=== PATIENT | female | born 1985 | race Hispanic/Latino ===

== ENCOUNTER 2017-12-01 17:29 | Emergency (ER) | payer OTHER ==
[2017-12-01] MEDS ORDERED: MIDAZOLAM HCL 2 MG/2 ML INJ ONE ×2 (18:11)
[2017-12-01] MEDS ORDERED: FENTANYL CITR 100 MCG/2 ML ONE (18:22)
--- NOTE | 2017-12-01 18:43 | EDPHYS ---
Physician Documentation [facility] Name: November Arnulfo Age: 32 yrs Sex: Female : 1985 Arrival Date: 12/01/2017 Time: 17:39 Bed 23 Private MD: ED Physician Joseph Sotelo HPI: 12/01 18:32 This 32 yrs old Female presents to ER via Unassigned with complaints of jaw ma2 problem, Anxiety. 18:32 The patient or guardian reports had a seizure and here with bilateral jaw dislocation . ma2 Onset: The symptoms/episode began/occurred gradually, 1 hour(s) ago. Associated signs and symptoms: Pertinent negatives: dazed, double vision, headache. Severity of symptoms: At their worst the symptoms were severe, in the emergency department the symptoms are unchanged. The patient has experienced similar episodes in the past. 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 - Social history:: Patient/guardian denies using alcohol, street drugs, The patient lives with family, Smoking status: . - Family history:: not pertinent. ROS: 18:32 MS/extremity: Positive for jaw dislocation. ma2 18:32 Neuro: Positive for seizure activity. 18:32 All other systems are negative. Exam: 18:32 Constitutional: This is a well developed, well nourished patient who is awake, alert, ma2 and in no acute distress. Head/Face: Normocephalic, atraumatic. Eyes: Pupils equal round and reactive to light, extra-ocular motions intact. Lids and lashes normal. Conjunctiva and sclera are non-icteric and not injected. Cornea within normal limits. Periorbital areas with no swelling, redness, or edema. Chest/axilla: Normal chest wall appearance and motion. Nontender with no deformity. No lesions are appreciated. Cardiovascular: Regular rate and rhythm with a normal S1 and S2. No gallops, murmurs, or rubs. Normal PMI, no JVD. No pulse deficits. Respiratory: Lungs have equal breath sounds bilaterally, clear to auscultation and percussion. No rales, rhonchi or wheezes noted. No increased work of breathing, no retractions or nasal flaring. Back: No spinal tenderness. No costovertebral tenderness. Full range of motion. Neuro: Awake and alert, GCS 15, oriented to person, place, time, and situation. Cranial nerves II-XII grossly intact. Motor strength 5/5 in all extremities. Sensory grossly intact. Cerebellar exam normal. Normal gait. 18:32 ENT: bilat TMJ dislocation . 18:32 Psych: anxiety . 18:32 Skin: has abrasion of right chin, no katie tenderness. ma2 Vital Signs: 17:45 BP 143 / 94; Pulse 76; Resp 23; Temp 97.8; Pulse Ox 100% on R/A; aj1 18:35 BP 127 / 85; Pulse 68; Resp 12; Pulse Ox 100% on 2 lpm NC; aj1 19:53 BP 133 / 75; Pulse 72; Resp 18; Pulse Ox 99% ; aj1 [place] Coma Score: 18:32 Eye Response: spontaneous(4). Verbal Response: oriented(5). Motor Response: obeys ma2 commands(6). Total: 15. 18:38 Eye Response: spontaneous(4). Verbal Response: oriented(5). Motor Response: obeys ma2 commands(6). Total: 15. Procedures: 18:32 Reduction: using traction, manipulation, Immobilized with layne wrap, Patient tolerated ma2 jaw dislocation. Moderate sedation: Pre-procedure assessment: Mallampati classification of tongue size: III - uvula can be visualized, but faucial pillars and soft palate are not appreciated, Monitoring during procedure: Medications employed: Fentanyl, Versed, Post-procedure assessment: the patient is moderately sedated, Respiratory status: even and unlabored, MDM: 17:51 Patient medically screened. ma2 18:38 Differential diagnosis: jaw dislocation, she states that she is out of her xanax and ma2 needs refill of her T3. Data reviewed: vital signs, nurses notes, EMS record, care home records. Counseling: I had a detailed discussion with the patient and/or guardian regarding: the historical points, exam findings, and any diagnostic results supporting the discharge/admit diagnosis, the presence of at least one elevated blood pressure reading (>120/80) during this emergency department visit, the need for outpatient follow up. Response to treatment: the patient's symptoms have mildly improved after treatment, the patient's symptoms have markedly improved after treatment. 18:38 Differential diagnosis: she was advised not to quit taking xanax suddenly, she takes it ma2 2 mg q8 for anxiety. Admission orders: after a detailed discussion of the patient's condition and case, the admit orders are written by me. Administered Medications: 17:50 CANCELLED (Physician Discretion): Versed 5 mg IVP once ma2 18:15 Drug: Versed 5 mg Route: IVP; Site: right antecubital; aj1 19:55 Follow up: Response: No adverse reaction aj1 18:20 Drug: Versed 5 mg Route: IVP; Site: right antecubital; aj1 19:55 Follow up: Response: No adverse reaction aj1 18:25 Drug: fentaNYL (PF) 50 mcg Route: IVP; Site: right antecubital; aj1 19:55 Follow up: Response: No adverse reaction [facility] 19:12 CANCELLED (pharmacy low on ketamine): Ketamine 50 mg IVP once aj1 Disposition: 12/01/17 18:43 Discharged to Home. Impression: Underdosing of benzodiazepines, Dislocation of jaw. - Condition is Stable. - Prescriptions for Tylenol- Codeine #3 300-30 mg Oral Tablet - take 2 tablet by ORAL route every 6 hours As needed; 30 tablet. Xanax 1 mg Oral Tablet - take 2 tablet by ORAL route every 8 hours As needed; 20 tablet. - Medication Reconciliation Form, Thank You Letter, Antibiotic Education, Prescription Opioid Use form. - Follow up: Private Physician; When: Tomorrow; Reason: Continuance of care. - Problem is new. - Symptoms are resolved. Signatures: Cristal Blum RN RN aj1 Joseph Sotelo MD MD ma2 Corrections: (The following items were deleted from the chart) 17:50 17:49 Versed 5 mg IVP once ordered. ma2 ma2 19:12 17:49 Ketamine 50 mg IVP once ordered. ma2 aj1
--- NOTE | 2017-12-01 19:56 | ER ---
Nurse's Notes [facility] Name: November Age: 32 yrs Sex: Female : 1985 Arrival Date: 12/01/2017 Time: 17:39 Bed 23 Private MD: Diagnosis: Underdosing of benzodiazepines;Dislocation of jaw Presentation: 12/01 17:39 Presenting complaint: Patient states: jaw stuck open after having a possible seizure. ss Transition of care: patient was not received from another setting of care. Onset of symptoms was December 01, 2017. Initial Sepsis Screen: Does the patient meet any 2 criteria? No. Patient's initial sepsis screen is negative. Does the patient have a suspected source of infection? No. Patient's initial sepsis screen is negative. Note Pt reports the last time she had a panic attack, something similar happened. Pt reports she is anxious now, and believes this is from anxiety. Care prior to arrival: None. 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 - Social history:: Patient/guardian denies using alcohol, street drugs, The patient lives with family, Smoking status: . - Family history:: not pertinent. Screenin:45 Abuse screen: Denies threats or abuse. Denies injuries from another. Nutritional aj1 screening: No deficits noted. Tuberculosis screening: No symptoms or risk factors identified. 19:54 Fall Risk None identified. aj1 Assessment: 17:45 General: Appears uncomfortable, Behavior is anxious, restless, uncooperative. Pain: aj1 Complains of pain in right jaw and left jaw Pain does not radiate. Pain currently is 10 out of 10 on a pain scale. Quality of pain is described as sharp, Pain began suddenly. Neuro: Level of Consciousness is awake, alert, obeys commands, Oriented to person, place, time, situation, Clinical Immunologist are equal bilaterally Moves all extremities. Full function Speech is normal, Facial symmetry appears normal. Cardiovascular: Patient's skin is warm and dry. Respiratory: Airway is patent Respiratory effort is even, unlabored, Respiratory pattern is regular, symmetrical. GI: No signs and/or symptoms were reported involving the gastrointestinal system. : No signs and/or symptoms were reported regarding the genitourinary system. EENT: No signs and/or symptoms were reported regarding the EENT system. Derm: Bruising that is on right caro. Musculoskeletal: jaw protruded forward. Patient's daughter states that she had a seizure and fell. 17:47 Reassessment: Dr. Sotelo at bedside to attempt to pull jaw back into place. Patient is aj1 anxious,restless, uncooperative with procedure. Order obtained for conscious sedation. Patient placed on monitoring tech, O2 2L, suction ready at bedside, crash cart available outside door. 17:50 Reassessment: Obtained consent for conscious sedation. aj1 18:15 Reassessment: Dr. Sotelo at bedside, beginning conscious sedation now, see flow sheet aj1 for more information. 18:35 Reassessment: Patient is awake and alert with family at the bedside. States that she aj1 had a seizure previously from withdrawing suddenly from benzos. Was instructed by her family doctor not to stop taking benzos suddenly but recently she didn't have enough money to fill her Rx so she has not been taking them. 19:53 Reassessment: Patient appears in no apparent distress at this time. No changes from aj1 previously documented assessment. Patient and/or family updated on plan of care and expected duration. Pain level reassessed. Patient is alert, oriented x 3, equal unlabored respirations, skin warm/dry/pink. Vital Signs: 17:45 BP 143 / 94; Pulse 76; Resp 23; Temp 97.8; Pulse Ox 100% on R/A; aj1 18:35 BP 127 / 85; Pulse 68; Resp 12; Pulse Ox 100% on 2 lpm NC; aj1 19:53 BP 133 / 75; Pulse 72; Resp 18; Pulse Ox 99% ; aj1 [place] Coma Score: 18:32 Eye Response: spontaneous(4). Verbal Response: oriented(5). Motor Response: obeys ma2 commands(6). Total: 15. 18:38 Eye Response: spontaneous(4). Verbal Response: oriented(5). Motor Response: obeys ma2 commands(6). Total: 15. ED Course: 17:39 Patient arrived in ED. ss 17:45 Patient has correct armband on for positive identification. Bed in low position. Call aj1 light in reach. Side rails up X 1. 17:45 Arm band placed on. aj1 17:45 No provider procedures requiring assistance completed. aj1 17:48 Joseph Sotelo MD is Attending Physician. ma2 18:46 Triage completed. ss 18:57 Cristal Blum, RN is Primary Nurse. aj1 19:54 IV discontinued, intact, bleeding controlled, No redness/swelling at site. Pressure aj1 dressing applied. Administered Medications: 17:50 CANCELLED (Physician Discretion): Versed 5 mg IVP once ma2 18:15 Drug: Versed 5 mg Route: IVP; Site: right antecubital; aj1 19:55 Follow up: Response: No adverse reaction aj1 18:20 Drug: Versed 5 mg Route: IVP; Site: right antecubital; aj1 19:55 Follow up: Response: No adverse reaction aj1 18:25 Drug: fentaNYL (PF) 50 mcg Route: IVP; Site: right antecubital; aj1 19:55 Follow up: Response: No adverse reaction aj1 19:12 CANCELLED (pharmacy low on ketamine): Ketamine 50 mg IVP once aj1 Outcome: 18:43 Discharge ordered by . ma2 19:55 Discharged to home ambulatory. aj1 19:55 Condition: good 19:55 Discharge instructions given to patient, Instructed on discharge instructions, follow up and referral plans. no drinking with medication, no driving heavy equipment, medication usage, Demonstrated understanding of instructions, follow-up care, medications, Prescriptions given X 2. 19:56 Patient left the ED. aj1 Signatures: Cristal Blum, RN SABRINA aj1 Sharona Parks RN RN Joseph Sotelo MD MD ma2
[2017-12-01 20:07] VITALS: TEMP 97.8
[2017-12-01 20:09] VITALS: BP 133/75; O2SAT 99
== END 2017-12-01 19:56 | disposition home or self-care (01) ==
LOC: ER 17:29
PROC: 0RSDXZZ Reposition Left Temporomandibular Joint, External Approach (ICD-10-PCS; principal; 2017-12-01)
DX: S03.00XA Dislocation of jaw, unspecified side, initial encounter (principal); X58.XXXA Exposure to other specified factors, initial encounter; Y92.9 Unspecified place or not applicable
CPT/HCPCS: 21480; 96374; 96375; 99284; J2250 ×2; J3010

== ENCOUNTER 2019-05-24 13:28 | Observation (INO) | payer OTHER ==
[2019-05-24] MEDS ORDERED: METHYLPREDNISOLONE 125 MG INJ ONE (14:01)
[2019-05-24] MEDS ORDERED: MEPERIDINE HCL 50 MG/ML ONE ×2 (14:02→16:14)
[2019-05-24] MEDS ORDERED: ONDANSETRON 4 MG/2 ML VIAL ONE (14:02)
[2019-05-24] MEDS ORDERED: NA CHLORIDE 0.9% 0 ML ONE (14:02)
[2019-05-24 14:20] LABS: Absolute Lymphocytes (CBC) 1.9 K/uL (0.7-4.9); Basophils % 0.8 % (0-1.3); Hematocrit 21.6 % (36.0-45.0); Lymphocytes % 25.6 % (15.3-44.8); MPV 9.1 fL (7.6-11.3); RBC Red Blood Cell Count 3.43 M/uL (3.86-4.86)
[2019-05-24 14:46] LABS: ALT/SGPT 14 U/L (12-78); AST/SGOT 9 U/L (15-37); Albumin 3.6 g/dL (3.4-5.0); Alkaline Phosphatase 74 U/L (45-117); BUN Blood Urea Nitrogen 10 mg/dL (7-18); Bicarbonate 25 mmol/L (21-32); Bilirubin Direct < 0.1 mg/dL (0-0.2); Bilirubin Total 0.2 mg/dL (0.2-1.0); Glucose Level 117 mg/dL (74-106); Lipase 108 U/L (73-393); Potassium 3.7 mmol/L (3.5-5.1); Protein, Total 7.6 g/dL (6.4-8.2); Sodium Level 141 mmol/L (136-145)
--- NOTE | 2019-05-24 15:02 | EDPHYS ---
Physician Documentation [facility] Name: Maribeth Arredondo Age: 33 yrs Sex: Female : 1985 Arrival Date: 05/24/2019 Time: 13:30 Bed 30 Private MD: ED Physician Bruno Bueno HPI: 05/24 13:53 This 33 yrs old Female presents to ER via Ambulatory with complaints of Rectal rn Bleeding, Dizziness, . 13:53 The patient presents to the emergency department with bleeding from the rectum/anus. rn Onset: The symptoms/episode began/occurred 2 week(s) ago. Modifying factors: The symptoms are alleviated by nothing, The symptoms are aggravated by bowel movement. The patient has experienced similar episodes in the past. Reports history of ulcerative colitis, reports 2 weeks of rectal bleeding with bowel movements, no fever, identical to previous UC flares, + nausea, denies trauma. Not on blood thinners. Feels weak and fatigue. Has required blood transfusion in past.. 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 - Social history:: Smoking status: Patient uses tobacco products, denies chronic smoking, but will smoke occasionally. - Ebola Screening: : No symptoms or risks identified at this time. - Family history:: not pertinent. - Hospitalizations: : No recent hospitalization is reported. ROS: 13:53 Constitutional: Negative for fever, chills, and weight loss, Eyes: Negative for injury, rn pain, redness, and discharge, Neck: Negative for injury, pain, and swelling, Cardiovascular: Negative for chest pain, palpitations, and edema, Respiratory: Negative for shortness of breath, cough, wheezing, and pleuritic chest pain, Abdomen/GI: Negative for vomiting, and constipation, MS/Extremity: Negative for injury and deformity, Skin: Negative for injury, rash, and discoloration, Neuro: Negative for numbness, tingling, and seizure. Exam: 13:53 Constitutional: This is a well developed, well nourished patient who is awake, alert rn Head/Face: Normocephalic, atraumatic. Eyes: Pupils equal round and reactive to light, pale conjunctivae ENT: dry MM Cardiovascular: Regular rate and rhythm. No pulse deficits. Respiratory: No increased work of breathing, no retractions or nasal flaring. Abdomen/GI: soft, + diffuse abd tenderness, no rebound MS/ Extremity: Pulses equal, no cyanosis. Neurovascular intact. Full, normal range of motion. Equal circumference. Neuro: Awake and alert, GCS 15 Vital Signs: 13:39 BP 134 / 84; Pulse 84; Resp 16; Temp 97.2; Pulse Ox 100% on R/A; Weight 72.57 kg; la1 Height 5 ft. 2 in. (157.48 cm); 14:30 BP 120 / 69; Pulse 80; Resp 16; Pulse Ox 96% on R/A; rv 15:00 BP 120 / 72; Pulse 81; Resp 16; Pulse Ox 96% on R/A; rv 13:39 Body Mass Index 29.26 (72.57 kg, 157.48 cm) la1 MDM: 13:43 Patient medically screened. rn 14:58 Differential diagnosis: ulcerative colitis flare, symptomatic anemia. Data reviewed: rn vital signs, nurses notes, lab test result(s), and as a result, I will admit patient. Counseling: I had a detailed discussion with the patient and/or guardian regarding: the historical points, exam findings, and any diagnostic results supporting the discharge/admit diagnosis, lab results, the need for further work-up and treatment in the hospital. Response to treatment: the patient's symptoms have mildly improved after treatment, and as a result, I will admit patient. Admission orders: after a detailed discussion of the patient's condition and case, the admit orders are written by me. ED course: Admitted to Dr. Landry for symptomatic anemia and intractable pain from UC flare.. 05/24 13:53 Order name: Basic Metabolic Panel; Complete Time: 14:58 rn 05/24 13:53 Order name: CBC with Diff; Complete Time: 16:52 rn 05/24 13:53 Order name: Hepatic Function; Complete Time: 14:58 rn 05/24 13:53 Order name: Lipase; Complete Time: 14:58 rn 05/24 14:39 Order name: Type And Screen rn 05/24 15:38 Order name: CBC Smear Scan; Complete Time: 16:52 EDMS 05/24 15:39 Order name: Procalcitonin EDIA 05/24 15:40 Order name: Ferritin EDMS 05/24 15:40 Order name: Transferrin Sat/Iron Binding EDMS 05/24 15:40 Order name: Abdomen 1 View (KUB); Complete Time: 16:52 EDMS 05/24 13:53 Order name: IV Saline Lock; Complete Time: 14:09 rn 05/24 13:53 Order name: Labs collected and sent; Complete Time: 14:09 rn Administered Medications: 14:08 Drug: NS 0.9% 1000 ml Route: IV; Rate: 1000 ml; Site: right antecubital; rv 14:59 Follow up: IV Status: Completed infusion rv 14:08 Drug: Demerol 50 mg {Note: rass 0.} Route: IVP; Site: right antecubital; rv 14:59 Follow up: Response: Pain is decreased rv 14:59 Follow up: Response: RASS: Alert and Calm (0) rv 14:08 Drug: SOLU-Medrol 125 mg Route: IVP; Site: right antecubital; rv 14:59 Follow up: Response: No adverse reaction rv 14:08 Drug: Zofran 4 mg Route: IVP; Site: right antecubital; rv 14:59 Follow up: Response: No adverse reaction rv 16:19 Drug: Demerol 50 mg {Note: rass 0.} Route: IVP; Site: right antecubital; rv 17:00 Follow up: Response: RASS: Alert and Calm (0) rv Disposition: 05/24/19 15:01 Hospitalization ordered by Lennie Landry for Inpatient Admission. Preliminary diagnosis are Other ulcerative colitis with complications, Anemia, unspecified. - Bed requested for Telemetry/MedSurg (Inpatient). - Status is Inpatient Admission. rv - Condition is Stable. - Problem is new. - Symptoms have improved. UTI on Admission? No Signatures: Dispatcher [employer] EDIA Chery Banks Roman, MD MD rn Attema, Lee RN SABRINA la1 Henrry Garcia RN RN rv Corrections: (The following items were deleted from the chart) 15:52 15:01 Hospitalization Ordered by Lennie Landry MD for Inpatient Admission. Preliminary bd diagnosis is Other ulcerative colitis with complications; Anemia, unspecified. Bed requested for Telemetry/MedSurg (Inpatient). Status is Inpatient Admission. Condition is Stable. Problem is new. Symptoms have improved. UTI on Admission? No. rn 16:53 15:52 05/24/2019 15:01 Hospitalization Ordered by Lennie Landry MD for Inpatient rv Admission. Preliminary diagnosis is Other ulcerative colitis with complications; Anemia, unspecified. Bed requested for Telemetry/MedSurg (Inpatient). Status is Inpatient Admission. Condition is Stable. Problem is new. Symptoms have improved. UTI on Admission? No. bd
--- NOTE | 2019-05-24 15:02 | ER ---
Nurse's Notes [facility] Name: Maribeth Arredondo Age: 33 yrs Sex: Female : 1985 Arrival Date: 05/24/2019 Time: 13:30 Bed 30 Private MD: Diagnosis: Other ulcerative colitis with complications;Anemia, unspecified Presentation: 05/24 13:40 Presenting complaint: Patient states: I have been having blood in my stool, hx if UC, la1 have not had flare in a long time. Transition of care: patient was not received from another setting of care. Onset of symptoms was May 24, 2019. Risk Assessment: Do you want to hurt yourself or someone else? Patient reports no desire to harm self or others. Initial Sepsis Screen: Does the patient meet any 2 criteria? No. Patient's initial sepsis screen is negative. Does the patient have a suspected source of infection? No. Patient's initial sepsis screen is negative. Care prior to arrival: None. 13:40 Method Of Arrival: Ambulatory la1 13:40 Acuity: SINGH 3 la1 Triage Assessment: 16:52 Headache History: Denies prior headaches. General: Appears in no apparent distress. rv uncomfortable, Behavior is calm, cooperative. Pain: Pain began suddenly, Also complains of no other associated symptoms. Pain: Complains of pain in abdomen. 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 - Social history:: Smoking status: Patient uses tobacco products, denies chronic smoking, but will smoke occasionally. - Ebola Screening: : No symptoms or risks identified at this time. - Family history:: not pertinent. - Hospitalizations: : No recent hospitalization is reported. Screenin:19 Abuse screen: Denies threats or abuse. Denies injuries from another. Nutritional rv screening: No deficits noted. Tuberculosis screening: No symptoms or risk factors identified. Fall Risk None identified. Assessment: 14:17 General: Appears in no apparent distress. uncomfortable, Behavior is calm, cooperative. rv Pain: Complains of pain in abdomen Pain currently is 10 out of 10 on a pain scale. Quality of pain is described as crampy, sharp, Is intermittent. Neuro: Level of Consciousness is awake, alert, obeys commands, Oriented to person, place, time, situation. Cardiovascular: Patient's skin is warm and dry. Respiratory: Airway is patent. GI: Reports lower abdominal pain, rectal bleeding. : No signs and/or symptoms were reported regarding the genitourinary system. EENT: No signs and/or symptoms were reported regarding the EENT system. Derm: Skin is pale. Musculoskeletal: No signs and/or symptoms reported regarding the musculoskeletal system. 15:05 Reassessment: Patient appears in no apparent distress at this time. Patient and/or rv family updated on plan of care and expected duration. Pain level reassessed. Patient is alert, oriented x 3, equal unlabored respirations, skin warm/dry/pink. patient updated on the plan of care and results of the blood works. Patient states feeling better. Vital Signs: 13:39 BP 134 / 84; Pulse 84; Resp 16; Temp 97.2; Pulse Ox 100% on R/A; Weight 72.57 kg; la1 Height 5 ft. 2 in. (157.48 cm); 14:30 BP 120 / 69; Pulse 80; Resp 16; Pulse Ox 96% on R/A; rv 15:00 BP 120 / 72; Pulse 81; Resp 16; Pulse Ox 96% on R/A; rv 13:39 Body Mass Index 29.26 (72.57 kg, 157.48 cm) la1 ED Course: 13:30 Patient arrived in ED. mr 13:39 Arm band placed on left wrist. la1 13:40 Triage completed. la1 13:43 Bruno Bueno MD is Attending Physician. rn 13:50 Henrry Garcia RN is Primary Nurse. rv 13:55 Inserted saline lock: 20 gauge in right antecubital area, using aseptic technique. rv Blood collected. 14:19 Patient has correct armband on for positive identification. Bed in low position. Call rv light in reach. Side rails up X 1. Adult w/ patient. Pulse ox on. NIBP on. 15:00 Lennie Landry MD is Hospitalizing Provider. rn 16:51 No provider procedures requiring assistance completed. Patient admitted, IV remains in rv place. Administered Medications: 14:08 Drug: NS 0.9% 1000 ml Route: IV; Rate: 1000 ml; Site: right antecubital; rv 14:59 Follow up: IV Status: Completed infusion rv 14:08 Drug: Demerol 50 mg {Note: rass 0.} Route: IVP; Site: right antecubital; rv 14:59 Follow up: Response: Pain is decreased rv 14:59 Follow up: Response: RASS: Alert and Calm (0) rv 14:08 Drug: SOLU-Medrol 125 mg Route: IVP; Site: right antecubital; rv 14:59 Follow up: Response: No adverse reaction rv 14:08 Drug: Zofran 4 mg Route: IVP; Site: right antecubital; rv 14:59 Follow up: Response: No adverse reaction rv 16:19 Drug: Demerol 50 mg {Note: rass 0.} Route: IVP; Site: right antecubital; rv 17:00 Follow up: Response: RASS: Alert and Calm (0) rv Outcome: 15:01 Decision to Hospitalize by Provider. rn 16:52 Admitted to Med/surg accompanied by tech, via stretcher, room 212, with chart, Report rv called to rocco agustin \E\ 16:52 Condition: good 16:52 Instructed on the need for admit. 16:53 Patient left the ED. rv Signatures: Penelope Garduno Roman, MD MD rn Attema, Lee, RN RN la1 Henrry Garcia RN RN rv
[2019-05-24 15:37] LABS: Blood Morphology Comment NOTED (NOT SEEN); Hypochromasia 2+; Platelet Estimate ADEQ; Urine White Blood Cell Casts OK
--- NOTE | 2019-05-24 15:47 | P.HP ---
Certification for Inpatient Patient admitted to: Observation With expected LOS: <2 Midnights Patient will require the following post-hospital care: None Practitioner: I am a practitioner with admitting privileges, knowledge of patient current condition, hospital course, and medical plan of care. Services: Services provided to patient in accordance with Admission requirements found in Title 42 Section 412.3 of the Code of Federal Regulations Patient History Date of Service: 05/24/19 Primary Care Provider: Dr. Stevenson([place]) Reason for admission: Abdominal pain History of Present Illness: 33-year-old female presented to the emergency room with abdominal pain. Patient reports history of ulcerative colitis, GERD, anxiety and posttraumatic stress disorder. Patient reports diffuse abdominal pain over the last 2 weeks. She also has reported some rectal bleeding. Patient has seen multiple GI specialists in the area. She has had multiple colonoscopies and EGDs. Previous record reviewed. Patient reported some nausea and vomiting along with abdominal pain. She was not able to the eat this morning. She came to the ER for further evaluation. In the ER patient evaluated. White count 7.3, hemoglobin 6.7. Previous hemoglobin 2017 was 10.7. Platelet count of 309. Sodium 141, potassium 3.7, BUN of 10, creatinine 0.9 with a GFR 65. Glucose 117. Lipase unremarkable. Patient was admitted for further evaluation and treatment. When I saw the patient ER, she appeared comfortable. 2 new at appear septic. Patient reports a history of seen multiple GI specialists in the area. She reports a history of ulcerative colitis. Prior history in the hospital indicates irritable bowel syndrome. There is also history of drug-seeking behavior. Allergies No Known Drug Allergies Allergy (Verified 10/16/15 04:47) Unknown No Known Allergies Allergy (Uncoded 11/26/15 15:19) Unknown Home medications list reviewed: Yes Home Medications: Acetaminophen with Codeine [Tylenol with Codeine #4 Tablet] 1 tab PO Q6H PRN Alprazolam [Xanax] 2 mg PO TID 08/29/16 Docusate [Colace Cap*] 50 mg PO DAILY 08/29/16 Esomeprazole Mag Trihydrate [Nexium] 20 mg PO 0600 08/29/16 Ondansetron [Zofran (Odt)*] 4 mg PO PRN PRN 08/29/16 Promethazine HCl 50 mg PO BEDTIME 08/29/16 - Past Medical/Surgical History Diabetic: No -: Anxiety -: Anemia, iron deficiency -: GERD with hiatal hernia -: History of GI bleed -: Ovarian cyst -: Obesity -: Hemorrhoids -: Colitis -: Chronic pain syndrome -: x5 -: Tubal ligation Psychosocial/ Personal History: She is single, has 5 children. 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 - Family History Family History: Reviewed- Non-Contributory - Family History Mother -: Heart disease, Hypertension, GI disease Father -: Heart disease, Hypertension, Diabetes - Social History Smoking Status: Never smoker Alcohol use: No CD- Drugs: No Caffeine use: Yes Place of Residence: Home Review of Systems General: Weakness, As per HPI Eyes: Unremarkable ENT: Unremarkable Respiratory: Unremarkable Cardiovascular: Unremarkable Gastrointestinal: Nausea, Vomiting, Abdominal Pain, Hematochezia, As per HPI Genitourinary: Unremarkable Musculoskeletal: Unremarkable Integumentary: Unremarkable Neurological: Unremarkable Lymphatics: Unremarkable Physical Examination - Physical Exam General: Alert, In no apparent distress, Oriented x3, Cooperative HEENT: Atraumatic, Normocephalic, PERRLA, Mucous membr. moist/pink Neck: Supple, No Thyromegaly Respiratory: Clear to auscultation bilaterally, Normal air movement Cardiovascular: Normal pulses, Regular rate/rhythm Gastrointestinal: Normal bowel sounds, Soft and benign, Non-distended, No masses , No rebound, No guarding, Tenderness (Pain seems to be at a proportion. patient very anxious upon examination.) Musculoskeletal: No erythema, No tenderness, No warmth Integumentary: No tenderness/swelling, No erythema, No warmth, No cyanosis Neurological: Normal speech, Normal strength at 5/5 x4 extr, Normal tone, Normal affect - Studies Laboratory Data (last 24 hrs) 05/24/19 13:55: WBC 7.3, Hgb 6.7 L*, Hct 21.6 L, Plt Count 309 05/24/19 13:55: Sodium 141, Potassium 3.7, BUN 10, Creatinine 0.98, Glucose 117 H, Total Bilirubin 0.2, AST 9 L, ALT 14, Alkaline Phosphatase 74, Lipase 108 Assessment and Plan - Plan Impression: Diffuse abdominal pain, nausea and vomiting with rectal bleeding suspect ulcer colitis versus irritable bowel syndrome Acute on chronic anemia with history of iron deficiency GERD Anxiety disorder PTSD Chronic pain Plan: Diffuse abdominal pain, nausea and vomiting with rectal bleeding suspect ulcer colitis versus irritable bowel syndrome: Patient will be admitted for further evaluation and treatment. Patient received IV Solu-Medrol in the emergency room. Will continue with this. Will start with a full liquid diet and advance as tolerated. Patient has seen multiple GI specialists in the area. She has had multiple EGDs and colonoscopies. Patient previously seen in 2017 at our facility. At that time she left against medical advice due to drug-seeking behavior. Will need to monitor her pain control. Pain seems to be out of proportion on examination. Will check KUB. Patient with acute on chronic anemia. Patient will get transfusion of 2 units of blood. Will provide IV fluids. Will provide medication for mild, moderate and severe pain. Will monitor closely. Recheck lab tomorrow. Anticipate discharge likely tomorrow with clinical improvement. Will consult GI for further recommendation. Acute on chronic anemia with history of iron deficiency: Patient will get 2 units of packed red blood cells. Patient not compliant with her iron medication. Will check iron studies. Patient will likely require iron supplementation at discharge. GERD: Will provide medication. Anxiety disorder: Will provide medication for anxiety. Will monitor closely. We need to restart home medication. PTSD: Continue as above. Will check to see if the patient is taking oral medication. Chronic pain: Will provide medication for pain. Previous hospitalization in 2017, patient left AMA due to drug-seeking behavior. Will need to monitor this closely. Will decrease IV pain medication. Discharge Plan: Home Plan to discharge in: 24 Hours - Advance Directives Does patient have a Living Will: No Does patient have a Durable POA for Healthcare: No - Code Status/Comfort Care Code Status Assessed: Yes (Patient is full code) Time Spent Managing Pts Care (In Minutes): 55
--- NOTE | 2019-05-24 16:38 | RAD REPORT ---
EXAM DESCRIPTION: RAD - Abdomen 1 View (KUB) - 05/24/2019 4:31 pm CLINICAL HISTORY: Abdomen pain. FINDINGS: The bowel gas pattern is unremarkable. A moderate amount of stool is present throughout th e colon No significant abnormal calcification is displayed
[2019-05-24] MEDS ORDERED: HYDROCODONE/APAP 7.5/325 MG TAB PO PRN (16:48)
[2019-05-24] MEDS ORDERED: ACETAMINOPHEN 500 MG TAB PO PRN (16:48)
[2019-05-24] MEDS ORDERED: ALPRAZOLAM 0.25 MG TABLET PO PRN (16:48)
[2019-05-24] MEDS ORDERED: TRAMADOL HCL 50 MG TAB PO PRN (16:48)
[2019-05-24] MEDS ORDERED: NA CHLORIDE 0.9% 1,000 ML ONE (16:57)
[2019-05-24 17:11] VITALS: BMI 37.5
[2019-05-24] MEDS: NA CHLORIDE 0.9% 1,000 ML IV SCH (17:43)
[2019-05-24 18:12] LABS: Ferritin 1.3 ng/mL (8-388)
[2019-05-24 18:18] LABS: Urine Appearance CLOUDY; Urine Bilirubin NEGATIVE (NEG); Urine Blood NEGATIVE (NEG); Urine Color YELLOW; Urine Glucose NEGATIVE (NEG); Urine Protein NEGATIVE (NEG); Urine Urobilinogen 0.2 mg/dL (0.2-1.0)
[2019-05-24 18:23] LABS: Urine Microscopic Reflex ORDER UMIC
[2019-05-24 18:29] LABS: Thyroid Stimulating Hormone 0.594 uIU/mL (0.360-3.740)
[2019-05-24 18:37] LABS: Urine Bacteria LOADED /HPF (<20); Urine Culture Reflex Order REFLEXED; Urine RBC <5 /HPF (NONE SEEN)
[2019-05-24] MEDS: MORPHINE 2 MG/ML SYR IV PRN ×2 (18:37→23:54)
[2019-05-24] MEDS ORDERED: FUROSEMIDE 20 MG/ 2ML VIAL IV ONE ×2 (19:00→23:10)
[2019-05-24] MEDS ORDERED: NA CHLORIDE 0.9% 250 ML ONE ×2 (19:05→23:07)
[2019-05-24] MEDS: ALPRAZOLAM 1 MG TABLET PO PRN (21:57)
[2019-05-24] MEDS: METHYLPREDNISOLONE 40 MG INJ IV SCH (21:58)
[2019-05-24] MEDS: CIPROFLOXACIN 400mg IV 400 MG/200 ML BAG IV SCH (22:03)
[2019-05-24] MEDS ORDERED: PROMETHAZINE 25 MG TABLET PO SCH (23:49)
[2019-05-25] MEDS: METRONIDAZOLE 500mg IVPB 500 MG/100 ML BAG IV SCH ×2 (01:52→08:20)
[2019-05-25] MEDS: NA CHLORIDE 0.9% 1,000 ML IV SCH (02:48)
[2019-05-25 03:58] LABS: Absolute Lymphocytes (CBC) 0.8 K/uL (0.7-4.9); Basophils % 0.3 % (0-1.3); Hematocrit 29.5 % (36.0-45.0); Lymphocytes % 7.1 % (15.3-44.8); MPV 9.8 fL (7.6-11.3); RBC Red Blood Cell Count 4.18 M/uL (3.86-4.86)
[2019-05-25 04:06] LABS: Magnesium 2.1 mg/dL (1.8-2.4); Potassium 3.8 mmol/L (3.5-5.1)
[2019-05-25 04:36] LABS: Anisocytosis 3+; Blood Morphology Comment NOTED (NOT SEEN); Hypochromasia 3+; Platelet Estimate ADEQ
[2019-05-25] MEDS ORDERED: POTASSIUM CL SA 10 MEQ TAB PO ONE (06:00)
[2019-05-25] MEDS: ONDANSETRON 4 MG/2 ML VIAL IV PRN ×3 (06:28→12:18)
[2019-05-25] MEDS: MORPHINE 2 MG/ML SYR IV PRN (06:30)
[2019-05-25] MEDS ORDERED: PANTOPRAZOLE 40MG TABLET PO SCH (07:30)
[2019-05-25] MEDS: CIPROFLOXACIN 400mg IV 400 MG/200 ML BAG IV SCH (08:19)
[2019-05-25] MEDS: METHYLPREDNISOLONE 40 MG INJ IV SCH (08:20)
[2019-05-25] MEDS: ALPRAZOLAM 1 MG TABLET PO PRN (08:21)
--- NOTE | 2019-05-25 08:23 | P.PN ---
Subjective Date of Service: 05/25/19 Primary Care Provider: Dr. Stevenson([place]) Chief Complaint: Abdominal pain Subjective: Improving (No significant abdominal pain noted this morning. Patient tolerating diet.) Physical Examination - Vital Signs Temperature: 97.6 F Blood Pressure: 109/52 Pulse: 74 Respirations: 18 Pulse Ox (%): 98 - Physical Exam General: Alert, In no apparent distress, Oriented x3, Cooperative HEENT: Atraumatic Neck: Supple Respiratory: Clear to auscultation bilaterally, Normal air movement Cardiovascular: Normal pulses, Regular rate/rhythm Gastrointestinal: Normal bowel sounds, Soft and benign, Non-distended, Tenderness (Abdominal pain improved. Pain seems to be out of proportion.) Musculoskeletal: No erythema, No tenderness, No warmth Integumentary: No tenderness/swelling, No erythema, No warmth, No cyanosis Neurological: Normal speech, Normal strength at 5/5 x4 extr, Normal tone, Normal affect - Studies Laboratory Data (last 24 hrs) 05/24/19 13:55: WBC 7.3, Hgb 6.7 L*, Hct 21.6 L, Plt Count 309 05/24/19 13:55: Sodium 141, Potassium 3.7, BUN 10, Creatinine 0.98, Glucose 117 H, Total Bilirubin 0.2, AST 9 L, ALT 14, Alkaline Phosphatase 74, Lipase 108 Medications List Reviewed: Yes Assessment & Plan Discharge Plan: Home Plan to discharge in: 24 Hours Physician Review Additional Text: Impression: Diffuse abdominal pain, nausea and vomiting with rectal bleeding suspect ulcerative colitis versus irritable bowel syndrome Acute on chronic anemia with history of iron deficiency GERD Anxiety disorder PTSD Chronic pain Plan: Diffuse abdominal pain, nausea and vomiting with rectal bleeding suspect ulcerative colitis versus irritable bowel syndrome: Patient has improved. Continue to advance diet. GI added Flagyl and Cipro to cover for colitis. Possible discharge later today if improved. May require a colonoscopy as an outpatient. Patient has had multiple EGDs and colonoscopies in the past. Patient received 2 units of blood last night with improvement. Will continue to reassess. Encourage ambulation. Will discuss further with GI. Acute on chronic anemia with iron/B12 deficiency: Patient received 2 units of packed red blood cells. Hemoglobin stable. Patient will require iron and B12 supplementation at discharge. Compliance addressed in detail. GERD: Will continue with medication. Anxiety disorder: Will provide medication for anxiety. Will monitor closely. Will need to restart home medication. PTSD: Continue as above. Restart home medication. Chronic pain: Will provide medication for pain. Previous hospitalization in 2017, patient left AMA due to drug-seeking behavior. Will need to monitor this closely. Will decrease IV pain medication. Time Spent Managing Pts Care (In Minutes): 55
[2019-05-25] MEDS ORDERED: CYANOCOBALAMIN 1,000 MCG TAB PO SCH (09:00)
[2019-05-25] MEDS ORDERED: FERROUS SULFATE 325 MG TAB PO SCH (09:00)
[2019-05-25] MEDS ORDERED: DOCUSATE NA 100 MG CAP PO SCH (09:00)
[2019-05-25 09:59] VITALS: O2SAT 93
--- NOTE | 2019-05-25 11:04 | P.DS ---
Admission Date: 05/24/19 Discharge Date: 05/25/19 Primary Care Provider: Dr. Stevenson([place]) Disposition: ROUTINE DISCHARGE Discharge Condition: GOOD Reason for Admission: Abdominal pain Consultations: GI-Dr. Velázquez Procedures: KUB: FINDINGS: The bowel gas pattern is unremarkable. A moderate amount of stool is present throughout the colon No significant abnormal calcification is displayed Medical Problem List: Diffuse abdominal pain, nausea and vomiting with rectal bleeding suspect colitis versus irritable bowel syndrome Acute on chronic anemia with history of iron deficiency Possible UTI GERD Anxiety disorder PTSD Chronic pain Brief History of Present Illness: 33-year-old female presented to the emergency room with abdominal pain. Patient reports history of ulcerative colitis, GERD, anxiety and posttraumatic stress disorder. Patient reports diffuse abdominal pain over the last 2 weeks. She also has reported some rectal bleeding. Patient has seen multiple GI specialists in the area. She has had multiple colonoscopies and EGDs. Previous record reviewed. Patient reported some nausea and vomiting along with abdominal pain. She was not able to the eat this morning. She came to the ER for further evaluation. In the ER patient evaluated. White count 7.3, hemoglobin 6.7. Previous hemoglobin 2017 was 10.7. Platelet count of 309. Sodium 141, potassium 3.7, BUN of 10, creatinine 0.9 with a GFR 65. Glucose 117. Lipase unremarkable. Patient was admitted for further evaluation and treatment. When I saw the patient ER, she appeared comfortable. Patient reports a history of seen multiple GI specialists in the area. She reports a history of ulcerative colitis. Prior history in the hospital indicates irritable bowel syndrome. Hospital Course: Patient presented with diffuse abdominal pain, nausea and vomiting for several weeks. Patient also had reported some rectal bleeding. Patient reports history of ulcerative colitis and irritable bowel syndrome. Patient was evaluated in the emergency room. Pro calcitonin negative. White count within normal range. Patient was admitted for further evaluation. GI was consulted. GI suspects colitis. Cipro and Flagyl was initiated. Patient has had multiple EGDs and colonoscopies in the past. Her diet was advanced. Patient also found to be anemic. Patient with chronic anemia with iron and B12 deficiency. Patient was given 2 units of packed red blood cells as her hemoglobin was initially 6.7. Prior hemoglobin above 9.0. After transfusion hemoglobin improved to 9.0. Her diet was advanced. At discharge patient without significant abdominal pain, nausea or vomiting. At discharge patient will continue with Cipro 500 mg 1 pill twice daily and Flagyl 500 mg 3 times a day for 10 days. Patient will continue with a GI soft diet. Patient will be provided lactulose and stool softener. Recommend follow up with GI in 1-2 weeks to follow up this hospitalization. Patient may require further evaluation in the near future. As stated above. Patient with acute on chronic anemia. Patient with history of iron and B12 deficiency. Patient was given 2 units of packed red blood cells. Hemoglobin improved from 6.7 to 9.0. At discharge she will continue with iron supplementation twice daily and B12 supplementation once daily. Recommend to recheck lab-CBC in 2-4 weeks to monitor her progress. Compliance with medication addressed in detail. Patient may also have underlying UTI. Urine culture pending. White count within normal range. Pro calcitonin negative. Patient will continue with above antibiotic therapy as stated above. UTI prevention will be provided. Patient with history of GERD. At discharge she will continue with Nexium 20 mg daily. Recommend follow up with GI to further evaluate. Patient with history of anxiety disorder and PTSD. Patient will continue with her current regimen. Recommend follow up with psychiatry to further evaluate and monitor. Patient with history of chronic pain. Patient may continue with her current medication. Recommend follow up with pain management to further evaluate and treat. Vital Signs/Physical Exam: Temp Pulse Resp BP Pulse Ox 97.6 F 74 18 109/52 L 98 05/25/19 08:23 05/25/19 08:23 05/25/19 08:23 05/25/19 08:23 05/25/19 08:23 General: Alert, In no apparent distress, Oriented x3, Cooperative HEENT: Atraumatic Neck: Supple Respiratory: Clear to auscultation bilaterally, Normal air movement Cardiovascular: Normal pulses, Regular rate/rhythm Gastrointestinal: Normal bowel sounds, Soft and benign, Non-distended, No tenderness, No masses, No rebound, No guarding Musculoskeletal: No erythema, No tenderness, No warmth Integumentary: No tenderness/swelling, No erythema, No warmth, No cyanosis Neurological: Normal speech, Normal strength at 5/5 x4 extr, Normal tone, Normal affect Laboratory Data at Discharge: WBC 11.8 K/uL (4.3-10.9) H D 05/25/19 02:55 Hgb 9.0 g/dL (12.0-15.0) L 05/25/19 02:55 Hct 29.5 % (36.0-45.0) L D 05/25/19 02:55 Plt Count 305 K/uL (152-406) 05/25/19 02:55 Sodium 137 mmol/L (136-145) 05/25/19 02:55 Potassium 3.8 mmol/L (3.5-5.1) 05/25/19 02:55 BUN 10 mg/dL (7-18) 05/25/19 02:55 Creatinine 1.08 mg/dL (0.55-1.3) 05/25/19 02:55 Glucose 139 mg/dL (74-106) H 05/25/19 02:55 Magnesium 2.1 mg/dL (1.8-2.4) 05/25/19 02:55 Total Bilirubin 0.2 mg/dL (0.2-1.0) 05/24/19 13:55 AST 9 U/L (15-37) L 05/24/19 13:55 ALT 14 U/L (12-78) 05/24/19 13:55 Alkaline Phosphatase 74 U/L (45-117) 05/24/19 13:55 Lipase 108 U/L (73-393) 05/24/19 13:55 Home Medications: Acetaminophen with Codeine [Tylenol with Codeine #4 Tablet] 1 tab PO Q6H PRN Alprazolam [Xanax] 2 mg PO BID 08/29/16 Esomeprazole Mag Trihydrate [Nexium] 20 mg PO 0600 08/29/16 Ciprofloxacin HCl [Cipro 500 MG Tablet] 500 mg PO BID #20 tab 05/25/19 Cyanocobalamin [Vitamin B-12*] 1,000 mcg PO DAILY #90 tab 05/25/19 Docusate [Colace Cap*] 100 mg PO DAILY #30 cap 05/25/19 Ferrous Sulfate [Ferrous Sulfate*] 325 mg PO BID #60 tab 05/25/19 Ondansetron [Zofran (Odt)*] 4 mg PO TID PRN #15 tab 05/25/19 metroNIDAZOLE [Flagyl] 500 mg PO Q8H #30 tablet 10/23/19 New Medications: Ciprofloxacin HCl [Cipro 500 MG Tablet] 500 mg PO BID #20 tab Cyanocobalamin [Vitamin B-12*] 1,000 mcg PO DAILY #90 tab Docusate [Colace Cap*] 100 mg PO DAILY #30 cap Ferrous Sulfate [Ferrous Sulfate*] 325 mg PO BID #60 tab metroNIDAZOLE [Flagyl] 500 mg PO Q8H #30 tablet Ondansetron [Zofran (Odt)*] 4 mg PO TID PRN #15 tab PRN Reason: Nausea Patient Discharge Instructions: 1. Recommend follow up with her PCP in 1 week to follow up hospitalization. 2. Patient presented with diffuse abdominal pain , nausea and vomiting for several weeks. Patient also had reported some rectal bleeding. Patient reports history of ulcerative colitis and irritable bowel syndrome. Patient was evaluated in the emergency room. Pro calcitonin negative. White count within normal range. Patient was admitted for further evaluation. GI was consulted. GI suspects colitis. Cipro and Flagyl was initiated. Patient has had multiple EGDs and colonoscopies in the past. Her diet was advanced. Patient also found to be anemic. Patient with chronic anemia with iron and B12 deficiency. Patient was given 2 units of packed red blood cells as her hemoglobin was initially 6.7. Prior hemoglobin above 9.0. After transfusion hemoglobin improved to 9.0. Her diet was advanced. At discharge patient without significant abdominal pain, nausea or vomiting. At discharge patient will continue with Cipro 500 mg 1 pill twice daily and Flagyl 500 mg 3 times a day for 10 days. Patient will continue with a GI soft diet. Patient will be provided lactulose and stool softener. Recommend follow up with GI in 1-2 weeks to follow up this hospitalization. Patient may require further evaluation in the near future. 3. As stated above. Patient with acute on chronic anemia. Patient with history of iron and B12 deficiency. Patient was given 2 units of packed red blood cells. Hemoglobin improved from 6.7 to 9.0. At discharge she will continue with iron supplementation twice daily and B12 supplementation once daily. Recommend to recheck lab-CBC in 2-4 weeks to monitor her progress. Compliance with medication addressed in detail. 4. Patient may also have underlying UTI. Urine culture pending. White count within normal range. Pro calcitonin negative. Patient will continue with above antibiotic therapy as stated above. UTI prevention will be provided. 5. Patient with history of GERD. At discharge she will continue with Nexium 20 mg daily. Recommend follow up with GI to further evaluate. 6. Patient with history of anxiety disorder and PTSD. Patient will continue with her current regimen. Recommend follow up with psychiatry to further evaluate and monitor. 7. Patient with history of chronic pain. Patient may continue with her current medication. Recommend follow up with pain management to further evaluate and treat. Diet: GI soft diet Activity: Ad jessica Time spent managing pt's care (in minutes): 55
[2019-05-25 12:51] VITALS: BP 98/51; TEMP 98.1
--- OUTSIDE RECORDS SUMMARY | 2019-06-12 06:35 | XMS REPORT | Summary of Care ---
:1985 Author Organization [facility] Address [address] [place] [id number] Care Team Providers Name Role Phone Zully Stevenson Primary Care Provider Reason for Visit Reason Comments Refill Request Encounter Details Date Type Department Care Team Description 04/18/2019 Refill [facility] Idris Rodriguez MD Refill Request - [address] [address] [place] [address] Allergies No Known Allergiesdocumented as of this encounter (statuses as of 04/20/2019) Medications Medication Sig Dispensed Refills Start Date End Date Status ALPRAZolam 2 mg tablet Take 2 mg by 0 Active mouth. docusate 100 mg Take 100 mg 0 Active capsule by mouth. fluticasone 50 INSTILL 1 2 11/03/2016 Active mcg/actuation nasal SPRAY IN EACH spray NOSTRIL TWICE A DAY as needed HYDROcodone-acetaminop TAKE 1 TABLET 0 11/18/2016 Active hen 10-325 mg tablet BY MOUTH 3 TIMES A DAY NEEDED FOR PAIN loratadine 10 mg Take 10 mg by 5 11/09/2016 Active tablet mouth as needed. LIALDA 1.2 gram EC TAKE 2 2 11/03/2016 Active tablet TABLETS BY MOUTH EVERY DAY acetaminophen-codeine Take 2 20 tablet 0 2018 Active 300-30 mg tablet tablets by mouth every 4 (four) hours as needed for Pain (scale 4-6) or Pain (scale 7-10). Lamotrigine 25 mg TbDL Take by 0 Active mouth 2 (two) times daily. ondansetron 4 mg Take 1 tablet 30 tablet 0 08/09/2018 Active disintegrating tablet by mouth every 8 (eight) hours as needed for Nausea and Vomiting (N/V). PANTOPRAZOLE 40 mg EC TAKE 1 TABLET 90 tablet 1 04/20/2019 Active tabletIndications: BY MOUTH Gastroesophageal DAILY reflux disease, esophagitis presence not specified pantoprazole 40 mg EC Take 1 tablet 30 tablet 5 09/08/2018 Discontinued tabletIndications: by mouth 9 Gastroesophageal daily. reflux disease, esophagitis presence not specified documented as of this encounter (statuses as of 04/20/2019) Active Problems Problem Noted Date Symptomatic anemia 07/14/2018 Chronic pain Overview: chronic abdominal pain, chronic left leg pain Anxiety Esophageal reflux HTN (hypertension) Ulcerative colitis Obesity documented as of this encounter (statuses as of 04/20/2019) Social History Tobacco Use Types Packs/Day Years Used Date Never Smoker Smokeless Tobacco: Never Used Alcohol Use Drinks/Week oz/Week Comments No Sex Assigned at Date Recorded Not on file Job Start Date Occupation Industry Not on file Not on file Not on file Travel History Travel Start Travel End No recent travel history available. documented as of this encounter Last Filed Vital Signs Not on filedocumented in this encounter Plan of Treatment Health Maintenance Due Date Last Done Comments VARICELLA VACCINES (1 of 2 - 13+ 1998 2-dose series) DTaP,Tdap,and Td Vaccines (1 - 2004 Tdap) PAP SMEAR 2006 INFLUENZA VACCINE (#1) 2019 PNEUMOCOCCAL 0-64 YEARS COMBINED Aged Out No longer eligible based on SERIES patient's age to complete this topic documented as of this encounter Results Not on filedocumented in this encounter Visit Diagnoses Diagnosis Gastroesophageal reflux disease, esophagitis presence not specified documented in this encounter Insurance Payer Benefit Plan Subscriber ID Effective Phone Address Type / Group Dates MEDICARE MEDICARE PART xxxxxxxxxxx 2017-[place] [phone] Medicare A & B [id number] [place] [id number] [facility] xxxxxxxxx 2017-[place] Medicaid HEALTHCARE COMM STAR PLUS nt PLAN - MANAGED MEDICAID [facility] MEDICAID OF xxxxxxxxx 2017-[place] [phone] Medicaid [place] nt [id number] [place] [address] documented as of this encounter
--- OUTSIDE RECORDS SUMMARY | 2019-06-12 06:35 | XMS REPORT ---
:1985 Author [facility] Address [address] [place] [address] Dr. Harvey [address] [place] [id number] Care Team Providers Name Role Phone Unavailable Unavailable Unavailable Problems This patient has no known problems. Allergies, Adverse Reactions, Alerts This patient has no known allergies or adverse reactions. Medications This patient has no known medications.
--- OUTSIDE RECORDS SUMMARY | 2019-06-12 06:35 | XMS REPORT | Encounter Summary ---
:1985 Author Reason for Visit Psychiatric Follow Up Instructions 1. Posttraumatic stress disorder Xanax 2 mg tablet 2. Generalized anxiety disorder 3. Mood disorder lamotrigine 25 mg tablet Discussion Note Advised to call if any problems or issues. Patient educational handouts: No information available. Plan of Care Patient Instructions Continue current treatment. RTC 2-months or sooner if necessary. Reminders Provider Appointments Est on or around [facility] 07/09/2019 Wil Phillip MD Lab None recorded. Referral None recorded. Procedures None recorded. Surgeries None recorded. Imaging None recorded. Medications Name Start Date dicyclomine 20 mg tablet Take 1 tablet 3 times a day by oral route as needed. docusate sodium 100 mg capsule Take 1 capsule every day by oral route as needed. esomeprazole magnesium 40 mg capsule,delayed release ferrous sulfate 325 mg (65 mg iron) tablet Take 1 tablet 3 times a day by oral route. fluticasone propionate 50mcg nasal spray lamotrigine 25 mg tablet TAKE 2 TABLETS BY MOUTH EVERY DAY IN THE MORNING Lialda 1.2 gram tablet,delayed release Take 2 tablets every day by oral route as directed. lisinopril 40 mg tablet Take 1 tablet every day by oral route. loratadine 10 mg tablet Take 1 tablet every day by oral route as needed. ondansetron 4 mg disintegrating tablet ondansetron HCl 8 mg tablet Take 1 tablet every 8 hours by oral route as directed. pantoprazole 20 mg tablet,delayed release Take 1 tablet every day by oral route. pantoprazole 40 mg tablet,delayed release Proctofoam HC 1 %-1 % Insert 1 application 3 times a day by rectal route as needed. tramadol 50 mg tablet trazodone 50 mg tablet TAKE 1 TABLET BY MOUTH EVERY DAY AT BEDTIME Tylenol-Codeine #3 300 mg-30 mg tablet Take 1 tablet every 6 hours by oral route as needed. Xanax 2 mg tablet Take 1 tablet twice a day by oral route as needed. Do NOT drive on this medication. Medications Administered None recorded. Vitals None recorded. Results Lab Results None recorded. Allergies Code Code System Name Reaction Severity Status Onset NKDA Problems Name Status Onset Date Source Essential Hypertension Active 05/04/2018 Ulcerative Colitis Active 05/04/2018 Fibromyalgia Active 05/04/2018 Panic Disorder Active 05/04/2018 Mood Disorder Active 05/24/2018 Generalized Anxiety Disorder Active 05/24/2018 Posttraumatic Stress Disorder Active 05/24/2018 Procedures Date Name Performed by 08/03/2016 Colonoscopy Information not available Delivery Information not available Vaccine List None recorded. Social History Tobacco Smoking Status Never Smoker Past Encounters 05/09/2019 Posttraumatic Stress Disorder; Generalized Anxiety Disorder; Mood Disorder Alber Phillip MD: [address], [facility], [place] [address], Ph. [phone] History of Present Illness Psych Medication Management Reported By: Patient HPI: Medications: taking medications as directed, no side effects from medication. General overall feeling: feeling as well as can be expected Psychiatric General Follow-Up Reported By: Patient HPI: Context: no relationship stress, financial difficulties Associated Symptoms: Mood: no sadness. Anxiety: generalized worry. Sleep: no insomnia. Appetite: no change Prior Treatment and Review:: Medication Compliance: greater than 90% Note: <p>Here for routine med. check. Reports doing okay. States the daughter's case is almost over and that is really stressing her out as she does not know the outcome. Compliant with meds. No AE. Sleep fair. Appetite okay. E/ C fair. Mood has been okay. No new health issues. Dealing with stress of court. Home life remains unchanged. Denies ETOH/drugs. No legal issues.</p> Review of Systems None recorded. Physical Exam Mental Status Exam Reported By: Patient Mental Status Exam: Appearance: well-groomed, clean, overweight. Behavior: eye contact, cooperative. Speech: clear. Perception: no hallucinations. Cognition: alert, oriented to situation, oriented to time, oriented to place, oriented to person, memory intact. Intelligence: average. Memory: remote, recent. Mood: euthymic. Affect: congruent to thought content. Insight: intact. Judgment: intact. Thought Processes: intact. Thought Content: unremarkable
== END 2019-05-25 13:21 | disposition home or self-care (01) ==
LOC: ER 13:28 → ERHOLD 15:30 → 2ND 16:45
PROVIDERS: ADMIT Family Medicine; ATTEND Family Medicine
DX: K62.5 Hemorrhage of anus and rectum (principal); R10.9 Unspecified abdominal pain; K21.9 Gastro-esophageal reflux disease without esophagitis; K51.90 Ulcerative colitis, unspecified, without complications; F41.9 Anxiety disorder, unspecified; F43.10 Post-traumatic stress disorder, unspecified; G89.29 Other chronic pain; E53.8 Deficiency of other specified B group vitamins
CPT/HCPCS: 96361; 36430 ×2; 87088; 85025 ×2; 87086; 80048 ×2; 36415; 86900; 83735; 86850; 86902; 86870; 86901; 80076; 84443; 87077; 87186; 84439; 82728; 82607; 83690; 83540; 84145; 86922 ×2; 84466; 74018; 96375; 96374; 99285; J1940; J2270 ×3; J2175 ×2; G0378 ×2; P9016 ×2; J7030 ×3; J2930; J2405 ×4; J2920 ×2; J0744 ×2; 81003; 81015; Q0169

== ENCOUNTER 2019-06-22 07:44 | Emergency (ER) | payer OTHER ==
--- OUTSIDE RECORDS SUMMARY | 2019-06-22 07:46 | XMS REPORT ---
:1985 [facility] [address] [place] [address] Dr. Harvey [address] [place] [id number] Care Team Providers Name Role Phone Unavailable Unavailable Unavailable Problems This patient has no known problems. Allergies, Adverse Reactions, Alerts This patient has no known allergies or adverse reactions. Medications This patient has no known medications.
[2019-06-22] MEDS ORDERED: METHYLPREDNISOLONE 125 MG INJ ONE ×2 (08:10→09:36)
[2019-06-22] MEDS ORDERED: MAGNE/ALUM HYDROXD 30 ML UCUP ONE (08:11)
[2019-06-22] MEDS ORDERED: ONDANSETRON 4 MG/2 ML VIAL ONE ×2 (08:11→10:31)
[2019-06-22] MEDS ORDERED: PANTOPRAZOLE 40 MG INJ ONE (08:11)
[2019-06-22] MEDS ORDERED: MORPHINE 4 MG/ML SYR ONE ×2 (08:11→10:31)
[2019-06-22] MEDS ORDERED: LIDOCAINE VISCOUS 2% SOLN 15 ML UDC ONE (08:12)
[2019-06-22] MEDS ORDERED: NA CHLORIDE 0.9% 1,000 ML ONE (08:12)
[2019-06-22 08:27] LABS: Absolute Lymphocytes (CBC) 1.3 K/uL (0.7-4.9); Hematocrit 28.3 % (36.0-45.0); Lymphocytes % 25.1 % (15.3-44.8); MPV 9.6 fL (7.6-11.3); RBC Red Blood Cell Count 4.12 M/uL (3.86-4.86)
[2019-06-22 08:47] LABS: ALT/SGPT 19 U/L (12-78); AST/SGOT 13 U/L (15-37); Albumin 3.8 g/dL (3.4-5.0); Alkaline Phosphatase 65 U/L (45-117); BUN Blood Urea Nitrogen 11 mg/dL (7-18); Bicarbonate 23 mmol/L (21-32); Bilirubin Direct < 0.1 mg/dL (0-0.2); Bilirubin Total 0.2 mg/dL (0.2-1.0); Glucose Level 100 mg/dL (74-106); Lipase 121 U/L (73-393); Potassium 3.9 mmol/L (3.5-5.1); Protein, Total 7.6 g/dL (6.4-8.2); Sodium Level 141 mmol/L (136-145)
[2019-06-22] MEDS ORDERED: IPRATROPIUM BROM 0.5MG/2.5ML ONE (09:36)
[2019-06-22] MEDS ORDERED: AZITHROMYCIN 250 MG TAB ONE (09:36)
[2019-06-22] MEDS ORDERED: ALBUTEROL 2.5 MG/3 ML NEB SOL ONE (09:36)
--- NOTE | 2019-06-22 10:30 | RAD REPORT ---
EXAM DESCRIPTION: CT - Abdomen Pelvis W Contrast - 06/22/2019 10:06 am CLINICAL HISTORY: Abdominal pain COMPARISON: 2017 TECHNIQUE: Computed axial tomography of the abdomen pelvis was obtained. 100 cc Isovue-300 was admin istered intravenously. Oral contrast was not requested which limits evaluation of bowel. All CT scans are performed using dose optimization technique as appropriate and may include automated exposure control or mA/KV adjustment according to patient size. FINDINGS: The liver, spleen, pancreas, adrenal and kidneys appear unremarkable. There is no evidence of diverticulitis. Normal appendix A small ventral hernia contains fat. There is an adjacent small periumbilical hernia containing fat 2.8 centimeter cyst abuts the cecum within the right upper pelvis. It is unchanged IMPRESSION: 2.8 centimeter cyst within the upper right pelvis unchanged from 2017. This may represen t a duplication or mesenteric cyst. Small umbilical and periumbilical hernias.
[2019-06-22 11:00] LABS: Urine Blood TRACE (NEG); Urine Glucose NEGATIVE (NEG); Urine Protein NEGATIVE (NEG); Urine Specific Gravity 1.015 (1.005-1.030); Urine pH 6.5 (5.0-7.0)
--- NOTE | 2019-06-22 11:28 | EDPHYS ---
Physician Documentation [facility] Name: Maribeth Arredondo Age: 33 yrs Sex: Female : 1985 Arrival Date: 06/22/2019 Time: 07:46 Bed 19 Private MD: ED Physician Joseph Sotelo HPI: 06/22 08:43 This 33 yrs old Female presents to ER via EMS with complaints of Abdominal ma2 Pain, Rectal Bleeding. 08:43 Onset: The symptoms/episode began/occurred gradually, 3 day(s) ago. Associate signs and ma2 symptoms: Pertinent positives: abdominal pain in the right upper quadrant, left upper quadrant, right lower quadrant and left lower quadrant, lower GI bleeding, Pertinent negatives: diarrhea, fever. The patient has experienced similar episodes in the past. 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 - Social history:: Smoking status: Patient uses tobacco products, denies chronic smoking, but will smoke occasionally. - Ebola Screening: : No symptoms or risks identified at this time. - Family history:: not pertinent. - Hospitalizations: : No recent hospitalization is reported. ROS: 08:43 Constitutional: Negative for fever, chills, and weight loss. ma2 08:43 All other systems are negative. Exam: 08:43 Constitutional: This is a well developed, well nourished patient who is awake, alert, ma2 and in no acute distress. Chest/axilla: Normal chest wall appearance and motion. Nontender with no deformity. No lesions are appreciated. Cardiovascular: Regular rate and rhythm with a normal S1 and S2. No gallops, murmurs, or rubs. Normal PMI, no JVD. No pulse deficits. Respiratory: Lungs have equal breath sounds bilaterally, clear to auscultation and percussion. No rales, rhonchi or wheezes noted. No increased work of breathing, no retractions or nasal flaring. Abdomen/GI: tender to palpation all over mostly lower abdomin, with normal bowel sounds. No distension or tympany. No guarding or rebound. No evidence of tenderness throughout. Skin: Warm, dry with normal turgor. Normal color with no rashes, no lesions, and no evidence of cellulitis. MS/ Extremity: Pulses equal, no cyanosis. Neurovascular intact. Full, normal range of motion. Neuro: Awake and alert, GCS 15, oriented to person, place, time, and situation. Cranial nerves II-XII grossly intact. Motor strength 5/5 in all extremities. Sensory grossly intact. Cerebellar exam normal. Normal gait. Vital Signs: 07:51 BP 156 / 98; Pulse 75; Resp 16; Temp 98.1; Pulse Ox 100% ; Weight 90.72 kg; Height 5 hb ft. 2 in. (157.48 cm); Pain 10/10; 09:00 BP 126 / 80; Pulse 78; Resp 15; Pulse Ox 100% on R/A; Pain 3/10; hb 10:37 BP 138 / 70; Pulse 73; Resp 15; Pulse Ox 100% on R/A; Pain 10/10; hb 07:51 Body Mass Index 36.58 (90.72 kg, 157.48 cm) hb MDM: 07:50 Patient medically screened. ma2 08:43 Differential diagnosis: ulcerative colitis flare, new onsit LLQ abd pain, never had it ma2 before, will re-scan her abd.. other dd includes diverticulitis gi bleed gastritis. Data reviewed: vital signs, nurses notes. Counseling: I had a detailed discussion with the patient and/or guardian regarding: the historical points, exam findings, and any diagnostic results supporting the discharge/admit diagnosis, the presence of at least one elevated blood pressure reading (>120/80) during this emergency department visit. 06/22 08:03 Order name: Basic Metabolic Panel; Complete Time: : ma2 06/22 08:03 Order name: CBC with Diff ma2 06/22 08:03 Order name: Creatinine for Radiology; Complete Time: : ma2 06/22 08:03 Order name: Hepatic Function; Complete Time: : ma2 06/22 08:03 Order name: Lipase; Complete Time: 09:28 ma2 06/22 08:03 Order name: Flu; Complete Time: 09:28 ma2 06/22 08:03 Order name: CT Abd/Pelvis - IV Contrast Only; Complete Time: 10:51 ma2 06/22 08:46 Order name: CBC Smear Scan EDOH 06/22 09:59 Order name: Urine Dipstick--Ancillary (enter results) bd 06/22 09:59 Order name: Urine --Ancillary (enter results) 06/22 08:03 Order name: IV Saline Lock; Complete Time: 08:24 ma2 06/22 08:03 Order name: Labs collected and sent; Complete Time: 08:23 ma2 06/22 08:03 Order name: Urine Dipstick-Ancillary (obtain specimen); Complete Time: 10:06 ma2 Administered Medications: 08:11 Drug: GI Cocktail without - (Maalox Suspension 30 ml, Lidocaine Liquid 2 % 15 hb ml) Route: PO; 09:00 Follow up: Response: No adverse reaction hb 09:00 Follow up: Response: No adverse reaction hb 08:22 Drug: NS 0.9% 1000 ml Route: IV; Rate: 1 bolus; Site: right wrist; hb 08:22 Drug: morphine 4 mg Route: IVP; Site: right wrist; hb 09:00 Follow up: Response: No adverse reaction hb 08:22 Drug: Zofran 4 mg Route: IVP; Site: right wrist; hb 09:00 Follow up: Response: No adverse reaction hb 08:22 Drug: Pantoprazole 40 mg Route: IVP; Site: right wrist; hb 09:00 Follow up: Response: No adverse reaction hb 08:22 Drug: MethylPrednisoLONE 125 mg Route: IVP; Site: right wrist; hb 09:00 Follow up: Response: No adverse reaction hb 10:36 Drug: morphine 4 mg Route: IVP; Site: right wrist; hb 10:36 Drug: Zofran 4 mg Route: IVP; Site: right wrist; hb Disposition: 06/22/19 11:27 Discharged to Home. Impression: Other ulcerative colitis. - Condition is Stable. - Discharge Instructions: Cough, Adult. - Prescriptions for Zofran 4 mg Oral Tablet - take 1 tablet by ORAL route every 12 hours As needed; 20 tablet. Zithromax Z- Jj 250 mg Oral Tablet - take 1 tablet by ORAL route as directed for 5 days Day 1 - take two (2) tablets one time. Day 2, 3, 4 , 5 take one (1) tablet once daily.; 6 tablet. Medrol (Jj) 4 mg Oral Tablets, Dose Pack - take 1 tablet by ORAL route as directed - follow package instructions; 1 packet. Mucinex 600 mg Oral tablet extended release 12hr - take 2 tablet by ORAL route every 12 hours; 20 tablet. Tylenol- Codeine #3 300-30 mg Oral Tablet - take 2 tablet by ORAL route every 6 hours As needed; 30 tablet. - Medication Reconciliation Form, Thank You Letter, Antibiotic Education, Prescription Opioid Use form. - Follow up: Private Physician; When: Tomorrow; Reason: Recheck today's complaints, Continuance of care. Signatures: Dispatcher [employer] Rubi Fisher RN RN Joseph Sotelo MD MD ma2 Corrections: (The following items were deleted from the chart) 11:48 11:27 06/22/2019 11:27 Discharged to Home. Impression: Other ulcerative colitis. hb Condition is Stable. Prescriptions for Zofran 4 mg Oral Tablet - take 1 tablet by ORAL route every 12 hours As needed; 20 tablet, Zithromax Z-Jj 250 mg Oral Tablet - take 1 tablet by ORAL route as directed for 5 days Day 1 - take two (2) tablets one time. Day 2, 3, 4 , 5 take one (1) tablet once daily.; 6 tablet, Medrol (Jj) 4 mg Oral Tablets, Dose Pack - take 1 tablet by ORAL route as directed - follow package instructions; 1 packet. and Forms are Medication Reconciliation Form, Thank You Letter, Antibiotic Education, Prescription Opioid Use. Follow up: Private Physician; When: Tomorrow; Reason: Recheck today's complaints, Continuance of care. ma2
--- NOTE | 2019-06-22 11:28 | ER ---
Nurse's Notes [facility] Name: Maribeth Arredondo Age: 33 yrs Sex: Female : 1985 Arrival Date: 06/22/2019 Time: 07:46 Bed 19 Private MD: Diagnosis: Other ulcerative colitis Presentation: 06/22 07:46 Presenting complaint: EMS states: Lower abdominal pain and dark tarry stools mixed with hb bright red blood > 1 month, RLQ pain has become severe over last few days. Pt reported she was seen in ED for ulcerative colitis one month ago, has not yet followed up with GI. BP 144/88, HR 81, SpO2 100% on RA. Transition of care: patient was not received from another setting of care. Onset of symptoms was June 22, 2019. Risk Assessment: Do you want to hurt yourself or someone else? Patient reports no desire to harm self or others. Initial Sepsis Screen: Does the patient meet any 2 criteria? No. Patient's initial sepsis screen is negative. Does the patient have a suspected source of infection? No. Patient's initial sepsis screen is negative. Care prior to arrival: None. 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 - Social history:: Smoking status: Patient uses tobacco products, denies chronic smoking, but will smoke occasionally. - Ebola Screening: : No symptoms or risks identified at this time. - Family history:: not pertinent. - Hospitalizations: : No recent hospitalization is reported. Screenin:54 Abuse screen: Denies threats or abuse. Denies injuries from another. Nutritional hb screening: No deficits noted. Tuberculosis screening: No symptoms or risk factors identified. Fall Risk None identified. Assessment: 08:05 General: Appears in no apparent distress. Behavior is cooperative, restless. Pain: Pain hb currently is 10 out of 10 on a pain scale. Neuro: Level of Consciousness is awake, alert, obeys commands, Oriented to person, place, time, situation. Cardiovascular: Capillary refill < 3 seconds Patient's skin is warm and dry. Respiratory: Airway is patent Respiratory effort is even, unlabored, Respiratory pattern is regular, symmetrical, Breath sounds are clear bilaterally. GI: Abdomen is non-distended, Bowel sounds present X 4 quads. Abd is soft X 4 quads Abdomen is tender to palpation diffusely. : No signs and/or symptoms were reported regarding the genitourinary system. EENT: No signs and/or symptoms were reported regarding the EENT system. Derm: Skin is intact, is healthy with good turgor. Musculoskeletal: No signs and/or symptoms reported regarding the musculoskeletal system. 09:00 Reassessment: Patient appears in no apparent distress at this time. Patient and/or hb family updated on plan of care and expected duration. Pain level reassessed. Patient is alert, oriented x 3, equal unlabored respirations, skin warm/dry/pink. 10:37 Reassessment: Pt crying, reports pain 10/10. Dr. Sotelo notified, repeat morphine and hb zofran administered as ordered. Vital Signs: 07:51 BP 156 / 98; Pulse 75; Resp 16; Temp 98.1; Pulse Ox 100% ; Weight 90.72 kg; Height 5 hb ft. 2 in. (157.48 cm); Pain 10/10; 09:00 BP 126 / 80; Pulse 78; Resp 15; Pulse Ox 100% on R/A; Pain 3/10; hb 10:37 BP 138 / 70; Pulse 73; Resp 15; Pulse Ox 100% on R/A; Pain 10/10; hb 07:51 Body Mass Index 36.58 (90.72 kg, 157.48 cm) ED Course: 07:46 Patient arrived in ED. hb 07:49 Triage completed. hb 07:50 Joseph Sotelo MD is Attending Physician. ma2 07:51 Arm band placed on. hb 07:54 Patient has correct armband on for positive identification. Bed in low position. Call light in reach. Side rails up X 1. 08:15 Initial lab(s) drawn, by me, sent to lab. Missed attempt(s): 20 gauge in right dh3 antecubital area. Bleeding controlled, band aid applied, catheter tip intact. 08:18 Missed attempt(s): 20 gauge in left antecubital area. Bleeding controlled, band aid dh3 applied, catheter tip intact. 08:20 Flu and/or RSV swab sent to lab. 3 08:22 Inserted saline lock: 22 gauge in right wrist, using aseptic technique. hb 09:37 Rubi Myers RN is Primary Nurse. hb 10:08 CT Abd/Pelvis - IV Contrast Only In Process Unspecified. EDMS Administered Medications: 08:11 Drug: GI Cocktail without - (Maalox Suspension 30 ml, Lidocaine Liquid 2 % 15 hb ml) Route: PO; 09:00 Follow up: Response: No adverse reaction hb 09:00 Follow up: Response: No adverse reaction hb 08:22 Drug: NS 0.9% 1000 ml Route: IV; Rate: 1 bolus; Site: right wrist; hb 08:22 Drug: morphine 4 mg Route: IVP; Site: right wrist; hb 09:00 Follow up: Response: No adverse reaction hb 08:22 Drug: Zofran 4 mg Route: IVP; Site: right wrist; hb 09:00 Follow up: Response: No adverse reaction hb 08:22 Drug: Pantoprazole 40 mg Route: IVP; Site: right wrist; hb 09:00 Follow up: Response: No adverse reaction hb 08:22 Drug: MethylPrednisoLONE 125 mg Route: IVP; Site: right wrist; hb 09:00 Follow up: Response: No adverse reaction hb 10:36 Drug: morphine 4 mg Route: IVP; Site: right wrist; hb 10:36 Drug: Zofran 4 mg Route: IVP; Site: right wrist; hb Outcome: 11:27 Discharge ordered by MD. ramirez 11:48 Patient left the ED. hb Signatures: Dispatcher [employer] EDMS Rubi Myers RN RN hb Herrera, Deanna [facility] Joseph Sotelo MD MD ma2
[2019-06-22 12:22] VITALS: TEMP 98.1; O2SAT 100
[2019-06-22 12:25] VITALS: BP 138/70
[2019-06-22 13:36] LABS: Anisocytosis 2+; Blood Morphology Comment NOTED (NOT SEEN); Platelet Estimate ADEQ; Urine White Blood Cell Casts OK
== END 2019-06-22 11:48 | disposition home or self-care (01) ==
LOC: ER 07:44
DX: K51.80 Other ulcerative colitis without complications (principal); F41.9 Anxiety disorder, unspecified
CPT/HCPCS: 85025; 80048; 36415; 81025; 80076; 81003; 83690; 87804 ×2; 74177; Q9967; C9113; J7030; J2930; J2405 ×2

== ENCOUNTER 2019-06-28 10:07 | Emergency (ER) | payer OTHER ==
[2019-06-28] MEDS ORDERED: ONDANSETRON 4 MG/2 ML VIAL ONE (10:42)
[2019-06-28] MEDS ORDERED: FENTANYL CITR 100 MCG/2 ML ONE (10:42)
[2019-06-28 11:01] LABS: Absolute Lymphocytes (CBC) 2.6 K/uL (0.7-4.9); Basophils % 0.2 % (0-1.3); Hematocrit 29.5 % (36.0-45.0); Lymphocytes % 30.1 % (15.3-44.8); MPV 9.3 fL (7.6-11.3); RBC Red Blood Cell Count 4.32 M/uL (3.86-4.86)
--- OUTSIDE RECORDS SUMMARY | 2019-06-28 11:04 | XMS REPORT ---
:1985 [facility] Address [address] [place] [address] Dr. Harvey [address] [place] [id number] Care Team Providers Name Role Phone Unavailable Unavailable Unavailable Problems This patient has no known problems. Allergies, Adverse Reactions, Alerts This patient has no known allergies or adverse reactions. Medications This patient has no known medications.
[2019-06-28 11:22] LABS: ALT/SGPT 29 U/L (12-78); AST/SGOT 14 U/L (15-37); Alkaline Phosphatase 70 U/L (45-117); BUN Blood Urea Nitrogen 10 mg/dL (7-18); Bicarbonate 24 mmol/L (21-32); Bilirubin Direct < 0.1 mg/dL (0-0.2); Bilirubin Total 0.2 mg/dL (0.2-1.0); Glucose Level 87 mg/dL (74-106); Potassium 3.5 mmol/L (3.5-5.1); Protein, Total 7.9 g/dL (6.4-8.2); Sodium Level 140 mmol/L (136-145)
[2019-06-28] MEDS ORDERED: METHYLPREDNISOLONE 125 MG INJ ONE (11:40)
--- NOTE | 2019-06-28 11:52 | ER ---
Nurse's Notes [facility] Name: Maribeth Arredondo Age: 33 yrs Sex: Female : 1985 Arrival Date: 06/28/2019 Time: 10:04 Bed 15 Private MD: Diagnosis: Ulcerative colitis;Generalized abdominal pain Presentation: 06/28 10:04 Presenting complaint: EMS states: Pt hx of GI bleed, reports dark tarry stools x 3 days ph and lower abdominal pain, also c/o anxiety w/ numbness and tingling to face and generalized weakness, VSS. Transition of care: patient was not received from another setting of care. Onset of symptoms was June 28, 2019. Risk Assessment: Do you want to hurt yourself or someone else? Patient reports no desire to harm self or others. Initial Sepsis Screen: Does the patient meet any 2 criteria? No. Patient's initial sepsis screen is negative. Does the patient have a suspected source of infection? No. Patient's initial sepsis screen is negative. Care prior to arrival: None. 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 - Social history:: Smoking status: Patient/guardian denies using tobacco. - Ebola Screening: : Patient negative for fever greater than or equal to 101.5 degrees Fahrenheit, and additional compatible Ebola Virus Disease symptoms. Screenin:04 Abuse screen: Denies threats or abuse. Nutritional screening: No deficits noted. rb1 Tuberculosis screening: No symptoms or risk factors identified. Fall Risk None identified. Assessment: 10:04 General: Appears uncomfortable, Behavior is cooperative, restless, Denies fever. Pain: rb1 Complains of pain in abdomen Pain currently is 10 out of 10 on a pain scale. Neuro: Level of Consciousness is awake, alert, obeys commands, Oriented to person, place, time, situation. Cardiovascular: Capillary refill < 3 seconds is brisk in bilateral fingers. Respiratory: Airway is patent Respiratory effort is even, unlabored, Respiratory pattern is regular, symmetrical. GI: Reports nausea, vomiting, since dark tarry stools, history of UC. : No signs and/or symptoms were reported regarding the genitourinary system. Derm: Skin is pink, warm \T\ dry. 11:00 Reassessment: Patient appears in no apparent distress at this time. No changes from rb1 previously documented assessment. 12:03 Reassessment: Patient appears in no apparent distress at this time. Patient and/or rb1 family updated on plan of care and expected duration. Pain level reassessed. Patient is alert, oriented x 3, equal unlabored respirations, skin warm/dry/pink. 12:44 Reassessment: Discharge pending due to the pt. receiving pain medication, awaiting rb1 transportation. 13:07 Reassessment: Awaiting transportation. rb1 13:20 Reassessment: Patient appears in no apparent distress at this time. Patient and/or rb1 family updated on plan of care and expected duration. Pain level reassessed. Patient is alert, oriented x 3, equal unlabored respirations, skin warm/dry/pink. Patient states symptoms have improved. Vital Signs: 10:04 BP 148 / 97; Pulse 94; Resp 20; Pulse Ox 100% on R/A; Pain 10/10; rb1 10:06 Temp 97.3; Weight 90.72 kg; Pain 10/10; ph 11:06 BP 131 / 72; Pulse 68; Resp 17; Pulse Ox 96% on R/A; Pain 10/10; rb1 12:05 BP 132 / 83; Pulse 67; Resp 17; Pulse Ox 98% on R/A; Pain 8/10; rb1 13:05 BP 135 / 87; Pulse 71; Resp 16; Pulse Ox 98% ; Pain 7/10; rb1 ED Course: 10:04 Patient arrived in ED. ph 10:04 Patient has correct armband on for positive identification. Placed in gown. Bed in low rb1 position. Call light in reach. Side rails up X 1. Pulse ox on. NIBP on. Warm blanket given. 10:04 Arm band placed on right wrist. rb1 10:06 Triage completed. ph 10:16 Ernesto Delgadillo PA is PHCP. jr8 10:16 Kevin Zhou MD is Attending Physician. jr8 10:22 Lisandra Carvajal, RN is Primary Nurse. rb1 10:32 Inserted saline lock: 22 gauge in right antecubital area, using aseptic technique. rb1 Blood collected. 11:51 Manjeet Mills MD is Referral Physician. jr8 13:09 No provider procedures requiring assistance completed. IV discontinued, intact, rb1 bleeding controlled, No redness/swelling at site. Pressure dressing applied. Administered Medications: 10:53 Drug: fentaNYL (PF) 25 mcg Route: IVP; Site: right antecubital; rb1 11:08 Follow up: Response: No adverse reaction; Pain is decreased rb1 10:53 Drug: Zofran 4 mg Route: IVP; Site: right antecubital; rb1 11:08 Follow up: Response: No adverse reaction; Nausea is decreased rb1 11:44 Drug: SOLU-Medrol 125 mg Route: IVP; Site: right antecubital; rb1 12:00 Follow up: Response: No adverse reaction rb1 12:35 Drug: fentaNYL (PF) 50 mcg Route: IVP; Site: right antecubital; rb1 12:50 Follow up: Response: No adverse reaction; Pain is decreased rb1 Outcome: 11:52 Discharge ordered by . jr8 13:23 Patient left the ED. rb1 13:23 Discharged to home ambulatory, with family. rb1 13:23 Condition: stable 13:23 Discharge instructions given to patient, Instructed on discharge instructions, follow up and referral plans. medication usage, Demonstrated understanding of instructions, follow-up care, medications, Prescriptions given X 1. Signatures: Sourav Arredondo em1 Ernesto Delgadillo PA PA jr8 Catherine Dwyer RN RN ph Lisandra Carvajal, RN RN rb1 Corrections: (The following items were deleted from the chart) 14:09 13:33 Patient left the ED. em1 rb1
--- NOTE | 2019-06-28 11:52 | EDPHYS ---
Physician Documentation [facility] Name: Maribeth Arredondo Age: 33 yrs Sex: Female : 1985 Arrival Date: 06/28/2019 Time: 10:04 Bed 15 Private MD: ED Physician Kevin Zhou HPI: 06/28 11:48 This 33 yrs old Female presents to ER via Ambulatory with complaints of jr8 Abdominal Pain. 11:48 The patient presents with abdominal pain that is diffuse. Onset: The symptoms/episode jr8 began/occurred acutely, yesterday. The symptoms do not radiate. Associated signs and symptoms: none. The symptoms are described as stabbing. Modifying factors: The symptoms are alleviated by nothing, the symptoms are aggravated by food. Severity of pain: At its worst the pain was moderate in the emergency department the pain is unchanged. The patient has experienced similar episodes in the past, a few times. The patient has been recently seen at the [facility] Emergency Department, last week, for similar complaints labs were performed, CT scan was performed, was given a prescription for pain medications, the patient was told to return for a recheck. Patient with history of UC and dysmenorrhea. Stated that she is having another flare up. Suppose to have appointment with GI soon. Currently on medicine but not as compliant as she should be on it. Came today for worsening of pain . 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 - Social history:: Smoking status: Patient/guardian denies using tobacco. - Ebola Screening: : Patient negative for fever greater than or equal to 101.5 degrees Fahrenheit, and additional compatible Ebola Virus Disease symptoms. ROS: 11:48 Eyes: Negative for injury, pain, redness, and discharge, ENT: Negative for injury, jr8 pain, and discharge, Neck: Negative for injury, pain, and swelling, Cardiovascular: Negative for chest pain, palpitations, and edema, Respiratory: Negative for shortness of breath, cough, wheezing, and pleuritic chest pain, Back: Negative for injury and pain, MS/Extremity: Negative for injury and deformity, Skin: Negative for injury, rash, and discoloration, Neuro: Negative for headache, weakness, numbness, tingling, and seizure. 11:48 Abdomen/GI: Positive for abdominal pain, Negative for nausea, vomiting, and diarrhea, abdominal distension, anorexia, dysphagia, hematemesis, rectal bleeding, bowel incontinence, flatulence. Exam: 11:48 Eyes: Pupils equal round and reactive to light, extra-ocular motions intact. Lids and jr8 lashes normal. Conjunctiva and sclera are non-icteric and not injected. Cornea within normal limits. Periorbital areas with no swelling, redness, or edema. ENT: Nares patent. No nasal discharge, no septal abnormalities noted. Tympanic membranes are normal and external auditory canals are clear. Oropharynx with no redness, swelling, or masses, exudates, or evidence of obstruction, uvula midline. Mucous membranes moist. Neck: Trachea midline, no thyromegaly or masses palpated, and no cervical lymphadenopathy. Supple, full range of motion without nuchal rigidity, or vertebral point tenderness. No Meningismus. Cardiovascular: Regular rate and rhythm with a normal S1 and S2. No gallops, murmurs, or rubs. Normal PMI, no JVD. No pulse deficits. Respiratory: Lungs have equal breath sounds bilaterally, clear to auscultation and percussion. No rales, rhonchi or wheezes noted. No increased work of breathing, no retractions or nasal flaring. Back: No spinal tenderness. No costovertebral tenderness. Full range of motion. Skin: Warm, dry with normal turgor. Normal color with no rashes, no lesions, and no evidence of cellulitis. MS/ Extremity: Pulses equal, no cyanosis. Neurovascular intact. Full, normal range of motion. Neuro: Awake and alert, GCS 15, oriented to person, place, time, and situation. Cranial nerves II-XII grossly intact. Motor strength 5/5 in all extremities. Sensory grossly intact. Cerebellar exam normal. Normal gait. 11:48 Abdomen/GI: Inspection: obese Bowel sounds: active, all quadrants, Palpation: soft, in all quadrants, moderate abdominal tenderness, in the abdomen diffusely, mass, is not appreciated, rebound tenderness, is not appreciated, voluntary guarding, is not appreciated, involuntary guarding, is not appreciated, no appreciated organomegaly, Indicators: McBurney's point is not tender, Liu's sign is negative, Rovsing's sign is negative, Liver: tenderness, is not appreciated. Vital Signs: 10:04 BP 148 / 97; Pulse 94; Resp 20; Pulse Ox 100% on R/A; Pain 10/10; rb1 10:06 Temp 97.3; Weight 90.72 kg; Pain 10/10; ph 11:06 BP 131 / 72; Pulse 68; Resp 17; Pulse Ox 96% on R/A; Pain 10/10; rb1 12:05 BP 132 / 83; Pulse 67; Resp 17; Pulse Ox 98% on R/A; Pain 8/10; rb1 13:05 BP 135 / 87; Pulse 71; Resp 16; Pulse Ox 98% ; Pain 7/10; rb1 MDM: 10:16 Patient medically screened. jr8 11:48 Data reviewed: vital signs, nurses notes, old medical records, lab test result(s). Data jr8 interpreted: Pulse oximetry: on room air is 96 %. Interpretation: normal. 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 Response to treatment: the patient's symptoms have markedly improved after treatment. 11:52 ED course: VS stable. Patient feeling better. Recent CT without acute finding. Pain jr8 same as the other day. H/H improved. No systemic signs of infection. Will d/c home on prednisone and told to f/u with GI. Return precautions given . 06/28 10:17 Order name: Basic Metabolic Panel; Complete Time: : jr8 06/28 10:17 Order name: CBC with Diff; Complete Time: 13:10 jr8 06/28 10:17 Order name: Creatinine for Radiology; Complete Time: jr8 06/28 10:17 Order name: Hepatic Function; Complete Time: 8 06/28 10:17 Order name: TS; Complete Time: [facility] 06/28 11:04 Order name: CBC Smear Scan; Complete Time: 13:10 EDMS 06/28 10:17 Order name: IV Saline Lock; Complete Time: 10: 8 06/28 10:17 Order name: Labs collected and sent; Complete Time: [facility] 06/28 12:00 Order name: Antibody Identification; Complete Time: 11: EDMS Administered Medications: 10:53 Drug: fentaNYL (PF) 25 mcg Route: IVP; Site: right antecubital; rb1 11:08 Follow up: Response: No adverse reaction; Pain is decreased rb1 10:53 Drug: Zofran 4 mg Route: IVP; Site: right antecubital; rb1 11:08 Follow up: Response: No adverse reaction; Nausea is decreased rb1 11:44 Drug: SOLU-Medrol 125 mg Route: IVP; Site: right antecubital; rb1 12:00 Follow up: Response: No adverse reaction rb1 12:35 Drug: fentaNYL (PF) 50 mcg Route: IVP; Site: right antecubital; rb1 12:50 Follow up: Response: No adverse reaction; Pain is decreased rb1 Disposition: 17:51 Co-signature as Attending Physician, Kevin Zhou MD Did not see or evaluate patient. ps1 Chart signed for administrative purposes. Not an endorsement of care. . Disposition: 06/28/19 11:52 Discharged to Home. Impression: Ulcerative colitis, Generalized abdominal pain. - Condition is Stable. - Discharge Instructions: Abdominal Pain, Adult, Ulcerative Colitis, Adult. - Prescriptions for Prednisone 20 mg Oral Tablet - take 3 tablet by ORAL route once daily for 5 days; 15 tablet. - Medication Reconciliation Form, Thank You Letter, Antibiotic Education, Prescription Opioid Use form. - Follow up: Manjeet Mills MD; When: 2 - 3 days; Reason: Recheck today's complaints, Continuance of care, Re-evaluation by your physician. - Problem is new. - Symptoms have improved. Signatures: Dispatcher [employer] EDMS Sourav Arredondo em1 Ernesto Delgadillo PA PA jr8 Catherine Dwyer RN RN Lisandra Carvajal RN RN rb1 Kevin Zhou MD MD ps1 Corrections: (The following items were deleted from the chart) 13:33 11:52 06/28/2019 11:52 Discharged to Home. Impression: Ulcerative colitis; Generalized em1 abdominal pain. Condition is Stable. Forms are Medication Reconciliation Form, Thank You Letter, Antibiotic Education, Prescription Opioid Use. Follow up: Manjeet Mills; When: 2 - 3 days; Reason: Recheck today's complaints, Continuance of care, Re-evaluation by your physician. Problem is new. Symptoms have improved. jr8
[2019-06-28 13:04] LABS: Anisocytosis 2+; Blood Morphology Comment NOTED (NOT SEEN); Elliptocytes 1+; Hypochromasia 1+; Platelet Estimate ADEQ; Stomatocytes 1+; Urine White Blood Cell Casts OK
[2019-06-28 13:45] VITALS: BP 132/83; O2SAT 98
== END 2019-06-28 13:33 | disposition home or self-care (01) ==
LOC: ER 10:07
DX: K51.90 Ulcerative colitis, unspecified, without complications (principal); F41.9 Anxiety disorder, unspecified
CPT/HCPCS: 85025; 80048; 36415; 86900; 86850; 86870; 86901; 80076; 96375; 96374; 99284; J3010; J2930; J2405

== ENCOUNTER 2019-08-01 12:39 | Inpatient (IN) | payer OTHER ==
--- OUTSIDE RECORDS SUMMARY | 2019-08-01 12:41 | XMS REPORT ---
:1985 [facility] Address [address] [place] [address] Dr. Harvey [address] [place] [id number] Care Team Providers Name Role Phone Unavailable Unavailable Unavailable Problems This patient has no known problems. Allergies, Adverse Reactions, Alerts This patient has no known allergies or adverse reactions. Medications This patient has no known medications.
[2019-08-01] MEDS ORDERED: MORPHINE 4 MG/ML SYR ONE ×2 (13:55→16:49)
[2019-08-01] MEDS ORDERED: NA CHLORIDE 0.9% 1,000 ML ONE (13:55)
[2019-08-01] MEDS ORDERED: ONDANSETRON 4 MG/2 ML VIAL ONE (13:55)
[2019-08-01 14:14] LABS: Basophils % 1.3 % (0-1.3); Hematocrit 21.7 % (36.0-45.0); Lymphocytes % 25.9 % (15.3-44.8); MPV 8.9 fL (7.6-11.3); RBC Red Blood Cell Count 3.23 M/uL (3.86-4.86)
[2019-08-01 14:40] LABS: ALT/SGPT 18 U/L (12-78); AST/SGOT 21 U/L (15-37); Albumin 4.1 g/dL (3.4-5.0); Alkaline Phosphatase 59 U/L (45-117); BUN Blood Urea Nitrogen 9 mg/dL (7-18); Bicarbonate 24 mmol/L (21-32); Bilirubin Direct < 0.1 mg/dL (0-0.2); Bilirubin Total 0.2 mg/dL (0.2-1.0); Glucose Level 111 mg/dL (74-106); Lipase 115 U/L (73-393); Potassium 3.2 mmol/L (3.5-5.1); Protein, Total 7.9 g/dL (6.4-8.2); Sodium Level 139 mmol/L (136-145)
--- NOTE | 2019-08-01 15:19 | RAD REPORT ---
EXAM DESCRIPTION: CT - Abdomen Pelvis W Contrast - 08/01/2019 3:02 pm CLINICAL HISTORY: Abdominal pain COMPARISON: June 2019 TECHNIQUE: Computed axial tomography of the abdomen pelvis was obtained. 100 cc Isovue-300 was admin istered intravenously. Oral contrast was not requested which limits evaluation of bowel. All CT scans are performed using dose optimization technique as appropriate and may include automated exposure control or mA/KV adjustment according to patient size. FINDINGS: The liver, spleen, pancreas, adrenal and kidneys appear unremarkable. There is no evidence of diverticulitis. Normal appendix A small ventral hernia contains fat. There is an adjacent small periumbilical hernia containing fat 3.5 centimeter cyst abuts the cecum within the right upper pelvis. It is unchanged . IMPRESSION: 3.5 centimeter cyst within the upper right pelvis unchanged from 2017. This may represent a duplication or mesenteric cyst. Small umbilical and periumbilical hernias. .
[2019-08-01] MEDS ORDERED: NA CHLORIDE 0.9% 250 ML ONE (15:29)
[2019-08-01] MEDS ORDERED: MEPERIDINE HCL 25 MG/0.5 ML ONE (15:29)
[2019-08-01] MEDS ORDERED: ACETAMINOPHEN 325 MG TABLET ONE (15:29)
[2019-08-01] MEDS ORDERED: DIPHENHYDRAMINE 50 MG/ML VIAL ONE (15:29)
--- NOTE | 2019-08-01 15:48 | ER ---
Nurse's Notes [facility] Name: Maribeth Arredondo Age: 34 yrs Sex: Female : 1985 Arrival Date: 08/01/2019 Time: 12:41 Bed 27 Private MD: Diagnosis: Ulcerative colitis;Acute Anemia Presentation: 08/01 12:54 Presenting complaint: N/V, right flank pain, subjective fever and dark red bloody stool sg x 1 week. Transition of care: patient was not received from another setting of care. Onset of symptoms was July 15, 2019. Risk Assessment: Do you want to hurt yourself or someone else? Patient reports no desire to harm self or others. Care prior to arrival: None. 12:54 Method Of Arrival: Ambulatory sg 12:54 Acuity: SINGH 3 sg 14:07 Initial Sepsis Screen: Does the patient meet any 2 criteria? No. Patient's initial rv sepsis screen is negative. Does the patient have a suspected source of infection? No. Patient's initial sepsis screen is negative. 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 - Social history:: Smoking status: Patient/guardian denies using tobacco. - Ebola Screening: : No symptoms or risks identified at this time. Screenin:07 Abuse screen: Denies threats or abuse. Denies injuries from another. Nutritional rv screening: No deficits noted. Tuberculosis screening: No symptoms or risk factors identified. Fall Risk None identified. Assessment: 14:06 General: Appears in no apparent distress. uncomfortable, ill, Behavior is calm, rv cooperative. Pain: Complains of pain in abdomen Quality of pain is described as crampy, sharp. Neuro: Level of Consciousness is awake, alert, obeys commands, Oriented to person, place, time, situation. Cardiovascular: Patient's skin is warm and dry. Respiratory: Airway is compromised. GI: Abdomen is round non-distended, Reports cramping, nausea, vomiting. Derm: Skin is intact. 15:14 Reassessment: Patient appears in no apparent distress at this time. Patient and/or mg2 family updated on plan of care and expected duration. Pain level reassessed. Patient is alert, oriented x 3, equal unlabored respirations, skin warm/dry/pink. patient complained of shooting pain in the RLQ. 16:04 Reassessment: Patient appears in no apparent distress at this time. Patient and/or rv family updated on plan of care and expected duration. Pain level reassessed. Patient is alert, oriented x 3, equal unlabored respirations, skin warm/dry/pink. Vital Signs: 12:57 BP 158 / 71; Pulse 97; Resp 16; Temp 98.5; Pulse Ox 96% on R/A; Weight 99.79 kg; Height sg 5 ft. 2 in. (157.48 cm); Pain 9/10; 15:15 BP 137 / 73; Pulse 76; Resp 18; Pulse Ox 96% on R/A; mg2 16:03 BP 127 / 62; Pulse 91; Resp 18; Pulse Ox 100% on R/A; rv 17:00 BP 151 / 47; Pulse 63; Resp 16; Pulse Ox 100% on R/A; rv 17:28 BP 160 / 45; Pulse 63; Resp 17; Pulse Ox 99% on R/A; rv 18:26 BP 133 / 63; Pulse 70; Resp 18; Temp 100.1; Pulse Ox 98% on R/A; rv 19:30 BP 139 / 81; Pulse 69; Resp 16; Temp 98.1(O); Pulse Ox 97% on R/A; rv 12:57 Body Mass Index 40.24 (99.79 kg, 157.48 cm) sg ED Course: 12:41 Patient arrived in ED. rg4 12:56 Triage completed. sg 12:57 Arm band placed on. sg 13:37 Ernesto Delgadillo PA is PHCP. jr8 13:37 Kashmir Mohan MD is Attending Physician. jr8 14:02 Inserted saline lock: 22 gauge in right antecubital area, using aseptic technique. rv Blood collected. 14:04 Henrry Garcia, RN is Primary Nurse. rv 14:07 Patient has correct armband on for positive identification. Bed in low position. Call rv light in reach. Side rails up X 1. Pulse ox on. NIBP on. 14:27 Notified Nurse Practitioner and/or Physician Cloth Hand of Notified primary nurse of HGB hb 6.5, HCT 21.7. 15:02 CT Abd/Pelvis - IV Contrast Only In Process Unspecified. 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 mg2 15:46 Mimi Elias MD is Hospitalizing Provider. jr8 16:54 Inserted saline lock: 20 gauge in left antecubital area, using aseptic technique. mg2 19:55 Patient admitted, IV remains in place. rv Administered Medications: 14:02 Drug: NS 0.9% 1000 ml Route: IV; Rate: 1000 ml; Site: right antecubital; rv 15:08 Follow up: Response: No adverse reaction; IV Status: Completed infusion; IV Intake: mg2 1000ml 14:03 Drug: Zofran 4 mg Route: IVP; Site: right antecubital; rv 15:07 Follow up: Response: No adverse reaction; Marked relief of symptoms mg2 15:24 Follow up: Response: Nausea is decreased rv 14:05 Drug: morphine 4 mg Route: IVP; Site: right antecubital; rv 15:07 Follow up: Response: No adverse reaction mg2 15:24 Follow up: Response: No adverse reaction; No change in condition; Pain is unchanged, rv physician notified; RASS: Alert and Calm (0) 15:33 Drug: Demerol 25 mg {Note: rass 0.} Route: IVP; Site: right antecubital; rv 16:54 Follow up: Response: No adverse reaction mg2 16:21 Drug: Cipro 400 mg Volume: 200 ml; Route: IVPB; Infused Over: 60 mins; Site: right mg2 antecubital; 17:28 Follow up: IV Status: Completed infusion rv 16:21 Drug: Flagyl 500 mg Volume: 100 ml; Route: IVPB; Rate: 200 ml/hr; Infused Over: 30 mg2 mins; Site: right antecubital; 16:53 Follow up: Response: No adverse reaction; IV Status: Completed infusion mg2 16:22 Drug: SOLU-Medrol 125 mg Route: IVP; Site: right antecubital; mg2 16:54 Follow up: Response: No adverse reaction mg2 16:53 Drug: morphine 4 mg Route: IVP; Site: left antecubital; mg2 17:28 Follow up: Response: No adverse reaction; Pain is decreased; RASS: Alert and Calm (0) rv 18:17 Drug: Benadryl 12.5 mg Route: IVP; Site: right antecubital; rv 19:55 Follow up: Response: No adverse reaction rv 18:17 Drug: Tylenol 650 mg Route: PO; rv 19:55 Follow up: Response: Temperature is decreased rv Point of Care Testing: Guaiac: 15:39 Stool Guaiac: Negative; Stool Hemoccult Control: Pass; mg2 Intake: 15:08 IV: 1000ml; Total: 1000ml. mg2 Outcome: 15:46 Decision to Hospitalize by Provider. jr8 19:54 Admitted to Med/surg accompanied by nurse, via stretcher, room 209, with chart, Report rv called to cindy agustin 19:54 Condition: good 19:54 Instructed on 19:55 Patient left the ED. rv Signatures: Dispatcher [employer] EDMS Mike Neri RN RN sg Ernesto Delgadillo PA PA jr8 Rubi Myers RN RN hb Garcia, Rubi rg4 Bo Flores RN RN mg2 Henrry Garcia RN RN rv Corrections: (The following items were deleted from the chart) 17:28 15:30 BP 160 / 45; Pulse 63bpm; Resp 17bpm; Pulse Ox 99% RA; rv rv
--- NOTE | 2019-08-01 15:49 | EDPHYS ---
Physician Documentation [facility] Rui Name: November Arnulfo Age: 34 yrs Sex: Female : 1985 Arrival Date: 08/01/2019 Time: 12:41 Bed 27 Private MD: ED Physician Kashmir Mohan HPI: 08/01 14:46 This 34 yrs old Female presents to ER via Ambulatory with complaints of Fever, jr8 Nausea/Vomiting, Pain All Over. 14:46 The patient reports fever, not measured (subjective). Onset: The symptoms/episode jr8 began/occurred acutely, today. Modifying factors: there are no obvious modifying factors. Associated signs and symptoms: Pertinent positives: abdominal pain, vomiting. Severity of symptoms: At their worst the symptoms were moderate in the emergency department the symptoms are unchanged. It is unknown whether or not the patient has had similar symptoms in the past. The patient has not recently seen a physician. 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 - Social history:: Smoking status: Patient/guardian denies using tobacco. - Ebola Screening: : No symptoms or risks identified at this time. ROS: 14:46 Eyes: Negative for injury, pain, redness, and discharge, ENT: Negative for injury, jr8 pain, and discharge, Neck: Negative for injury, pain, and swelling, Cardiovascular: Negative for chest pain, palpitations, and edema, Respiratory: Negative for shortness of breath, cough, wheezing, and pleuritic chest pain, Back: Negative for injury and pain, MS/Extremity: Negative for injury and deformity, Skin: Negative for injury, rash, and discoloration, Neuro: Negative for headache, weakness, numbness, tingling, and seizure. 14:46 Abdomen/GI: Positive for abdominal pain, nausea, vomiting, and diarrhea, abdominal distension, rectal bleeding, Negative for anorexia, dysphagia, hematemesis, black/tarry stool, rectal pain, bowel incontinence, flatulence. Exam: 14:46 Eyes: Pupils equal round and reactive to light, extra-ocular motions intact. Lids and jr8 lashes normal. Conjunctiva and sclera are non-icteric and not injected. Cornea within normal limits. Periorbital areas with no swelling, redness, or edema. ENT: Nares patent. No nasal discharge, no septal abnormalities noted. Tympanic membranes are normal and external auditory canals are clear. Oropharynx with no redness, swelling, or masses, exudates, or evidence of obstruction, uvula midline. Mucous membranes moist. Neck: Trachea midline, no thyromegaly or masses palpated, and no cervical lymphadenopathy. Supple, full range of motion without nuchal rigidity, or vertebral point tenderness. No Meningismus. Cardiovascular: Regular rate and rhythm with a normal S1 and S2. No gallops, murmurs, or rubs. Normal PMI, no JVD. No pulse deficits. Respiratory: Lungs have equal breath sounds bilaterally, clear to auscultation and percussion. No rales, rhonchi or wheezes noted. No increased work of breathing, no retractions or nasal flaring. Back: No spinal tenderness. No costovertebral tenderness. Full range of motion. Skin: Warm, dry with normal turgor. Normal color with no rashes, no lesions, and no evidence of cellulitis. MS/ Extremity: Pulses equal, no cyanosis. Neurovascular intact. Full, normal range of motion. Neuro: Awake and alert, GCS 15, oriented to person, place, time, and situation. Cranial nerves II-XII grossly intact. Motor strength 5/5 in all extremities. Sensory grossly intact. Cerebellar exam normal. Normal gait. 14:46 Abdomen/GI: Inspection: obese Bowel sounds: active, all quadrants, Palpation: soft, in all quadrants, moderate abdominal tenderness, in the posterior aspect of right lateral abdomen, anterior aspect of right lateral abdomen, right lower quadrant and left lower quadrant, mass, is not appreciated, rebound tenderness, is not appreciated, voluntary guarding, is not appreciated, involuntary guarding, is not appreciated, no appreciated organomegaly, Indicators: McBurney's point is not tender, Liu's sign is negative, Rovsing's sign is negative, Liver: tenderness, is not appreciated. Vital Signs: 12:57 BP 158 / 71; Pulse 97; Resp 16; Temp 98.5; Pulse Ox 96% on R/A; Weight 99.79 kg; Height sg 5 ft. 2 in. (157.48 cm); Pain 9/10; 15:15 BP 137 / 73; Pulse 76; Resp 18; Pulse Ox 96% on R/A; mg2 16:03 BP 127 / 62; Pulse 91; Resp 18; Pulse Ox 100% on R/A; rv 17:00 BP 151 / 47; Pulse 63; Resp 16; Pulse Ox 100% on R/A; rv 17:28 BP 160 / 45; Pulse 63; Resp 17; Pulse Ox 99% on R/A; rv 18:26 BP 133 / 63; Pulse 70; Resp 18; Temp 100.1; Pulse Ox 98% on R/A; rv 19:30 BP 139 / 81; Pulse 69; Resp 16; Temp 98.1(O); Pulse Ox 97% on R/A; rv 12:57 Body Mass Index 40.24 (99.79 kg, 157.48 cm) sg MDM: 13:37 Patient medically screened. jr8 15:45 Data reviewed: vital signs, nurses notes, lab test result(s), radiologic studies, CT jr8 scan. Data interpreted: Pulse oximetry: on room air is 96 %. Interpretation: normal. Counseling: I had a detailed discussion with the patient and/or guardian regarding: the historical points, exam findings, and any diagnostic results supporting the discharge/admit diagnosis, lab results, radiology results, the need for further work-up and treatment in the hospital. Physician consultation: Mimi Elias MD was called at 15:46, was contacted at 15:46, regarding admission, to the telemetry unit. consult, patient's condition, and will see patient. 08/01 13:47 Order name: Basic Metabolic Panel; Complete Time: 14:56 jr8 08/01 13:47 Order name: CBC with Diff; Complete Time: 06:55 jr8 08/01 13:47 Order name: Creatinine for Radiology; Complete Time: 14:32 jr8 08/01 13:47 Order name: Hepatic Function; Complete Time: 14:56 jr8 08/01 13:47 Order name: Lipase; Complete Time: 14:56 jr8 08/01 13:47 Order name: Urine Microscopic Only [facility] 08/01 14:44 Order name: TS [facility] 08/01 14:49 Order name: Bb Add On bd 08/01 15:04 Order name: Packed RBC Leukored [facility] 08/01 16:14 Order name: Antibody Identification [facility] 08/01 16:23 Order name: Test, Urine [facility] 08/01 18:18 Order name: Urinalysis W/Microscopic; Complete Time: 06:55 [facility] 08/01 18:37 Order name: Test, Urine; Complete Time: 06:55 [facility] 08/01 18:59 Order name: CBC Smear Scan; Complete Time: 06:55 [facility] 08/01 13:47 Order name: IV Saline Lock; Complete Time: 14:14 [facility] 08/01 13:47 Order name: Labs collected and sent; Complete Time: 14:14 [facility] 08/01 13:47 Order name: Urine Dipstick-Ancillary (obtain specimen); Complete Time: 18:26 [facility] 08/01 14:44 Order name: CT Abd/Pelvis - IV Contrast Only; Complete Time: 15:26 [facility] Administered Medications: 14:02 Drug: NS 0.9% 1000 ml Route: IV; Rate: 1000 ml; Site: right antecubital; rv 15:08 Follow up: Response: No adverse reaction; IV Status: Completed infusion; IV Intake: mg2 1000ml 14:03 Drug: Zofran 4 mg Route: IVP; Site: right antecubital; rv 15:07 Follow up: Response: No adverse reaction; Marked relief of symptoms mg2 15:24 Follow up: Response: Nausea is decreased rv 14:05 Drug: morphine 4 mg Route: IVP; Site: right antecubital; rv 15:07 Follow up: Response: No adverse reaction mg2 15:24 Follow up: Response: No adverse reaction; No change in condition; Pain is unchanged, rv physician notified; RASS: Alert and Calm (0) 15:33 Drug: Demerol 25 mg {Note: rass 0.} Route: IVP; Site: right antecubital; rv 16:54 Follow up: Response: No adverse reaction mg2 16:21 Drug: Cipro 400 mg Volume: 200 ml; Route: IVPB; Infused Over: 60 mins; Site: right mg2 antecubital; 17:28 Follow up: IV Status: Completed infusion rv 16:21 Drug: Flagyl 500 mg Volume: 100 ml; Route: IVPB; Rate: 200 ml/hr; Infused Over: 30 mg2 mins; Site: right antecubital; 16:53 Follow up: Response: No adverse reaction; IV Status: Completed infusion mg2 16:22 Drug: SOLU-Medrol 125 mg Route: IVP; Site: right antecubital; mg2 16:54 Follow up: Response: No adverse reaction mg2 16:53 Drug: morphine 4 mg Route: IVP; Site: left antecubital; mg2 17:28 Follow up: Response: No adverse reaction; Pain is decreased; RASS: Alert and Calm (0) rv 18:17 Drug: Benadryl 12.5 mg Route: IVP; Site: right antecubital; rv 19:55 Follow up: Response: No adverse reaction rv 18:17 Drug: Tylenol 650 mg Route: PO; rv 19:55 Follow up: Response: Temperature is decreased rv Point of Care Testing: Guaiac: 15:39 Stool Guaiac: Negative; Stool Hemoccult Control: Pass; mg2 Disposition: 08/01/19 15:46 Hospitalization ordered by Mimi Elias for Observation. Preliminary diagnosis are Ulcerative colitis, Acute Anemia. - Bed requested for Telemetry/MedSurg (observation). - Status is Observation. rv - Condition is Stable. - Problem is new. - Symptoms have improved. UTI on Admission? No Addendum: 08/08/2019 10:47 Co-signature as Attending Physician, Kashmir Mohan MD I agree with the assessment and c watson plan of care. Signatures: Dispatcher [employer] EDNV Chery Banks Steven, RN SABRINA Kashmir Mohan MD MD cha Roszak, Josh, PA PA jr8 Bo Flores, RN RN mg2 Henrry Garcia RN RN rv Corrections: (The following items were deleted from the chart) 08/01 18:48 15:46 Hospitalization Ordered by Mimi Elias MD for Observation. Preliminary diagnosis bd is Ulcerative colitis; Acute Anemia. Bed requested for Telemetry/MedSurg (observation). Status is Observation. Condition is Stable. Problem is new. Symptoms have improved. UTI on Admission? No. jr8 19:55 18:48 08/01/2019 15:46 Hospitalization Ordered by Mimi Elias MD for Observation. rv Preliminary diagnosis is Ulcerative colitis; Acute Anemia. Bed requested for Telemetry/MedSurg (observation). Status is Observation. Condition is Stable. Problem is new. Symptoms have improved. UTI on Admission? No. bd
[2019-08-01] MEDS ORDERED: METHYLPREDNISOLONE 125 MG INJ ONE (16:01)
[2019-08-01] MEDS ORDERED: METRONIDAZOLE 500mg IVPB 500 MG/100 ML BAG IV ONE (16:02)
[2019-08-01] MEDS ORDERED: CIPROFLOXACIN 400mg IV 400 MG/200 ML BAG IV ONE (16:02)
[2019-08-01 18:16] LABS: Urine Appearance CLOUDY; Urine Bilirubin NEGATIVE (NEG); Urine Blood 3+ (NEG); Urine Color RED; Urine Glucose NEGATIVE (NEG); Urine Protein 1+ (NEG); Urine Specific Gravity >=1.030 (1.005-1.030)
[2019-08-01 18:28] LABS: Specific Gravity >= 1.030 (1.005-1.030)
[2019-08-01 18:36] LABS: Urine Bacteria <20 /HPF (<20); Urine Culture Reflex Order REFLEXED; Urine RBC TNTC /HPF (NONE SEEN)
[2019-08-01 18:58] LABS: Anisocytosis 2+; Blood Morphology Comment NOTED (NOT SEEN); Hypochromasia 3+; Ovalocytes 1+; Platelet Estimate ADEQ; Poikilocytosis 1+; Polychromasia SLIGHT; Teardrop Cell 1+; Urine White Blood Cell Casts OK
[2019-08-01] MEDS ORDERED: ACETAMINOPHEN 500 MG TAB PO PRN (19:56)
[2019-08-01] MEDS: METHYLPREDNISOLONE 125 MG INJ IV SCH ×2 (19:56→23:03)
[2019-08-01 20:22] VITALS: BMI 37.3
[2019-08-01] MEDS: MORPHINE 2 MG/ML SYR IV PRN (20:39)
[2019-08-01] MEDS: FUROSEMIDE 20 MG/ 2ML VIAL IV SCH (20:40)
[2019-08-01] MEDS: ONDANSETRON 4 MG/2 ML VIAL IV PRN (20:51)
[2019-08-01] MEDS ORDERED: ALPRAZOLAM 1 MG TABLET PO PRN (21:32)
[2019-08-01] MEDS: D5.45NS W/KCL 20MEQ 1,000 ML IV SCH (22:04)
[2019-08-01] MEDS ORDERED: SODIUM CHLORIDE 0.9% 10ML INJ IV PRN (22:35)
--- NOTE | 2019-08-01 22:53 | HP ---
Date of Admission: 08/01/2019 Chief Complaint: Abdominal pain. Consultants: Paul Velázquez M.D., GI. History Of Present Illness: Patient is a 34-year-old female with past medical history of ulcerative colitis, GERD, anxiety, posttraumatic stress disorder, comes in with sudden onset of abdominal pain. The patient's symptoms have been ongoing for the past several days. Patient does report some rectal bleeding. Patient has seen multiple GI specialists previously and multiple colonoscopies and EGDs. Patient does report some nausea. No vomiting. Not having much of an appetite. The patient's sympt oms are constant, moderate, progressively worsening. Pain is nonradiating. Patient was supposed to see Dr. Velázquez for a colonoscopy, but came into the ER. The patient's workup in the ER revealed wh ite blood cell count 3.7. Her hemoglobin was 6.5. Potassium was 3.2. Her CT scan of the abdomen sh owed 3.5 cm cyst within the upper right pelvis, unchanged from 2017, may represent duplication or mes enteric cyst, small umbilical and periumbilical hernia. Patient was given IV antibiotics, IV fluids, pain medications and referred for admission. When seen in the ER, she was awake, alert, oriented x3 , in moderate amount of pain. Past Medical History: Ulcerative colitis, however, the patient also states she has Crohn disease, ge neralized anxiety disorder, iron deficiency anemia, GERD with hiatal hernia, history of GI bleed, ova kelly cyst, hemorrhoids, chronic pain syndrome, PTSD, panic attacks. Surgical History: x5, tubal ligation, multiple colonoscopies, and EGDs. Allergies: NO KNOWN DRUG ALLERGIES. Medications: List reviewed. Patient no longer taking her Lialda since June. Social History: Patient denies any tobacco use, alcohol use, or illicit drug use. Family History: Mother, heart disease, hypertension, and GI disease. Father had heart disease, hype rtension, and diabetes. Uncle had heart attack. Review of Systems: Ten-point system reviewed, negative except as per HPI. Physical Examination: Vital Signs: Blood pressure 158/71, respirations 16, O2 96% on room air, temperature 98.5, pulse 97. BMI is 40. General: Awake, alert, and oriented x3, ill-appearing female in moderate distress due to pain. HEENT: Normocephalic, atraumatic. PERRLA. EOMI. Dry mucous membranes. Oropharynx is clear. Poor dentition. Conjunctivae anicteric. Neck: Supple. No JVD. Trachea midline. CV: S1, S2. Regular rate and rhythm. Peripheral pulses present. No murmurs. Respiratory: Moving air well bilaterally. No wheezing or stridor. No use of accessory muscles. Gastrointestinal: Abdomen is soft. Mild tenderness to palpation. No guarding or rigidity. Positiv e bowel sounds. Extremities: No clubbing, cyanosis, or edema. Neuro: Cranial nerves 2 through 12 intact grossly. No focal neurological deficits. Speech is rudy l. Skin: No rashes. Normal skin turgor. Laboratory Data: Sodium 139, potassium 3.2, chloride 108, CO2 24, BUN 9, creatinine 0.92, glucose 11 1, calcium 8.2, albumin 4.1, lipase 115. WBC 3.7, H and H 6.5 and 21.7, platelets 229, neutrophils 6 2%. UA is pending. Imaging Studies: CT scan showed 3.5 cm cyst within the right upper pelvis, unchanged from 2017, like ly mesenteric cyst. Small umbilical and paraumbilical hernias. No evidence of diverticulitis. Norm al appendix. Assessment: A 34-year-old female with, 1.Acute exacerbation of ulcerative colitis. We will continue with IV antibiotics, IV steroids. Sta rt patient on D5 half NS with 20 mEq of potassium, pain control with morphine IV. We will consult e patient's GI, Dr. Velázquez. Patient will likely benefit from DMARDs. 2.Hypokalemia. We will replace and monitor. 3.Acute blood loss anemia likely exacerbation of her iron deficient anemia along with rectal bleedin g from her inflammatory bowel disease. We will transfuse 2 units of PRBCs. We will monitor H and H and give Lasix 20 mg IV in between each unit of blood. Monitor for transfusion reactions. 4.Gastroesophageal reflux disease without esophagitis, history of hiatal hernia. 5.Generalized anxiety disorder. Continue home medication. 6.Ovarian cyst, stable from 2017. 7.Morbid obesity, BMI of 40. 8.Deep venous thrombosis prophylaxis with sequential compression devices. No chemical anticoagulati on due to GI bleed. Plan: Admit patient to Med-Surg, place as inpatient. We will start on sips of water with ice and ok ay for oral pills. SA/MODL Voice ID: [id number]
[2019-08-01] MEDS: LACTOBACILLUS/ACIDOPHILUS TAB PO SCH (23:03)
[2019-08-02] MEDS: MORPHINE 2 MG/ML SYR IV PRN ×6 (00:27→22:17)
[2019-08-02] MEDS: ONDANSETRON 4 MG/2 ML VIAL IV PRN ×5 (00:31→22:17)
[2019-08-02] MEDS: METRONIDAZOLE 500mg IVPB 500 MG/100 ML BAG IV SCH ×3 (01:23→16:12)
[2019-08-02] MEDS: FUROSEMIDE 20 MG/ 2ML VIAL IV SCH (01:44)
[2019-08-02] MEDS ORDERED: TEMAZEPAM 15 MG CAP PO PRN (02:41)
[2019-08-02] MEDS: D5.45NS W/KCL 20MEQ 1,000 ML IV SCH ×2 (03:56→11:46)
[2019-08-02 04:18] LABS: Absolute Lymphocytes (CBC) 0.5 K/uL (0.7-4.9); Basophils % 0.5 % (0-1.3); Hematocrit 27.2 % (36.0-45.0); Lymphocytes % 14.6 % (15.3-44.8); MPV 9.1 fL (7.6-11.3); RBC Red Blood Cell Count 3.85 M/uL (3.86-4.86)
[2019-08-02 04:31] LABS: Albumin 3.8 g/dL (3.4-5.0); Bilirubin Total 0.3 mg/dL (0.2-1.0); Magnesium 2.2 mg/dL (1.8-2.4); Phosphorus 3.8 mg/dL (2.5-4.9); Potassium 3.6 mmol/L (3.5-5.1); Protein, Total 7.7 g/dL (6.4-8.2)
[2019-08-02] MEDS: CIPROFLOXACIN 400mg IV 400 MG/200 ML BAG IV SCH ×2 (05:20→16:13)
[2019-08-02] MEDS: ALPRAZOLAM 1 MG TABLET PO PRN ×2 (05:20→18:05)
[2019-08-02] MEDS: METHYLPREDNISOLONE 125 MG INJ IV SCH ×3 (05:20→17:55)
[2019-08-02] MEDS ORDERED: KCL 20 MEQ/100 mL IVPB 20 MEQ/100 ML BAG IV SCH (08:00)
[2019-08-02] MEDS ORDERED: POTASSIUM CL SA 10 MEQ TAB PO ONE (09:00)
[2019-08-02] MEDS ORDERED: PANTOPRAZOLE 40 MG INJ IVP SCH (09:00)
[2019-08-02] MEDS: FERROUS SULFATE 325 MG TAB PO SCH (09:26)
[2019-08-02] MEDS: LACTOBACILLUS/ACIDOPHILUS TAB PO SCH ×2 (09:26→21:36)
--- NOTE | 2019-08-02 12:37 | P.PN ---
Subjective Date of Service: 08/02/19 Primary Care Provider: Dr. Tanner Chief Complaint: Abdominal pain Subjective: Improving, Doing well Physical Examination - Vital Signs Temperature: 97.0 F Blood Pressure: 126/74 Pulse: 76 Respirations: 18 Pulse Ox (%): 100 - Physical Exam General: Alert, In no apparent distress, Oriented x3, Cooperative HEENT: Atraumatic Neck: Supple Respiratory: Clear to auscultation bilaterally, Normal air movement Cardiovascular: Normal pulses, Regular rate/rhythm Gastrointestinal: Normal bowel sounds, Soft and benign, Non-distended, Tenderness (Pain to the abdomen improved. Pain seems to be out of proportion.) Musculoskeletal: No erythema, No tenderness, No warmth Integumentary: No tenderness/swelling, No erythema, No warmth, No cyanosis Neurological: Normal speech, Normal strength at 5/5 x4 extr, Normal tone - Studies Laboratory Data (last 24 hrs) 08/01/19 14:02: Creatinine 0.92 08/01/19 14:02: WBC 3.7 L, Hgb 6.5 L*, Hct 21.7 L, Plt Count 229 08/01/19 14:02: Sodium 139, Potassium 3.2 L, BUN 9, Creatinine 0.94, Glucose 111 H, Total Bilirubin 0.2, AST 21, ALT 18, Alkaline Phosphatase 59, Lipase 115 Medications List Reviewed: Yes Assessment & Plan Discharge Plan: Home Plan to discharge in: 24 Hours Physician Review Additional Text: Impression: Abdominal pain suspect acute exacerbation of ulcerative colitis Acute blood-loss anemia with iron deficiency anemia Hypokalemia likely from dehydration GERD Generalized anxiety disorder Ovarian cyst Plan: Abdominal pain suspect acute exacerbation of ulcerative colitis: CT scan reviewed. No evidence of colitis. Patient symptomatic. Patient reports that she has seen multiple GI specialists. Will need to discuss case with GI. Continue with Cipro and Flagyl. Continue IV Solu-Medrol. Continue IV fluids. Encourage ambulation. Will provide SCD for DVT prophylaxis. Provide incentive spirometer. Anticipate improvement over the next 24-48 hr once she is able to take good oral intake and clinically stable. Acute blood-loss anemia with iron deficiency anemia: This may be related to her colitis. Will continue to monitor closely. Continue iron supplementation. Patient required transfusion. Will monitor closely. Hypokalemia likely from dehydration: Continue to replace. Adjustment in IV fluids done. GERD: Will change medication to oral. Generalized anxiety disorder: Continue with home medication. Right Ovarian cyst: CT scan reviewed. 3.5 cm cyst within the right pelvis unchanged since 2017. Recommend follow up with gynecology as an outpatient. Time Spent Managing Pts Care (In Minutes): 55
[2019-08-02] MEDS: NACHLORIDE 0.45% 1,000 ML IV SCH (14:03)
[2019-08-02] MEDS ORDERED: GUAIFENESIN/CODEINE 5ML UCUP PO PRN (22:34)
[2019-08-03] MEDS: METHYLPREDNISOLONE 125 MG INJ IV SCH ×2 (00:51→05:16)
[2019-08-03] MEDS: NACHLORIDE 0.45% 1,000 ML IV SCH ×2 (00:53→08:47)
[2019-08-03] MEDS: METRONIDAZOLE 500mg IVPB 500 MG/100 ML BAG IV SCH ×2 (00:59→08:38)
[2019-08-03] MEDS: ONDANSETRON 4 MG/2 ML VIAL IV PRN ×3 (02:42→12:20)
[2019-08-03] MEDS: MORPHINE 2 MG/ML SYR IV PRN ×2 (02:42→08:38)
[2019-08-03 03:30] LABS: Barbiturates NEGATIVE (NEGATIVE); Benzodiazepines POSITIVE (NEGATIVE); Cocaine NEGATIVE (NEGATIVE); METHAMPHETAM NEGATIVE (NEGATIVE); Methadone NEGATIVE (NEGATIVE); Opiates POSITIVE (NEGATIVE); Phencyclidine NEGATIVE (NEGATIVE); THC Cannibis POSITIVE (NEGATIVE)
[2019-08-03] MEDS: CIPROFLOXACIN 400mg IV 400 MG/200 ML BAG IV SCH (05:15)
[2019-08-03] MEDS: ALPRAZOLAM 1 MG TABLET PO PRN ×2 (05:16→12:20)
[2019-08-03] MEDS ORDERED: PANTOPRAZOLE 40MG TABLET PO SCH (06:30)
[2019-08-03 06:58] LABS: Magnesium 2.4 mg/dL (1.8-2.4); Potassium 4.1 mmol/L (3.5-5.1)
[2019-08-03 07:09] LABS: Absolute Lymphocytes (CBC) 0.7 K/uL (0.7-4.9); Basophils % 0.8 % (0-1.3); Hematocrit 27.9 % (36.0-45.0); Lymphocytes % 7.3 % (15.3-44.8); MPV 9.7 fL (7.6-11.3); RBC Red Blood Cell Count 3.93 M/uL (3.86-4.86)
[2019-08-03] MEDS: LACTOBACILLUS/ACIDOPHILUS TAB PO SCH (08:39)
[2019-08-03] MEDS: FERROUS SULFATE 325 MG TAB PO SCH (08:47)
[2019-08-03] MEDS ORDERED: predniSONE 10 MG TAB PO SCH (09:00)
[2019-08-03 10:11] VITALS: O2SAT 97
[2019-08-03] MEDS ORDERED: HYDROCODONE/APAP 7.5/325 MG TAB PO PRN (10:23)
[2019-08-03] MEDS ORDERED: TRAMADOL HCL 50 MG TAB PO PRN (10:23)
[2019-08-03 12:46] VITALS: BP 135/59; TEMP 98.8
[2019-08-03] MEDS ORDERED: METOCLOPRAMIDE 10 MG/2mL INJ IV PRN (13:14)
--- NOTE | 2019-08-03 13:26 | P.PN ---
Subjective Date of Service: 08/03/19 Primary Care Provider: Dr. Tanner Chief Complaint: Abdominal pain Subjective: Other (Patient appears improved. Still reports nausea) Physical Examination - Vital Signs Temperature: 98.8 F Blood Pressure: 135/59 Pulse: 61 Respirations: 18 Pulse Ox (%): 99 - Physical Exam General: Alert, In no apparent distress, Oriented x3, Cooperative HEENT: Atraumatic Neck: Supple Respiratory: Clear to auscultation bilaterally, Normal air movement Cardiovascular: Normal pulses, Regular rate/rhythm Gastrointestinal: Normal bowel sounds, Soft and benign, Non-distended, Tenderness (Pain out of proportion noted.) Neurological: Normal speech, Normal strength at 5/5 x4 extr, Normal tone, Normal affect - Studies Medications List Reviewed: Yes Assessment & Plan Discharge Plan: Home Plan to discharge in: 24 Hours Physician Review Additional Text: Impression: Abdominal pain suspect acute exacerbation of ulcerative colitis Acute blood-loss anemia with iron deficiency anemia Hypokalemia likely from dehydration GERD Generalized anxiety disorder Ovarian cyst GERD Marijuana use Plan: Abdominal pain suspect acute exacerbation of ulcerative colitis: CT scan reviewed. No evidence of colitis. Pain seems to be out of proportion. Lab improved. Clinically stable. Will discontinue IV pain medication. Will transition to oral. Will also transition from IV Solu-Medrol to steroids orally. Continue Cipro and Flagyl. Encourage ambulation. Will provide incentive spirometer. Will advance diet. Anticipate discharge in the next 24 hr. Acute blood-loss anemia with iron deficiency anemia: This may be related to her colitis. Overall stable after transfusion. Continue monitor closely. Hypokalemia likely from dehydration: Continue to replace. Adjustment in IV fluids done. GERD: Will change medication to oral. Generalized anxiety disorder: Continue with home medication. Right Ovarian cyst: CT scan reviewed. 3.5 cm cyst within the right pelvis unchanged since 2017. Recommend follow up with gynecology as an outpatient. GERD: Will provide PPI. Marijuana use: Urine drug screen was positive for marijuana. Patient admits use. This may be contributing to her increased nausea. Cessation education provided. Time Spent Managing Pts Care (In Minutes): 55
--- NOTE | 2019-08-03 16:01 | P.DS ---
Admission Date: 08/01/19 Discharge Date: 08/03/19 Primary Care Provider: Dr. Tanner Disposition: AMA-LEFT AGAINST MEDICAL ADVIC Discharge Condition: GOOD Reason for Admission: Abdominal pain Consultations: none Procedures: CT Scan: FINDINGS: The liver, spleen, pancreas, adrenal and kidneys appear unremarkable. There is no evidence of diverticulitis. Normal appendix A small ventral hernia contains fat. There is an adjacent small periumbilical hernia containing fat 3.5 centimeter cyst abuts the cecum within the right upper pelvis. It is unchanged IMPRESSION: 3.5 centimeter cyst within the upper right pelvis unchanged from 2017. This may represent a duplication or mesenteric cyst. Small umbilical and periumbilical hernias. Medical Problem List: Abdominal pain suspect acute exacerbation of ulcerative colitis Acute blood-loss anemia with iron deficiency anemia Hypokalemia likely from dehydration GERD Generalized anxiety disorder Ovarian cyst GERD Marijuana use Brief History of Present Illness: 34-year-old female with history of recurrent colitis, GERD, anxiety. Patient presented with abdominal pain. Patient has seen multiple GI specialists in the area with multiple colonoscopies in EGDs. Patient reported some nausea. In the ER she was found to be anemic. CT scan unremarkable. The patient was admitted for further evaluation. Hospital Course: Patient presented with abdominal pain. CT scan revealed no significant GI change or abnormality. Patient was anemic. Patient required transfusion. Hemoglobin stable. Patient was given IV Solu-Medrol and antibiotic therapy- Cipro/Flagyl during the course of her stay. Patient responded well to therapy. No further bleeding was noted. Pain improved. Patient was transitioned to oral medication. IV pain medication was discontinued. On clinical exam, pain was out of proportion. Clinically she appeared fine. Patient was ambulating and tolerating diet. Other options of pain orally was provided. Patient was upset not getting IV pain medication. Drug-seeking behavior was suspected. Urine drug screen was positive for marijuana. Patient admits use. This may be contributing to her nausea. I was not able to get in contact with her GI specialist. And No GI was available for consultation. She apparently has been to multiple GI specialists with prior EGD and colonoscopies in the past. She reports a history of ulcerative colitis. This could not be confirmed. Patient decided to leave against medical advice primarily because she was not getting IV pain medication. She may continue with PPI, anxiety medication in iron supplementation. Will recommend that she follow up with GI as directed. Vital Signs/Physical Exam: Temp Pulse Resp BP Pulse Ox 98.8 F 61 18 135/59 L 99 08/03/19 13:26 08/03/19 13:26 08/03/19 13:26 08/03/19 13:26 08/03/19 13:26 General: Alert, In no apparent distress, Oriented x3, Cooperative HEENT: Atraumatic Neck: Supple Respiratory: Clear to auscultation bilaterally, Normal air movement Cardiovascular: Normal pulses, Regular rate/rhythm Gastrointestinal: Normal bowel sounds, Soft and benign, No masses, No rebound, No guarding Laboratory Data at Discharge: WBC 10.1 K/uL (4.3-10.9) D 08/03/19 05:37 Hgb 8.6 g/dL (12.0-15.0) L 08/03/19 05:37 Hct 27.9 % (36.0-45.0) L 08/03/19 05:37 Plt Count 231 K/uL (152-406) 08/03/19 05:37 Sodium 140 mmol/L (136-145) 08/03/19 05:37 Potassium 4.1 mmol/L (3.5-5.1) 08/03/19 05:37 BUN 11 mg/dL (7-18) 08/03/19 05:37 Creatinine 0.76 mg/dL (0.55-1.3) 08/03/19 05:37 Glucose 132 mg/dL (74-106) H 08/03/19 05:37 Phosphorus 3.8 mg/dL (2.5-4.9) 08/02/19 03:58 Magnesium 2.4 mg/dL (1.8-2.4) 08/03/19 05:37 Total Bilirubin 0.3 mg/dL (0.2-1.0) 08/02/19 03:58 AST 16 U/L (15-37) 08/02/19 03:58 ALT 19 U/L (12-78) 08/02/19 03:58 Alkaline Phosphatase 57 U/L (45-117) 08/02/19 03:58 Lipase 115 U/L (73-393) 08/01/19 14:02 Home Medications: Alprazolam [Xanax] 2 mg PO BID 08/01/19 Esomeprazole Magnesium [Nexium] 2 mg PO DAILY 08/01/19 Ferrous Sulfate [Ferrous Sulfate*] 325 mg PO DAILY 08/01/19 Lactobacillus Acidophilus [Acidophilus Lactobacilli] 1 tab PO BID 08/01/19 Ondansetron [Zofran (Odt)*] 4 mg PO TIDP PRN 08/01/19 Patient Discharge Instructions: Patient left AMA. Diet: GI soft Activity: Ad jessica Time spent managing pt's care (in minutes): 55
== END 2019-08-03 15:47 | disposition left against medical advice (07) | DRG 386 ==
LOC: ER 12:39 → ERHOLD 16:17 → 2ND 19:46
PROVIDERS: ADMIT Family Medicine; ATTEND Family Medicine
DX: K51.90 Ulcerative colitis, unspecified, without complications (principal); D62 Acute posthemorrhagic anemia; E87.6 Hypokalemia; E86.0 Dehydration; K21.9 Gastro-esophageal reflux disease without esophagitis; F41.9 Anxiety disorder, unspecified; N83.209 Unspecified ovarian cyst, unspecified side; F12.90 Cannabis use, unspecified, uncomplicated; Z53.29 Procedure and treatment not carried out because of patient's decision for other reasons; E66.01 Morbid (severe) obesity due to excess calories; Z68.37 Body mass index [BMI] 37.0-37.9, adult
CPT/HCPCS: 36415; 74177; 80048; 80053; 80076; 80307; 81001; 81025; 83690; 83735; 84100; 84145; 85025; 86850; 86870; 86900; 86901; 86902; 86922; 87086; 87088; 94760; 99285; C9113; J0744; J1200; J1940; J2175; J2270; J2405; J2765; J2930; J7030; J7512; P9016; Q9967

== ENCOUNTER 2020-03-20 23:19 | Emergency (ER) | payer OTHER ==
--- OUTSIDE RECORDS SUMMARY | 2020-03-20 23:22 | XMS REPORT | Encounter Summary ---
:1985 Author Reason for Visit Psychiatric Follow Up Instructions 1. Generalized anxiety disorder 2. Mood disorder lamotrigine 25 mg tablet trazodone 50 mg tablet 3. Panic disorder alprazolam 2 mg tablet Discussion Note Advised to call if any problems or issues. Patient educational handouts: No information available. Plan of Care Patient Instructions Continue current treatment. RTC 3-m onths or sooner if necessary. Reminders Provider Appointments Est on or around [facility] 05/29/2020 Wil Pihllip MD Lab None recorded. Referral None recorded. Procedures None recorded. Surgeries None recorded. Imaging None recorded. Medications Name Start Date acetaminophen 300 mg-codeine 30 mg tablet Take 1 tablet every 6 hours by oral route as needed. alprazolam 2 mg tablet TK 1 T PO BID PRN. azithromycin 250 mg tablet ciprofloxacin 500 mg tablet dicyclomine 20 mg tablet Take 1 tablet 3 times a day by oral route as needed. docusate sodium 100 mg capsule Take 1 capsule every day by oral route as needed. esomeprazole magnesium 40 mg capsule,delayed release ferrous sulfate 325 mg (65 mg iron) tablet Take 1 tablet 3 times a day by oral route. fluticasone propionate 50mcg nasal spray hydroxyzine HCl 25 mg tablet TK 1 T PO TID PRN lamotrigine 25 mg tablet 2 po qam Lialda 1.2 gram tablet,delayed release Take 2 tablets every day by oral route as directed. lisinopril 40 mg tablet Take 1 tablet every day by oral route. loratadine 10 mg tablet Take 1 tablet every day by oral route as needed. methylprednisolone 4 mg tablets in a dose pack metronidazole 500 mg tablet ondansetron 4 mg disintegrating tablet ondansetron HCl 4 mg tablet ondansetron HCl 8 mg tablet Take 1 tablet every 8 hours by oral route as directed . pantoprazole 20 mg tablet,delayed release Take 1 tablet every day by oral route. pantoprazole 40 mg tablet,delayed release penicillin V potassium 500 mg tablet Proctofoam HC 1 %-1 % Insert 1 application 3 times a day by rectal route as needed. Suprep Bowel Prep Kit 17.5 gram-3.13 gram-1.6 gram ora l solution tramadol 50 mg tablet trazodone 50 mg tablet TK 1 T PO QD HS Medications Administered None recorded. Vitals None recorded. [...] Name Performed by 08/03/2016 Colonoscopy Information not avai lable Delivery Information not avai lable Vaccine List None recorded. Social History Tobacco Smoking Status Never Smoker Past Encounters 02/27/2020 Generalized Anxiety Disorder; Mood Disor chester; Panic Disorder Alber Phillip MD: [address] [place] [id number], Ph. [phone] History of Present Illness Psych Medication Management Reported By: Patient HPI: Medications: taking medicati ons as directed, no side effects from medication. General overall feeling: feeling as well as can be expected Psychiatric General Follow-U p Reported By: Patient HPI: Context: no relationship str ess, good family dynamics Associated Symptoms: Mood: no sadness. Anxiety: n o generalized worry. Sleep: no insomnia. Appetite: no ch rihna Prior Treatment and Review:: Medication Compliance: gr eater than 90% Note: <p>Was seen through [facility]. Reports doing well. No significant problems since last visit. Compliant with meds. No AE. Sleeping and eating well. Mood stable. Anxiety under control. No new health issues. Kids are spending summer with their father. She is with her mother. Denies ETOH/drugs. No legal issues.</p> Review of Systems None recorded. Physical Exam Mental Status Exam Reported By: Patient Mental Status Exam: Appearance: well-groomed, cl rebecca, obesity. Behavior: eye contact, cooperative. Speech: clear. Perception: no hallucinations. Cognition: alert, oriented t o situation, oriented to time, oriented to place, oriented to person, memory intact. Intelligence: average. Memor y: remote, recent. Mood: euthymic. Affect: congruent to thought content. Insight: intact. Judgment: intact. Thought Content: unr emarkable
--- OUTSIDE RECORDS SUMMARY | 2020-03-20 23:22 | XMS REPORT | Continuity of Care Document ---
:1985 Author Organization [facility] t Address [address] [place] [address] [place] [address] Care Team Providers Name Role Phone Michael HILL, A Attending Clinician Problems Condition Condition Condition Status Onset Resolution Last Treating Co mments Source Name Details Category Date Date Treatment Clinician Date Mood Mood Problem Active 2017-08 [place] disorder Disorder 0-22 [facility] Generalize Generalize Problem Active 2017-08 [facility] d anxiety d Anxiety 0-22 da disorder Disorder 00:00[facility] Posttrauma Posttrauma Problem Active 2017-08 [facility] tic stress tic Stress 0-22 da disorder Disorder 00:00[facility] Essential Essential Problem Active 2017-08 [facility] hypertensi Hypertensi 0-02 da on on 00:[facility] Ulcerative Ulcerative Problem Active 2017-08 [facility] colitis Colitis 0-02 [facility] Fibromyalg Fibromyalg Problem Active 2017-08 [facility] ia ia 0-02 da [facility] Panic Panic Problem Active 2017-08 [place] disorder Disorder 0-02 da [facility] Allergies, Adverse Reactions, Alerts This patient has no known allergies or adverse reactions. Social History Smoking Status Start Date Stop Date Source Never Smoker [facility] Medications Ordered Filled Start Stop Current Ordering Indication Dosage Frequency Signature Comments Components Source Medication Medication Date Date Medication? Clinician (SIG) Name Name acetaminoph acetaminoph No acetaminop [place] en 300 en 300 hen 300 da mg-codeine mg-codeine mg-codeine [facility] 30 mg 30 mg 30 mg al tablet Take tablet Take tablet Health 1 tablet 1 tablet Take 1 Outre ac every 6 every 6 tablet h hours by hours by every 6 Prog martha oral route oral route hours by as needed. as needed. oral route as needed. alprazolam alprazolam No alprazolam [place] 2 mg tablet 2 mg tablet 2 mg d a TK 1 T PO TK 1 T PO tablet TK [facility] BID PRN. BID PRN. 1 T PO BID a l PRN. [facility] azithromyci azithromyci No azithromyc [place] n 250 mg n 250 mg in 250 mg da tablet tablet tablet [facility] ciprofloxac ciprofloxac No ciprofloxa [place] in 500 mg in 500 mg soha 500 mg da tablet tablet tablet [facility] dicyclomine dicyclomine No dicyclomin [facility] 20 mg 20 mg e 20 mg da tablet Take tablet Take tablet [facility] 1 tablet 3 1 tablet 3 Take 1 a l times a day times a day tablet 3 Health by oral by oral times a Outrea c route as route as day by h needed. needed. oral route Pro gram as needed. docusate docusate No 1capsul Q1D docusate [place] sodium 100 sodium 100 e(s) sodium 100 da mg capsule mg capsule mg capsule [facility] Take 1 Take 1 Take 1 al capsule capsule capsule Health every day every day every day Outreac by oral by oral by oral h route as route as route as Pro gram needed. needed. needed. esomeprazol esomeprazol No esomeprazo [place] e magnesium e magnesium le d a 40 mg 40 mg magnesium [facility] capsule,del capsule,del 40 mg al ayed ayed capsule,de Health release release layed Outreac release h Program ferrous ferrous No 1 TID ferrous [place] [facility] sulfate 325 sulfate 325 sulfate da mg (65 mg mg (65 mg 325 mg (65 [facility] iron) iron) mg iron) al tablet Take tablet Take tablet Health 1 tablet 3 1 tablet 3 Take 1 O utreac times a day times a day tablet 3 h by oral by oral times a Progra m route. route. day by oral route. fluticasone fluticasone No fluticason [place] propionate propionate e da 50mcg nasal 50mcg nasal propionate [facility] spray spray 50mcg al nasal Health spray Outreac h Program hydroxyzine hydroxyzine No hydroxyzin [facility] HCl 25 mg HCl 25 mg e HCl 25 d a tablet TK 1 tablet TK 1 mg tablet [facility] T PO TID T PO TID TK 1 T PO al PRN PRN TID PRN Health Outreac h Program lamotrigine lamotrigine No lamotrigin [facility] 25 mg 25 mg e 25 mg da tablet 2 po tablet 2 po tablet 2 [facility] qam qam po qam al [facility] Lialda 1.2 Lialda 1.2 No 2 Q1D Lialda 1.2 [place] gram gram gram da tablet,danica tablet,danica tablet,del [facility] yed release yed release ayed a l Take 2 Take 2 release Health tablets tablets Take 2 Outreac every day every day tablets h by oral by oral every day Prog martha route as route as by oral directed. directed. route as directed. lisinopril lisinopril No lisinopril [place] 40 mg 40 mg 40 mg da tablet Take tablet Take tablet [facility] 1 tablet 1 tablet Take 1 al every day every day tablet Hea lth by oral by oral every day Outr eac route. route. by oral h route. Program loratadine loratadine No 1 Q1D loratadine [facility] 10 mg 10 mg 10 mg da tablet Take tablet Take tablet [facility] 1 tablet 1 tablet Take 1 al every day every day tablet Hea lth by oral by oral every day Outr eac route as route as by oral h needed. needed. route as Progr am needed. methylpredn methylpredn No methylpred [place] isolone 4 isolone 4 nisolone 4 da mg tablets mg tablets mg tablets [facility] in a dose in a dose in a dose al pack pack pack Health Outreac h Program metronidazo metronidazo No metronidaz [place] le 500 mg le 500 mg ole 500 mg da tablet tablet tablet [facility] ondansetron ondansetron No ondansetro [place] 4 mg 4 mg n 4 mg da disintegrat disintegrat disintegra [facility] ing tablet ing tablet ting al tablet Health Outreac h Program ondansetron ondansetron No ondansetro [facility] HCl 4 mg HCl 4 mg n HCl 4 mg d a tablet tablet tablet [facility] ondansetron ondansetron No ondansetro [place] HCl 8 mg HCl 8 mg n HCl 8 mg d a tablet Take tablet Take tablet [facility] 1 tablet 1 tablet Take 1 al every 8 every 8 tablet Health hours by hours by every 8 Outr eac oral route oral route hours by h as as oral route Program directed. directed. as directed. pantoprazol pantoprazol No 1 Q1D pantoprazo [place] e 20 mg e 20 mg le 20 mg da tablet,danica tablet,danica tablet,del [facility] yed release yed release ayed a l Take 1 Take 1 release Health tablet tablet Take 1 Outreac every day every day tablet h by oral by oral every day Prog martha route. route. by oral route. pantoprazol pantoprazol No pantoprazo [place] e 40 mg e 40 mg le 40 mg da tablet,danica tablet,danica tablet,del [facility] yed release yed release ayed a l release Health Outreac h Program penicillin penicillin No penicillin [place] V potassium V potassium V d a 500 mg 500 mg potassium [facility] tablet tablet 500 mg al tablet Health Outreac h Program Proctofoam Proctofoam No Proctofoam [place] HC 1 %-1 % HC 1 %-1 % HC 1 %-1 % da Insert 1 Insert 1 Insert 1 [facility] application application applicatio al 3 times a 3 times a n 3 times Health day by day by a day by Outreac rectal rectal rectal h route as route as route as Pro gram needed. needed. needed. Suprep Suprep No Suprep [place] Bowel Prep Bowel Prep Bowel Prep da Kit 17.5 Kit 17.5 Kit 17.5 [facility] gram-3.13 gram-3.13 gram-3.13 al gram-1.6 gram-1.6 gram-1.6 Hea lth gram oral gram oral gram oral Outreac solution solution solution h Program tramadol 50 tramadol 50 No tramadol [place] mg tablet mg tablet 50 mg da tablet [facility] trazodone trazodone No trazodone [place] 50 mg 50 mg 50 mg da tablet TK 1 tablet TK 1 tablet TK [facility] T PO QD HS T PO QD HS 1 T PO QD al HS Health Outreac h Program Procedures Procedure Date / Time Performed Performing Clinician Sourc e Colonoscopy 2016-08-03 00:00:00 [facility] Delivery [facility] Plan of Care Planned Activity Planned Date Details Comments Source Future Appointment 2020-05-29 00:00:00 Alber Phillip, [address] [facility]; , [place] Program [id number] [facility] Outreach Program Encounters Start End Encounter Admission Attending Care Care Encounter Source Date/Time Date/Time Type Type Clinicians Facility Department ID 2020-02-27 [id number]:00:00 00:00:00 Wil Phillip MD: [facility] [address] [facility] [id number] Progr am , Ph. [phone] 2019-12-19 2019-12-19 [facility] [id number] M [facility] 00:00:00 00:00:00 Wil Phillip MD: [facility] [address] [facility] [address] Progr am , Ph. [phone] -[phone] 2019-10-31 [facility] [id number] M [facility] 00:00:00 00:00:00 Wil Phillip MD: [facility] [address] [facility] [address] Progr am , Ph. [phone] -20072019-05-09 2019-05-09 [facility] [place] - [id number] M kartikr 00:00:00 00:00:00 Wil Phillip MD: [facility] [address] [facility] [address], [address], [facility] Program [id number] , Ph. [phone] -20072019-04-18 2019-04-18 Sae Rodriguez [facility] [id number] 00:00:00 00:00:00 [facility] [id number] [place] [id number] Professio [phone] [address]al [address] One Results This patient has no known results.
[2020-03-20] MEDS ORDERED: ONDANSETRON 4 MG/2 ML VIAL ONE (23:42)
[2020-03-20] MEDS ORDERED: MORPHINE 4 MG/ML SYR ONE (23:42)
[2020-03-20] MEDS ORDERED: NA CHLORIDE 0.9% 2,000 ML ONE (23:46)
[2020-03-21 00:23] LABS: ALT/SGPT 14 U/L (12-78); AST/SGOT 8 U/L (15-37); Albumin 3.4 g/dL (3.4-5.0); Alkaline Phosphatase 56 U/L (45-117); BUN Blood Urea Nitrogen 5 mg/dL (7-18); Bicarbonate 21 mmol/L (21-32); Bilirubin Direct < 0.1 mg/dL (0-0.2); Bilirubin Total 0.1 mg/dL (0.2-1.0); Glucose Level 100 mg/dL (74-106); Lipase 165 U/L (73-393); Potassium 3.2 mmol/L (3.5-5.1); Sodium Level 144 mmol/L (136-145)
[2020-03-21 00:26] LABS: Absolute Lymphocytes (CBC) 2.2 K/uL (0.7-4.9); Hematocrit 24.9 % (36.0-45.0); Lymphocytes % 23.7 % (15.3-44.8); MPV 9.6 fL (7.6-11.3); RBC Red Blood Cell Count 3.87 M/uL (3.86-4.86)
[2020-03-21 01:10] LABS: Blood Morphology Comment NOTED (NOT SEEN); Hypochromasia 2+; Platelet Estimate ADEQ; White Blood Cell Scan OK
[2020-03-21] MEDS ORDERED: KCL 20 MEQ/100 mL IVPB 20 MEQ/100 ML BAG IV ONE (01:22)
[2020-03-21] MEDS ORDERED: MORPHINE 4 MG/ML SYR ONE (01:36)
[2020-03-21] MEDS ORDERED: NA CHLORIDE 0.9% 500 ML ONE (03:35)
--- NOTE | 2020-03-21 03:39 | ER ---
Nurse's Notes [facility] Rui Name: Maribeth Arredondo Age: 34 yrs Sex: Female : 1985 Arrival Date: 03/20/2020 Time: 23:19 Bed 19 Private MD: Diagnosis: Abdominal pain. G.I. bleeding. Anemia Presentation: 03/20 23:20 Chief complaint: Patient states: BIBA FROM HOME ABD PAIN X1 MONTHS WORST THIS WEEK. mt2 RECTAL BLEEDING TODAY. PT ANXIOUS. HX ANXIETY LAST XANAX THIS AM. N/V TODAY X 5. Coronavirus screen: At this time, the client does not indicate any symptoms associated with coronavirus-19. Ebola Screen: No symptoms or risks identified at this time. Initial Sepsis Screen: Does the patient meet any 2 criteria? No. Patient's initial sepsis screen is negative. Does the patient have a suspected source of infection? No. Patient's initial sepsis screen is negative. Risk Assessment: Do you want to hurt yourself or someone else? Patient reports no desire to harm self or others. Onset of symptoms was February 18, 2020. 23:20 Method Of Arrival: EMS: [facility] mt2 23:20 Acuity: SINGH 3 mt2 23:27 Chief complaint:. mt2 Triage Assessment: 23:35 General: Appears distressed, uncomfortable, Behavior is agitated, anxious, restless. mt2 Pain: Complains of pain in abdomen Pain radiates to back Pain currently is 10 out of 10 on a pain scale. EENT: No deficits noted. Neuro: No deficits noted. Cardiovascular: Rhythm is sinus tachycardia. Respiratory: No deficits noted. GI: Reports rectal bleeding, nausea, vomiting. : No deficits noted. Derm: No deficits noted. Musculoskeletal: No deficits noted. 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 - Social history:: Smoking status: Patient denies any tobacco usage or history of. Patient/guardian denies using alcohol, street drugs. Screenin:27 Abuse screen: Denies threats or abuse. Nutritional screening: No deficits noted. mt2 Tuberculosis screening: No symptoms or risk factors identified. Fall Risk None identified. Assessment: 23:37 GI: Bowel sounds present X 4 quads. Abdomen is tender to palpation X 4 quads. mt2 03/21 00:12 Reassessment: Patient and/or family updated on plan of care and expected duration. Pain mt2 level reassessed. Patient is alert, oriented x 3, equal unlabored respirations, skin warm/dry/pink. Patient states symptoms have improved. General: Appears in no apparent distress. comfortable, Behavior is cooperative. 00:28 Reassessment: notified for Hgb 7.6. sg 01:02 Reassessment: Patient and/or family updated on plan of care and expected duration. Pain mt2 level reassessed. Patient is alert, oriented x 3, equal unlabored respirations, skin warm/dry/pink. General: Appears in no apparent distress. comfortable, Behavior is cooperative. Pain: Denies pain. 02:28 Reassessment: Patient appears in no apparent distress at this time. Patient and/or mg2 family updated on plan of care and expected duration. Pain level reassessed. Patient is alert, oriented x 3, equal unlabored respirations, skin warm/dry/pink. 03:00 Reassessment: Patient and/or family updated on plan of care and expected duration. Pain mt2 level reassessed. Patient is alert, oriented x 3, equal unlabored respirations, skin warm/dry/pink. General: Appears in no apparent distress. comfortable, Behavior is cooperative. Pain: Denies pain. Neuro:. 04:00 Reassessment: Patient and/or family updated on plan of care and expected duration. Pain mt2 level reassessed. Patient is alert, oriented x 3, equal unlabored respirations, skin warm/dry/pink. 1 ST UNIT OF PRBC STARTED. General: Appears uncomfortable, Behavior is cooperative. Pain: Complains of pain in abdomen Pain currently is 9 out of 10 on a pain scale. Quality of pain is described as sharp. 04:31 Reassessment: report given Vanessa Diana Rn. at [facility]. mt2 05:00 Reassessment: Patient and/or family updated on plan of care and expected duration. Pain mt2 level reassessed. Patient is alert, oriented x 3, equal unlabored respirations, skin warm/dry/pink. Patient states symptoms have improved. Reassessment: PT B/P DECREASED DURING BLOOD TRANSFUSION. NOTIFIED. PER DR. MAHER CONT. PRBC TRANSFUSION B/P IS DUE TO ANALGESUC AFFECT. NOTIFIED BLOOD BANK THAT TRANSFUSION WILL CONT. General: Appears comfortable, Behavior is cooperative. Pain: Denies pain. 05:37 Reassessment: PT COMPLETED PRBC TRANSFUSION. VS WNL. NO S/S OF ADVERSE REACTION. mt2 06:00 Reassessment: Patient and/or family updated on plan of care and expected duration. Pain mt2 level reassessed. Patient is alert, oriented x 3, equal unlabored respirations, skin warm/dry/pink. Patient denies pain at this time. Reassessment: TRANSPORT AT BEDSIDE TO TRANSFER PT TO [place]. General: Appears in no apparent distress. comfortable, Behavior is cooperative. Pain: Denies pain. Vital Signs: 03/20 23:19 BP 184 / 97; Pulse 123; Temp 98.4; Pulse Ox 99% on R/A; Pain 10/10; mt2 23:33 BP 146 / 84; Pulse 110; Resp 20; Temp 98.1; Pulse Ox 100% on R/A; Weight 72.57 kg; Pain mt2 10/; 03/21 01:03 BP 154 / 74; Pulse 91; Resp 16; Pulse Ox 100% on R/A; Pain 0/10; mt2 02:27 BP 138 / 81; Pulse 81; Resp 18; Pulse Ox 100% on R/A; mg2 03:00 BP 130 / 71; Pulse 76; Resp 17; Temp 98.3; Pulse Ox 100% ; Pain 0/10; mt2 04:00 BP 135 / 80; Pulse 76; Resp 19; Temp 98.3(O); Pulse Ox 100% ; Pain 9/10; mt2 05:00 BP 102 / 54; Pulse 76; Resp 18; Temp 98.1(O); Pulse Ox 99% on R/A; Pain 0/10; mt2 05:30 BP 119 / 71; Pulse 77; Resp 16; Temp 98.1; Pulse Ox 100% on R/A; Pain 0/10; mt2 06:00 BP 121 / 73; Pulse 79; Resp 16; Temp 98.1(O); Pulse Ox 100% on R/A; Pain 0/10; mt2 ED Course: 03/20 23:19 Patient arrived in ED. am2 23:19 Nereyda De Jesus, SABRINA is Primary Nurse. mt2 23:19 Freddy Maher MD is Attending Physician. pkl 23:21 Triage completed. mt2 23:28 Patient has correct armband on for positive identification. Placed in gown. Bed in low mt2 position. Call light in reach. Side rails up X 1. 23:32 Initial lab(s) drawn, by me, sent to lab. Inserted saline lock: 20 gauge in left mt2 antecubital area, using aseptic technique. Blood collected. 23:37 Arm band placed on right wrist. mt2 08 01:29 CT Abd/Pelvis - IV Contrast Only In Process Unspecified. EDMS 02:10 Initiated transfer to [facility] spoke with Silvia Ramos. ar5 02:30 Received call from Silvia stating they need to decline the pt. due to bed capacity. ar5 02:45 Initiated transfer to [facility] spoke with Amanda Wolfe. ar5 03:26 Dr.- Chatterjee done with GI Dr. Jerman Sahu. ar5 03:57 Acceptance given by Amanda Wolfe by Dr. Jerman Sahu. Going to bed 9 B Bed 930. Call report to ar5 [phone]. 06:19 No provider procedures requiring assistance completed. Patient transferred, IV remains mt2 in place. Administered Medications: 03/20 23:34 Drug: morphine 4 mg Route: IVP; Site: left antecubital; mg2 23:54 Follow up: Response: No adverse reaction; Pain is decreased; RASS: Alert and Calm (0) mg2 03/21 00:14 Follow up: Response: No adverse reaction; Pain is decreased mt2 03/20 23:34 Drug: Zofran (Ondansetron) 4 mg Route: IVP; Site: left antecubital; mg2 23:54 Follow up: Response: No adverse reaction; Nausea is decreased mg2 03/21 00:13 Follow up: Response: No adverse reaction; Pain is decreased mt2 03/20 23:38 Drug: NS 0.9% 1000 ml Route: IV; Rate: 1000 ml; Site: left antecubital; mg2 03/21 01:02 Follow up: Response: No adverse reaction; IV Status: Completed infusion mt2 01:01 Drug: NS 0.9% 1000 ml Route: IV; Rate: 125 ml/hr; Site: left antecubital; mt2 04:28 Follow up: IV Status: Completed infusion mt2 01:17 Drug: Potassium Chloride 20 mEq Route: IV; Rate: calculated rate; Site: left mt2 antecubital; 02:41 Follow up: Response: No adverse reaction; IV Status: Completed infusion mt2 01:40 Drug: morphine 4 mg Route: IVP; Site: left antecubital; mt2 02:00 Follow up: Response: No adverse reaction; Pain is decreased mt2 03:59 Drug: Demerol 50 mg Route: IVP; Site: left antecubital; mt2 04:30 Follow up: Response: No adverse reaction mt2 Outcome: 03:39 ER care complete, transfer ordered by . wilfredo 06:19 Transferred to [facility], Transfer form completed. X-rays sent mt2 w/ patient. 06:19 Condition: stable 06:19 Instructed on the need for transfer. 06:20 Patient left the ED. mt2 Signatures: Dispatcher [employer] EDMS Mike Neri RN SABRINA sg Freddy Maher MD MD pkl Melisa Salter am2 Bo Flores RN RN mg2 Eve Singh ar5 Nereyda De Jesus RN RN mt2 Corrections: (The following items were deleted from the chart) 03/20 23:27 23:20 Chief complaint: Patient states: BIBA FROM HOME ABD PAIN X1 MONTHS WORST THIS mt2 WEEK. RECTAL BLEEDING TODAY. PT ANXIOUS. HX ANXIETY LAST XANAX THI AM. mt2
--- NOTE | 2020-03-21 03:39 | EDPHYS ---
Physician Documentation [facility] Name: Maribeth Arredondo Age: 34 yrs Sex: Female : 1985 Arrival Date: 03/20/2020 Time: 23:19 Bed 19 Private MD: ED Physician Freddy Caballero HPI: 03/20 23:33 This 34 yrs old Female presents to ER via EMS with complaints of Abdominal pkl Pain. 23:33 The patient presents with abdominal pain in the right upper quadrant. Onset: The pkl symptoms/episode began/occurred yesterday, and became worse just prior to arrival. The symptoms radiate to right back. Associated signs and symptoms: Pertinent positives: rectal bleeding and anxiety attack. Patient said she has similar pain before but not as severe.. [employer]: 23:37 LMP 02/20/2020 mt2 Historical: - Allergies: 23:35 No Known Allergies; mt2 - Home Meds: 23:35 Xanax 0.25 mg Oral tab 1 tab 3 times per day for Anxiety [Active]; Trazodone Oral for mt2 INSOMNIA [Active]; lamotrigine Oral [Active]; - PMHx: 23:35 Anemia; Anxiety; ulcerative colitis; mt2 - Immunization history:: Adult Immunizations up to date. - Social history:: Smoking status: Patient denies any tobacco usage or history of. Patient/guardian denies using alcohol, street drugs. ROS: 23:33 Eyes: Negative for injury, pain, redness, and discharge, ENT: Negative for injury, pkl pain, and discharge, Neck: Negative for injury, pain, and swelling, Cardiovascular: Negative for chest pain, palpitations, and edema, Respiratory: Negative for shortness of breath, cough, wheezing, and pleuritic chest pain. 23:33 Abdomen/GI: Positive for abdominal pain, of the right upper quadrant. 23:33 Back: Negative for acute changes. 23:33 : Negative for urinary symptoms. 23:33 MS/extremity: Negative for acute changes. 23:33 Skin: Negative for rash. 23:33 Neuro: Negative for altered mental status. Exam: 23:33 Head/Face: Normocephalic, atraumatic. Eyes: Pupils equal round and reactive to light, pkl extra-ocular motions intact. Lids and lashes normal. Conjunctiva and sclera are non-icteric and not injected. Cornea within normal limits. Periorbital areas with no swelling, redness, or edema. ENT: Nares patent. No nasal discharge, no septal abnormalities noted. Tympanic membranes are normal and external auditory canals are clear. Oropharynx with no redness, swelling, or masses, exudates, or evidence of obstruction, uvula midline. Mucous membranes moist. Neck: Trachea midline, no thyromegaly or masses palpated, and no cervical lymphadenopathy. Supple, full range of motion without nuchal rigidity, or vertebral point tenderness. No Meningismus. Chest/axilla: Normal chest wall appearance and motion. Nontender with no deformity. No lesions are appreciated. Cardiovascular: Regular rate and rhythm with a normal S1 and S2. No gallops, murmurs, or rubs. Normal PMI, no JVD. No pulse deficits. Respiratory: Lungs have equal breath sounds bilaterally, clear to auscultation and percussion. No rales, rhonchi or wheezes noted. No increased work of breathing, no retractions or nasal flaring. 23:33 Abdomen/GI: Bowel sounds: normal, Palpation: soft, mild abdominal tenderness, in the right upper quadrant. 23:33 Back: Exam negative for acute changes. pkl 23:33 : Exam negative for acute changes. 23:33 Musculoskeletal/extremity: Exam is negative for acute changes. 23:33 Skin: Exam negative for rash. 23:33 Neuro: Orientation: is normal, Mentation: is normal, Cranial nerves: grossly normal, Motor: is normal. 23:53 Abdomen/GI: Rectal exam: rectal tone normal, Stool: guaiac positive, the exam is pkl chaperoned by the nurse. Vital Signs: 23:19 BP 184 / 97; Pulse 123; Temp 98.4; Pulse Ox 99% on R/A; Pain 10/10; mt2 23:33 BP 146 / 84; Pulse 110; Resp 20; Temp 98.1; Pulse Ox 100% on R/A; Weight 72.57 kg; Pain mt2 10/10; 03/21 01:03 BP 154 / 74; Pulse 91; Resp 16; Pulse Ox 100% on R/A; Pain 0/10; mt2 02:27 BP 138 / 81; Pulse 81; Resp 18; Pulse Ox 100% on R/A; mg2 03:00 BP 130 / 71; Pulse 76; Resp 17; Temp 98.3; Pulse Ox 100% ; Pain 0/10; mt2 04:00 BP 135 / 80; Pulse 76; Resp 19; Temp 98.3(O); Pulse Ox 100% ; Pain 9/10; mt2 05:00 BP 102 / 54; Pulse 76; Resp 18; Temp 98.1(O); Pulse Ox 99% on R/A; Pain 0/10; mt2 05:30 BP 119 / 71; Pulse 77; Resp 16; Temp 98.1; Pulse Ox 100% on R/A; Pain 0/10; mt2 06:00 BP 121 / 73; Pulse 79; Resp 16; Temp 98.1(O); Pulse Ox 100% on R/A; Pain 0/10; mt2 MDM: 03/20 23:20 Patient medically screened. pkl 03/21 00:36 Data reviewed: vital signs, nurses notes, lab test result(s). pkl 03:37 ED course: Talked to Dr. Sahu, accept transfer to [facility] ( [place] ). pk 03/20 23:27 Order name: Basic Metabolic Panel; Complete Time: 00:36 mt2 03/20 23:27 Order name: CBC with Diff; Complete Time: 01:30 mt2 03/20 23:27 Order name: Hepatic Function; Complete Time: 00:36 mt2 03/20 23:27 Order name: Lipase; Complete Time: 00:36 mt2 03/21 00:29 Order name: CBC Smear Scan; Complete Time: 01:30 EDMS 03/21 00:30 Order name: PRBC 03/21 00:31 Order name: ABO/RH typing EDMA 03/21 00:31 Order name: Antibody Screen EDMA 03/21 00:38 Order name: CT Abd/Pelvis - IV Contrast Only pkl 03/21 03:14 Order name: SARS-COV-2 RT PCR; Complete Time: 03:35 EDMS 03/20 23:27 Order name: IV Saline Lock; Complete Time: 23:28 mt2 03/20 23:27 Order name: Labs collected and sent; Complete Time: 23:28 mt2 Administered Medications: 03/20 23:34 Drug: morphine 4 mg Route: IVP; Site: left antecubital; mg2 23:54 Follow up: Response: No adverse reaction; Pain is decreased; RASS: Alert and Calm (0) mg2 03/21 00:14 Follow up: Response: No adverse reaction; Pain is decreased mt2 03/20 23:34 Drug: Zofran (Ondansetron) 4 mg Route: IVP; Site: left antecubital; mg2 23:54 Follow up: Response: No adverse reaction; Nausea is decreased mg2 03/21 00:13 Follow up: Response: No adverse reaction; Pain is decreased mt2 03/20 23:38 Drug: NS 0.9% 1000 ml Route: IV; Rate: 1000 ml; Site: left antecubital; mg2 03/21 01:02 Follow up: Response: No adverse reaction; IV Status: Completed infusion mt2 01:01 Drug: NS 0.9% 1000 ml Route: IV; Rate: 125 ml/hr; Site: left antecubital; mt2 04:28 Follow up: IV Status: Completed infusion mt2 01:17 Drug: Potassium Chloride 20 mEq Route: IV; Rate: calculated rate; Site: left mt2 antecubital; 02:41 Follow up: Response: No adverse reaction; IV Status: Completed infusion mt2 01:40 Drug: morphine 4 mg Route: IVP; Site: left antecubital; mt2 02:00 Follow up: Response: No adverse reaction; Pain is decreased mt2 03:59 Drug: Demerol 50 mg Route: IVP; Site: left antecubital; mt2 04:30 Follow up: Response: No adverse reaction mt2 Disposition: 03/21/20 03:39 Transfer ordered to [facility]. Diagnosis is Abdominal pain. G.I. bleeding. Anemia. - Reason for transfer: Higher level of care. - Accepting physician is Dr. Sahu. - Condition is Stable. - Problem is new. - Symptoms have improved. Signatures: Dispatcher [employer] EDMS Mike Neri RN RN sg Freddy Caballero MD MD pkl Gardose, Michele, RN RN mg2 Nereyda De Jesus RN RN mt2 Corrections: (The following items were deleted from the chart) 01:34 00:49 CORONAVIRUS+MR.LAB.BRZ ordered. EDMS EDMS 01:35 00:30 TYPE AND SCREEN+BB.LAB.BRZ ordered. EDMS EDMS 06:20 03:39 03/21/2020 03:39 Transfer ordered to [facility]. Diagnosis is Abdominal pain. mt2 G.I. bleeding. Anemia. Reason for transfer: Higher level of care. Accepting physician is Dr. Sahu. Condition is Stable. Problem is new. Symptoms have improved. pkl
[2020-03-21] MEDS ORDERED: MEPERIDINE HCL 50 MG/ML ONE (04:12)
[2020-03-21 06:47] VITALS: TEMP 98.1
[2020-03-21 06:48] VITALS: O2SAT 100
[2020-03-21 06:50] VITALS: BP 121/73
--- NOTE | 2020-03-21 09:50 | RAD REPORT ---
EXAM DESCRIPTION: CT - Abdomen Pelvis W Contrast - 03/21/2020 8:22 am CLINICAL HISTORY: 34 years Female rectal bleeding;Abd pain TECHNIQUE: Contiguous axial images obtained through the abdomen and pelvis during and after intraven ous contrast administration. Coronal and sagittal reformatted images provided. This CT exam was performed according to our departmental dose-optimization program, which includes on e or more of the following dose reduction techniques: automated exposure control, adjustment of the m A and/or kV according to patient size, and/or use of iterative reconstruction technique. COMPARISON: No prior exams provided for comparison. FINDINGS: The lung bases, liver, biliary tree, gallbladder, pancreas, spleen, adrenal glands, kidney s, uterus, urinary bladder, and osseous structures are normal. 2.8 cm right adnexal cyst. 3 cm left ovarian cyst. No free fluid in the cul-de-sac. There is no bowel inflammation, obstruction, free intraperitoneal air, or ascites. The appendix is no rmal. No abnormal bowel enhancement or contrast extravasation. Small fat-containing supraumbilical hernia. IMPRESSION: Bilateral adnexal cysts are physiologic in appearance and do not require follow-up. No other acute abdominal or pelvic findings. Electronically signed by: Jo-Ann Morales MD 03/21/2020 1:40 AM CDT Due to temporary technical issues with the PACS/Fluency reporting system, reports are being signed by the in house radiologist without review as a courtesy to ensure prompt reporting. The interpreting r adiologist is fully responsible for the content of the report.
== END 2020-03-21 06:20 | disposition short-term general hospital (02) ==
LOC: ER 23:19
PROC: 30233N1 Transfusion of Nonautologous Red Blood Cells into Peripheral Vein, Percutaneous Approach (ICD-10-PCS; principal; 2020-03-21)
DX: D64.9 Anemia, unspecified (principal); K92.2 Gastrointestinal hemorrhage, unspecified; F41.9 Anxiety disorder, unspecified; Z20.828 Contact with and (suspected) exposure to other viral communicable diseases
CPT/HCPCS: 36430; 96365; 96361; 85025; 80048; 36415; 86900; 86850; 86901; 80076; 83690; 86922 ×2; 74177; 96375; 99285; U0003; Q9967; J3480; J2175; P9016; J7040; J7030; J2405

== ENCOUNTER 2020-09-09 09:01 | Emergency (ER) | payer OTHER ==
--- OUTSIDE RECORDS SUMMARY | 2020-09-09 09:03 | XMS REPORT | Continuity of Care Document ---
:1985 Author Organization [facility] t Address [address] [place] [address] Dr. [address] [place] [id number] Care Team Providers Name Role Phone Doctor Unassigned, Name Attending Clinician Unavailable Solomon HILL Attending Clinician Michael HILL, A Attending Clinician Eber HILL, Milly Attending Clinician Frantz HILL, G Attending Clinician Adelina HILL, Nuzhat Admitting Clinician Problems Condition Condition Condition Status Onset [...] ia ia 0-02 da 00:00[facility] Panic Panic Problem Active 2017-08 [place] disorder Disorder 0-02 da 00:00: [facility] Allergies, Adverse Reactions, Alerts This patient has no known allergies or adverse reactions. Social History Smoking Status Start Date Stop Date Source Never Smoker [facility] Medications Ordered Filled Start Stop Current Ordering Indication Dosage Frequency Signature Comments Components Source Medication Medication Date Date Medication? Clinician (SIG) Name Name acetaminoph acetaminoph No acetaminop [place] en 300 en 300 hen 300 da mg-codeine mg-codeine mg-codeine [facility] 30 mg 30 mg 30 mg al tablet TK tablet TK tablet TK Health ONE T PO Q ONE T PO Q ONE T PO Q Outreac 6 H PRN P. 6 H PRN P. 6 H PRN P. h Program alprazolam alprazolam No alprazolam [place] 2 mg tablet 2 mg tablet 2 mg d a TAKE 1 TAKE 1 tablet [facility] TABLET BY TABLET BY TAKE 1 al MOUTH TWICE MOUTH TWICE TABLET BY Health DAILY DAILY MOUTH Outrea c NEEDED NEEDED TWICE h DAILY Program NEEDED azithromyci azithromyci No azithromyc [place] n 250 mg n 250 mg in 250 mg da tablet tablet tablet [facility] ciprofloxac ciprofloxac No ciprofloxa [place] in 500 mg in 500 mg soha 500 mg da tablet tablet tablet [facility] dicyclomine dicyclomine No [...] release release layed Outreac release h Program FeroSul 325 FeroSul 325 No FeroSul [place] mg (65 mg mg (65 mg 325 mg (65 da iron) iron) mg iron) [facility] tablet TK tablet TK tablet TK al ONE T PO ONE T PO ONE T PO Hea lth TID WITH TID WITH TID WITH Out reac MEALS MEALS MEALS h Program fluticasone fluticasone No fluticason [place] propionate propionate e da 50mcg nasal 50mcg nasal propionate [facility] spray spray 50mcg al nasal Health spray Outreac h Program hydroxyzine hydroxyzine No hydroxyzin [place] HCl 25 mg HCl 25 mg e HCl 25 d a tablet TAKE tablet TAKE mg tablet [facility] 1 TABLET BY 1 TABLET BY TAKE 1 al MOUTH THREE MOUTH THREE TABLET BY Health TIMES DAILY TIMES DAILY MOUTH Outre[facility] NEEDED NEEDED THREE h TIMES Program DAILY NEEDED lamotrigine lamotrigine No lamotrigin [place] 25 mg 25 mg e 25 mg da tablet TAKE tablet TAKE tablet [facility] 2 TABLETS 2 TABLETS TAKE 2 al BY MOUTH BY MOUTH TABLETS BY H ealth EVERY DAY EVERY DAY MOUTH Outr eac IN THE IN THE EVERY DAY h MORNING MORNING IN THE Program MORNING Lialda 1.2 Lialda 1.2 No 2 Q1D [...] yed release yed release ayed a l TK ONE T PO TK ONE T PO release TK Health D D ONE T PO D Outreac h Program penicillin penicillin No penicillin [...] mg 50 mg 50 mg da tablet TAKE tablet TAKE tablet [facility] 1 TABLET BY 1 TABLET BY TAKE 1 al MOUTH EVERY MOUTH EVERY TABLET BY Health NIGHT AT NIGHT AT MOUTH Outrea c BEDTIME BEDTIME EVERY h NIGHT AT Program BEDTIME Procedures Procedure Date / Time Performed Performing Clinician Sourc e Colonoscopy 2016-08-03 00:00:00 [facility] Delivery [facility] Plan of Care Planned Activity Planned Date Details Comments Source Future Appointment 2020-11-30 00:00:00 Alber Phillip, [address] [facility] [address] , [place] Program [address] Instructions [facility] Out[facility] Program Encounters Start End Encounter Admission Attending Care Care Encounter Source Date/Time Date/Time Type Type Clinicians Facility Department ID 2020-09-03 2020-09-03 [facility] - [id number] [facility] 00:00:00 00:00:00 Wil Phillip MD: [facility] [address] [facility] [address] [facility] , Ph. [phone]--20072020-05-21 2020-05-21 Alber [facility] [id number] M at[place]or 00:00:00 00:00:00 Wil Phillip MD: [facility] [address] [facility] [address] [place] [facility] , Ph. [phone] --20072020-04-19 2020-04-19 Orders Doctor ALDEN [id number] 00:00:00 00:00:00 Only Unassigned, JAMES [id number] [facility] [id number] [facility] 2020-04-05 2020-04-05 Telephone [facility] [id number] 00:00:00 00:00:00 Nitesh SPECIALTY [id number] [facility] [id number] CENTER AT [phone] [address] 2020-04-05 2020-04-05 Letter [facility] [id number] 00:00:00 00:00:00 (Out) Nites[facility] SPECIALTY [id number] [facility] [id number] CENTER AT [phone] [address] 2020-04-04 2020-04-04 [facility] [id number] 11:00:00 11:30:00 ne Visit Idris Dooley [id number] [place] [id number] Professio [phone] [address] 2020-03-21 2020-03-24 [facility] Yvrose Velázquze [id number]. [id number] 07:17:00 14:00:00 Encounter Audrey Landry [id number] [facility] [id number] 2020-02-27 2020-02-27 [facility] - [id number] Bhavesh tello 00:00:00 00:00:00 Wil Phillip MD: [facility] [address] [facility] [place] [address] Progr am , Ph. [phone]) 2019-12-19 2019-12-19 [facility] - [id number] M atagor 00:00:00 00:00:00 Wil Phillip MD: [facility] [address] [facility] [address] [facility] [address] [address] Progr am , Ph. [phone]) 2019-10-31 2019-10-31 [facility] - [id number] M atagor 00:00:00 00:00:00 Wil Phillip MD: [facility] [address] [facility] [address], [facility] [address] Progr am , Ph. [phone]) 2019-05-09 2019-05-09 [facility] [id number] M atagor 00:00:00 00:00:00 Wil Phillip MD: [facility] [address], [facility] [address] , Ph. [phone]) 2019-04-18 2019-04-18 Sae Rodriguez [facility] [id number] 00:00:00 00:00:00 [facility] [id number] [place] [id number] [facility] [phone] [place] [address] [address] One Results This patient has no known results.
--- OUTSIDE RECORDS SUMMARY | 2020-09-09 09:03 | XMS REPORT | Encounter Summary ---
:1985 Author Reason for Visit Psychiatric Follow Up Instructions 1. Generalized anxiety disorder 2. Panic disorder alprazolam 2 mg tablet hydroxyzine HCl 25 mg tabl et 3. Posttraumatic stress disorder 4. Mood disorder lamotrigine 25 mg tablet trazodone 50 mg tablet Discussion Note Advised to call if any problems or issues. Patient educational handouts: No information available. Plan of Care Patient Instructions Continue current treatment. RTC 3-m onths or sooner if necessary. Reminders Provider Appointments Est on or around [facility] 11/30/2020 Wil Phillip MD Lab None recorded. Referral None recorded. Procedures None recorded. Surgeries None recorded. Imaging None recorded. Medications Name Start Date acetaminophen 300 mg-codeine 30 mg tablet TK ONE T PO Q 6 H PRN P. alprazolam 2 mg tablet TAKE 1 TABLET BY MOUTH TWICE DAILY NEEDED azithromycin 250 mg tablet ciprofloxacin 500 mg tablet dicyclomine 20 mg tablet Take 1 tablet 3 times a day by oral route as needed. docusate sodium 100 mg capsule Take 1 capsule every day by oral route as needed. esomeprazole magnesium 40 mg capsule,delayed release FeroSul 325 mg (65 mg iron) tablet TK ONE T PO TID WITH MEALS fluticasone propionate 50mcg nasal spray hydroxyzine HCl 25 mg tablet TAKE 1 TABLET BY MOUTH THREE TIMES DAILY NEEDED lamotrigine 25 mg tablet TAKE 2 TABLETS [...] oral route. pantoprazole 40 mg tablet,delayed release TK ONE T PO D penicillin V potassium 500 mg tablet Proctofoam HC 1 %-1 % Insert 1 application 3 times a day by rectal route as needed. Suprep Bowel Prep Kit 17.5 gram-3.13 gram-1.6 gram ora l solution tramadol 50 mg tablet trazodone 50 mg tablet TAKE 1 TABLET BY MOUTH EVERY NIGHT AT BEDTIME Medications Administered None recorded. Vitals None recorded. [...] Tobacco Smoking Status Never Smoker Past Encounters Encounter Date Diagnosis Provider 09/03/2020 Generalized Anxiety Disorder; Alber Phillip, Panic Disorder; Posttraumatic MD: [address], [place] Stress Disorder; [place] [address], Ph. [phone] History of Present Illness Psych Medication Management Reported By: Patient HPI: Medications: taking medicati ons as directed, no side effects from medication. General overall feeling: feeling as well as can be expected Psychiatric General Follow-U p Reported By: Patient HPI: Context: no relationship str ess Associated Symptoms: Mood: no sadness. Anxiety: g eneralized worry. Sleep: no insomnia. Appetite: no garvin e Prior Treatment and Review:: Medication Compliance: gr eater than 90% Note: <p>Completed a phone session as Medpod would not work. Reports doing okay. States her 16-year-old daughter is having a lot of issues and is currently in a residential facility and she feels really stressed about it. States her anxiety has been high and she does not like to leave her home. Co mpliant with meds. No AE. Sleeping okay at night. Appetite fair. E/C okay. Mood okay. No new health issues. Home life unchanged. Denies ETOH/drugs. No legal issues.</p> Review of Systems None recorded. Physical Exam Mental Status Exam Reported By: Patient Mental Status Exam: Speech: clear. Perception: n o hallucinations. Cognition: alert, oriented to situation, orien lennox to time, oriented to place, oriented to person. Intellig ence: average. Memory: remote, recent. Mood: euthymic. Insi ght: intact. Judgment: intact. Thought Processes: intact. T hought Content: unremarkable
[2020-09-09 09:25] LABS: Absolute Lymphocytes (CBC) 2.3 K/uL (0.7-4.9); Basophils % 0.9 % (0-1.3); Hematocrit 27.7 % (36.0-45.0); Lymphocytes % 31.3 % (15.3-44.8); MPV 8.9 fL (7.6-11.3)
[2020-09-09] MEDS ORDERED: ONDANSETRON 4 MG/2 ML VIAL ONE (09:34)
[2020-09-09] MEDS ORDERED: MORPHINE 4 MG/ML SYR ONE ×2 (09:34→12:18)
--- NOTE | 2020-09-09 10:40 | RAD REPORT ---
EXAM DESCRIPTION: CTAbdomen Pelvis W Contrast - 09/09/2020 10:28 am CLINICAL HISTORY: Abdominal pain. ABD PAIN COMPARISON: Abdomen Pelvis W Contrast dated 03/21/2020; Abdomen Pelvis W Contrast dated 9; Abdomen Pelvis W Contrast dated 06/22/2019; Abdomen Pelvis W Contrast dated 05/18/2017; Pelvis Complete dated 09/09/2020 TECHNIQUE: Biphasic CT imaging of the abdomen and pelvis was performed with 100 ml non-ionic IV cont rast. All CT scans are performed using dose optimization technique as appropriate and may include automated exposure control or mA/KV adjustment according to patient size. FINDINGS: The lung bases are clear. The liver, spleen, pancreas, adrenal glands and kidneys are within normal limits. No bowel obstruction, free air, free fluid or abscess. The appendix is normal. Small fat containing umbilical hernia. No evidence of significant lymphadenopathy. No suspicious bony findings. Small bilateral right ovarian follicles, R distal on the right measuring 25 mm, likely physiologic. IMPRESSION: No acute intra-abdominal or pelvic finding.
--- NOTE | 2020-09-09 10:41 | RAD REPORT ---
EXAM DESCRIPTION: US - Pelvis Complete - 09/09/2020 9:44 am CLINICAL HISTORY: pelvic pain, rule out torsion Pelvic pain. COMPARISON: Pelvis Complete dated 08/30/2016 FINDINGS: The uterus is normal in size, shape and echotexture. The uterus measures 8.4 x 5.4 x 4.5 c m. The endometrial stripe measures 2 mm, normal. Both ovaries are normal in size, shape and echotexture. The right ovary measures 4.7 x 2.7 x 2.6 cm. The left ovary measures 3.0 x 2.2 x 1.7 cm. 25 mm right ovarian follicle noted. No adnexal masses. Normal Doppler blood flow was demonstrated to both ovaries. No significant pelvic ascites. IMPRESSION: Unremarkable study.
[2020-09-09 10:46] LABS: ALT/SGPT 23 U/L (12-78); AST/SGOT 20 U/L (15-37); Alkaline Phosphatase 72 U/L (45-117); BUN Blood Urea Nitrogen 11 mg/dL (7-18); Bicarbonate 21 mmol/L (21-32); Bilirubin Direct < 0.1 mg/dL (0-0.2); Bilirubin Total 0.1 mg/dL (0.2-1.0); Glucose Level 105 mg/dL (74-106); Lipase 1696 U/L (73-393); Potassium 3.1 mmol/L (3.5-5.1); Protein, Total 8.2 g/dL (6.4-8.2); Sodium Level 139 mmol/L (136-145)
[2020-09-09 11:16] LABS: Urine Blood NEGATIVE (NEG); Urine Glucose NEGATIVE (NEG); Urine Protein NEGATIVE (NEG); Urine Specific Gravity 1.015 (1.005-1.030)
--- NOTE | 2020-09-09 11:26 | ER ---
Nurse's Notes [facility] Rui Name: Maribeth Arredondo Age: 35 yrs Sex: Female : 1985 Arrival Date: 09/09/2020 Time: 09:03 Bed 7 Private MD: Diagnosis: Lower abdominal pain, unspecified;Diarrhea, unspecified;Vomiting;Unspecified ovarian cysts Presentation: 09/09 09:07 Chief complaint: EMS states: Severe RLQ abd pain, N/V since this morning. Coronavirus jl7 screen: Client denies travel out of the [place] in the last 14 days. nausea, vomiting. Client presents with at least one sign or symptom that may indicate coronavirus-19. Standard/surgical mask placed on the client. Provider contacted for isolation considerations. Ebola Screen: No symptoms or risks identified at this time. Initial Sepsis Screen: Does the patient meet any 2 criteria? No. Patient's initial sepsis screen is negative. Does the patient have a suspected source of infection? No. Patient's initial sepsis screen is negative. Risk Assessment: Do you want to hurt yourself or someone else? Patient reports no desire to harm self or others. Onset of symptoms was September 09, 2020. Care prior to arrival: None. 09:07 Method Of Arrival: EMS: [facility] jl7 09:07 Acuity: SINGH 3 jl7 Triage Assessment: 09:09 General: Appears in no apparent distress. uncomfortable, Behavior is cooperative, jl7 anxious, crying. Pain: Complains of pain in right lower quadrant Pain currently is 10 out of 10 on a pain scale. Neuro: Level of Consciousness is awake, alert, obeys commands, Oriented to person, place, time, situation. Cardiovascular: Patient's skin is warm and dry. Respiratory: Airway is patent Respiratory effort is even, unlabored, Respiratory pattern is regular, symmetrical. GI: Abdomen is round non-distended, Abd is soft Abdomen is tender to palpation in right lower quadrant. Derm: Skin is pink, warm \\T\\ dry. 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 - Social history:: Smoking status: Patient denies any tobacco usage or history of. - Family history:: not pertinent. - Hospitalizations: : No recent hospitalization is reported. Screenin:31 Abuse screen: Denies threats or abuse. Denies injuries from another. Nutritional jl7 screening: No deficits noted. Tuberculosis screening: No symptoms or risk factors identified. Fall Risk IV access (20 points). Total Louis Fall Scale indicates No Risk (0-24 pts). Assessment: :31 General: See triage assessment. jl7 09:32 Reassessment: In triage pt reported to ERD "I always have blood in my stool. Sometimes jl7 it's red, sometimes black, it's always there." Pt reports "They didn't tell me why. Just told me I have Hunt's esophagus." After pt received pain medication pt reported bloody stools for the past 2 weeks, states "My blood is going to be low because I've been bleeding for the past two weeks." ERD notified. 10:17 Reassessment: Patient appears in no apparent distress at this time. Patient and/or jl7 family updated on plan of care and expected duration. Pain level reassessed. Patient is alert, oriented x 3, equal unlabored respirations, skin warm/dry/pink. reports decreased pain, pt to CT at this time. 11:20 Reassessment: ERD at bedside discussing results and POC. jl7 Vital Signs: 09:07 BP 181 / 121; Pulse 70; Resp 15; Temp 98.2; Pulse Ox 100% ; Pain 10/10; jl7 09:30 BP 129 / 87; Pulse 58; Resp 17; Pulse Ox 100% ; jl7 10:59 BP 141 / 83; Pulse 62; Resp 17; Pulse Ox 100% ; jl7 12:00 BP 140 / 80; Pulse 60; Resp 15; Pulse Ox 100% ; jl7 ED Course: 09:03 Patient arrived in ED. em1 09:04 Bruno Bueno MD is Attending Physician. rn 09:05 Mauricio Khanna RN is Primary Nurse. jl7 09:08 Triage completed. jl7 09:09 Arm band placed on right wrist. jl7 09:20 Initial lab(s) drawn, by sd, sent to lab. COVID swab sent to lab. Inserted saline lock: jl7 20 gauge in right antecubital area, using aseptic technique. Blood collected. 09:31 Patient has correct armband on for positive identification. Bed in low position. Call jl7 light in reach. Side rails up X 1. Pulse ox on. NIBP on. 09:44 US Pelvis Complete In Process Unspecified. EDMS 09:44 Radiology exam delayed due to test not completed at this time. bq 10:28 Abdomen In Process Unspecified. EDMS 12:24 No provider procedures requiring assistance completed. IV discontinued, intact, jl7 bleeding controlled, No redness/swelling at site. Pressure dressing applied. Administered Medications: 09:22 Drug: Zofran (Ondansetron) 4 mg Route: IVP; Site: right antecubital; jl7 10:18 Follow up: Response: No adverse reaction jl7 09:24 Drug: morphine 4 mg Route: IVP; Site: right antecubital; jl7 09:50 Follow up: Response: No adverse reaction; Pain is decreased jl7 12:03 Drug: morphine 4 mg Route: IVP; Site: right antecubital; jl7 Outcome: 11:26 Discharge ordered by . rn 12:24 Discharged to home via wheelchair, with family. jl7 12:24 Condition: stable 12:24 Discharge instructions given to patient, Instructed on discharge instructions, follow up and referral plans. medication usage, Demonstrated understanding of instructions, follow-up care, medications, Prescriptions given X 3. 12:25 Patient left the ED. jl7 Signatures: Dispatcher [employer] EDWI Meryl Schulte Roman, MD MD rn Arnulfo, Sourav 1 Mauricio Khanna RN RN tino
--- NOTE | 2020-09-09 11:26 | EDPHYS ---
Physician Documentation [facility] Rui Name: Maribeth Arredondo Age: 35 yrs Sex: Female : 1985 Arrival Date: 09/09/2020 Time: 09:03 Bed 7 Private MD: ED Physician Bruno Bueno HPI: 09/09 09:07 This 35 yrs old Female presents to ER via Unassigned with complaints of rn abdominal pain. 09:07 The patient presents with abdominal pain in the lower abdomen. Onset: The rn symptoms/episode began/occurred 3 hour(s) ago. The symptoms do not radiate. Associated signs and symptoms: Pertinent positives: nausea and vomiting, diarrhea, Pertinent negatives: fever, hematuria, shortness of breath, vaginal discharge. The symptoms are described as sharp, stabbing. Modifying factors: The symptoms are alleviated by nothing, the symptoms are aggravated by movement, touching the area. Severity of pain: At its worst the pain was moderate in the emergency department the pain is unchanged. The patient has experienced similar episodes in the past. The patient has not recently seen a physician. 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 - Social history:: Smoking status: Patient denies any tobacco usage or history of. - Family history:: not pertinent. - Hospitalizations: : No recent hospitalization is reported. ROS: 09:07 Constitutional: Negative for fever, chills, and weight loss, Eyes: Negative for injury, rn pain, redness, and discharge, Neck: Negative for injury, pain, and swelling, Cardiovascular: Negative for chest pain, palpitations, and edema, Respiratory: Negative for shortness of breath, cough, wheezing, and pleuritic chest pain, Abdomen/GI: + abd pain and nausea/vomiting/diarrhea Back: Negative for injury and pain, : Negative for injury, bleeding, discharge, and swelling, MS/Extremity: Negative for injury and deformity, Neuro: Negative for headache, weakness, numbness, tingling, and seizure. Exam: 09:07 Constitutional: This is a well developed, well nourished patient who is awake, alert, rn crying and hyperventilating Head/Face: Normocephalic, atraumatic. ENT: MMM Cardiovascular: Regular rate and rhythm. No pulse deficits. Respiratory: Hyperventilating, alms down and speaks full sentences Abdomen/GI: soft, + tender RLQ/suprapubic/LLQ, no masses Skin: Warm, dry MS/ Extremity: Pulses equal, no cyanosis. Neurovascular intact. Full, normal range of motion. Equal circumference. Neuro: Awake and alert, GCS 15 Vital Signs: 09:07 BP 181 / 121; Pulse 70; Resp 15; Temp 98.2; Pulse Ox 100% ; Pain 10/10; jl7 09:30 BP 129 / 87; Pulse 58; Resp 17; Pulse Ox 100% ; jl7 10:59 BP 141 / 83; Pulse 62; Resp 17; Pulse Ox 100% ; jl7 12:00 BP 140 / 80; Pulse 60; Resp 15; Pulse Ox 100% ; jl7 MDM: 09:04 Patient medically screened. rn 11:23 Differential diagnosis: diverticulitis, Endometriosis, gastritis, non-specific abd rn pain, Ovarian Torsion, Ureterolithiasis, urinary tract infection. Data reviewed: vital signs, nurses notes, lab test result(s), radiologic studies, CT scan, ultrasound, and as a result, I will discharge patient. Counseling: I had a detailed discussion with the patient and/or guardian regarding: the historical points, exam findings, and any diagnostic results supporting the discharge/admit diagnosis, lab results, radiology results, the need for outpatient follow up, to return to the emergency department if symptoms worsen or persist or if there are any questions or concerns that arise at home. Response to treatment: the patient's symptoms have mildly improved after treatment, and as a result, I will discharge patient. Special discussion: Based on the patient's Hx, exam, and Dx evaluation, there is no indication for emergent surgery or inpatient Tx. It is understood by the patient/guardian that if the Sx's persist or worsen they need to return immediately for re-evaluation. I discussed with the patient/guardian in detail that at this point there is no indication for admission to the hospital. It is understood, however, that if the symptoms persist or worsen the patient needs to return immediately for re-evaluation. ED course: No acute findings on ct abdomen, u/s pelvis neg for ovarian torsion. Bloodwork shows elevated lipase, but no epigastric pain or tenderness. 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 Reports in and out of hospitals and ER's and never able to get clear diagnosis. . 09/09 09:05 Order name: Basic Metabolic Panel; Complete Time: 11:20 rn 09/09 09:05 Order name: CBC with Diff rn 09/09 09:05 Order name: Hepatic Function; Complete Time: 11:20 rn 09/09 09:05 Order name: Lipase; Complete Time: 11:20 rn 09/09 09:07 Order name: Urine Microscopic Only; Complete Time: 11:50 rn 09/09 09:05 Order name: US Pelvis Complete; Complete Time: 10:43 rn 09/09 09:20 Order name: Abdomen ; Complete Time: 10:43 EDHI 09/09 09:54 Order name: CREATININE WHOLE BLOOD; Complete Time: 09:59 EDHI 09/09 10:18 Order name: Urine Dipstick--Ancillary (enter results); Complete Time: 11:20 em1 09/09 10:18 Order name: Urine --Ancillary (enter results); Complete Time: 11:20 [facility] 09/09 10:42 Order name: SARS-COV-2 RT PCR; Complete Time: 10:43 EDHI 09/09 12:17 Order name: CBC Smear Scan EDHI 09/09 09:05 Order name: IV Saline Lock; Complete Time: 09:26 rn 09/09 09:05 Order name: Labs collected and sent; Complete Time: 09:26 rn 09/09 09:07 Order name: Urine Dipstick-Ancillary (obtain specimen); Complete Time: 10:16 rn Administered Medications: 09:22 Drug: Zofran (Ondansetron) 4 mg Route: IVP; Site: right antecubital; jl7 10:18 Follow up: Response: No adverse reaction jl7 09:24 Drug: morphine 4 mg Route: IVP; Site: right antecubital; jl7 09:50 Follow up: Response: No adverse reaction; Pain is decreased jl7 12:03 Drug: morphine 4 mg Route: IVP; Site: right antecubital; jl7 Disposition: 09/09/20 11:26 Discharged to Home. Impression: Lower abdominal pain, unspecified, Diarrhea, unspecified, Vomiting, Unspecified ovarian cysts. - Condition is Stable. - Discharge Instructions: Abdominal Pain, Adult, Diarrhea, Adult, Nausea and Vomiting, Adult, Ovarian Cyst. - Prescriptions for Zofran ODT 4 mg Oral tablet,disintegrating - place 1 tablet by TRANSLINGUAL route every 8 hours As needed; 20 tablet. Bentyl 20 mg Oral Tablet - take 1 tablet by ORAL route every 6 hours As needed; 20 tablet. Tramadol 50 mg Oral Tablet - take 1 tablet by ORAL route every 8 hours as needed; 20 tablet. - Medication Reconciliation Form, Thank You Letter, Antibiotic Education, Prescription Opioid Use form. - Follow up: Private Physician; When: As needed; Reason: Recheck today's complaints, Re-evaluation by your physician. - Problem is chronic. - Symptoms have improved. Signatures: Dispatcher [employer] EDHI Bruno Bueno MD MD rn Leal, Jahala, RN RN jl7 Corrections: (The following items were deleted from the chart) 09:20 09:06 Abdomen W/ Con+CT.RAD.BRZ ordered. [facility] EDMS 09:47 09:07 CORONAVIRUS+MR.LAB.BRZ ordered. [facility] EDMS 12:25 11:26 09/09/2020 11:26 Discharged to Home. Impression: Lower abdominal pain, jl7 unspecified; Diarrhea, unspecified; Vomiting; Unspecified ovarian cysts. Condition is Stable. Forms are Medication Reconciliation Form, Thank You Letter, Antibiotic Education, Prescription Opioid Use. Follow up: Private Physician; When: As needed; Reason: Recheck today's complaints, Re-evaluation by your physician. Problem is chronic. Symptoms have improved. rn
[2020-09-09 11:35] LABS: Urine Bacteria <20 /HPF (<20); Urine RBC NONE SEEN /HPF (NONE SEEN)
[2020-09-09 12:17] LABS: Anisocytosis 1+; Blood Morphology Comment NOTED (NOT SEEN); Hypochromasia 1+; Platelet Estimate ADEQ; Polychromasia 1+; White Blood Cell Scan OK (OK)
[2020-09-09 12:50] VITALS: O2SAT 100
[2020-09-09 12:52] VITALS: TEMP 98.2
[2020-09-09 12:54] VITALS: BP 140/80
== END 2020-09-09 12:25 | disposition home or self-care (01) ==
LOC: ER 09:01
DX: R19.7 Diarrhea, unspecified (principal); R11.2 Nausea with vomiting, unspecified; N83.209 Unspecified ovarian cyst, unspecified side; F41.9 Anxiety disorder, unspecified; Z20.822 Contact with and (suspected) exposure to COVID-19
CPT/HCPCS: 85025; 80048; 36415; 81025; 82565; 80076; 83690; 74177; 76856; 96375; 96374; 99284; U0003; Q9967; J2405; 81003; 81015

== ENCOUNTER 2021-06-03 22:56 | Emergency (ER) | payer OTHER ==
[2021-06-03 23:39] LABS: Urine Blood Trace-intact (Negative); Urine Glucose Negative (Negative); Urine Protein Negative (Negative); Urine pH 5.5 (5.0-7.0)
[2021-06-03 23:53] LABS: Absolute Lymphocytes (CBC) 1.5 K/uL (0.7-4.9); Basophils % 0.7 % (0-1.3); Hematocrit 28.6 % (36.0-45.0); Lymphocytes % 9.4 % (15.3-44.8); MPV 9.6 fL (7.6-11.3); RBC Red Blood Cell Count 3.76 M/uL (3.86-4.86)
[2021-06-04] LABS: BUN Blood Urea Nitrogen 10 mg/dL (7-18); Bicarbonate 24 mmol/L (21-32); Glucose Level 94 mg/dL (74-106); Sodium Level 139 mmol/L (136-145)
[2021-06-04 00:02] LABS: Potassium 3.4 mmol/L (3.5-5.1)
[2021-06-04 00:09] LABS: Urine Bacteria 20-50 /HPF (<20); Urine RBC <5 /HPF (NONE SEEN)
[2021-06-04] MEDS ORDERED: HYDROCOD 2.5mg-ACETAMIN 108mg/5mL Soln ONE (00:18)
[2021-06-04] MEDS ORDERED: ONDANSETRON 4 MG/2 ML VIAL ONE (00:19)
[2021-06-04 00:56] LABS: Anisocytosis 2+; Blood Morphology Comment NOTED (NOT SEEN); Platelet Estimate ADEQ; White Blood Cell Scan OK (OK)
--- NOTE | 2021-06-04 01:20 | ER ---
Nurse's Notes [facility] Rui Name: Maribeth Arnulfo Age: 35 yrs Sex: Female : 1985 Arrival Date: 06/03/2021 Time: 22:56 Bed 5 Private MD: Diagnosis: Acute tonsillitis, unspecified Presentation: 06/03 23:03 Chief complaint: Patient states: sore throat/body aches x 1 day. Coronavirus screen: df1 Vaccine status: Patient reports being unvaccinated. Client denies travel out of the [place] in the last 14 days. Client presents with at least one sign or symptom that may indicate coronavirus-19. Standard/surgical mask placed on the client. Ebola Screen: Patient negative for fever greater than or equal to 101.5 degrees Fahrenheit, and additional compatible Ebola Virus Disease symptoms Patient denies exposure to infectious person. Patient denies travel to an Ebola-affected area in the 21 days before illness onset. Initial Sepsis Screen: Does the patient meet any 2 criteria? No. Patient's initial sepsis screen is negative. Does the patient have a suspected source of infection? No. Patient's initial sepsis screen is negative. Risk Assessment: Do you want to hurt yourself or someone else? Patient reports no desire to harm self or others. Onset of symptoms was June 03, 2021. 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 - Social history:: Smoking status: Patient denies any tobacco usage or history of. Patient/guardian denies using alcohol, street drugs. Screenin:05 Abuse screen: Denies threats or abuse. Denies injuries from another. Nutritional bs2 screening: No deficits noted. Tuberculosis screening: No symptoms or risk factors identified. Fall Risk None identified. Assessment: 23:08 General: Appears uncomfortable, Behavior is calm, cooperative. Pain: Complains of pain df1 in thyroid cartilage, right aspect of thyroid and left aspect of thyroid Pain does not radiate. Pain currently is 10 out of 10 on a pain scale. Quality of pain is described as. Neuro: No deficits noted. Cardiovascular: No deficits noted. Respiratory: Airway is patent Trachea midline Respiratory effort is even, unlabored, Respiratory pattern is regular, symmetrical, Breath sounds are clear bilaterally. GI: No deficits noted. : No deficits noted. EENT: Throat is reddened has patchy exudate has enlarged tonsils on right bilaterally with gag reflex present. Vital Signs: 23:03 BP 113 / 60; Pulse 68; Resp 18; Temp 98.6; Pulse Ox 98% on R/A; Weight 72.57 kg; Height df1 5 ft. 2 in. (157.48 cm); Pain 10/10; 11 02:32 BP 113 / 75; Pulse 60; Resp 16; Temp 98.6; Pulse Ox 100% ; Pain 4/10; bs2 11 23:03 Body Mass Index 29.26 (72.57 kg, 157.48 cm) df1 ED Course: 06/03 22:56 Patient arrived in ED. mw2 22:58 Kashmir Ervin PA is PHCP. cp 22:58 Joseph Sotelo MD is Attending Physician. cp 23:03 Christal Cano is Primary Nurse. df1 23:05 Triage completed. df1 23:05 Patient has correct armband on for positive identification. Placed in gown. Bed in low bs2 position. Call light in reach. Side rails up X 1. Pulse ox on. NIBP on. Door closed. Noise minimized. Lights dimmed. Warm blanket given. 23:09 Arm band placed on. bs2 23:20 Influenza Screen (a \T\ B) Sent. df1 23:20 Strep Sent. df1 23:34 SARS-COV-2 RT PCR Sent. bs2 23:34 Influenza Screen (a \T\ B) Sent. bs2 23:35 [place] Screen Profile Sent. bs2 23:35 BMP Sent. bs2 23:35 CBC with Diff Sent. bs2 23:35 Inserted saline lock: 18 gauge in right antecubital area, using aseptic technique. bs2 Blood collected. 06/04 00:13 Urine --Ancillary (enter results) Sent. bs2 00:13 CBC Smear Scan Sent. bs2 00:21 Urine Culture Sent. bs2 02:31 No provider procedures requiring assistance completed. bs2 02:32 IV discontinued, intact, bleeding controlled, No redness/swelling at site. bs2 Administered Medications: 06/03 23:25 Drug: Lortab Liquid 10 ml Route: PO; bs2 06/04 00:13 Follow up: Response: No adverse reaction bs2 06/03 23:34 Drug: Zofran (Ondansetron) 4 mg Route: IVP; Site: right antecubital; bs2 06/04 00:13 Follow up: Response: No adverse reaction bs2 01:09 CANCELLED (Physician Discretion): fentaNYL (PF) 25 mcg IVP once; RASS on ADMIN: cp Combtv4, Very Agttd3, Agttd2, Rstlss1, AlertClm0, Drwsy-1, Lt Sdtn-2, Mod Sdtn-3, Dp Sdtn-4, UnArsble-5 01:32 Drug: Clindamycin 900 mg Route: IVPB; Infused Over: 30 mins; Site: right antecubital; bs2 02:24 Follow up: IV Status: Completed infusion bs2 01:32 Drug: Decadron - Dexamethasone 10 mg Route: IVP; Site: right antecubital; bs2 02:24 Follow up: Response: No adverse reaction bs2 01:32 Drug: Potassium Effervescent Tablet 50 mEq Route: PO; bs2 02:25 Follow up: Response: No adverse reaction bs2 01:32 Drug: Viscous Lidocaine Liquid (4 %) 5 ml Route: Mucous Membrane; bs2 02:25 Follow up: Response: No adverse reaction bs2 02:29 Drug: XANax (alprazolam) Tablet 0.5 mg Route: PO; bs2 02:29 Follow up: Response: No adverse reaction bs2 Outcome: 01:20 Discharge ordered by . cp 02:31 Discharged to home ambulatory. bs2 02:31 Condition: improved 02:31 Discharge instructions given to patient, Instructed on discharge instructions, follow up and referral plans. medication usage, Demonstrated understanding of instructions, follow-up care, medications, Prescriptions given X 3. 02:32 Patient left the ED. bs2 Signatures: Kashmir Ervin PA PA cp [place], MyKena 2 Aleshia Puente RN RN bs2 Christal Cano df1 Corrections: (The following items were deleted from the chart) 06/03 23:23 23:20 CORONAVIRUS+MRANITHA.JEREMY drawn and sent. df1 EDMS
--- NOTE | 2021-06-04 01:21 | EDPHYS ---
Physician Documentation [facility]ui Name: Maribeth Arredondo Age: 35 yrs Sex: Female : 1985 Arrival Date: 06/03/2021 Time: 22:56 Bed 5 Private MD: ED Physician Joseph Sotelo HPI: 06/03 23:05 This 35 yrs old Female presents to ER via EMS with complaints of Sore throat. cp 23:05 The patient presents with sore throat, dysphagia, of both solids and liquids. cp 23:05 The patient describes throat pain as constant. Onset: The symptoms/episode cp began/occurred 2 day(s) ago. 23:05 Associated signs and symptoms: Pertinent positives: fever, Pertinent negatives cough, cp diarrhea. 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 - Social history:: Smoking status: Patient denies any tobacco usage or history of. Patient/guardian denies using alcohol, street drugs. ROS: 23:10 Constitutional: Positive for body aches, poor PO intake, Negative for fever. cp 23:10 Eyes: Negative for injury, pain, redness, and discharge. cp 23:10 ENT: Positive for difficulty swallowing, sore throat, Negative for drainage from ear(s), ear pain, difficulty handling secretions. 23:10 Cardiovascular: Negative for chest pain. 23:10 Respiratory: Negative for cough, shortness of breath, wheezing. 23:10 Abdomen/GI: Positive for abdominal pain. 23:10 Neuro: Negative for altered mental status, headache, weakness. 23:10 All other systems are negative. Exam: 23:15 Constitutional: The patient appears in no acute distress, alert, awake, non-toxic, well cp developed, well nourished, uncomfortable. 23:15 Head/Face: Normocephalic, atraumatic. cp 23:15 Eyes: Periorbital structures: appear normal, Conjunctiva: normal, no exudate, no injection, Sclera: no appreciated abnormality, Lids and lashes: appear normal, bilaterally. 23:15 ENT: External ear(s): are unremarkable, Ear canal(s): cerumen impaction, that is moderate, occluding the right ear canal, Examination of the other ear shows no obvious abnormality, Nose: is normal, Mouth: Lips: moist, Oral mucosa: pink and intact, moist, Posterior pharynx: Airway: no evidence of obstruction, patent, Tonsils: bilaterally enlarged, with erythema, with exudate, Uvula: midline, erythema, that is moderate. 23:15 Neck: ROM/movement: is normal, is supple, no meningismus, no nuchal rigidity. 23:15 Chest/axilla: Inspection: normal. 23:15 Cardiovascular: Rate: normal, Rhythm: regular. 23:15 Respiratory: the patient does not display signs of respiratory distress, Respirations: normal, no use of accessory muscles, no retractions, labored breathing, is not present, Breath sounds: are clear throughout, no decreased breath sounds, no stridor, no wheezing. 23:15 Abdomen/GI: Inspection: abdomen appears normal, Bowel sounds: active, all quadrants, Palpation: soft, in all quadrants, mild abdominal tenderness, in all quadrants, rebound tenderness, is not appreciated, involuntary guarding, is not appreciated. 23:15 Neuro: Orientation: to person, place \T\ time. Mentation: is normal, Motor: moves all fours, strength is normal, Sensation: is normal. Vital Signs: 23:03 BP 113 / 60; Pulse 68; Resp 18; Temp 98.6; Pulse Ox 98% on R/A; Weight 72.57 kg; Height df1 5 ft. 2 in. (157.48 cm); Pain 10; 06/04 02:32 BP 113 / 75; Pulse 60; Resp 16; Temp 98.6; Pulse Ox 100% ; Pain 4/10; bs2 06/03 23:03 Body Mass Index 29.26 (72.57 kg, 157.48 cm) df1 MDM: 06/03 23:07 Patient medically screened. cp 06/04 00:00 Differential diagnosis: apthous stomatitis, group A strep tonsillitis, influenza, cp mononucleosis, peritonsillar abscess pharyngitis, retropharyngeal abcess. 01:20 Data reviewed: vital signs, nurses notes, lab test result(s). 01:20 Counseling: I had a detailed discussion with the patient and/or guardian regarding: the cp historical points, exam findings, and any diagnostic results supporting the discharge/admit diagnosis, lab results, to return to the emergency department if symptoms worsen or persist or if there are any questions or concerns that arise at home. Response to treatment: the patient's symptoms have markedly improved after treatment, and as a result, I will discharge patient. 06/03 23:04 Order name: CBC with Diff; Complete Time: 01:07 06/04 00:48 Interpretation: Normal except: WBC 16.00; RBC 3.76; HGB 9.3; HCT 28.6; MCV 75.9; MCH cp 24.7; RDW 27.3; JIMMY% 83.5; LYM% 9.4; NEUT A 13.4. 06/03 23:04 Order name: BMP; Complete Time: 00:47 06/04 00:48 Interpretation: Normal except: K 3.4. 06/03 23:04 Order name: [place] Screen Profile; Complete Time: 00:47 06/03 23:04 Order name: Urine Microscopic Only; Complete Time: 00:47 cp 06/03 23:04 Order name: Influenza Screen (a \T\ B); Complete Time: 00:47 06/03 23:04 Order name: Strep; Complete Time: 00:47 06/03 23:23 Order name: SARS-COV-2 RT PCR; Complete Time: 00:47 EDMO 06/03 23:39 Order name: Urine Dipstick-Ancillary; Complete Time: 00:47 EDMO 06/03 23:40 Order name: Urine --Ancillary (enter results); Complete Time: 01:07 mw2 06/03 23:58 Order name: CBC Smear Scan; Complete Time: 01:07 EDMO 06/04 00:13 Order name: Urine Culture [facility] 06/04 00:38 Order name: Throat Culture [facility] 06/03 23:04 Order name: Urine Dipstick-Ancillary (obtain specimen); Complete Time: 00:13 cp Administered Medications: 06/03 23:25 Drug: Lortab Liquid 10 ml Route: PO; bs2 06/04 00:13 Follow up: Response: No adverse reaction bs2 06/03 23:34 Drug: Zofran (Ondansetron) 4 mg Route: IVP; Site: right antecubital; bs2 06/04 00:13 Follow up: Response: No adverse reaction bs2 01:09 CANCELLED (Physician Discretion): fentaNYL (PF) 25 mcg IVP once; RASS on ADMIN: cp Combtv4, Very Agttd3, Agttd2, Rstlss1, AlertClm0, Drwsy-1, Lt Sdtn-2, Mod Sdtn-3, Dp Sdtn-4, UnArsble-5 01:32 Drug: Clindamycin 900 mg Route: IVPB; Infused Over: 30 mins; Site: right antecubital; bs2 02:24 Follow up: IV Status: Completed infusion bs2 01:32 Drug: Decadron - Dexamethasone 10 mg Route: IVP; Site: right antecubital; bs2 02:24 Follow up: Response: No adverse reaction bs2 01:32 Drug: Potassium Effervescent Tablet 50 mEq Route: PO; bs2 02:25 Follow up: Response: No adverse reaction bs2 01:32 Drug: Viscous Lidocaine Liquid (4 %) 5 ml Route: Mucous Membrane; bs2 02:25 Follow up: Response: No adverse reaction bs2 02:29 Drug: XANax (alprazolam) Tablet 0.5 mg Route: PO; bs2 02:29 Follow up: Response: No adverse reaction bs2 Disposition: 07:15 Co-signature as Attending Physician, Joseph Sotelo MD. ma2 Disposition Summary: 06/04/21 01:20 Discharge Ordered Location: Home cp Problem: new cp Symptoms: have improved cp Condition: Stable cp Diagnosis - Acute tonsillitis, unspecified cp Followup: cp - With: Private Physician - When: 1 - 2 days - Reason: Recheck today's complaints Discharge Instructions: - Discharge Summary Sheet cp - Tonsillitis cp Forms: - Medication Reconciliation Form cp - Thank You Letter cp - Antibiotic Education cp - Prescription Opioid Use cp Prescriptions: - Clindamycin HCl 300 mg Oral Capsule - take 1 capsule by ORAL route every 6 hours for 10 days; 40 capsule; Refills: 0, cp Product Selection Permitted - Ibuprofen 800 mg Oral Tablet - take 1 tablet by ORAL route every 8 hours As needed take with food; 30 tablet; cp Refills: 0, Product Selection Permitted - Tylenol-Codeine #3 300 mg-30 mg Oral - take 2 tablet by ORAL route every 6-8 hours As needed; 15 tablet; Refills: 0, cp Product Selection Permitted - Lidocaine Viscous - take 5 milliliter by ORAL route every 4-6 hours As needed; 1 bottle; Refills: cp 0, Product Selection Permitted Signatures: Dispatcher [employer] EDMS Kashmir Ervin PA PA Joseph Menendez MD MD ma2 Aleshia Puente RN RN bs2 Christal Cano df1 Corrections: (The following items were deleted from the chart) 06/03 23:23 23:06 CORONAVIRUS+ ordered. EDMS EDMS 06/04 01:09 01:08 fentaNYL (PF) 25 mcg IVP once; RASS on ADMIN: Combtv4, Very Agttd3, Agttd2, cp Rstlss1, AlertClm0, Drwsy-1, Lt Sdtn-2, Mod Sdtn-3, Dp Sdtn-4, UnArsble-5 ordered. cp
[2021-06-04] MEDS ORDERED: dexAMETHasone 10 MG/ML VIAL ONE (02:01)
[2021-06-04] MEDS ORDERED: POTASSIUM 25 MEQ EFFERV TAB ONE (02:02)
[2021-06-04] MEDS ORDERED: CLINDAMYCIN 900MG/D5W 900 MG/50 ML IVPB IV ONE (02:02)
[2021-06-04] MEDS ORDERED: FENTANYL CITR 100 MCG/2 ML ONE (02:08)
[2021-06-04] MEDS ORDERED: LIDOCAINE VISCOUS 2% SOLN 15 ML UDC ONE (02:10)
[2021-06-04 02:46] VITALS: BP 113/60; TEMP 98.6; O2SAT 98
[2021-06-04] MEDS ORDERED: ALPRAZOLAM 0.5 MG TABLET ONE (03:26)
--- OUTSIDE RECORDS SUMMARY | 2021-06-15 07:06 | XMS REPORT | Continuity of Care Document ---
:1985 Author Organization [facility] t Address [address] [place] [address] Dr. Harvey [address] [place] [address] Care Team Providers Name Role Phone Michael HILL, A Primary Care Physician MANN Attending Clinician Unavailable JOANN VELÁZQUEZ Attending Clinician Unavailable Lina BENNETT, A Attending Clinician Unavailable Pipo NAIDU Attending Clinician Alda HILL Attending Clinician Michael HILL, Victor Hugo Attending Clinician Doctor Unassigned, Name Attending Clinician Unavailable Solomon HILL Attending Clinician Victor Hugo MIJARES Attending Clinician Unavailable Joann Velázquez MD Attending Clinician Toñito Landry MD Attending Clinician Nuzhat Beckman MD Attending Clinician MANN Admitting Clinician Unavailable NUZHAT BECKMAN Admitting Clinician Unavailable Alda HILL Admitting Clinician Nuzhat Beckman MD Admitting Clinician Payers Payer Name Policy Type Policy Number Effective Date Expiration Date S chucky [facility] - MEDICARE [id number] COMPLETE (MEDICARE REPLACEMENT HMO) [facility] [id number] 2017 [facility] PLAN - 00:00:00 [place] STAR PLUS [place]MEDICAID H[place] [id number] 2017 [employer] - 00:00:00 [facility] [id number] PLAN - DUAL COMPLETE - SNP PLAN (MEDICARE REPLACEMENT HMO) [facility] [id number] 2020 DUAL COMPLETE HMO 00:00:00 [facility] SARAI VALLES [id number] 2017 00:00:00 MEDICAID OF [place] [id number] 2017 00:00:00 MEDICARE PART A \\T\\ [id number] 2017 B 00:00:00 Problems Condition Condition Condition Status Onset Resolution Last Treating Co mments Source Name Details Category Date Date Treatment Clinician Date Gastrointe Gastrointe Disease Active Overview : Univers stinal stinal 8-19 Formattin ity of hemorrhage hemorrhage 00:00: g of this [place] , , 00 note Medical unspecifie unspecifie might be Branch d d different gastrointe gastrointe from the stinal stinal original. hemorrhage hemorrhage Added type type automatic ally from request for surgery [id number] Symptomati Symptomati Disease Active 2017-08 U nivers c anemia c anemia 2-12 ity of 00:00: [place] 00 Medical Branch Mood Mood Problem Active 2017-08 [place] disorder [...] [facility] Chronic Chronic Disease Active Overview: Univ ers pain pain Formattin ity of g of this [place] note Medical might be Branch different from the original. chronic abdominal pain, chronic left leg pain Anxiety Anxiety Disease Active Univers ity of [facility] Esophageal Esophageal Disease Active U nivers reflux reflux ity of [facility] HTN HTN Disease Active Univers (hypertens (hypertens it y of ion) ion) [facility] Ulcerative Ulcerative Disease Active U nivers colitis colitis ity of [facility] Obesity Obesity Disease Active Univers ity of [facility] Allergies, Adverse Reactions, Alerts Allergy Allergy Status Severity Reaction(s) Onset Inactive Treating Comm ents Source Name Type Date Date Clinician NO KNOWN Drug Active Univers ALLERGIE Class ity of S [facility] Social History Social Habit Start Date Stop Date Quantity Comments Source Exposure to Yes [facility] SARS-CoV-2 [facility] (event) [place] Alcohol intake 2021-04-26 2021-04-26 Current [place] of 00:00:00 00:00:00 non-drinker of [facility] alcohol [place] (finding) Tobacco use and 2016-12-04 2016-12-04 Never used Universit y of exposure 00:00:00 00:00:00 [facility] Sex Ass[birth year] Universit y of 00:00:00 00:00:00 [facility] Smoking Status Start Date Stop Date Source Never Smoker [facility] Medications Ordered Filled Start Stop Current Ordering Indication Dosage Frequency Signature Comments Components Source Medication Medication Date Date Medication? Clinician (SIG) Name Name LORazepam No .5mg 0.5 mg, Univ ers (ATIVAN) 04-28 Slow IV ity of injection 13:00: 11:56 Push, [place] 0.5 mg 00 :00 ONCE, 1 Medical dose, On Branch 04/28/21 at 0800, Routine ALPRAZolam Yes 2mg Take 2 mg Un zoran 2 mg tablet 04-28 by mouth 2 it y of 07:51: (two) [place] 49 times Medical daily. Branch docusate Yes 100mg Take 100 Univ ers 100 mg - mg by ity of capsule 07:51: mouth. [address] Lamotrigine Yes Take by Un zoran 25 mg TbDL 04-28 mouth 2 ity of 07:51: (two) [place] 49 times Medical daily. Branch ALPRAZolam Yes 2mg Take 2 mg Un zoran 2 mg tablet 04-28 by mouth 2 it y of 07:51: (two) [place] 49 times Medical daily. Branch docusate Yes 100mg Take 100 Univ ers 100 mg 9-26 mg by ity of capsule 07:51: mouth. [place] 49 Medical Branch Lamotrigine Yes Take by Un zoran 25 mg TbDL - mouth 2 ity of 07:51: (two) [place] 49 times Medical daily. Branch acetaminoph Yes 1{tbl} 1 tablet, Univers en-codeine 04-28 Oral, ity of (TYLENOL 04:49: BIDPRN, [place] #3) 300-30 37 Starting Medic al mg tablet 1 on Sat Branch tablet 04/27/21 at 2349, Until Discontinu ed, Routine, Pain (scale 1-3), Pain (scale 4-6), Pain (scale 7-10) ferrous Yes [id number] 325mg Take 1 Uni vers sulfate 325 9-26 tablet by ity of mg (65 mg 00:00: mouth 3 [place] iron) 00 (three) Medical tablet times Branch daily with meals. ferrous Yes [id number] 325mg Take 1 Uni vers sulfate 325 9-26 tablet by ity of mg (65 mg 00:00: mouth 3 [place] iron) 00 (three) Medical tablet times Branch daily with meals. KCL 20 mEq 2020- Yes [id number] 20meq Take 1 Univers tablet 9-26 10-04 tablet by ity of 00:00: 04:59 mouth [place] 00 :00 daily for Medical 7 days. Branch KCL 20 mEq 2020- Yes [id number] 20meq Take 1 Univers tablet 9-26 10-04 tablet by ity of 00:00: 04:59 mouth [place] 00 :00 daily for Medical 7 days. Branch iron 2020- Yes 300mg 300 mg, IV Unive rs sucrose 04-27 Infusion, ity of (VENOFER) 15:45: 13:59 DAILY, [place] 300 mg in 00 :00 Administer Medi chun NaCl 0.9% over 4 Branch (NS) 250 mL Hours, infusion First dose on 9/25/21 at 1045, For 3 doses KCL 2020-0 2020- No 40meq 40 mEq, Univers (KLOR-CON 04-27 Oral, ity of M20) tablet 15:30: 18:52 ONCE, 1 [place] 40 mEq 00 :00 dose, On Medical Sat Branch 04/27/21 at 1030, Routine traMADoL 2020-0 202- No 50mg 50 mg, Univer s (ULTRAM) 04-27 Oral, ity of tablet 50 12:45: 14:30 ONCE, 1 [place] mg 00 :00 dose, On Medical Sat Branch 04/27/21 at 0745, Routine docusate Yes 100mg 100 mg, Unive rs (COLACE) 04-27 Oral, BID, ity o f capsule 100 04:15: First dose [place] mg [address] [facility] 04/26/21 at Branch 2315, Until Discontinu ed, Routine ALPRAZolam Yes 2mg 2 mg, Univer s (XANAX) 04-27 Oral, BID, ity of tablet 2 mg 04:15: First dose [place] [address] [facility] 04/26/21 at Branch 2315, Until Discontinu ed, Routine lamoTRIgine Yes 25mg 25 mg, Univ ers (LAMICTAL) 04-27 Oral, BID, ity of tablet 25 04:15: First dose [place] mg [address] [facility] 04/26/21 at Branch 2315, Until Discontinu ed ondansetron 0 Yes 4mg 4 mg, Slow Univers (ZOFRAN 04-27 IV Push, ity of (PF)) 04:12: Q6HPRN, [place] injection 4 39 Starting Medi chun mg on Thu Branch 04/26/21 at 2312, Until Discontinu ed, Routine, Nausea and Vomiting (N/V) traZODone 0 Yes 50mg 50 mg, Univer s (DESYREL) 04-27 Oral, ity of tablet 50 04:11: QHSPRN, [place] mg 23 Starting Medical on Thu Branch 04/26/21 at 2311, Until Discontinu ed, Routine, Insomnia morpHINE 0 2020- No 4mg 4 mg, Slow Un zoran injection 4 04-27 IV Push, ity of mg 01:15: 00:38 ONCE, 1 [place] 00 :00 dose, On Medical Fri Branch 04/26/21 at 2015, STAT iopamidol 2020- No [id number] 120mL 120 mL, Univers (ISOVUE 04-26 Intravenou ity o f 370-500 mL) 23:46: 23:46 s, ONCE, 1 [place] injection 00 :00 dose, On Medica l 120 mL Fri Branch 04/26/21 at 1900, Routine ondansetron 2020- No 4mg 4 mg, Slow Univers (ZOFRAN 04-26 IV Push, ity of (PF)) 23:00: 22:05 ONCE, 1 [place] injection 4 00 :00 dose, On Medi chun mg Fri Branch 04/26/21 at 1800, MEL ketorolac 2020- No 30mg 30 mg, Unive rs (TORADOL) 04-26 Slow IV ity of injection 23:00: 22:11 Push, [place] 30 mg 00 :00 ONCE, 1 Medical dose, On Branch 04/26/21 at 1800, MEL
Fa culty member approving Restricted medication : EMERGENCY ROOM, NaCl 0.9% No 1000mL at 999 Uni vers (NS) bolus 04-26 mL/hr, ity of infusion 22:30: 00:04 1,000 mL, [place] as 1,000 mL 00 :00 IV Medical Piggyback, Branch ONCE, 1 dose, On Thu04/26/21 at 1730, STAT pantoprazol 2019-0 Yes [id number] 40mg Take 1 Univers e 40 mg EC 8-23 tablet by ity of tablet 00:00: mouth [place] [address] [facility] Branch pantoprazol 2020-0 Yes [id number] 40mg Take 1 Univers e 40 mg EC 8-23 tablet by ity of tablet 00:00: mouth [place] [address] [facility] Branch pantoprazol 2020-0 Yes [id number] 40mg Take 1 Univers e 40 mg EC 8-23 tablet by ity of tablet 00:00: mouth [place] [address] [facility] Branch pantoprazol 2020-0 Yes [id number] 40mg Take 1 Univers e 40 mg EC 8-23 tablet by ity of tablet 00:00: mouth [place] 00 daily. [facility] pantoprazol 2020-0 Yes [id number] 40mg Take 1 Univers e 40 mg EC 8-23 tablet by ity of tablet 00:00: mouth [place] 00 daily. Medical Branch pantoprazol 2020-0 Yes [id number] 40mg Take 1 Univers e 40 mg EC 8-23 tablet by ity of tablet 00:00: mouth [place] 00 daily. Medical Branch pantoprazol 2020-0 Yes [id number] 40mg Take 1 Univers e 40 mg EC 8-23 tablet by ity of tablet 00:00: mouth [place] 00 daily. Medical Branch pantoprazol 2020-0 Yes [id number] 40mg Take 1 Univers e 40 mg EC 8-23 tablet by ity of tablet 00:00: mouth [place] 00 daily. Medical Branch ALPRAZolam 2020-0 Yes 2mg Take 2 mg Un zoran 2 mg tablet 8-22 by mouth 2 it y of 19:52: (two) [place] 23 times Medical daily. Branch docusate 2020-0 Yes 100mg Take 100 Univ ers 100 mg 8-22 mg by ity of capsule 19:52: mouth. [place] Medical Branch Lamotrigine 2020-0 Yes Take by Un zoran 25 mg TbDL 8-22 mouth 2 ity of 19:52: (two) [place] 23 times Medical daily. Branch ALPRAZolam 2020-0 Yes 2mg Take 2 mg Un zoran 2 mg tablet 8-22 by mouth 2 it y of 19:52: (two) [place] 23 times Medical daily. Branch docusate 2020-0 Yes 100mg Take 100 Univ ers 100 mg 8-22 mg by ity of capsule 19:52: mouth. [place] Medical Branch Lamotrigine 2020-0 Yes Take by Un zoran 25 mg TbDL 8-22 mouth 2 ity of 19:52: (two) [place] 23 times Medical daily. Branch ALPRAZolam 2020-0 Yes 2mg Take 2 mg Un zoran 2 mg tablet 8-22 by mouth 2 it y of 19:52: (two) [place] 23 times Medical daily. Branch docusate 2020-0 Yes 100mg Take 100 Univ ers 100 mg 8-22 mg by ity of capsule 19:52: mouth. [place] Medical Branch Lamotrigine 2020-0 Yes Take by Un zoran 25 mg TbDL 8-22 mouth 2 ity of 19:52: (two) [place] 23 times Medical daily. Branch ALPRAZolam 2020-0 Yes 2mg Take 2 mg Un zoran 2 mg tablet 8-22 by mouth 2 it y of 19:52: (two) [place] 23 times Medical daily. Branch docusate 2020-0 Yes 100mg Take 100 Univ ers 100 mg 8-22 mg by ity of capsule 19:52: mouth. [address] Lamotrigine 2020-0 Yes Take by Un zoran 25 mg TbDL 8-22 mouth 2 ity of 19:52: (two) [place] 23 times Medical daily. Branch ALPRAZolam 2020-0 Yes 2mg Take 2 mg Un zoran 2 mg tablet 8-22 by mouth 2 it y of 19:52: (two) [place] 23 times Medical daily. Branch docusate 2020-0 Yes 100mg Take 100 Univ ers 100 mg 8-22 mg by ity of capsule 19:52: mouth. [address] Lamotrigine 2020-0 Yes Take by Un zoran 25 mg TbDL 8-22 mouth 2 ity of 19:52: (two) [place] 23 times Medical daily. Branch ALPRAZolam 2020-0 Yes 2mg Take 2 mg Un zoran 2 mg tablet 8-22 by mouth 2 it y of 19:52: (two) [place] 23 times Medical daily. Branch docusate 2020-0 Yes 100mg Take 100 Univ ers 100 mg 8-22 mg by ity of capsule 19:52: mouth. [address] Lamotrigine 2020-0 Yes Take by Un zoran 25 mg TbDL 8-22 mouth 2 ity of 19:52: (two) [place] 23 times Medical daily. Branch ferrous 2020-0 Yes 325mg 325 mg, Univer s sulfate 8-22 Oral, TID ity of tablet 325 17:00: MEALS, [place] mg 00 First dose Medical on Sat [place] 03/24/20 at 1200, Until Discontinu ed, Routine pantoprazol 2020-0 Yes 40mg 40 mg, Univ ers e 8-22 Oral, ity of (PROTONIX) 14:00: DAILY, [place] EC tablet 00 First dose Medi chun 40 mg (after [place] last modificati on) on 03/24/20 at 0900, Until Discontinu ed, Routine acetaminoph 2020-0 Yes [id number] 1{tbl} Take 1 Un zoran en-codeine 8-22 tablet by ity of 300-30 mg 00:00: mouth [place] tablet 00 every 6 Medical (six) Branch hours as needed for Pain (scale 7-10). Indication s: acute pain ferrous 2020-0 Yes [id number] 325mg Take 1 Uni vers sulfate 325 8-22 tablet by ity of mg (65 mg 00:00: mouth 3 [place] iron) 00 (three) Medical tablet times Branch daily with meals. acetaminoph 2020-0 Yes [id number] 1{tbl} Take 1 Un zoran en-codeine 8-22 tablet by ity of 300-30 mg 00:00: mouth [place] tablet 00 every 6 Medical (six) Branch hours as needed for Pain (scale 7-10). Indication s: acute pain ferrous 2020-0 Yes [id number] 325mg Take 1 Uni vers sulfate 325 8-22 tablet by ity of mg (65 mg 00:00: mouth 3 [place] iron) 00 (three) Medical tablet times Branch daily with meals. acetaminoph 2020-0 Yes [id number] 1{tbl} Take 1 Un zoran en-codeine 8-22 tablet by ity of 300-30 mg 00:00: mouth [place] tablet 00 every 6 Medical (six) Branch hours as needed for Pain (scale 7-10). Indication s: acute pain ferrous 2020-0 Yes [id number] 325mg Take 1 Uni vers sulfate 325 8-22 tablet by ity of mg (65 mg 00:00: mouth 3 [place] iron) 00 (three) Medical tablet times Branch daily with meals. acetaminoph 2020-0 Yes [id number] 1{tbl} Take 1 Un zoran en-codeine 8-22 tablet by ity of 300-30 mg 00:00: mouth [place] tablet 00 every 6 Medical (six) Branch hours as needed for Pain (scale 7-10). Indication s: acute pain ferrous 2020-0 Yes [id number] 325mg Take 1 Uni vers sulfate 325 8-22 tablet by ity of mg (65 mg 00:00: mouth 3 [place] iron) 00 (three) Medical tablet times Branch daily with meals. acetaminoph 2020-0 Yes [id number] 1{tbl} Take 1 Un zoran en-codeine 8-22 tablet by ity of 300-30 mg 00:00: mouth [place] tablet 00 every 6 Medical (six) Branch hours as needed for Pain (scale 7-10). Indication s: acute pain ferrous 2020-0 Yes [id number] 325mg Take 1 Uni vers sulfate 325 8-22 tablet by ity of mg (65 mg 00:00: mouth 3 [place] iron) 00 (three) Medical tablet times Branch daily with meals. acetaminoph 2020-0 Yes [id number] 1{tbl} Take 1 Un zoran en-codeine 8-22 tablet by ity of 300-30 mg 00:00: mouth [place] tablet 00 every 6 Medical (six) Branch hours as needed for Pain (scale 7-10). Indication s: acute pain acetaminoph 2020-0 Yes [id number] 1{tbl} Take 1 Un zoran en-codeine 8-22 tablet by ity of 300-30 mg 00:00: mouth [place] tablet 00 every 6 Medical (six) Branch hours as needed for Pain (scale 7-10). Indication s: acute pain acetaminoph 2020-0 Yes [id number] 1{tbl} Take 1 Un zoran en-codeine 8-22 tablet by ity of 300-30 mg 00:00: mouth [place] tablet 00 every 6 Medical (six) Branch hours as needed for Pain (scale 7-10). Indication s: acute pain ferrous 2020-0 Yes [id number] 325mg Take 1 Uni vers sulfate 325 8-22 tablet by ity of mg (65 mg 00:00: mouth 3 [place] iron) 00 (three) Medical tablet times Branch daily with meals. ferrous 2020-0 2020- No [id number] 325mg Take 1 Un zor[place] sulfate 325 8-22 - tablet by it y of mg (65 mg 00:00: 00:00 mouth 3 [place] iron) 00 :00 (three) Medical tablet times Branch daily with meals. peg-electro 2019- 2020- No 2000mL 2,000 mL, Univers lyte soln 03-23 Oral, ity of (GOLYTELY) 09:00: 09:20 PRE-PROCED [place] [id number] 00 :00 URE ONCE, Med ical .74 -5.86 1 dose, Branch gram Starting solution Fri 2,000 mL 03/23/20 at 0400, Until Discontinu ed, Routine, Bowel Prep, Bowel Prep for Colonoscop y peg-electro 2019-0 2020- No 2000mL 2,000 mL, Univers lyte soln 03-22 Oral, ity of (GOLYTELY) 22:30: 02:23 PRE-PROCED [place] [id number] 00 :00 URE ONCE, Med ical .74 -5.86 1 dose, Branch gram Starting solution Laya 2,000 mL 03/22/20 at 1730, Until [place] 03/22/20 at 2123, Routine, Bowel Prep, Colonoscop y bisacodyL 2019-0 2020- No 10mg 10 mg, Unive rs (DULCOLAX) 03-22 Oral, ity of tablet 10 21:56: 01:05 PRE-PROCED [place] mg 32 :00 URE ONCE, Medical 1 dose, Branch Starting [place] 03/22/20 at 1656, Until [place] 03/22/20 at 2005, Routine, Bowel Prep, Colonoscop y bisacodyL 2019-0 2020- No 10mg 10 mg, Unive rs (DULCOLAX) 03-22 Oral, ity of tablet 10 21:56: 02:23 PRE-PROCED [place] mg 32 :00 URE ONCE, Medical 1 dose, Branch Starting [place] 03/22/20 at 1656, Until [place] 03/22/20 at 2123, Routine, Bowel Prep, Colonoscop y acetaminoph 2019-0 Yes 325mg 325 mg, Un zoran en 03-22 Oral, ity of (TYLENOL) 21:18: Q6HPRN, [place] tablet 325 04 Starting Medic al mg [place] Branch 03/22/20 at 1618, Until Discontinu ed, Routine, Pain (scale 4-6) HYDROcodone 2020-0 Yes 1{tbl} 1 tablet, Univers -acetaminop 03-22 Oral, ity of hen (NORCO 21:15: Q6HPRN, [place] 5) 5-325 mg 45 Starting Medi chun tablet 1 [place] Branch tablet 03/22/20 at 1615, Until Discontinu ed, Routine, Pain (scale 7-10) HYDROcodone 2020-0 2020- No 1{tbl} 1 tablet, Univers -acetaminop -03-22 Oral, ity of hen (NORCO 03:27: 03:52 ONCE, 1 [place] 5) 5-325 mg 00 :00 dose, Wed Med ical tablet 1 03/21/20 at [facility] h tablet 2230, Routine ALPRAZolam 2020-0 Yes 2mg 2 mg, Univer s (XANAX) 03-22 Oral, BID, ity of tablet 2 mg 01:00: First dose [place] 00 (after Medical last Branch modificati on) on Thu03/21/20 at 2000, Until Discontinu ed, Routine pantoprazol 2019-0 2020- No 40mg 40 mg, Uni vers e 03-22 Oral, BID, ity of (PROTONIX) 01:00: 18:28 First dose [place] EC tablet 00 :11 on [facility] Medical 40 mg 03/21/20 at Branch 1999, Until Discontinu ed, Routine iron 2020-0 2020- No 1000mg 1,000 mg, Unive rs dextran 03-22 IV ity of (INFED) 00:45: 03:32 Infusion, [place] 1,000 mg in 00 :00 ONCE, 1 Medic al NaCl 0.9% dose, [facility] h (NS) 500 mL 03/21/20 at IV infusion 194, 500 mL iron 2020-0 2020- No 25mg 25 mg, IV Univers dextran 03-22 Piggyback, ity o f (INFED) 25 00:45: 02:16 ONCE, 1 [place] mg in NaCl 00 :00 dose, Thu Medi chun 0.9% (NS) 03/21/20 at [facility] ch 100 mL IV 194, 100 piggyback mL lamoTRIgine 2019-0 Yes 25mg 25 mg, Univ ers (LAMICTAL) 03-21 Oral, BID, ity of tablet 25 18:15: First dose [place] mg 00 (after Medical last Branch modificati on) on Thu03/21/20 at 1315, Until Discontinu ed acetaminoph 2019-0 2020- No 650mg 650 mg, U nivers en 03-21 Oral, ity of (TYLENOL) 18:01: 21:09 Q6HPRN, [place] tablet 650 13 :10 Starting Medic al mg [facility] 03/21/20 at 1301, Until [place] 03/22/20 at 1609, Routine, Pain (scale 4-6) ondansetron 2020-0 Yes 4mg 4 mg, Slow Univers (ZOFRAN 03-21 IV Push, ity of (PF)) 18:00: Q4HPRN, [place] injection 4 36 Starting Medi chun mg Thu Branch 03/21/20 at 1300, Until Discontinu ed, Routine, Nausea and Vomiting (N/V) pantoprazol 2019- No 40mg 40 mg, IV Univers e 03-21 Piggyback, ity of (PROTONIX) 17:15: 23:44 Q12H, [place] 40 mg in 00 :18 First dose Medic al NaCl 0.9% on Thu Branch (NS) 100 mL 03/21/20 at MINI-BAG 1215, Until Discontinu ed, 100 mL pantoprazol 2019- No 40mg 40 mg, Uni vers e 03-21 Oral, ity of (PROTONIX) 14:30: 17:01 DAILY, [place] EC tablet 00 :16 First dose Medi chun 40 mg on Wed Branch 03/21/20 at 0930, Until Discontinu ed, Routine PANTOPRAZOL Yes [id number] 40mg TAKE 1 Univers E 40 mg EC 9-18 TABLET BY ity of tablet 00:00: MOUTH [place] 00 DAILY Medical Branch PANTOPRAZOL 2020- No [id number] 40mg TAKE 1 Univers E 40 mg EC 18 08-22 TABLET BY ity of tablet 00:00: 00:00 MOUTH [place] 00 :00 DAILY Medical Branch pantoprazol 2019- No [id number] 40mg Take 1 Univers e 40 mg EC 2-06 09-16 tablet by ity of tablet 00:00: 00:00 mouth [place] 00 :00 daily. Medical Branch ALPRAZolam Yes 2mg Take 2 mg Un zoran 2 mg tablet 1-07 by mouth. ity of 19:49: [place] [address] Medical Branch docusate Yes 100mg Take 100 Univ ers 100 mg 1-07 mg by ity of capsule 19:49: mouth. [place] [address] Medical Branch Lamotrigine Yes Take by Un zoran 25 mg TbDL 1-07 mouth 2 ity of 19:49: (two) [place] [id number] times Medical daily. Branch ondansetron Yes 4mg Take 1 Univ ers 4 mg 1-07 tablet by ity of disintegrat 00:00: mouth [place] ing tablet 00 every 8 Medica l (eight) Branch hours as needed for Nausea and Vomiting (N/V). ondansetron 2019-0 Yes 4mg Take 1 Univ ers 4 mg 1-07 tablet by ity of disintegrat 00:00: mouth [place] ing tablet 00 every 8 Medica l (eight) Branch hours as needed for Nausea and Vomiting (N/V). ondansetron 2019-0 Yes 4mg Take 1 Univ ers 4 mg 1-07 tablet by ity of disintegrat 00:00: mouth [place] ing tablet 00 every 8 Medica l (eight) Branch hours as needed for Nausea and Vomiting (N/V). ondansetron 2019-0 Yes 4mg Take 1 Univ ers 4 mg 1-07 tablet by ity of disintegrat 00:00: mouth [place] ing tablet 00 every 8 Medica l (eight) Branch hours as needed for Nausea and Vomiting (N/V). ondansetron 2019-0 Yes 4mg Take 1 Univ ers 4 mg 1-07 tablet by ity of disintegrat 00:00: mouth [place] ing tablet 00 every 8 Medica l (eight) Branch hours as needed for Nausea and Vomiting (N/V). ondansetron 2019-0 Yes 4mg Take 1 Univ ers 4 mg 1-07 tablet by ity of disintegrat 00:00: mouth [place] ing tablet 00 every 8 Medica l (eight) Branch hours as needed for Nausea and Vomiting (N/V). ondansetron 2019-0 Yes 4mg Take 1 Univ ers 4 mg 1-07 tablet by ity of disintegrat 00:00: mouth [place] ing tablet 00 every 8 Medica l (eight) Branch hours as needed for Nausea and Vomiting (N/V). ondansetron 2019-0 Yes 4mg Take 1 Univ ers 4 mg 1-07 tablet by ity of disintegrat 00:00: mouth [place] ing tablet 00 every 8 Medica l (eight) Branch hours as needed for Nausea and Vomiting (N/V). ondansetron 2019-0 Yes 4mg Take 1 Univ ers 4 mg 1-07 tablet by ity of disintegrat 00:00: mouth [place] ing tablet 00 every 8 Medica l (eight) Branch hours as needed for Nausea and Vomiting (N/V). acetaminoph 2018-1 Yes 2{tbl} Take 2 Un zoran en-codeine 2-13 tablets by ity of 300-30 mg 00:00: mouth [place] tablet 00 every 4 Medical (four) Branch hours as needed for Pain (scale 4-6) or Pain (scale 7-10). acetaminoph 2017-08 2020- No 2{tbl} Take 2 U nivers en-codeine 2-13 -22 tablets by it y of 300-30 mg 00:00: 00:00 mouth [place] tablet 00 :00 every 4 Medical (four) Branch hours as needed for Pain (scale 4-6) or Pain (scale 7-10). HYDROcodone Yes TAKE 1 Univ ers -acetaminop 4-18 TABLET BY ity of hen 10-325 00:00: MOUTH 3 [place] mg tablet 00 TIMES A Medical DAY Branch NEEDED FOR PAIN HYDROcodone 2019- No TAKE 1 Uni vers -acetaminop 4-18 - TABLET BY it y of hen 10-325 00:00: 00:00 MOUTH 3 [place] mg tablet 00 :00 TIMES A Medical DAY Branch NEEDED FOR PAIN loratadine Yes 10mg Take 10 mg U nivers 10 mg 4-09 by mouth ity of tablet 00:00: as needed. Medical Branch loratadine Yes 10mg Take 10 mg U nivers 10 mg 4-09 by mouth ity of tablet 00:00: as needed. [place] Medical Branch loratadine Yes 10mg Take 10 mg U nivers 10 mg 4-09 by mouth ity of tablet 00:00: as needed. [place] Medical Branch loratadine 0 Yes 10mg Take 10 mg U nivers 10 mg 4-09 by mouth ity of tablet 00:00: as needed. Medical Branch loratadine Yes 10mg Take 10 mg U nivers 10 mg 4-09 by mouth ity of tablet 00:00: as needed. [place] [facility] Branch loratadine 0 Yes 10mg Take 10 mg U nivers 10 mg 4-09 by mouth ity of tablet 00:00: as needed. [place] Medical Branch loratadine 0 Yes 10mg Take 10 mg U nivers 10 mg 4-09 by mouth ity of tablet 00:00: as needed. [place] Medical Branch loratadine 0 Yes 10mg Take 10 mg U nivers 10 mg 4-09 by mouth ity of tablet 00:00: as needed. [place] Medical Branch loratadine 2016- Yes 10mg Take 10 mg U nivers 10 mg -09 by mouth ity of tablet 00:00: as needed. [place] Medical Branch fluticasone Yes INSTILL 1 U nivers 50 4-03 SPRAY IN ity of mcg/actuati 00:00: EACH [place] on nasal 00 NOSTRIL Medical spray TWICE A Branch DAY as needed fluticasone Yes INSTILL 1 U nivers 50 4-03 SPRAY IN ity of mcg/actuati 00:00: EACH [place] on nasal 00 NOSTRIL Medical spray TWICE A Branch DAY as needed fluticasone Yes INSTILL 1 U nivers 50 4-03 SPRAY IN ity of mcg/actuati 00:00: EACH [place] on nasal 00 NOSTRIL Medical spray TWICE A Branch DAY as needed fluticasone Yes INSTILL 1 U nivers 50 4-03 SPRAY IN ity of mcg/actuati 00:00: EACH [place] on nasal 00 NOSTRIL Medical spray TWICE A Branch DAY as needed fluticasone Yes INSTILL 1 U nivers 50 4-03 SPRAY IN ity of mcg/actuati 00:00: EACH [place] on nasal 00 NOSTRIL Medical spray TWICE A Branch DAY as needed fluticasone Yes INSTILL 1 U nivers 50 4-03 SPRAY IN ity of mcg/actuati 00:00: EACH [place] on nasal 00 NOSTRIL Medical spray TWICE A Branch DAY as needed fluticasone Yes INSTILL 1 U nivers 50 4-03 SPRAY IN ity of mcg/actuati 00:00: EACH [place] on nasal 00 NOSTRIL Medical spray TWICE A Branch DAY as needed fluticasone Yes INSTILL 1 U nivers 50 4-03 SPRAY IN ity of mcg/actuati 00:00: EACH [place] on nasal 00 NOSTRIL Medical spray TWICE A Branch DAY as needed LIALDA 1.2 Yes TAKE 2 Unive rs gram EC 4-03 TABLETS BY ity of tablet 00:00: MOUTH [place] 00 EVERY DAY Medical Branch fluticasone Yes INSTILL 1 U nivers 50 4-03 SPRAY IN ity of mcg/actuati 00:00: EACH [place] on nasal 00 NOSTRIL Medical spray TWICE A Branch DAY as needed LIALDA 1.2 2020- No TAKE 2 Univ ers gram EC 11-03 TABLETS BY ity o f tablet 00:00: 00:00 MOUTH [place] 00 :00 EVERY DAY Medical Branch acetaminoph acetaminoph No acetaminop [place] 300 [...] BY Health DAILY DAILY MOUTH Outrea c NEEDED. NEEDED. TWICE h DAILY Program NEEDED. azithromyci azithromyci No azithromyc [place] 250 [...] Outreac release h Program ferrous ferrous No ferrous [place] sulfate 325 sulfate 325 sulfate da mg (65 mg mg (65 mg 325 mg (65 [facility] iron) iron) mg iron) al tablet TAKE tablet TAKE tablet Health ONE TABLET ONE TABLET TAKE ONE Outreac BY MOUTH BY MOUTH TABLET BY h THREE TIMES THREE TIMES MOUTH Program DAILY WITH DAILY WITH THREE MEALS MEALS TIMES DAILY WITH MEALS fluticasone fluticasone No fluticason [place] propionate propionate [...] BEDTIME EVERY h NIGHT AT Program BEDTIME Vital Signs Vital Name Observation Time Observation Value Comments Source Body weight 2021-04-28 79.379 kg [facility] 10:47:00 [facility] BMI 2021-04-28 32.01 kg/m2 [facility] 10:47:00 [facility] Systolic blood 2021-04-28 148 mm[Hg] University of pressure 06:15:00 [facility] Diastolic blood 2021-04-28 78 mm[Hg] University o f pressure 06:15:00 [facility] Heart rate 2021-04-28 65 /min [facility] 06:15:00 [facility] Body temperature 2021-04-28 35.89 Stephany [facility] 06:15:00 [facility] Respiratory rate 2021-04-28 18 /min University 06:15:00 [facility] Oxygen saturation 2021-04-28 97 /min [facility] in Arterial blood 06:15:00 [facility] by Pulse oximetry [place] Systolic blood 2020-03-24 156 mm[Hg] RN INFORMED University of pressure 16:30:00 [facility] Diastolic blood 2020-03-24 90 mm[Hg] RN INFORMED University o f pressure 16:30:00 [facility] Heart rate 2020-03-24 75 /min University 16:30:00 [facility] Body temperature 2020-03-24 35.78 Stephany University 16:30:00 [facility] Respiratory rate 2020-03-24 21 /min University 16:30:00 [facility] Oxygen saturation 2020-03-24 98 /min [facility] in Arterial blood 16:30:00 [facility] by Pulse oximetry Branch Body weight 2020-03-24 83.507 kg pt's actual University of :32:00 weight on the [place] Medical regular scale Branch BMI 2020-03-24 33.67 kg/m2 University of :32:00 [facility] Body height 2020-03-23 157.5 cm University of 16:09:00 [facility] Systolic blood 2020-03-24 156 mm[Hg] RN INFORMED [place] of pressure 16:30:00 [facility] Diastolic blood 2020-03-24 90 mm[Hg] RN INFORMED University o pressure 16:30:00 [facility] Heart rate 2020-03-24 75 /min University of 16:30:00 [facility] Body temperature 2020-03-24 35.78 Stephany University of 16:30:00 [facility] Respiratory rate 2020-03-24 21 /min University of 16:30:00 [facility] Oxygen saturation 2020-03-24 98 /min [facility] in Arterial blood 16:30:00 [facility] by Pulse oximetry [place] Body weight 2020-03-24 83.507 kg pt's actual University of :32:00 weight on the [facility] regular scale Branch BMI 2020-03-24 33.67 kg/m2 University of :32:00 [facility] Body height 2020-03-23 157.5 cm University of 16:09:00 [facility] Procedures Procedure Date / Time Performing Clinician Source Performed CBC WITH DIFF 2021-04-28 12:25:00 Andrew Lizama [facility] PREPARE PACKED RBC 2021-04-28 05:37:48 [facility] 2021-04-27 21:02:00 Andrew Lizama [facility] TRANSFUSE PACKED RBC 2021-04-27 16:27:00 Yana Foss [facility] PREPARE PACKED RBC 2021-04-27 16:12:49 Yana Foss [facility] MAGNESIUM 2021-04-27 09:32:00 Andrew Lizama [facility] COMP. METABOLIC PANEL 2021-04-27 09:32:00 Andrew Lizama [facility] ([id number]) [facility] CBC WITH DIFF 2021-04-27 09:32:00 Jama Lizamakayleigh [facility] GLYCOSYLATED HEMOGLOBIN 2021-04-27 09:32:00 Andrew Lizama [facility] (A1C) [facility] LACTIC ACID WHOLE BLOOD 2021-04-27 09:32:00 Alda [facility] LACTATE DEHYDROGENASE 2021-04-27 05:24:00 Andrew Lizama [facility] VITAMIN B12, LEVEL 2021-04-27 05:24:00 Alda kayleigh [facility] C-REACTIVE PROTEIN 2021-04-27 05:24:00 Alda kayleigh [facility] IRON PANEL 2021-04-27 05:24:00 Alda [facility] SEDIMENTATION RATE 2021-04-27 05:24:00 Alda [facility] VITAMIN D, 25-OH 2021-04-27 05:24:00 Alda [facility] PROCALCITONIN 2021-04-27 05:24:00 Alda kayleigh [facility] ACUTE CARE VENOUS BLOOD 2021-04-27 05:23:00 Andrew Lizama [facility] PROTHROMBIN TIME / INR 2021-04-27 05:23:00 Alda kayleigh [facility] COVID-19 (MOLECULAR 2021-04-27 02:34:00 Andrew Lizama [facility] NUCLEIC ACID AMPLIFICATION) PANEL IDENTIFICATION 2021-04-27 02:17:00 Andrew Lizama [facility] HB ABO GROUPING 2021-04-27 00:40:00 Yana Foss [facility] CT ABDOMEN PELVIS W 2021-04-26 23:51:18 Yana Foss [facility] CONTRAST [facility] POCT TEST 2021-04-26 22:10:00 Yana Foss [facility] PHOSPHORUS 2021-04-26 22:04:00 Alda kayleigh [facility] URIC ACID 2021-04-26 22:04:00 Alda [facility] AMYLASE 2021-04-26 22:04:00 Yana Foss [facility] MAGNESIUM 2021-04-26 22:04:00 Alda [facility] THYROID STIMULATING 2021-04-26 22:04:00 Alda [facility] [place] HORMONE Medical Branch HEPATIC FUNCTION PANEL 2021-04-26 22:04:00 Pipo Yana [facility] ([id number]) (ALB,T.PRO,BILI Medical Branch T,BU/BC,ALT,AST,ALK PHOS) BASIC METABOLIC PANEL 2021-04-26 22:04:00 Yana Foss [facility] (NA, K, CL, CO2, GLUCOSE, Medica l Branch BUN, CREATININE, CA) LIPID PANEL ([id number])(TOTAL 2021-04-26 22:04:00 [facility] TRIGLYCERIDES, HDL) CBC WITH DIFF 2021-04-26 22:04:00 [facility] 2021-04-26 22:04:00 Pipo [facility] N-TERMINAL PRO-BNP 2021-04-26 22:04:00 [facility] ROUTINE & RHYTHM 2021-04-26 21:41:41 Yana Foss [facility] STRIP [facility] XR CHEST 1 VW 2021-04-26 21:36:45 Yana Foss [facility] NOTICE OF PRIVACY 2021-04-26 21:22:01 Doctor Unafabiola, [facility] PRACTICES [facility] Medical Branch COVID-19 (ID NOW RAPID 2021-04-26 21:19:00 Yana Foss [facility] TESTING) Medical Branch CONSENT/REFUSAL FOR 2021-04-26 21:11:24 Doctor Rashawn, [facility] DIAGNOSIS AND TREATMENT [facility] [place] EXTERNAL PROVIDER RECORDS 2020-04-19 05:01:00 Doctor Rashawn, [facility] [place] BASIC METABOLIC PANEL 2020-03-24 10:52:00 Sabido, [facility] (NA, K, CL, CO2, GLUCOSE, Medica l Branch BUN, CREATININE, CA) CBC WITHOUT DIFF 2020-03-24 10:52:00 Kay [facility] COLONOSCOPY (ENDO) 2020-03-23 16:17:31 Ludmila Steele [facility] EGD (ENDO) 2020-03-23 16:16:00 Cedric [place] [facility] BASIC METABOLIC PANEL 2020-03-23 09:52:00 [facility] (NA, K, CL, CO2, GLUCOSE, Medica l Branch BUN, CREATININE, CA) CBC WITHOUT DIFF 2020-03-23 09:52:[address] [facility] CBC WITHOUT DIFF 2020-03-23 04:24:00 Aleida [facility] FECAL PATHOGENS BY PCR 2020-03-22 19:48:00 Aurea [facility] CBC WITHOUT DIFF 2020-03-22 19:46:00 Kay [facility] CBC WITHOUT DIFF 2020-03-22 09:42:00 Kay [facility] URINALYSIS 2020-03-22 09:42:00 Kay [facility] BASIC METABOLIC PANEL 2020-03-22 09:41:00 [facility] (NA, K, CL, CO2, GLUCOSE, Medica l Branch BUN, CREATININE, CA) US PELVIS COMPLETE WITH 2020-03-22 05:19:00 Kay [facility] TRANSVAGINAL [facility] IRON PANEL 2020-03-21 23:25:00 Kay [facility] CBC WITHOUT DIFF 2020-03-21 23:25:00 Kay [facility] FECES CULTURE 2020-03-21 20:43:00 Nitesh Carbajal [facility] CLOSTRIDIUM DIFFICILE 2020-03-21 20:43:00 Analy Dejesus [facility] TOXIN [facility] CT ABDOMEN PELVIS W 2020-03-21 18:45:56 Kay Fam [facility] FERRITIN SERUM 2020-03-21 14:26:[address] [facility] HEPATIC FUNCTION PANEL 2020-03-21 14:26:00 Kay [facility] ([id number]) (ALB,T.PRO,BILI Medical Branch T,BU/BC,ALT,AST,ALK PHOS) BASIC METABOLIC PANEL 2020-03-21 14:26:00 Kay [facility] (NA, K, CL, CO2, GLUCOSE, Medica l Branch BUN, CREATININE, CA) SEDIMENTATION RATE 2020-03-21 14:26:00 Kay [facility] CBC WITH DIFF 2020-03-21 14:26:00 Kay [facility] C-REACTIVE PROTEIN 2020-03-21 14:25:00 Kay [facility] HB ABO GROUPING 2020-03-21 14:25:00 Kay [facility] PROTHROMBIN TIME / INR 2020-03-21 14:24:00 Kay [facility] ACTIVATED PARTIAL 2020-03-21 14:24:00 Kay [facility] THRMPLAS [facility] COVID-19 (ID NOW RAPID 2020-03-21 13:15:00 Kay [facility] TESTING) [facility] Colonoscopy 2016-08-03 00:00:00 [facility]ad [facility] Delivery [facility] Plan of Care Planned Activity Planned Date Details Comments Source Instructions [place] [facility] Encounters Start End Encounter Admission Attending Care Care Encounter Source Date/Time Date/Time Type Type Clinicians Facility Department ID 2021-06-15 Outpatient AMBREEN_FAR [facility] [id number] [place] 01:04:39 DAFNE [id number] [facility] 2021-06-14 Outpatient AMBREEN_FAR [facility] [id number] [place] 19:56:43 DAFNE [id number] [facility] 2021-06-14 Outpatient AMBREEN_FAR [facility] [id number] [place] 18:02:24 DAFNE 52749 da [facility] 2021-06-04 Emergency [facility] [id number] Univers 01:16:49 ity of [facility] 2021-05-31 Inpatient U NITESH [facility] ANGELA [id number] Univers 13:15:21 YVROSE ity of [facility] 2021-04-30 2021-04-30 Transition Katlyn [place] [id number] Univers 00:00:00 00:00:00 of Care Bo Hoffman [id number] ity of [place] [id number] [facility] [id number] [facility] 403 Branch 2021-04-26 2021-04-28 Emergency Yana Foss [facility] 1.2.840 .114 [id number] Univers 16:28:00 07:20:00 Andrew Lizama [id number] ity of [place] [id number] [facility] [id number] [facility] 081 Branch 2021-04-15 2021-04-15 [facility] [id number] M at[place]or 00:00:00 00:00:00 Wil Phillip MD: Faith Epi scop 1700 [facility] brayan Shi [facility] [address] Cooper am , Ph. (694) --20072021-01-21 2021-01-21 [facility] [id number] M at[place]or 00:00:00 00:00:00 Wil Phillip MD: Faith Epi scop 1700 [facility] [address] Progr am , Ph. ([phone]) --20072020-10-17 2020-10-17 [facility] 1.2.840.114 [id number] Univers 00:00:00 00:00:00 Wonhilariaful A Health [id number] ity of [place] 4.2.7.2.686 Ramo as Sudha [id number] [facility] 044 [facility] One 2020-09-03 2020-09-03 Alber [place] - [id number] M at[place]or 00:00:00 00:00:00 Wil Phillip MD: Faith Epi scop 1700 [facility] [address] Progr am , Ph. ([phone]) --20072020-05-21 2020-05-21 Alber [place] - [id number] M atagor 00:00:00 00:00:00 Wil Phillip MD: Faith Epi scop 1700 [facility] [address] Progr am , Ph. (979) --20072020-04-19 2020-04-19 Orders Doctor ALDEN 1.2.840.114 [id number] 00:00:00 00:00:00 Only Unassigned, JAMES [id number] [facility] 4.2.7.2.686 [id number] [facility] 2020-04-19 2020-04-19 Orders Doctor ALDEN 1.2.840.114 [id number] Univers 00:00:00 00:00:00 Only Unassigned, JAMES [id number] ity of [place] [facility] 4.2.7.2.686 Ramo as [phone] [address] 2020-04-05 2020-04-05 Telephone Solomon [facility] [id number] 00:00:00 00:00:00 Nitesh SPECIALTY [id number] CARE [id number] CENTER AT [id number] JANIEWilliam Matias[address] [place] [address] 2020-04-05 2020-04-05 Telephone Solomon [facility] [id number] Univers 00:00:00 00:00:00 Nitesh SPECIALTY [id number] ity of C[place]2.686 [place] C[place] AT [phone] Ct cosme VERMA [address] [place] [address] 2020-04-05 2020-04-05 Sarwat [facility] 1.2.840.114 [id number] Univers 00:00:00 00:00:00 (Out) Nitesh SPECIALTY [id number] ity of [id number] [place] C[place] AT [phone] Ct cosme VERMA [address] [place] [address] 2020-04-05 2020-04-05 Sarwat [facility] 1.2.840.114 [id number] 00:00:00 00:00:00 (Out) Nitesh SPECIALTY [id number] CARE [id number] CENTER AT [id number] BAYRON [address] [place] [address] 2020-04-04 2020-04-04 Telemedicanjelica MijaresGALLUP [facility] 1.2.840.114 [id number] Univers 11:00:00 11:30:00 ne Visit Wondiful A [place] [id number] ity of [place] 4.2.7.2.686 [place] Professio [phone] Ct cosme [address] 2020-04-04 2020-04-04 Telemedic [facility] 1.2.840.114 [id number] 11:00:00 11:30:00 ne Visit Wondiful A [place] [id number] [place] 4.2.7.2.686 Professio [phone] [address] 2020-04-04 2020-04-04 Outpatient Alonzo MIJARES [facility] [id number] P-20 Univers 11:00:00 11:00:00 WONDIFUL [id number] ity o f [facility] 2020-04-04 2020-04-04 Outpatient Alonzo MIJARES [facility] [id number] Univers 11:00:00 11:00:00 WONDIFUL ity o f [facility] 2020-03-21 2020-03-24 [facility] Yvrose Velázquez 1. 2.840.114 [id number] Univers 07:17:00 14:00:00 Encounter Audrey Landry [id number] ity Wilder Garcia [facility] [id number] [place] [phone] [facility] 090 [place] 2020-03-21 2020-03-24 [facility] Yvrose Velázquez 1. 2.840.114 [id number] 07:17:00 14:00:00 Encounter Audrey Landry [id number] [facility] [id number] [id number] 2020-02-27 2020-02-27 [facility] - [id number] M at[place]or 00:00:00 00:00:00 Wil Phillip MD: Faith Epi scop 1700 HOP - MEHOP brayan Shi [facility] [address] Progr am , Ph. (328) --20072019-12-19 2019-12-19 [facility] [id number] M [place] 00:00:00 00:00:00 Wil Phillip MD: Faith Epi scop 1700 HOP - SCHOP al [facility] [address] Progr am , Ph. ([phone]) -20072019-10-31 2019-10-31 [facility] - [id number] M at[place]or 00:00:00 00:00:00 Wil Phillip MD: Faith Epi scop 1700 HOP - MEHOP al [facility] [address] Progr am , Ph. (469) --20072019-05-09 2019-05-09 [facility] [id number] M atagor 00:00:00 00:00:00 Wil Phillip MD: Faith Epi scop 1700 HOP - MEHOP al [facility], [email or web address] [place] [address] , Ph. ([phone]) --20072019-04-18 2019-04-18 Sae Mijares [facility] 1.2.840.114 [id number] Univers 00:00:00 00:00:00 Wondiful A Health [id number] ity of [place] 4.2.7.2.686 Ramo as Professio [phone] Ct dical nal 044 [place] Office [address] One 2019-04-18 2019-04-18 Sae Mijares [facility] 1.2.840.114 [id number] 00:00:00 00:00:00 Wondiful A Health [id number] [place] [id number] Professio [phone] nal [facility] One Results Test Description Test Time Test Comments Results Result Comments Source CBC WITH DIFF 2021-04-28 12:33:08 Test Item Value Reference Range Interpretation Comme nts WBC (test code = 6690-2) See_Comment [A utomated message] The system which ge nerated this result transmit lennox reference range: 4.30 - 1 1.10 10*3/?L. The reference r rhina was not used to interpr et this result as normal/abnor mal. RBC (test code = 789-8) See_Comment [Au tomated message] The system which ge nerated this result transmit lennox reference range: 3.93 - 5 .25 10*6/?L. The reference r rhina was not used to interpr et this result as normal/abnor mal. HGB (test code = 718-7) 8.3 g/dL 11.6-15.0 L HCT (test code = 4544-3) 29.3 % 35.7-45.2 L MCV (test code = 787-2) 69.6 fL 80.6-95.5 L MCH (test code = 785-6) 19.7 pg 25.9-32.8 L MCHC (test code = 786-4) 28.3 g/dL 31.6-35.1 L RDW-SD (test code = 67907-4) 55.2 fL 39.0-49.9 H RDW-CV (test code = 788-0) 23.2 % 12.0-15.5 H PLT (test code = 777-3) See_Comment [Au tomated message] The system which ge nerated this result transmit lennox reference range: 166 - 35 8 10*3/?L. The reference range was not used to interpret th is result as normal/abnormal . MPV (test code = 15294-2) 10.6 fL 9.5-12.9 NRBC/100 WBC (test code = See_Comment [ Automated message] The [id number]) system which ge nerated this result transmit lennox reference range: 0.0 - 10 .0 /100 WBCs. The reference r rhina was not used to interpr et this result as normal/abnor mal. NRBC x10^3 (test code = See_Comment [Au tomated message] The 5590599159) system which ge nerated this result transmit lennox reference range: 10*3/?L. The reference range was not u sed to interpret this result as normal/abnormal . GRAN MAT (NEUT) % (test code 53.5 % = 770-8) IMM GRAN % (test code = 0.50 % 1058110608) LYMPH % (test code = 736-9) 36.4 % MONO % (test code = 5905-5) 5.7 % EOS % (test code = 713-8) 3.1 % BASO % (test code = 706-2) 0.8 % GRAN MAT x10^3(ANC) (test 3.31 10*3/uL 1.88-7.09 code = 1133352771) IMM GRAN x10^3 (test code = 0.03 10*3/uL 0.00-0.06 0892139017) LYMPH x10^3 (test code = 2.25 10*3/uL 1.32-3.29 731-0) MONO x10^3 (test code = 0.35 10*3/uL 0.33-0.92 742-7) EOS x10^3 (test code = 0.19 10*3/uL 0.03-0.39 711-2) BASO x10^3 (test code = 0.05 10*3/uL 0.01-0.07 704-7) Lab Interpretation (test Abnormal code = 74802-8) [facility] (in units), 1 Units 2021-04-28 05:37:48 Test Item Value Reference Range Interpretation Comments Unit Blood Type (test O Neg code = 4410) ISBT Blood Type Code (test code = 334395) Unit Number (test [id number] code = 4411) Blood Expiration Date & Time (test code = 216849) Status Information Issued (test code = 4412) Product Red Blood Cells Identification (test code = 4413) Product Code (test [id number] Performed at [facility] code = 4414) Laboratory Services - [facility] Blood [address] [place] [address]Scmr Free: [phone] A No. [id number] Cross Match Result Compatible (test code = 4409) [facility]2021-09-25 21:11:13 Test Item Value Reference Range Interpretation Comments HGB (test code = 718-7) 6.6 g/dL 11.6-15.0 L Lab Interpretation (test code = Abnormal 53350-9) [facility] Packed RBC (in units), 1 Units 2021-04-27 16:12:49 Test Item Value Reference Range Interpretation Comments Unit Blood Type (test O Neg code = 4410) ISBT Blood Type Code (test code = 730977) Unit Number (test code [id number] = 4411) Blood Expiration Date & Time (test code = 200110) Status Information Issued (test code = 4412) Product Identification Red Blood (test code = 4413) Cells Product Code (test [id number] Performed at [facility] code = 4414) Laboratory Services - [facility] Blood [address] [place] [address]Zcrg Free: [phone] A No. [id number] [facility]-REACTIVE [id number] 15:44:28 Test Item Value Reference Range Interpretation Comments CRP (test code = 9671504692) 0.6 mg/dL <0.8 Lab Interpretation (test code = Normal 34670-1) [facility] D, [id number] 14:51:01 Test Item Value Reference Range Interpretation Comments VIT D 25OH (test code = 21 ng/mL 25-80 L 95429-3) YOANA (test code = YOANA) Deficiency: <20 ng/mLInsufficiency: 20-24 ng/mLOptimal: 25-80 ng/mL Lab Interpretation (test Abnormal code = 97349-4) [facility] B12, [id number] 14:06:02 Test Item Value Reference Range Interpretation Comments VIT B12 (test code = 410 pg/mL 240-930 [id number]) YOANA (test code = YOANA) Biotin has been reported to cause a positive bias, interpret results relative to patient's use of biotin. Lab Interpretation (test Normal code = 67426-4) [facility] WITH [id number] 12:50:07 Test Item Value Reference Range Interpretation Comments WBC (test code = See_Comment [Automated 6690-2) message] The sy stem which generated this result transmitted reference range : 4.30 - 11.10 10*3/?L. The reference range was not used to interpret this result as normal/abnormal . RBC (test code = See_Comment L [Automated 789-8) message] The sy stem which generated this result transmitted reference range : 3.93 - 5.25 10*6/?L. The reference range was not used to interpret this result as normal/abnormal . HGB (test code = 5.9 g/dL 11.6-15.0 L 718-7) HCT (test code = 22.3 % 35.7-45.2 L 4544-3) MCV (test code = 70.8 fL 80.6-95.5 L 787-2) MCH (test code = 18.7 pg 25.9-32.8 L 785-6) MCHC (test code = 26.5 g/dL 31.6-35.1 L 786-4) RDW-SD (test code = 58.7 fL 39.0-49.9 H 94122-8) RDW-CV (test code = 24.9 % 12.0-15.5 H 788-0) PLT (test code = See_Comment [Automated 777-3) message] The sy stem which generated this result transmitted reference range : 166 - 358 10*3/ ?L. The reference r rhina was not used to interpret this result as normal/abnormal . MPV (test code = 11.2 fL 9.5-12.9 51286-0) NRBC/100 WBC (test See_Comment [Automat ed code = 7013482258) message] The system which generated this result transmitted reference range : 0.0 - 10.0 /100 WBCs. The refer ence range was not u sed to interpret th is result as normal/abnormal . NRBC x10^3 (test code See_Comment [Auto mated = 1701400090) message] The s ystem which generated this result transmitted reference range : 10*3/?L. The reference range was not used to interpret this result as normal/abnormal . GRAN MAT (NEUT) % 63.0 % (test code = 770-8) IMM GRAN % (test code 0.70 % = 9067228739) LYMPH % (test code = 25.2 % 736-9) MONO % (test code = 7.7 % 5905-5) EOS % (test code = 2.6 % 713-8) BASO % (test code = 0.8 % 706-2) GRAN MAT x10^3(ANC) 3.86 10*3/uL 1.88-7.09 (test code = 8635254908) IMM GRAN x10^3 (test 0.04 10*3/uL 0.00-0.06 code = 9500808627) LYMPH x10^3 (test code 1.54 10*3/uL 1.32-3.29 = 731-0) MONO x10^3 (test code 0.47 10*3/uL 0.33-0.92 = 742-7) EOS x10^3 (test code = 0.16 10*3/uL 0.03-0.39 711-2) BASO x10^3 (test code 0.05 10*3/uL 0.01-0.07 = 704-7) ACANTHOCYTES (test 1+ See_Comment [Automat ed code = 7789-1) message] The system which generated this result transmitted reference range : 1+. The referen ce range was not u sed to interpret th is result as normal/abnormal . POLYCHROMASIA (test 2+ See_Comment [Automa lennox code = 18159-6) message] The system which generated this result transmitted reference range : 2+. The referen ce range was not u sed to interpret th is result as normal/abnormal . Lab Interpretation Abnormal (test code = 64137-7) [facility]YC[facility] (A1C)2021-04-27 12:35:42HGB O1FBxtunkm: Due to low Hemoglobin, %A1c can not be calculated.[facility] LABORATORYReference RangesNormal: <5.7%Prediabetes: 5.7 - 6.4%Diabetes: > 6.5%[facility]viewCOMP. METABOLIC PANEL (77403)2021-04-27 11:42:47 Test Item Value Reference Range Interpretation Comments NA (test code = 135 mmol/L 135-145 6108498308) K (test code = 3.3 mmol/L 3.5-5.0 L 5129520675) CL (test code = 105 mmol/L 98-108 9124435994) CO2 TOTAL (test code = 26 mmol/L 23-31 5161686467) AGAP (test code = 2-16 1884524144) BUN (test code = 6 mg/dL 7-23 L 1849760075) GLUCOSE (test code = 91 mg/dL 70-110 1372273808) CREATININE (test code = 0.61 mg/dL 0.50-1.04 1142225604) TOTAL BILI (test code = 0.4 mg/dL 0.1-1.4 4582462621) CALCIUM (test code = 9.1 mg/dL 8.6-10.6 3910564848) T PROTEIN (test code = 7.0 g/dL 6.3-8.2 5580859999) ALBUMIN (test code = 4.0 g/dL 3.5-5.0 3730510261) ALK PHOS (test code = 73 U/L 34-122 8152448049) ALTv (test code = 16 U/L 5-35 1742-6) AST(SGOT) (test code = 22 U/L 13-40 6046313015) eGFR (test code = mL/min/1.73m2 6845046433) YOANA (test code = YOANA) Association of Glomerular Filtration Rate (GFR) and Staging of Kidney Disease* + --+ --+ ------+| GFR (mL/min/1.73 m2) ?| With Kidney Damage ?| ?Without Kidney Damage+ --------+ --------+ +| ?>90 ?| ?Stage one ?| ? Normal ?+ ---+ ---+ -------+| ?60-89 ?| ?Stage two ?| ? Decreased GFR ? + --+ --+ ------+| ?30-59 ?| ?Stage three ?| ? Stage three ? + --+ --+ ------+| ?15-29 ?| ?Stage four ? | ? Stage four ?+ ---+ ---+ -------+| ?<15 (or dialysis) ? ?| ?Stage five ? | ? Stage five ?+ ---+ ---+ -------+ *Each stage assumes the associated GFR level has been in effect for at least three months. ?Stages 1 to 5, with or without kidney disease, indicate chronic kidney disease. Notes: Determination of stages one and two (with eGFR >59mL/min/1.73 m2) requires estimation of kidney damage for at least three months as defined by structural or functional abnormalities of the kidney, manifested by either:Pathological abnormalities or Markers of kidney damage (including abnormalities in the composition of the blood or urine or abnormalities in imaging tests). Lab Interpretation Abnormal (test code = 62595-2) [facility]UM2021-[facility] 11:35:05 Test Item Value Reference Range Interpretation Comments MAGNESIUM (test code = 4606198026) 2.2 mg/dL 1.7-2.4 Lab Interpretation (test code = Normal 70862-1) [facility]viewPROCALCITONIN2021-09-25 10:53:27 Test Item Value Reference Interpretation Comments Range Procalcitonin (test <0.02 See_Comment [Automa lennox code = 0397004626) message] The system which generated this result transmitted reference range: <0.07 ng/mL. The reference range was not used to interpret this result as normal/abnormal . YOANA (test code = INTERPRETATION OF YOANA) PROCALCITONIN RESULTS IN ADULTS >= 18 YEARS OF AGE Initiation and discontinuation of antibiotics on patients with suspected or confirmed Lower Respiratory Tract Infection in Adults >= 18 years of age. + +------ + ----+ +|Procalcit onin |Interpretation ?|Antibiotic ? ? |Considerations ? |ng/mL ? | ?|recommendation | ? + +------ + ----+ +| <0.1 ? | Bacterial ? ? ?| Strongly ? ? ?| ? | ?| infection very | discouraged ? | Overruling: ? | ?| unlikely ? ? ? | ? | ? Clinically unstable ? ? ? + +------ + ----+ ? High risk for adverse ? ? | <0.25 ?| Bacterial ? ? ?| Discouraged ? | ? outcome ? | ?| infection ? ? ?| ? | ? SEE IMPORTANT NOTE ?| ?| unlikely ? ? ? | ? | ? + +------ + ----+ +| >=0.25 ? ? ? | Bacterial ? ? ?| Encouraged ? ?| ? | ?| infection ? ? ?| ? | ? | ?| likely ? | ? | Consider treatment failure ?+ +----- + -----+ if levels does not decrease | >0.5 ? | Bacterial ? ? ?| Strongly ? ? ?| appropriately ? | ?| infection very | encouraged ? ?| ? | ?| likely ? | ? | ? + +------ + ----+ + Discontinuation of antibiotics in high-acuity patients with suspected or confirmed sepsis in Adults >= 18 years of age. + +------ + ----+ +|Procalcit onin |Interpretation ?|Antibiotic ? ? |Considerations ? |ng/mL ? | ?|recommendation | ? + +------ + ----+ +| <0.25 ?| Bacterial ? ? ?| Strongly ? ? ?| ? | ?| infection very | discouraged ? | Overruling: ? | ?| unlikely ? ? ? | ? | ? Clinically unstable ? ? ? + +------ + ----+ ? High risk for adverse ? ? | <0.5 or drop | Bacterial ? ? ?| Discouraged ? | ? outcome ? | >80% from ? ?| infection ? ? ?| ? | ? SEE IMPORTANT NOTE ?| highest PCT ?| unlikely ? ? ? | ? | ? | level ?| ?| ? | ? + +------ + ----+ +| >=0.5 ?| Bacterial ? ? ?| Encouraged ? ?| ? | ?| infection ? ? ?| ? | ? | ?| likely ? | ? | Consider treatment failure ?+ +----- + -----+ if levels does not decrease | >1.0 ? | Bacterial ? ? ?| Strongly ? ? ?| appropriately ? | ?| infection very | encouraged ? ?| ? | ?| likely ? | ? | ? + +------ + ----+ + Percentage of drop of Procalcitonin calculation for Discontinuation of antibiotics in high-acuity patients with suspected or confirmed sepsis in Adults >= 18 years of age. ? Procalcitonin highest{}-Procalcitoni n current{}Delta Procalcitonin = ___ x100% ? Procalcitonin current {} IMPORTANT NOTE: Procalcitonin may be elevated without bacterial infection by physiologic stress related to trauma, sagastume, chronic dialysis, metastatic cancer, surgery in the past seven days, malaria, some fungal infections, and some forms of vasculitis. The interpretation algorithm may not apply to patients with immunosuppression (equivalent of >10 mg of prednisone daily), HIV with CD4 cell count < 350 cells/mm3, active malignancy on systemic chemotherapy, solid organ transplant or hematopoietic stem cell transplantation, or hospital acquired pneumonia. Additionally, some clinical trials of procalcitonin have excluded patients with shock requiring vasopressor use, acute respiratory failure requiring mechanical ventilation, or those with known lung abscess/empyema. For further information please refer to:[email or web address] Lab Interpretation Normal (test code = 62879-7) [facility]viewSEDIMENTATION [id number] 07:09:07 Test Item Value Reference Range Interpretation Comments ESR (test code = See_Comment H [Automated message] 4683080709) The system [employer] generated this result transmitted ref erence range: 0 - 20 m m/HR. The reference r rhina was not used to interpret this result as normal/abnor mal. Lab Interpretation (test Abnormal code = 61173-4) [facility]viewPANEL [id number] 06:53:11 Test Item Value Reference Range Interpretation Comments ANTIBODY ID (test Negative panel nega tive, repeat IAT code = 245) negativePerform ed at [facility] Laboratory Serv [facility] [address] [place], [place] [address]Pugh Free: [phone] A No. [id number] [facility]viewIRON [id number] 06:41:15 Test Item Value Reference Range Interpretation Comments IRON (test code = 7049041670) 19 ug/dL 50-160 L TIBC (test code = 5153891037) 424 ug/dL 250-410 H % FE SAT (test code = 2891654198) 4 % 20-50 L Lab Interpretation (test code = Abnormal 36195-3) [facility]viewPROTHROMBIN TIME / [id number] 06:33:51 Test Item Value Reference Range Interpretation Comments PROTIME PATIENT (test See_Comment [Auto mated message] code = 5964-2) The system [employer] generated this result transmitted ref erence range: 12.0 - 1 4.7 Seconds. The re ference range was not u sed to interpret this result as normal/abnor mal. INR (test code = 6301-6) Nor mal INR <1.1; Warfarin Therap eutic range 2.0 to 3. 0 or 2.5 to 3.5, dep ending upon the indica tions. Lab Interpretation (test Normal code = 03630-8) [facility]viewLACTATE [id number] 06:32:51 Test Item Value Reference Range Interpretation Comments LDH (test code = 1100814609) 291 U/L 300-600 L Lab Interpretation (test code = Abnormal 32704-8) [facility]viewTHYROID STIMULATING [id number] 05:18:41 Test Item Value Reference Range Interpretation Comments TSH (test code = See_Comment L [Automated message] 3256243977) The system [employer] generated this result transmitted ref erence range: 0.45 - 4 .70 mIU/L. The refe rence range was not u sed to interpret this result as normal/abnor mal. Lab Interpretation (test Abnormal code = 59061-0) [facility]viewN-TERMINAL [id number] 04:56:54 Test Item Value Reference Range Interpretation Comments NT-proBNP (test code 96 pg/mL See_Comment [Autom ated = 8422706642) message] The system which generated this result transmitted reference range : <=125. The reference range was not used to interpret this result as normal/abnormal . YOANA (test code = YOANA) Biotin has been reported to cause a negative bias, interpret results relative to patient's use of biotin. Lab Interpretation Normal (test code = 35850-5) [facility]viewLIPID PANEL (32757)(TOTAL CHOLESTEROL, TRIGLYCERIDES, HDL)2021-04-27 04:48:33 Test Item Value Reference Range Interpretation Comments CHOL (test code = 180 mg/dL 120-200 5658088956) HDL (test code = 40 mg/dL >50 L 9498662677) HDLC RATIO (test code = See_Comment [Au tomated message] 7744314517) The system [employer] generated this result transmit lennox reference range : <=4.5. The refe rence range was not u sed to interpret th is result as normal/abnormal . TRIG (test code = 166 mg/dL 30-170 6874149291) LDL CHOL (test code = 107 mg/dL See_Comment [Auto mated message] 81737-8) The system [employer] generated this result transmit lennox reference range : <=160. The refe rence range was not u sed to interpret th is result as normal/abnormal . VLDL (test code = 33 mg/dL 5-60 2949903437) Lab Interpretation (test Abnormal code = 39505-7) [facility]viewMAGNESIUM2021-09-25 04:48:13 Test Item Value Reference Range Interpretation Comments MAGNESIUM (test code = 9189759674) 2.1 mg/dL 1.7-2.4 Lab Interpretation (test code = Normal 07287-9) [facility]viewPHOSPHORUS2021-09-25 04:48:13 Test Item Value Reference Range Interpretation Comments PHOSPHORUS (test code = 3398041127) 3.4 mg/dL 2.5-5.0 Lab Interpretation (test code = Normal 87868-7) [facility]viewURIC [id number] 04:47:53 Test Item Value Reference Range Interpretation Comments URIC ACID (test code = 3416170269) 3.2 mg/dL 2.9-6.0 Lab Interpretation (test code = Normal 72675-8) [facility]viewType and Screen - ONCE [id number] 02:06:34 Test Item Value Reference Range Interpretation Comments ABO & RH (test code O Negative Performe d at [facility] = 20) Laboratory Serv [facility] [place], [place] [address]Toll Free: [phone] A No. [id number] IAT (test code = Positive Performed a t [facility] 1185) Laboratory Serv [facility] [place], [place] [address]Toll Free: [phone] A No. [id number] [facility]viewHEPATIC FUNCTION PANEL (67293) (ALB,T.PRO,BILI T,BU/BC,ALT,AST,ALK PHOS)2021-04-26 22:25:02 Test Item Value Reference Range Interpretation Comments TOTAL BILI (test code = 7132262999) 0.6 mg/dL 0.1-1.1 BILI UNCON (test code = 9898710672) 0.4 mg/dL 0.1-1.1 BILI CONJ (test code = 6567354134) 0.0 mg/dL 0.0-0.3 T PROTEIN (test code = 7398596055) 8.2 g/dL 6.3-8.2 ALBUMIN (test code = 1005217385) 4.6 g/dL 3.5-5.0 ALK PHOS (test code = 3886083387) 99 U/L 34-122 ALTv (test code = 1742-6) 19 U/L 5-35 AST(SGOT) (test code = 5837196511) 24 U/L 13-40 Lab Interpretation (test code = Normal 92651-0) [facility] METABOLIC PANEL (NA, K, CL, CO2, GLUCOSE, BUN, CREATININE, CA)2021-04-26 22:25:01 Test Item Value Reference Range Interpretation Comments NA (test code = 137 mmol/L 135-145 9607568570) K (test code = 4.3 mmol/L 3.5-5.0 5738621024) CL (test code = 105 mmol/L 98-108 9105592526) CO2 TOTAL (test code 24 mmol/L 23-31 = 2865043298) AGAP (test code = 2-16 7764738968) BUN (test code = 7 mg/dL 7-23 0825922851) GLUCOSE (test code = 98 mg/dL 70-110 7391535350) CREATININE (test code 0.64 mg/dL 0.50-1.04 = 2496806209) CALCIUM (test code = 9.8 mg/dL 8.6-10.6 9415145264) eGFR (test code = mL/min/1.73m2 6701639860) YOANA (test code = YOANA) Association of Glomerular Filtration Rate (GFR) and Staging of Kidney Disease* + + +- +| GFR (mL/min/1.73 m2) ?| With Kidney Damage ?| ?Without Kidney Damage+ ------+ ----+ ------+| ?>90 ?| ?Stage one ?| ? Normal ?+ -+ + -+| ?60-89 ?| ?Stage two ?| ? Decreased GFR ? + + +- +| ?30-59 ?| ?Stage three ?| ? Stage three ? + + +- +| ?15-29 ?| ?Stage four ? | ? Stage four ?+ -+ + -+| ?<15 (or dialysis) ? ?| ?Stage five ? | ? Stage five ?+ -+ + -+ *Each stage assumes the associated GFR level has been in effect for at least three months. ?Stages 1 to 5, with or without kidney disease, indicate chronic kidney disease. Notes: Determination of stages one and two (with eGFR >59mL/min/1.73 m2) requires estimation of kidney damage for at least three months as defined by structural or functional abnormalities of the kidney, manifested by either:Pathological abnormalities or Markers of kidney damage (including abnormalities in the composition of the blood or urine or abnormalities in imaging tests). [facility]viewAMYLASE2021-09-24 22:24:00 Test Item Value Reference Range Interpretation Comments RAINE (test code = 4069669740) 52 U/L 35-110 Lab Interpretation (test code = Normal 78751-5) [facility] WITH [id number] 22:19:40 Test Item Value Reference Range Interpretation Comments WBC (test code = See_Comment [Automated 6690-2) message] The sy stem which generated this result transmitted reference range : 4.30 - 11.10 10*3/?L. The reference range was not used to interpret this result as normal/abnormal . RBC (test code = See_Comment L [Automated 789-8) message] The sy stem which generated this result transmitted reference range : 3.93 - 5.25 10*6/?L. The reference range was not used to interpret this result as normal/abnormal . HGB (test code = 6.8 g/dL 11.6-15.0 L 718-7) HCT (test code = 25.6 % 35.7-45.2 L 4544-3) MCV (test code = 69.2 fL 80.6-95.5 L 787-2) MCH (test code = 18.4 pg 25.9-32.8 L 785-6) MCHC (test code = 26.6 g/dL 31.6-35.1 L 786-4) RDW-SD (test code = 53.6 fL 39.0-49.9 H 88941-8) RDW-CV (test code = 24.5 % 12.0-15.5 H 788-0) PLT (test code = See_Comment [Automated 777-3) message] The sy stem which generated this result transmitted reference range : 166 - 358 10*3/ ?L. The reference r rhina was not used to interpret this result as normal/abnormal . MPV (test code = 10.0 fL 9.5-12.9 14492-8) NRBC/100 WBC (test See_Comment [Automat ed code = 5993706212) message] The system which generated this result transmitted reference range : 0.0 - 10.0 /100 WBCs. The refer ence range was not u sed to interpret th is result as normal/abnormal . NRBC x10^3 (test code See_Comment [Auto mated = 7665535414) message] The s ystem which generated this result transmitted reference range : 10*3/?L. The reference range was not used to interpret this result as normal/abnormal . GRAN MAT (NEUT) % 70.1 % (test code = 770-8) IMM GRAN % (test code 0.60 % = 0821780298) LYMPH % (test code = 20.5 % 736-9) MONO % (test code = 6.6 % 5905-5) EOS % (test code = 1.6 % 713-8) BASO % (test code = 0.6 % 706-2) GRAN MAT x10^3(ANC) 4.96 10*3/uL 1.88-7.09 (test code = 1700233255) IMM GRAN x10^3 (test 0.04 10*3/uL 0.00-0.06 code = 7867248261) LYMPH x10^3 (test code 1.45 10*3/uL 1.32-3.29 = 731-0) MONO x10^3 (test code 0.47 10*3/uL 0.33-0.92 = 742-7) EOS x10^3 (test code = 0.11 10*3/uL 0.03-0.39 711-2) BASO x10^3 (test code 0.04 10*3/uL 0.01-0.07 = 704-7) Lab Interpretation Abnormal (test code = 83916-6) [facility]viewPOCT [id number] 22:10:00 Test Item Value Reference Range Interpretation Comments POCT PREG (test code = 1605) negative On board controls acceptable with present C Line (test code = 3574) POCT PREG LOT # (test code = 3575) [id number] POCT PREG TEST DATE (test 08/02/2022 code = 3576) Lab Interpretation (test code = Normal 38823-6) [facility] METABOLIC PANEL (NA, K, CL, CO2, GLUCOSE, BUN, CREATININE, CA)2020-03-24 11:41:00 Test Item Value Reference Range Interpretation Comments NA (test code = 137 mmol/L 135-145 4157840511) K (test code = 4.1 mmol/L 3.5-5 8578591740) CL (test code = 105 mmol/L 98-108 5776055138) CO2 TOTAL (test code = 24 mmol/L 23-31 7307916814) AGAP (test code = 2-16 3533245685) BUN (test code = 9 mg/dL 7-23 2024353991) GLUCOSE (test code = 100 mg/dL 70-110 1426526174) CREATININE (test code 0.74 mg/dL 0.5-1.04 = 7613174335) CALCIUM (test code = 9.0 mg/dL 8.6-10.6 3623121424) eGFR Calculation mL/min/1.73m2 (Non-) (test code = 0995103843) eGFR Calculation mL/min/1.73m2 () (test code = 2939293464) YOANA (test code = YOANA) Association of Glomerular Filtration Rate (GFR) and Staging of Kidney Disease* + -+ + ---+| GFR (mL/min/1.73 m2) ?| With Kidney Damage ?| ?Without Kidney Damage+ -------+ ------+ ---------+| ?>90 ?| ?Stage one ?| ? Normal ?+ --+ -+ ----+| ?60-89 ?| ?Stage two ?| ? Decreased GFR ? + -+ + ---+| ?30-59 ?| ?Stage three ?| ? Stage three ? + -+ + ---+| ?15-29 ?| ?Stage four ? | ? Stage four ?+ --+ -+ ----+| ?<15 (or dialysis) ? ?| ?Stage five ? | ? Stage five ?+ --+ -+ ----+ *Each stage assumes the associated GFR level has been in effect for at least three months. ?Stages 1 to 5, with or without kidney disease, indicate chronic kidney disease. Notes: Determination of stages one and two (with eGFR >59mL/min/1.73 m2) requires estimation of kidney damage for at least three months as defined by structural or functional abnormalities of the kidney, manifested by either:Pathological abnormalities or Markers of kidney damage (including abnormalities in the composition of the blood or urine or abnormalities in imaging tests). [facility] WITHOUT [id number] 11:12:00 Test Item Value Reference Range Interpretation Comments WBC (test code = 6690-2) See_Comment [A utomated message] The system [employer] generated this result transmit lennox reference range : 4.30 - 11.10 10*3/?L. The reference range was not used to interpret this result as normal/abnormal . RBC (test code = 789-8) See_Comment L [Au tomated message] The system [employer] generated this result transmit lennox reference range : 3.93 - 5.25 10* 6/?L. The reference r rhina was not used to interpret this result as normal/abnormal . HGB (test code = 718-7) 7.9 g/dL 11.6-15 L HCT (test code = 4544-3) 27.3 % 35.7-45.2 L MCH (test code = 785-6) 20.6 pg 25.9-32.8 L MCV (test code = 787-2) 71.3 fL 80.6-95.5 L MCHC (test code = 786-4) 28.9 g/dL 31.6-35.1 L PLT (test code = 777-3) See_Comment [Au tomated message] The system [employer] generated this result transmit lennox reference range : 166 - 358 10*3/?L. The reference range was not used to interpret this result as normal/abnormal . MPV (test code = 11.4 fL 9.5-12.9 96775-0) RDW-CV (test code = 19.6 % 12-15.5 H 788-0) RDW-SD (test code = 49.6 fL 39-49.9 80278-7) NRBC x10^3 (test code = <0.01 See_Comment [Au tomated message] 8763965372) The system [employer] generated this result transmit lennox reference range : 10*3/?L. The reference range was not used to interpret this result as normal/abnormal . NRBC/100 WBC (test code See_Comment [Au tomated message] = 9682821702) The system [employer] generated this result transmit lennox reference range : 0.0 - 10.0 /100 WBC s. The reference r rhina was not used to interpret this result as normal/abnormal . IPF % (test code = 7867158429) Lab Interpretation (test Abnormal code = 70969-7) [facility]viewFECAL PATHOGENS BY [id number] 19:02:00 Test Item Value Reference Range Interpretation Comments Campylobacter (jejuni, Negative Negative, coli and upsaliensis) Indeterminate, (test code = 96139-3) See comment Plesiomonas shigelloides Negative Negative, (test code = 52924-5) Indeterminate, See comment Salmonella (test code = Negative Negative, 28356-4) Indeterminate, See comment Yersinia enterocolitica Negative Negative, (test code = 06977-2) Indeterminate, See comment Vibrio (test code = Negative Negative, 87419-6) Indeterminate, See comment Vibrio cholerae (test Negative Negative, code = 22298-0) Indeterminate, See comment Enteroaggregative E. coli Negative Negative, (EAEC) (test code = Indeterminate, 48675-6) See comment Enteropathogenic E. coli Negative Negative, N/A, (EPEC) (test code = Indeterminate, 59789-0) See comment Enterotoxigenic E. coli Negative Negative, (ETEC) (test code = Indeterminate, 96767-5) See comment Shiga toxin-Producing E. Negative Negative, coli (STEC) (test code = Indeterminate, 06328-9) See comment Shigella/Enteroinvasive Negative Negative, E. coli (EIEC) (test code Indeterminate, = 26163-2) See comment Cryptosporidium (test Negative Negative, code = 53517-0) Indeterminate, See comment Cyclospora cayetanensis Negative Negative, (test code = 41067-3) Indeterminate, See comment Entamoeba histolytica Negative Negative, (test code = 31618-6) Indeterminate, See comment Giardia lamblia (test Negative Negative, code = 10694-5) Indeterminate, See comment Adenovirus F 40/41 (test Negative Negative, code = 29460-3) Indeterminate, See comment Astrovirus (test code = Negative Negative, 80548-2) Indeterminate, See comment Norovirus GI/GII (test Negative Negative, code = 40682-6) Indeterminate, See comment Rotavirus A (test code = Negative Negative, 55210-2) Indeterminate, See comment Sapovirus (test code = Negative Negative, 51317-8) Indeterminate, See comment YOANA (test code = YOANA) Negative:A negative result does not rule-out infection. ?This assay does not test for all potential infectious agents of diarrheal disease. Positive:A positive test result does not necessarily indicate the presence of viable organism. Lab Interpretation (test Normal code = 52513-1) [facility] (NA, K, CL, CO2, GLUCOSE, BUN, CREATININE, CA)2020-03-23 10:50:00 Test Item Value Reference Range Interpretation Comments NA (test code = 136 mmol/L 135-145 5860657564) K (test code = 3.9 mmol/L 3.5-5 5309416465) CL (test code = 104 mmol/L 98-108 2463869712) CO2 TOTAL (test code = 21 mmol/L 23-31 L 0958022400) AGAP (test code = 2-16 5845945425) BUN (test code = 5 mg/dL 7-23 L 8188493945) GLUCOSE (test code = 84 mg/dL 70-110 0034006315) CREATININE (test code = 0.80 mg/dL 0.5-1.04 9214797936) CALCIUM (test code = 9.5 mg/dL 8.6-10.6 0215092158) eGFR Calculation mL/min/1.73m2 (Non-) (test code = 9774078461) eGFR Calculation mL/min/1.73m2 () (test code = 1787790791) YOANA (test code = YOANA) Association of Glomerular Filtration Rate (GFR) and Staging of Kidney Disease* + --+ --+ ------+| GFR (mL/min/1.73 m2) ?| With Kidney Damage ?| ?Without Kidney Damage+ --------+ --------+ +| ?>90 ?| ?Stage one ?| ? Normal ?+ ---+ ---+ -------+| ?60-89 ?| ?Stage two ?| ? Decreased GFR ? + --+ --+ ------+| ?30-59 ?| ?Stage three ?| ? Stage three ? + --+ --+ ------+| ?15-29 ?| ?Stage four ? | ? Stage four ?+ ---+ ---+ -------+| ?<15 (or dialysis) ? ?| ?Stage five ? | ? Stage five ?+ ---+ ---+ -------+ *Each stage assumes the associated GFR level has been in effect for at least three months. ?Stages 1 to 5, with or without kidney disease, indicate chronic kidney disease. Notes: Determination of stages one and two (with eGFR >59mL/min/1.73 m2) requires estimation of kidney damage for at least three months as defined by structural or functional abnormalities of the kidney, manifested by either:Pathological abnormalities or Markers of kidney damage (including abnormalities in the composition of the blood or urine or abnormalities in imaging tests). Lab Interpretation Abnormal (test code = 30658-4) [facility] WITHOUT [id number] 10:19:00 Test Item Value Reference Range Interpretation Comments WBC (test code = See_Comment [Automated message] 6690-2) The system [employer] generated this result transmitted ref erence range: 4.30 - 1 1.10 10*3/?L. The reference range was not used to int erpret this result as normal/abnormal . RBC (test code = 789-8) See_Comment [Au tomated message] The system [employer] generated this result transmitted ref erence range: 3.93 - 5 .25 10*6/?L. The reference range was not used to int erpret this result as normal/abnormal . HGB (test code = 718-7) 8.8 g/dL 11.6-15 L HCT (test code = 30.6 % 35.7-45.2 L 4544-3) MCH (test code = 785-6) 20.5 pg 25.9-32.8 L MCV (test code = 787-2) 71.2 fL 80.6-95.5 L MCHC (test code = 28.8 g/dL 31.6-35.1 L 786-4) PLT (test code = 777-3) See_Comment [Au tomated message] The system [employer] generated this result transmitted ref erence range: 166 - 35 8 10*3/?L. The reference range was not used to int erpret this result as normal/abnormal . MPV (test code = 11.6 fL 9.5-12.9 74819-5) RDW-CV (test code = 19.8 % 12-15.5 H 788-0) RDW-SD (test code = 49.3 fL 39-49.9 94467-5) NRBC x10^3 (test code = <0.01 See_Comment [Au tomated message] [id number]) The system [employer] generated this result transmitted ref erence range: 10*3/?L. The reference range was not used to int erpret this result as normal/abnormal . NRBC/100 WBC (test code See_Comment [Au tomated message] = 6655557049) The system [employer] generated this result transmitted ref erence range: 0.0 - 10 .0 /100 WBCs. The reference range was not used to int erpret this result as normal/abnormal . IPF % (test code = 8.3 % 1.3-7.7 H Platelet count [id number]) measured by fluorescence me thod. Lab Interpretation Abnormal (test code = 88653-0) [facility] WITHOUT [id number] 04:33:00 Test Item Value Reference Range Interpretation Comments WBC (test code = 6690-2) See_Comment [A utomated message] The system [employer] generated this result transmit lennox reference range : 4.30 - 11.10 10*3/?L. The reference range was not used to interpret this result as normal/abnormal . RBC (test code = 789-8) See_Comment [Au tomated message] The system [employer] generated this result transmit lennox reference range : 3.93 - 5.25 10* 6/?L. The reference r rhina was not used to interpret this result as normal/abnormal . HGB (test code = 718-7) 8.7 g/dL 11.6-15 L HCT (test code = 4544-3) 30.9 % 35.7-45.2 L MCH (test code = 785-6) 20.1 pg 25.9-32.8 L MCV (test code = 787-2) 71.4 fL 80.6-95.5 L MCHC (test code = 786-4) 28.2 g/dL 31.6-35.1 L PLT (test code = 777-3) See_Comment [Au tomated message] The system [employer] generated this result transmit lennox reference range : 166 - 358 10*3/?L. The reference range was not used to interpret this result as normal/abnormal . MPV (test code = 11.4 fL 9.5-12.9 92549-2) RDW-CV (test code = 19.7 % 12-15.5 H 788-0) RDW-SD (test code = 49.6 fL 39-49.9 20083-1) NRBC x10^3 (test code = <0.01 See_Comment [Au tomated message] [id number]) The system [employer] generated this result transmit lennox reference range : 10*3/?L. The reference range was not used to interpret this result as normal/abnormal . NRBC/100 WBC (test code See_Comment [Au tomated message] = 2976505017) The system [email or web address] generated this result transmit lennox reference range : 0.0 - 10.0 /100 WBC s. The reference r rhnia was not used to interpret this result as normal/abnormal . IPF % (test code = 3455990671) Lab Interpretation (test Abnormal code = 37230-2) [facility] WITHOUT [id number] 19:58:00 Test Item Value Reference Range Interpretation Comments WBC (test code = 6690-2) See_Comment [A utomated message] The system [facility] generated this result transmit lennox reference range : 4.30 - 11.10 10*3/?L. The reference range was not used to interpret this result as normal/abnormal . RBC (test code = 789-8) See_Comment L [Au tomated message] The system [facility] generated this result transmit lennox reference range : 3.93 - 5.25 10* 6/?L. The reference r rhina was not used to interpret this result as normal/abnormal . HGB (test code = 718-7) 8.0 g/dL 11.6-15 L HCT (test code = 4544-3) 28.0 % 35.7-45.2 L MCH (test code = 785-6) 20.6 pg 25.9-32.8 L MCV (test code = 787-2) 72.2 fL 80.6-95.5 L MCHC (test code = 786-4) 28.6 g/dL 31.6-35.1 L PLT (test code = 777-3) See_Comment [Au tomated message] The system [facility] generated this result transmit lennox reference range : 166 - 358 10*3/?L. The reference range was not used to interpret this result as normal/abnormal . MPV (test code = 11.3 fL 9.5-12.9 56319-9) RDW-CV (test code = 19.5 % 12-15.5 H 788-0) RDW-SD (test code = 50.3 fL 39-49.9 H 02506-6) NRBC x10^3 (test code = <0.01 See_Comment [Au tomated message] 9691487307) The system [facility] generated this result transmit lennox reference range : 10*3/?L. The reference range was not used to interpret this result as normal/abnormal . NRBC/100 WBC (test code See_Comment [Au tomated message] = 4333687194) The system [facility] generated this result transmit lennox reference range : 0.0 - 10.0 /100 WBC s. The reference r rhina was not used to interpret this result as normal/abnormal . IPF % (test code = 4579582907) Lab Interpretation (test Abnormal code = 42149-8) [facility] [id number] 16:51:00 Test Item Value Reference Range Interpretation Comments Clostridioides (Clostridium) Negative Negative difficile (test code = 83986-0) Lab Interpretation (test code = Normal 90227-8) [facility] PELVIS COMPLETE WITH [id number] 14:26:14 A 2.9 cm left ovarian hemorrhagic cyst. Unremarkable uterus. Preliminary Report Dictated by Resident: Poli Luis I, Jose A Monzon MD., have reviewed this study and agree with theabove report.EXAM: PELVIC ULTRASOUND, TRANSABDOMINAL AND TRANSVAGINAL HISTORY: ovarian cysts on CT. LMP: 02/20/2020 COMPARISON: CT abdomen pelvis 01/07/2017 TECHNIQUE: Transabdominal and transvaginal real-time grayscale and colorDoppler pelvic ultrasound. FINDINGS: UTERUS: The uterus measures 8.6 x 4.6 x 5.5 cm. The uterus is retroverted.The endometrium is homogeneous and measures 10 mm in thickness. OVARIES: Theright ovary measures 1.9 x 1.3 x 1.5 cm (1.9 mL). A 1.5 cm rightdominant follicle. The left ovary measures 2.3 x 3.3 x 2.9 cm (16.3 mL). The left ovarycontains a 2.9 x 2.5 x 2.6 cm complex cystic masswith thin reticulationsuggestive of a hemorrhagic ovarian cyst. No ?free fluid. [facility], Radiant Results Inft User - 03/22/2020 9:27 AM CDTEXAM: PELVIC ULTRASOUND, TRANSABDOMINAL AND TRANSVAGINALHISTORY:ovarian cysts on CT. LMP: 02/20/2020COMPARISON: CT abdomen pelvis 01/07/2017TECHNIQUE: Transabdominal and transvaginal real-time grayscale and colorDoppler pelvic ultrasound.FINDINGS: UTERUS: The uterus measures 8.6 x 4.6 x 5.5 cm. The uterus is retroverted.The endometrium is homogeneous and measures 10 mm in thickness.OVARIES: The right ovary measures 1.9 x 1.3 x 1.5 cm (1.9 mL). A 1.5 cm rightdominantfollicle. The left ovary measures 2.3 x 3.3 x 2.9 cm (16.3 mL). The left ovarycontains a 2.9 x 2.5 x2.6 cm complex cystic mass with thin reticulationsuggestive of a hemorrhagic ovarian cyst.No free fl uid.IMPRESSIONA 2.9 cm left ovarian hemorrhagic cyst.Unremarkable uterus. Preliminary Report Dictated by Resident: Jose A Montalvo MD., have reviewed this study and agree with theabove report.[facility] METABOLIC PANEL (NA, K, CL, CO2, GLUCOSE, BUN, CREATININE, CA)2020-03-22 10:48:00 Test Item Value Reference Range Interpretation Comments NA (test code = 137 mmol/L 135-145 3616534051) K (test code = 3.9 mmol/L 3.5-5 5895247143) CL (test code = 107 mmol/L 98-108 8776638487) CO2 TOTAL (test code = 22 mmol/L 23-31 L 1223835250) AGAP (test code = 2-16 0579882003) BUN (test code = <2 7-23 L 3978218010) GLUCOSE (test code = 83 mg/dL 70-110 7231924312) CREATININE (test code = 0.64 mg/dL 0.5-1.04 7517470931) CALCIUM (test code = 9.0 mg/dL 8.6-10.6 2298794248) eGFR Calculation mL/min/1.73m2 (Non-) (test code = 2459472794) eGFR Calculation mL/min/1.73m2 () (test code = 1331207911) YOANA (test code = YOANA) Association of Glomerular Filtration Rate (GFR) and Staging of Kidney Disease* + --+ --+ ------+| GFR (mL/min/1.73 m2) ?| With Kidney Damage ?| ?Without Kidney Damage+ --------+ --------+ +| ?>90 ?| ?Stage one ?| ? Normal ?+ ---+ ---+ -------+| ?60-89 ?| ?Stage two ?| ? Decreased GFR ? + --+ --+ ------+| ?30-59 ?| ?Stage three ?| ? Stage three ? + --+ --+ ------+| ?15-29 ?| ?Stage four ? | ? Stage four ?+ ---+ ---+ -------+| ?<15 (or dialysis) ? ?| ?Stage five ? | ? Stage five ?+ ---+ ---+ -------+ *Each stage assumes the associated GFR level has been in effect for at least three months. ?Stages 1 to 5, with or without kidney disease, indicate chronic kidney disease. Notes: Determination of stages one and two (with eGFR >59mL/min/1.73 m2) requires estimation of kidney damage for at least three months as defined by structural or functional abnormalities of the kidney, manifested by either:Pathological abnormalities or Markers of kidney damage (including abnormalities in the composition of the blood or urine or abnormalities in imaging tests). Lab Interpretation Abnormal (test code = 41570-0) [facility] WITHOUT [id number] 10:29:00 Test Item Value Reference Range Interpretation Comments WBC (test code = See_Comment [Automated message] 6690-2) The system [employer] generated this result transmitted ref erence range: 4.30 - 1 1.10 10*3/?L. The reference range was not used to int erpret this result as normal/abnormal . RBC (test code = 789-8) See_Comment L [Au tomated message] The system [employer] generated this result transmitted ref erence range: 3.93 - 5 .25 10*6/?L. The reference range was not used to int erpret this result as normal/abnormal . HGB (test code = 718-7) 8.1 g/dL 11.6-15 L HCT (test code = 27.1 % 35.7-45.2 L 4544-3) MCH (test code = 785-6) 21.3 pg 25.9-32.8 L MCV (test code = 787-2) 71.3 fL 80.6-95.5 L MCHC (test code = 29.9 g/dL 31.6-35.1 L 786-4) PLT (test code = 777-3) See_Comment [Au tomated message] The system [employer] generated this result transmitted ref erence range: 166 - 35 8 10*3/?L. The reference range was not used to int erpret this result as normal/abnormal . MPV (test code = 11.3 fL 9.5-12.9 60826-3) RDW-CV (test code = 19.4 % 12-15.5 H 788-0) RDW-SD (test code = 49.6 fL 39-49.9 71031-7) NRBC x10^3 (test code = <0.01 See_Comment [Au tomated message] 0413757691) The system [employer] generated this result transmitted ref erence range: 10*3/?L. The reference range was not used to int erpret this result as normal/abnormal . NRBC/100 WBC (test code See_Comment [Au tomated message] = 5489921201) The system [employer] generated this result transmitted ref erence range: 0.0 - 10 .0 /100 WBCs. The reference range was not used to int erpret this result as normal/abnormal . IPF % (test code = 9.0 % 1.3-7.7 H Platelet count 5704976003) measured by fluorescence me thod. Lab Interpretation Abnormal (test code = 68196-8) [facility] 10:13[facility]00 Test Item Value Reference Range Interpretation Comments APPEARANCE (test code = Clear Clear 6075767635) COLOR (test code = Straw Yellow A 7902798908) PH (test code = 4.8-8.0 9232892507) SP GRAVITY (test code = 1.003-1.030 7852946967) GLU U QUAL (test code = Normal Normal 9618697494) BLOOD (test code = Negative Negative 4807910417) KETONES (test code = Negative Negative 2635036695) PROTEIN (test code = Negative Negative 2887-8) UROBILIN (test code = Normal Normal 9552076999) BILIRUBIN (test code = Negative Negative 9897361775) NITRITE (test code = Negative Negative 0882879289) LEUK ALCON (test code = Negative Negative 9281417070) RBC/HPF (test code = <1 See_Comment [Autom ated message] 3270774281) The system [employer] generated this result transmitted ref erence range: 0 - 3 HP F. The reference range was not used to int erpret this result as normal/abnormal . WBC/HPF (test code = See_Comment [Autom ated message] 9958654114) The system [employer] generated this result transmitted ref erence range: 0 - 5 HP F. The reference range was not used to int erpret this result as normal/abnormal . BACTERIA (test code = Negative Negative 7835185371) SQ EPITH (test code = <1 See_Comment [Auto mated message] 1747271536) The system [employer] generated this result transmitted ref erence range: <=2 HPF. The reference range was not used to int erpret this result as normal/abnormal . Lab Interpretation (test Abnormal code = 66832-5) [facility] [id number] 00:51:00 Test Item Value Reference Range Interpretation Comments IRON (test code = 3217987810) 74 ug/dL 50-160 TIBC (test code = 7675572432) 411 ug/dL 250-410 H % FE SAT (test code = 8983116850) 18 % 20-50 L Lab Interpretation (test code = Abnormal 99596-0) [facility] WITHOUT [id number] 23:58:00 Test Item Value Reference Range Interpretation Comments WBC (test code = 6690-2) See_Comment [A utomated message] The system [employer] generated this result transmit lennox reference range : 4.30 - 11.10 10*3/?L. The reference range was not used to interpret this result as normal/abnormal . RBC (test code = 789-8) See_Comment [Au tomated message] The system [employer] generated this result transmit lennox reference range : 3.93 - 5.25 10* 6/?L. The reference r rhina was not used to interpret this result as normal/abnormal . HGB (test code = 718-7) 8.4 g/dL 11.6-15 L HCT (test code = 4544-3) 30.1 % 35.7-45.2 L MCH (test code = 785-6) 20.0 pg 25.9-32.8 L MCV (test code = 787-2) 71.8 fL 80.6-95.5 L MCHC (test code = 786-4) 27.9 g/dL 31.6-35.1 L PLT (test code = 777-3) See_Comment [Au tomated message] The system [employer] generated this result transmit lennox reference range : 166 - 358 10*3/?L. The reference range was not used to interpret this result as normal/abnormal . MPV (test code = 11.6 fL 9.5-12.9 69585-5) RDW-CV (test code = 19.0 % 12-15.5 H 788-0) RDW-SD (test code = 49.3 fL 39-49.9 68056-5) NRBC x10^3 (test code = <0.01 See_Comment [Au tomated message] 6470419418) The system [employer] generated this result transmit lennox reference range : 10*3/?L. The reference range was not used to interpret this result as normal/abnormal . NRBC/100 WBC (test code See_Comment [Au tomated message] = 6354303692) The system [employer] generated this result transmit lennox reference range : 0.0 - 10.0 /100 WBC s. The reference r rhina was not used to interpret this result as normal/abnormal . IPF % (test code = 9220508754) Lab Interpretation (test Abnormal code = 39869-1) [facility] W [id number] 19:51:50 1. ?No acute abnormality identified in the abdomen or pelvis. 2. ?Small 3.2 cm left adnexal cyst, likely physiologic. 3. ?Unchanged lobulated fluid density structure at the right adnexa,largest component measuring up to 2.9 cm. Favored to representhydrosalpinx.SECOND OPINION INTERPRETATION FOR OUTSIDE EXAMINATION: CT ABDOMEN PELVISWITH CONTRAST DATE OF SECOND INTERPRETATION: 03/21/2020 INDICATION: 34-year-old woman with abdominal pain. EXAM INFORMATION: Outside study was performed at [facility] on 03/21/[address] images of the abdomen wereobtained in arterial phase and of the abdomen and pelvis were obtained invenous phase. Coronal and sagittal reformatted images of venous phase areprovided. Original report was made available and is uploaded to PACS withstudy images. COMPARISON: CT abdomen pelvis with contrast, 01/07/2017. FINDINGS::Statements: None. Thoracic: Included images of the lower chest demonstrate no abnormalities. Hepatobiliary: The liver is borderline enlarged measuring 17 cm in lengthat the midclavicular line. Focal hepatic lesion detected The gallbladder isunremarkable. No biliary dilation. Pancreas: No abnormality identified in the pancreas. Spleen: No abnormality identified in the spleen. Adrenals: No abnormality identified in either adrenal gland. Genitourinary: No parenchymal abnormality identified in either kidney. Nohydronephrosis. The bladder is unremarkable. Uterus is unremarkable. 3.2 cmfluid density cyst at the left adnexa, likely physiologic. Lobulated fluiddensity structure at the right adnexa adjacent with largest componentme asuring up to 2.9 cm in is unchanged from prior examination and mayrepresent hydrosalpinx. Gastrointestinal: No evidence of bowel obstruction or perientericinflammation. The appendix is normal. Vascular/Lymphatics: No enlarged lymph nodes by CT size criteria. Abdominalaorta is normal in caliber. MSK/Body Wall: No concerning bony lesion identified. Peritoneum/Other: No extraluminal air. No extraluminal fluid. [facility], Radiant Results Inft User - 03/21/2020 2:53 PM CDTSECOND OPINION INTERPRETATION FOR OUTSIDE EXAMINATION: CT ABDOMEN PELVISWITH CONTRASTDATE OF SECOND INTERPRETATION: 03/21/2020INDICATION: 34-year-old woman with abdominal pain.EXAM INFORMATION: Outside study was performed at [facility] on 03/21/[address] at [address] images of the abdomen wereobtained in arterial phase and of the abdomen and pelvis were obtained invenous phase. Coronal and sagittal reformatted images of venous phase areprovided. Original report was made available and is uploaded to PACS withstudy images.COMPARISON: CT abdomen pelvis with contrast, 01/07/2017.FINDINGS::Statements: None.Thoracic:Included images of the lower chest demonstrate no abnormalities.Hepatobiliary: The liver is borderline enlarged measuring 17 cm in lengthat the midclavicular line. Focal hepatic lesion detected The gallbladder isunremarkable. No biliary dilation.Pancreas: No abnormality identified in the pancreas.Spleen: No abnormality identified in the spleen. Adrenals: No abnormality identified in either adrenal gland. Genitourinary: No parenchymal abnormality identified in either kidney. Nohydronephrosis. The bladder is unremarkable. Uterus is unremarkable. 3.2 cmfluid density cyst at the left adnexa, likely physiologic. Lobulated fluiddensity structure at the right adnexa adjacent with largest componentmeasuring up to 2.9 cm in is unchanged from prior examination and mayrepresent hydrosalpinx.Gastrointestinal: No evidence of bowel obstruction or perientericinflammation. The appendix is normal.Vascular/Lymphatics: No enlarged lymph nodes by CT size criteria. Abdominalaorta is normal in caliber.MSK/Body Wall:No concerning bony lesion identified.Peritoneum/Other: No extraluminal air. No extraluminal fluid.IMPRESSION1. No acute abnormality identified in the abdomen or pelvis.2. Small 3.2 cm left adnexal cyst, likely physiologic.3. Unchanged lobulated fluid density structure at the right adnexa,largest com ponent measuring up to 2.9 cm. Favored to representhydrosalpinx.[facility]viewFERRITIN [id number] 18:24:00 Test Item Value Reference Range Interpretation Comments FERRITIN (test code = 3.7 ng/mL 6-137 L 4611279787) YOANA (test code = YOANA) Biotin has been reported to cause a negative bias, interpret results relative to patient's use of biotin. Lab Interpretation (test Abnormal code = 70465-9) [facility]viewC-REACTIVE [id number] 17:10:00 Test Item Value Reference Range Interpretation Comments CRP (test code = 6566666959) 0.3 mg/dL <0.8 Lab Interpretation (test code = Normal 18287-0) [facility]viewaPTT2020-08-19 16:13:00 Test Item Value Reference Range Interpretation Comments APTT Patient (test code = See_Comment [ Automated message] 3173-2) The system [employer] generated this result transmitted ref erence range: 26 - 36 Seconds. The re ference range was not u sed to interpret this result as normal/abnor mal. Lab Interpretation (test Normal code = 94456-3) [facility]viewSEDIMENTATION [id number] 15:45:00 Test Item Value Reference Range Interpretation Comments ESR (test code = See_Comment [Automated message] 0827919021) The system [employer] generated this result transmitted ref erence range: 0 - 20 m m/HR. The reference r rhina was not used to interpret this result as normal/abnor mal. Lab Interpretation (test Normal code = 13643-3) [facility]viewType and Screen - ONCE [id number] 15:17:36 Test Item Value Reference Range Interpretation Comments ABO & RH (test code O NEGATIVE Performe d at [facility] = 20) [facility] [address] [facility] s [id number] Free: [phone] A No. [id number] IAT (test code = Negative Performed a t [facility] 1185) [facility] Blood [facility] [address] [facility] s [id number] Free: [phone] A No. [id number] [facility]viewPROTHROMBIN TIME / [id number] 15:16:00 Test Item Value Reference Range Interpretation Comments PROTIME PATIENT (test See_Comment [Auto mated message] code = 5964-2) The system ich generated this result transmitted ref erence range: 10.1 - 1 2.6 Seconds. The re ference range was not u sed to interpret this result as normal/abnor mal. INR (test code = 6301-6) Nor mal INR <1.1; Warfarin Therap eutic range 2.0 to 3. 0 or 2.5 to 3.5, dep ending upon the indica tions. Lab Interpretation (test Normal code = 45766-6) [facility] METABOLIC PANEL (NA, K, CL, CO2, GLUCOSE, BUN, CREATININE, CA)2020-03-21 15:08:00 Test Item Value Reference Range Interpretation Comments NA (test code = 136 mmol/L 135-145 2070872224) K (test code = 3.5 mmol/L 3.5-5 8979812027) CL (test code = 110 mmol/L 98-108 H 4075270907) CO2 TOTAL (test code = 20 mmol/L 23-31 L 7303844493) AGAP (test code = 2-16 8441529282) BUN (test code = 3 mg/dL 7-23 L 1929660905) GLUCOSE (test code = 100 mg/dL 70-110 3071091923) CREATININE (test code = 0.57 mg/dL 0.5-1.04 0290231887) CALCIUM (test code = 8.2 mg/dL 8.6-10.6 L 8725154116) eGFR Calculation mL/min/1.73m2 (Non-) (test code = 0051619896) eGFR Calculation mL/min/1.73m2 () (test code = 5856756823) YOANA (test code = YOANA) Association of Glomerular Filtration Rate (GFR) and Staging of Kidney Disease* + --+ --+ ------+| GFR (mL/min/1.73 m2) ?| With Kidney Damage ?| ?Without Kidney Damage+ --------+ --------+ +| ?>90 ?| ?Stage one ?| ? Normal ?+ ---+ ---+ -------+| ?60-89 ?| ?Stage two ?| ? Decreased GFR ? + --+ --+ ------+| ?30-59 ?| ?Stage three ?| ? Stage three ? + --+ --+ ------+| ?15-29 ?| ?Stage four ? | ? Stage four ?+ ---+ ---+ -------+| ?<15 (or dialysis) ? ?| ?Stage five ? | ? Stage five ?+ ---+ ---+ -------+ *Each stage assumes the associated GFR level has been in effect for at least three months. ?Stages 1 to 5, with or without kidney disease, indicate chronic kidney disease. Notes: Determination of stages one and two (with eGFR >59mL/min/1.73 m2) requires estimation of kidney damage for at least three months as defined by structural or functional abnormalities of the kidney, manifested by either:Pathological abnormalities or Markers of kidney damage (including abnormalities in the composition of the blood or urine or abnormalities in imaging tests). Lab Interpretation Abnormal (test code = 73780-7) [facility] (ALB,T.PRO,BILI T,BU/BC,ALT,AST,ALK PHOS)2020-03-21 15:08:00 Test Item Value Reference Range Interpretation Comments TOTAL BILI (test code = 2374564170) 0.3 mg/dL 0.1-1.1 BILI UNCON (test code = 3319594403) 0.6 mg/dL 0.1-1.1 BILI CONJ (test code = 4294305736) 0.0 mg/dL 0-0.3 T PROTEIN (test code = 9060343559) 6.7 g/dL 6.3-8.2 ALBUMIN (test code = 3349834287) 3.7 g/dL 3.5-5 ALK PHOS (test code = 5862748748) 51 U/L 34-122 ALTv (test code = 1742-6) 9 U/L 5-35 AST(SGOT) (test code = 1461081219) 20 U/L 13-40 Lab Interpretation (test code = Normal 93900-5) [facility] WITH [id number] 14:47:00 Test Item Value Reference Range Interpretation Comments WBC (test code = See_Comment [Automated 6690-2) message] The sy stem which generated this result transmitted reference range : 4.30 - 11.10 10*3/?L. The reference range was not used to interpret this result as normal/abnormal . RBC (test code = See_Comment L [Automated 789-8) message] The sy stem which generated this result transmitted reference range : 3.93 - 5.25 10*6/?L. The reference range was not used to interpret this result as normal/abnormal . HGB (test code = 7.9 g/dL 11.6-15 L 718-7) HCT (test code = 27.6 % 35.7-45.2 L 4544-3) MCV (test code = 72.6 fL 80.6-95.5 L 787-2) MCH (test code = 20.8 pg 25.9-32.8 L 785-6) MCHC (test code = 28.6 g/dL 31.6-35.1 L 786-4) RDW-SD (test code = 51.0 fL 39-49.9 H 08569-7) RDW-CV (test code = 19.6 % 12-15.5 H 788-0) PLT (test code = See_Comment [Automated 777-3) message] The sy stem which generated this result transmitted reference range : 166 - 358 10*3/ ?L. The reference r rhina was not used to interpret this result as normal/abnormal . MPV (test code = 11.5 fL 9.5-12.9 11214-7) NRBC/100 WBC (test See_Comment [Automat ed code = 7375053645) message] The system which generated this result transmitted reference range : 0.0 - 10.0 /100 WBCs. The refer ence range was not u sed to interpret th is result as normal/abnormal . NRBC x10^3 (test code <0.01 See_Comment [Auto mated = 1004047112) message] The s ystem which generated this result transmitted reference range : 10*3/?L. The reference range was not used to interpret this result as normal/abnormal . GRAN MAT (NEUT) % 66.1 % (test code = 770-8) IMM GRAN % (test code 0.20 % = 9956622645) LYMPH % (test code = 25.2 % 736-9) MONO % (test code = 5.4 % 5905-5) EOS % (test code = 2.3 % 713-8) BASO % (test code = 0.8 % 706-2) GRAN MAT x10^3(ANC) 5.75 10*3/uL 1.88-7.09 (test code = 0357236391) IMM GRAN x10^3 (test <0.03 0-0.06 code = 8104246913) LYMPH x10^3 (test code 2.19 10*3/uL 1.32-3.29 = 731-0) MONO x10^3 (test code 0.47 10*3/uL 0.33-0.92 = 742-7) EOS x10^3 (test code = 0.20 10*3/uL 0.03-0.39 711-2) BASO x10^3 (test code 0.07 10*3/uL 0.01-0.07 = 704-7) Lab Interpretation Abnormal (test code = 07805-3) [facility]2020-03-21 13:51:00 Test Item Value Reference Range Interpretation Comments SARS-CoV-2 Rapid ID NOW Not Detected Not Detected (test code = 42236-4) YOANA (test code = YOANA) ID NOW COVID-19 Assay is an isothermal nucleic acid amplification test intended for the qualitative detection of nucleic acid from SARS-CoV-2 viral RNA in nasopharyngeal (MEDICAL TRANSCRIPTIONIST) specimens. It is used under Emergency Use Authorization (EUA) by FDA. The limit of detection (LOD) of the assay is 125 Genome Equivalents/mL. A positive result is indicative of the presence of SARS-CoV-2 RNA. ?Clinical correlation with patient history and other diagnostic information is necessary to determine patient infection status. A negative (Not Detected) result does not preclude SARS-CoV-2 infection. In patients with clinical symptoms and other tests that are consistent with SARS-CoV-2 infection, negative results should be treated as presumptive negative and a new specimen should be tested with alternative PCR molecular test. Invalid: Please collect a new specimen for repeat patient testing if clinically indicated. Lab Interpretation Normal (test code = 34225-4) [facility]"
== END 2021-06-04 02:32 | disposition home or self-care (01) ==
LOC: ER 22:56
DX: J03.90 Acute tonsillitis, unspecified (principal); Z20.822 Contact with and (suspected) exposure to COVID-19
CPT/HCPCS: 96365; 87070; 87088; 85025; 87086; 80048; 36415; 86308; 81025; 87081; 87804 ×2; 96375; 99284; U0003; J1100; 81003; 81015; J3010

== ENCOUNTER 2021-08-15 12:13 | Emergency (ER) | payer OTHER ==
--- OUTSIDE RECORDS SUMMARY | 2021-08-15 12:19 | XMS REPORT | Continuity of Care Document ---
:[address] [facility] t Address [address] [place] [address] [address]. [address] [place] [address] Care Team Providers Name Role Phone Michael HILL, A Primary Care Physician JOANN VELÁZQUEZ Attending Clinician Unavailable MANN Attending Clinician Unavailable Lina BENNETT, A Attending Clinician Unavailable Pipo NAIDU Attending Clinician Alda HILL Attending Clinician Michael HLIL, Victor Hugo Attending Clinician Doctor Unassigned, Name Attending Clinician Unavailable Solomon HILL Attending Clinician Victor Hugo MIJARES Attending Clinician Unavailable Joann Velázquez MD Attending Clinician Toñito Landry MD Attending Clinician Nuzhat Beckman MD Attending Clinician NUZHAT BECKMAN Admitting Clinician Unavailable MANN Admitting Clinician Unavailable Alda HILL Admitting Clinician Nuzhat Beckman MD Admitting Clinician Payers Payer Name Policy Type Policy Number Effective Date Expiration Date S [facility] [id number] 2020 DUAL COMPLETE HMO 00:00:00 [facility] [id number] 2017 00:00:00 MEDICAID [facility] [id number] 2017 00:00:00 MEDICARE PART A \\T\\ [id number] 2017 B 00:00:00 [facility] [id number] PLAN - DUAL COMPLETE - SNP PLAN (MEDICARE REPLACEMENT HMO) [facility] [id number] 2017 COMMUNITY PLAN - 00:00:00 [place] STAR PL[place] (MEDICAID HMO) [facility] - MEDICARE [id number] COMPLETE (MEDICARE REPLACEMENT HMO) [place]: [id number] 2017 [employer] - 00:00:00 [facility] Problems Condition Condition Condition Status Onset Resolution Last Treating Co mments Source Name Details Category Date Date Treatment Clinician Date Gastrointe Gastrointe Disease Active Overview : Univers stinal stinal 8-19 Formattin ity of hemorrhage hemorrhage 00:00: g of this , , note Medical unspecifie unspecifie might be Branch d d different gastrointe gastrointe from the stinal stinal original. hemorrhage hemorrhage Added type type automatic ally from request for surgery [id number] Symptomati Symptomati Disease Active 2017-08 U nivers c anemia c anemia 2-12 ity of 00:00: [place] 00 Medical Branch Mood Mood Problem Active [...] pain Formattin ity of g of this [place] note Medical might be Branch different from the original. chronic abdominal pain, chronic left leg pain Anxiety Anxiety Disease Active Univers ity of [facility] Esophageal Esophageal Disease Active U nivers reflux reflux ity of [facility] HTN HTN Disease Active Univers (hypertens (hypertens it y of ion) ion) [facility] Obesity Obesity Disease Active Univers ity of [facility] Allergies, Adverse Reactions, Alerts Allergy Allergy Status Severity Reaction(s) Onset Inactive Treating Comm ents Source Name Type Date Date Clinician NO KNOWN Drug Active Univers ALLERGIE Class ity of S [facility] Social History Social Habit Start Date Stop Date Quantity Comments Source Exposure to Yes [facility] SARS-CoV-2 [facility] [place] (event) Mcdaniel Alcohol intake 2021-04-26 2021-04-26 Current University 00:00:00 00:00:00 non-drinker of [facility] alcohol Mcdaniel (finding) Tobacco use and 2016-12-04 2016-12-04 Never used Universit y of exposure 00:00:00 00:00:00 [facility] Sex Assigned At [birth year] Universit y of 00:00:00 00:00:00 [facility] Smoking Status Start Date Stop Date Source Never Smoker Rashad [facility] Medications Ordered Filled [...] mouth 2 it y of 07:51: (two) [place] 49 times Medical daily. Branch docusate Yes 100mg Take 100 Univ ers 100 mg - mg by ity of capsule 07:51: mouth. [place] 49 Medical Branch Lamotrigine Yes Take by Un zoran 25 mg TbDL 04-28 mouth 2 ity of 07:51: (two) [place] 49 times Medical daily. Branch ALPRAZolam Yes 2mg Take 2 mg Un zoran 2 mg tablet 04-28 by mouth 2 it y of 07:51: (two) [place] 49 times Medical daily. Branch docusate Yes 100mg Take 100 Univ ers 100 mg 9-26 mg by ity of capsule 07:51: mouth. [place] 49 Medical Branch Lamotrigine Yes Take by Un zoran 25 mg TbDL 04-28 mouth 2 ity of 07:51: (two) [place] 49 times Medical daily. Branch acetaminoph Yes 1{tbl} 1 tablet, Univers en-codeine 04-28 Oral, ity of (TYLENOL 04:49: BIDPRN, [place] #3) 300-30 37 Starting Medic al mg tablet 1 on Sat Branch tablet 04/27/21 at 2349, Until Discontinu ed, Routine, Pain (scale 1-3), Pain (scale 4-6), Pain (scale 7-10) ferrous Yes [id number] 325mg Take 1 Uni vers sulfate 325 9-26 tablet by ity of mg (65 mg 00:00: mouth 3 [place] iron) 00 (three) Medical tablet times Branch daily with meals. ferrous Yes [id number] 325mg Take 1 Uni vers sulfate 325 9-26 tablet by ity of mg (65 mg 00:00: mouth 3 [place] iron) 00 (three) Medical tablet times Branch daily with meals. KCL 20 mEq 2020- No [id number] 20meq Take 1 Univers tablet 9-26 10-04 tablet by ity of 00:00: 04:59 mouth [place] 00 :00 daily for Medical 7 days. Branch KCL 20 mEq 2020- No [id number] 20meq Take 1 Univers tablet 9-26 10-04 tablet by ity of 00:00: 04:59 mouth [place] 00 :00 daily for Medical 7 days. Branch iron 2020- No 300mg 300 mg, IV Unive rs sucrose 04-27-28 Infusion, ity of (VENOFER) 15:45: 13:59 DAILY, [place] 300 mg in 00 :00 Administer Medi chun NaCl 0.9% over 4 Branch (NS) 250 mL Hours, infusion First dose on 04/27/21 at 1045, For 3 doses KCL 2020-2020- No 40meq 40 mEq, Univers (KLOR-CON 04-27 Oral, ity of M20) tablet 15:30: 18:52 ONCE, 1 [place] 40 mEq 00 :00 dose, On Medical [facility] Branch 04/27/21 at 1030, Routine traMADoL 2020- No 50mg 50 mg, Univer s (ULTRAM) 04-27 Oral, ity of tablet 50 12:45: 14:30 ONCE, 1 [place] mg 00 :00 dose, On Medical Sat Branch 04/27/21 at 0745, Routine docusate Yes 100mg 100 mg, Unive rs (COLACE) 04-27 Oral, BID, ity o f capsule 100 04:15: First dose [place] mg 00 on Thu Medical 04/26/21 at Branch 2315, Until Discontinu ed, Routine ALPRAZolam Yes 2mg 2 mg, Univer s (XANAX) 04-27 Oral, BID, ity of tablet 2 mg 04:15: First dose [place] 00 on Thu Medical 04/26/21 at Branch 2315, Until Discontinu ed, Routine lamoTRIgine Yes 25mg 25 mg, Univ ers (LAMICTAL) 04-27 Oral, BID, ity of tablet 25 04:15: First dose [place] mg 00 on Thu Medical 04/26/21 at Branch 2315, Until Discontinu ed ondansetron Yes 4mg 4 mg, Slow Univers (ZOFRAN [...] 2311, Until Discontinu ed, Routine, Insomnia morpHINE 2020- No 4mg 4 mg, Slow Un zoran injection 4 9-25 09-25 IV Push, ity of mg 01:15: 00:38 ONCE, 1 [place] 00 :00 dose, On Medical Fri Branch 04/26/21 at 2015, STAT iopamidol 2020- No [id number] 120mL 120 mL, Univers (ISOVUE 04-26 Intravenou [...] Restricted medication : EMERGENCY ROOM, NaCl 0.9% 2020- No 1000mL at 999 Uni vers (NS) bolus 04-26 mL/hr, ity of infusion 22:30: 00:04 1,000 mL, Ramo as 1,000 mL 00 :00 IV Medical Piggyback, Branch ONCE, 1 dose, On Thu04/26/21 at 1730, STAT pantoprazol Yes [id number] 40mg Take 1 Univers e 40 mg EC 8-23 tablet by ity of tablet 00:00: mouth [place] 00 daily. Medical Branch pantoprazol Yes [id number] 40mg Take 1 Univers e 40 mg EC 8-23 tablet by ity of tablet 00:00: mouth [place] 00 daily. Medical Branch pantoprazol Yes [id number] 40mg Take 1 Univers e 40 mg EC 8-23 tablet by ity of tablet 00:00: mouth [place] 00 daily. [facility] Branch pantoprazol Yes [id number] 40mg Take 1 Univers e 40 mg EC 8-23 tablet by ity of tablet 00:00: mouth [place] 00 daily. Medical Branch pantoprazol 2020-0 Yes [id number] 40mg Take 1 Univers e 40 mg EC 8-23 tablet by ity of tablet 00:00: mouth [place] 00 daily. Medical Branch pantoprazol 2020-0 Yes [id number] 40mg Take 1 Univers e 40 mg EC 8-23 tablet by ity of tablet 00:00: mouth 00 daily. Medical Branch pantoprazol 2020-0 Yes [id number] 40mg Take 1 Univers e 40 mg EC 8-23 tablet by ity of tablet 00:00: mouth [place] 00 daily. Medical Branch pantoprazol 2020-0 Yes [id number] 40mg Take 1 Univers e 40 mg EC 8-23 tablet by ity of tablet 00:00: mouth 00 daily. Medical Branch ALPRAZolam 2020-0 Yes 2mg Take 2 mg Un zoran 2 mg tablet 8-22 by mouth 2 it y of 19:52: (two) [place] 23 times Medical daily. Branch docusate 2020-0 Yes 100mg Take 100 Univ ers 100 mg 8-22 mg by ity of capsule 19:52: mouth. Medical Branch Lamotrigine 2020-0 Yes Take by Un zoran 25 mg TbDL 8-22 mouth 2 ity of 19:52: (two) [place] 23 times Medical daily. Branch ALPRAZolam 2020-0 Yes 2mg Take 2 mg Un zoran 2 mg tablet 8-22 by mouth 2 it y of 19:52: (two) [place] 23 times Medical daily. Branch docusate 2020-0 Yes 100mg Take 100 Univ ers 100 mg 8-22 mg by ity of capsule 19:52: mouth. Medical Branch Lamotrigine 2020-0 Yes Take by [...] mg by ity of capsule 19:52: mouth. Medical Branch Lamotrigine 2020-0 Yes Take by Un zoran 25 mg TbDL 8-22 mouth 2 ity of 19:52: (two) [place] 23 times Medical daily. Branch ALPRAZolam 2020-0 Yes 2mg Take 2 mg Un zoran 2 mg tablet 8-22 by mouth 2 it y of 19:52: (two) [place] 23 times Medical daily. Branch docusate 2020-0 Yes 100mg Take 100 Univ ers 100 mg 8-22 mg by ity of capsule 19:52: mouth. [address] Branch Lamotrigine 2020-0 Yes Take by Un zoran 25 mg TbDL 8-22 mouth 2 ity of 19:52: (two) [place] 23 times Medical daily. Branch ALPRAZolam 2020-0 Yes 2mg Take 2 mg Un zoran 2 mg tablet 8-22 by mouth 2 it y of 19:52: (two) [place] 23 times Medical daily. Branch docusate 2020-0 Yes 100mg Take 100 Univ ers 100 mg 8-22 mg by ity of capsule 19:52: mouth. [address] Lamotrigine 2020-0 Yes Take by Un zoran 25 mg TbDL 8-22 mouth 2 ity of 19:52: (two) [place] 23 times Medical daily. Branch ALPRAZolam 2020-0 Yes 2mg Take 2 mg Un zoran 2 mg tablet 8-22 by mouth 2 it y of 19:52: (two) [place] 23 times Medical daily. Branch docusate 2020-0 Yes 100mg Take 100 Univ ers 100 mg 8-22 mg by ity of capsule 19:52: mouth. [address] Lamotrigine 2020-0 Yes Take by Un zoran 25 mg TbDL 8-22 mouth 2 ity of 19:52: (two) [place] 23 times Medical daily. Branch ferrous 2020-0 Yes 325mg 325 mg, Univer s sulfate 8-22 Oral, TID ity of tablet 325 17:00: MEALS, [place] mg 00 First dose Medical on Sat Mcdaniel 03/24/20 at 1200, Until Discontinu ed, Routine pantoprazol 2020-0 Yes 40mg 40 mg, Univ ers e 8-22 Oral, ity of (PROTONIX) 14:00: DAILY, [place] EC tablet 00 First dose Medi chun 40 mg (after Mcdaniel last modificati on) on 03/24/20 at 0900, Until Discontinu ed, Routine acetaminoph 2020-0 Yes [id number] 1{tbl} Take 1 Un zoran en-codeine 8-22 tablet by ity of 300-30 mg 00:00: mouth [place] tablet 00 every 6 Medical (six) Branch hours as needed for Pain (scale 7-10). Indication s: acute pain ferrous 2020-0 Yes [id number] 325mg Take 1 Uni vers sulfate 325 [...] Indication s: acute pain ferrous 2020-0 Yes [id number] 325mg Take 1 Uni vers sulfate 325 [...] Indication s: acute pain ferrous 2020-0 Yes [id number] 325mg Take 1 Uni vers sulfate 325 [...] Indication s: acute pain ferrous 2020-0 Yes [id number] 325mg Take 1 Uni vers sulfate 325 [...] Indication s: acute pain ferrous 2020-0 Yes [id number] 325mg Take 1 Uni vers sulfate 325 [...] Indication s: acute pain ferrous 2020-0 Yes [id number] 325mg Take 1 Uni vers sulfate 325 8-22 tablet by ity of mg (65 mg 00:00: mouth 3 [place] iron) 00 (three) Medical tablet times Branch daily with meals. ferrous 2020-0 2020- No [id number] 325mg Take 1 Un zoran sulfate 325 8-22 - tablet by it y of mg (65 mg 00:00: 00:00 mouth 3 [place] iron) 00 :00 (three) Medical tablet times Branch daily with meals. peg-electro 2020-0 2020- No 2000mL 2,000 mL, Univers ly sol 03-23 Oral, ity of (GOLYTELY) 09:00: 09:20 PRE-PROCED [place] [id number] 00 :00 URE ONCE, Med ical .74 -5.86 1 dose, Branch gram Starting solution Fri 2,000 mL 03/23/20 at 0400, Until Discontinu ed, Routine, Bowel Prep, Bowel Prep for Colonoscop y peg-electro 2020-0 2020- No 2000mL 2,000 mL, [facility] lyte soln 03-22 Oral, ity of (GOLYTELY) 22:30: 02:23 PRE-PROCED [place] [id number] 00 :00 URE ONCE, Med ical [...] 03-22 Oral, ity of (TYLENOL) 21:18: Q6HPRN, [place] tablet 325 04 Starting Medic al mg [...] Wed Med ical tablet 1 03/21/20 at [facility] h tablet 2230, Routine ALPRAZolam 2020-0 Yes [...] dose [place] EC tablet 00 :11 on Thu Medical 40 mg 03/21/20 at Branch 1999, Until Discontinu ed, Routine iron 2019-0 2020- No 1000mg 1,000 mg, Unive rs dextran 03-22 IV ity of (INFED) 00:45: 03:32 Infusion, [place] 1,000 mg in 00 :00 ONCE, 1 Medic al NaCl 0.9% dose, Thu [facility] h (NS) 500 mL 03/21/20 at IV infusion 1945, 500 mL iron 2020-0 2020- No 25mg 25 mg, IV Univers dextran 03-22 Piggyback, ity o f (INFED) 25 00:45: 02:16 ONCE, 1 [place] as mg in NaCl 00 :00 dose, Thu Medi chun 0.9% (NS) 03/21/20 at [facility] 100 mL IV 1945, 100 piggyback mL lamoTRIgine 2019-0 Yes 25mg [...] 650 13 :10 Starting Medic al mg Wed Branch 03/21/20 at 1301, Until Laya 03/22/20 at 1609, Routine, Pain (scale 4-6) ondansetron 2019-0 Yes 4mg 4 mg, Slow Univers (ZOFRAN [...] 0930, Until Discontinu ed, Routine PANTOPRAZOL Yes [id number] 40mg TAKE 1 Univers E 40 mg EC 9-18 TABLET BY ity of tablet 00:00: MOUTH [place] 00 DAILY Medical Branch PANTOPRAZOL 2020- No [id number] 40mg TAKE 1 Univers E 40 mg EC 04-20 TABLET BY ity of tablet 00:00: 00:00 MOUTH [place] 00 :00 DAILY Medical Branch pantoprazol 2019- No [id number] 40mg Take 1 Univers e 40 mg EC 2-16 tablet by ity of tablet 00:00: 00:00 mouth [place] 00 :00 daily. Medical Branch ALPRAZolam Yes 2mg Take 2 mg Un zoran 2 mg tablet 1-07 by mouth. ity of 19:49: [place] [address] Medical Branch docusate Yes 100mg Take 100 Univ ers 100 mg 1-07 mg by ity of capsule 19:49: mouth. [place] [address] Medical Branch Lamotrigine Yes Take by Un zoran 25 mg TbDL 1-07 mouth 2 ity of 19:49: (two) [place] [address] times Medical daily. Branch ondansetron Yes 4mg [...] 2{tbl} Take 2 U nivers en-codeine 2-13 08-22 tablets by it y of 300-30 mg 00:00: 00:00 mouth [place] tablet 00 :00 every 4 Medical (four) Branch hours as needed for Pain (scale 4-6) or Pain (scale 7-10). HYDROcodone Yes TAKE 1 Univ ers -acetaminop 4-18 TABLET BY ity of hen 10-325 00:00: MOUTH 3 [place] mg tablet 00 TIMES A Medical DAY Branch NEEDED FOR PAIN HYDROcodone 2020- No TAKE 1 Uni vers -acetaminop 4-18 08-22 TABLET BY it y of hen 10-325 00:00: 00:00 MOUTH 3 [place] mg tablet 00 :00 TIMES A Medical DAY Branch NEEDED FOR PAIN loratadine Yes 10mg Take 10 mg U nivers 10 mg 4-09 by mouth ity of tablet 00:00: as needed. [place] Medical Branch loratadine Yes 10mg Take 10 mg U nivers 10 mg 4-09 by mouth ity of tablet 00:00: as needed. Medical Branch loratadine Yes 10mg Take 10 mg U nivers 10 mg 4-09 by mouth ity of tablet 00:00: as needed. Medical Branch loratadine 0 Yes 10mg Take 10 mg U nivers 10 mg 4-09 by mouth ity of tablet 00:00: as needed. Medical Branch loratadine 0 Yes 10mg Take 10 mg U nivers 10 mg 4-09 by mouth ity of tablet 00:00: as needed. Medical Branch loratadine 0 Yes 10mg Take 10 mg U nivers 10 mg 4-09 by mouth ity of tablet 00:00: as needed. [place] Medical Branch loratadine 0 Yes 10mg Take 10 mg U nivers 10 mg 4-09 by mouth ity of tablet 00:00: as needed. Medical Branch loratadine 2017-0 Yes 10mg Take 10 mg U nivers 10 mg 4-09 by mouth ity of tablet 00:00: as needed. [place] [id number] Medical Branch loratadine 2017- Yes 10mg Take 10 mg U nivers 10 mg 4-09 by mouth ity of tablet 00:00: as needed. [place] [address] Medical Branch fluticasone 2017 Yes INSTILL 1 U nivers 50 4-03 [...] TWICE A Branch DAY as needed fluticasone 2017 Yes INSTILL 1 U nivers 50 4-03 [...] A Branch DAY as needed LIALDA 1.2 2016- Yes TAKE 2 Unive rs gram EC 4-03 TABLETS BY ity of tablet 00:00: MOUTH [place] EVERY DAY Medical Branch fluticasone Yes INSTILL 1 U nivers 50 4-03 SPRAY IN ity of mcg/actuati 00:00: EACH [place] on nasal 00 NOSTRIL Medical spray TWICE [...] tablet [facility] clindamycin clindamycin No clindamyci [place] HCl 300 mg HCl 300 mg n HCl 300 da capsule capsule mg capsule [facility] dicyclomine dicyclomine [...] NEEDED THREE h TIMES Program DAILY NEEDED ibuprofen ibuprofen No ibuprofen [place] 800 mg 800 mg 800 mg da tablet tablet tablet [facility] lamotrigine lamotrigine No [...] by oral directed. directed. route as directed. Lidocaine Lidocaine No Lidocaine [place] Viscous 2 % Viscous 2 % Viscous 2 da mucosal mucosal % mucosal Epis molecular spectroscopist solution solution solution al [facility] lisinopril lisinopril No lisinopril [place] 40 mg [...] mg al tablet [facility] potassium potassium No potassium [place] chloride ER chloride ER chloride da 20 mEq 20 mEq ER 20 mEq [facility] p tablet,exte tablet,exte tablet,ext al nded nded ended Health release(par release(par release(pa Outreac t/cryst) t/cryst) rt/cryst) h Program Proctofoam Proctofoam No Proctofoam [place] [...] Comments Source Body weight 2021-04-28 79.379 kg [facility] 10:47:00 [facility] BMI 2021-04-28 32.01 kg/m2 [facility] 10:47:00 [facility] Systolic blood 2021-04-28 148 mm[Hg] University of pressure 06:15:00 [facility] Diastolic blood 2021-04-28 78 mm[Hg] [place] o f pressure 06:15:00 [facility] Heart rate 2021-04-28 65 /min [facility] 06:15:00 [facility] Body temperature 2021-04-28 35.89 Stephany [facility] 06:15:00 [facility] Respiratory rate 2021-04-28 18 /min [facility] 06:15:00 [facility] Oxygen saturation 2021-04-28 97 /min University of in Arterial blood 06:15:00 [facility] by Pulse oximetry Branch Systolic blood 2020-03-24 156 mm[Hg] RN INFORMED University of pressure 16:30:00 [facility] Diastolic blood 2020-03-24 90 mm[Hg] RN INFORMED University o f pressure 16:30:00 [facility] Heart rate 2020-03-24 75 /min University of 16:30:00 [facility] Body temperature 2020-03-24 35.78 Stephany University of 16:30:00 [facility] Respiratory rate 2020-03-24 21 /min University of 16:30:00 [facility] Oxygen saturation 2020-03-24 98 /min University of in Arterial blood 16:30:00 [facility] by Pulse oximetry Branch Body weight 2020-03-24 83.507 kg pt's actual University of :32:00 weight on the [facility] [place] regular scale Branch BMI 2020-03-24 33.67 kg/m2 University of :32:00 [facility] Body height 2020-03-23 157.5 cm University of 16:09:00 [facility] Systolic blood 2020-03-24 156 mm[Hg] RN INFORMED University of pressure 16:30:00 [facility] Diastolic blood 2020-03-24 90 mm[Hg] RN INFORMED University o f pressure 16:30:00 [facility] Heart rate 2020-03-24 75 /min University of 16:30:00 [facility] Body temperature 2020-03-24 35.78 Stephany University of 16:30:00 [facility] Respiratory rate 2020-03-24 21 /min University of 16:30:00 [facility] Oxygen saturation 2020-03-24 98 /min University of in Arterial blood 16:30:00 [facility] by Pulse oximetry Branch Body weight 2020-03-24 83.507 kg pt's actual University of :32:00 weight on the [facility] [place] regular scale Branch BMI 2020-03-24 33.67 kg/m2 University of :32:00 [facility] Body height 2020-03-23 157.5 cm University of 16:09:00 [facility] Procedures Procedure Date / Time Performing Clinician Source Performed CBC WITH DIFF 2021-04-28 12:25:00 Andrew Lizama [place] o f [facility] PREPARE PACKED RBC 2021-04-28 05:37:48 Len Trinh [facility] HEMOGLOBIN 2021-04-27 21:02:00 Alda kayleigh [facility] TRANSFUSE PACKED RBC 2021-04-27 16:27:00 Pipo [facility] PREPARE PACKED RBC 2021-04-27 16:12:49 Yana Foss [facility] MAGNESIUM 2021-04-27 09:32:00 Alda kayleigh [facility] COMP. METABOLIC PANEL 2021-04-27 09:32:00 Alda [facility]leigh [facility] ([id number]) [facility] CBC WITH DIFF 2021-04-27 09:32:00 Alda [facility] GLYCOSYLATED HEMOGLOBIN 2021-04-27 09:32:00 Alda [facility] (A1C) [facility] LACTIC ACID WHOLE BLOOD 2021-04-27 09:32:00 [facility] LACTATE DEHYDROGENASE 2021-04-27 05:24:00 Andrew Lizama [facility] VITAMIN B12, LEVEL 2021-04-27 05:24:00 Alda kayleigh [facility] C-REACTIVE PROTEIN 2021-04-27 05:24:00 Alda kayleigh [facility] IRON PANEL 2021-04-27 05:24:00 Alda kayleigh [facility] SEDIMENTATION RATE 2021-04-27 05:24:00 Alda kayleigh [facility] VITAMIN D, 25-OH 2021-04-27 05:24:00 Alda [facility] PROCALCITONIN 2021-04-27 05:24:00 Alda kayleigh [facility] ACUTE CARE VENOUS BLOOD 2021-04-27 05:23:00 Andrew Lizama [facility] PROTHROMBIN TIME / INR 2021-04-27 05:23:00 Alda kayleigh [facility] COVID-19 (MOLECULAR 2021-04-27 02:34:00 Andrew Lizama [facility] TESTING [facility] NUCLEIC ACID AMPLIFICATION) PANEL IDENTIFICATION 2021-04-27 02:17:00 Andrew Lizama [facility] HB ABO GROUPING 2021-04-27 00:40[facility]EL[facility] W 2021-04-26 23:51:18 Yana Foss [facility] CONTRAST [facility] POCT TEST 2021-04-26 22:10:00 Yana Foss [facility] PHOSPHORUS 2021-04-26 22:04:00 Alda [facility] URIC ACID 2021-04-26 22:04:00 Alda [facility] AMYLASE 2021-04-26 22:04:00 Pipo [facility] MAGNESIUM 2021-04-26 22:04:00 Alda [facility] THYROID STIMULATING 2021-04-26 22:04:00 Alda kayleigh [facility] HORMONE [facility] HEPATIC FUNCTION PANEL 2021-04-26 22:04:00 [facility]ipo[facility] ([id number]) (ALB,T.PRO,BILI [facility] Branch T,BU/BC,ALT,AST,ALK PHOS) BASIC METABOLIC PANEL 2021-04-26 22:04:00 Pipo Yana [facility] (NA, K, CL, CO2, GLUCOSE, Medica l Branch BUN, CREATININE, CA) LIPID PANEL ([id number])(TOTAL 2021-04-26 22:04:00 Andrew Lizama [facility] CHOLESTEROL, [facility] TRIGLYCERIDES, HDL) CBC WITH DIFF 2021-04-26 22:04:00 Pipo [facility] URINALYSIS 2021-04-26 22:04[facility]-BNP 2021-04-26 22:04:00 Andrew Lizama [facility] HB ECG ROUTINE & RHYTHM 2021-04-26 21:41:41 Yana Foss [facility] XR CHEST 1 VW 2021-04-26 21:36:45 Yana Foss [facility] NOTICE OF PRIVACY 2021-04-26 21:22:01 Doctor Rashawn, [facility] [place] [facility] (ID NOW RAPID 2021-04-26 21:19:00 Yana Foss [facility] TESTING) Medical Mcdaniel CONSENT/REFUSAL FOR 2021-04-26 21:11:24 Doctor Rashawn [facility] DIAGNOSIS AND TREATMENT [place] [facility] EXTERNAL PROVIDER RECORDS 2020-04-19 05:01:00 Doctor Kuneast [facility], [facility] BASIC METABOLIC PANEL 2020-03-24 10:52:00 [facility] (NA, K, CL, CO2, GLUCOSE, Medica l Branch BUN, CREATININE, CA) CBC WITHOUT DIFF 2020-03-24 10:52:00 Kay [facility] COLONOSCOPY (ENDO) 2020-03-23 16:17:31 Ludmila Steele [facility] EGD (ENDO) 2020-03-23 16:16:00 Cedric [facility] BASIC METABOLIC PANEL 2020-03-23 09:52:00 [facility] (NA, K, CL, CO2, GLUCOSE, Medica l Branch BUN, CREATININE, CA) CBC WITHOUT DIFF 2020-03-23 09:52:00 Aurea [facility] CBC WITHOUT DIFF 2020-03-23 04:24:00 Angelina Shin [facility] FECAL PATHOGENS BY PCR 2020-03-22 19:48:00 [facility] CBC WITHOUT DIFF 2020-03-22 19:46:00 Kay [facility] CBC WITHOUT DIFF 2020-03-22 09:42:00 Kay [facility] URINALYSIS 2020-03-22 09:42:00 Kay [facility] BASIC METABOLIC PANEL 2020-03-22 09:41:00 Aurea [facility] (NA, K, CL, CO2, GLUCOSE, Medica l Branch BUN, CREATININE, CA) US PELVIS COMPLETE WITH 2020-03-22 05:19:00 Kay [facility] TRANSVAGINAL [facility] IRON PANEL 2020-03-21 23:25:00 Kay, [facility] CBC WITHOUT DIFF 2020-03-21 23:25:00 Kay [facility] FECES CULTURE 2020-03-21 20:43:[address] [facility] CLOSTRIDIUM DIFFICILE 2020-03-21 20:43:00 Anjelica [facility] TOXIN [facility] CT ABDOMEN PELVIS W 2020-03-21 18:45:56 Kay [facility] CONTRAST [facility] FERRITIN SERUM 2020-03-21 14:26:[address] [facility] HEPATIC FUNCTION PANEL 2020-03-21 14:26:00 Kay [facility] ([id number]) (ALB,T.PRO,BILI [facility] T,BU/BC,ALT,AST,ALK PHOS) BASIC METABOLIC PANEL 2020-03-21 14:26:00 Kay [facility] (NA, K, CL, CO2, GLUCOSE, Medica l Branch BUN, CREATININE, CA) SEDIMENTATION RATE 2020-03-21 14:26:00 Kay [facility] CBC WITH DIFF 2020-03-21 14:26:00 Kay [facility] C-REACTIVE PROTEIN 2020-03-21 14:25:00 Kay [facility] HB ABO GROUPING 2020-03-21 14:25:00 Kay [facility] PROTHROMBIN TIME / INR 2020-03-21 14:24:00 Kay, [facility] ACTIVATED PARTIAL 2020-03-21 14:24:00 Kay [facility] THRMPLAS [facility] COVID-19 (ID NOW RAPID 2020-03-21 13:15:00 Kay [facility] TESTING) Medical Branch Colonoscopy 2016-08-03 00:00:00 [facility] Delivery [facility] Plan of Care Planned Activity Planned Date Details Comments Source Future Appointment 2021-11-09 00:00:00 Alber Phillip, Tracey Machadocopbrayan Palacios; , [place] Program [address] Instructions [facility] Encounters Start End Encounter Admission Attending Care Care Encounter Source Date/Time Date/Time Type Type Clinicians Facility Department ID 2021-06-04 Emergency [facility] [id number] Univers 01:16:49 [facility] 2021-05-31 Inpatient U NITESH, [facility] ANGELA [id number] Univers 13:15[facility]21 [facility] 2021-08-12 2021-08-12 Outpatient AMBREEN_FAR MEHOP [facility] 103 [id number] [place] 04:29:00 04:29:00 [facility] 2021-08-12 2021-08-12 [facility]onsus EagleMICHELLE [place] - [id number] M at[place]or 00:00:00 00:00:00 Wil Phillip MD: Rastafari Epi scop 1700 HOP - [facility] [address] [facility] , Ph. [phone] --[phone] 2021-08-10 Outpatient AMBREEN_FAR UTHOP [facility] 103 [id number] [place] 01:31:00 01:31:00 [facility] 2021-07-04 2021-07-04 Outpatient AMBREEN_FAR MEHOP ME[facility]OP 103 [id number] [place] 01:47:00 01:47:00 DAFNE 91152 [facility] 2021-04-30 2021-04-30 Transition Katlyn [place] 1.2.840.114 [id number] Univers 00:00:00 00:00:00 of Care Bo Hoffman [id number] ity manasa Tavares 4.2.7.2.[id number] [facility] 403 Branch 2021-04-26 2021-04-28 Emergency Yana Foss [facility] 1.2.840 .114 [id number] [facility] 16:28:00 07:20:00 Andrew Lizama [id number] [facility] 4.2.7.2.686 [facility] [id number] [facility] 081 Branch 2021-04-17 2021-04-17 Outpatient AMBREEN_FAR MEHOP MEHOP 103 [id number] [place] 11:38:00 11:38:00 HANA 86701 [facility] 2021-04-17 2021-04-17 Outpatient AMBREEN_FAR MEHOP MEHOP 103 [id number] [place] 11:38:00 11:38:00 HANA 28499 [facility] 2021-04-15 2021-04-15 Outpatient AMBREEN_FAR MEHOP ME[facility]OP 103 [id number] [place] 12:31:00 12:31:00 HANA 52221 [facility] 2021-04-15 2021-04-15 [facility] [place] - [id number] M atagor 00:00:00 00:00:00 Wil Phillip MD: Rastafari Epi scop 1700 [facility] [address] [facility] , Ph. [phone]) --[phone] 2021-04-13 Outpatient AMBREEN_FAR MEHOP MEHOP 103 [id number] [place] 01:09:00 01:09:00 HANA 31010 [facility] 2021-01-21 2021-01-21 Outpatient AMBREEN_FAR MEHOP MEHOP 103 [id number] [place] 03:31:00 03:31:00 HANA 27982 [facility] 2021-01-21 2021-01-21 [facility] [place] - [id number] M atagor 00:00:00 00:00:00 Wil Phillip MD: Rastafari Epi scop 1700 HOP [facility] [place] [address] Cooper welch , Ph. ([phone]) -[phone] 2021-01-18 Outpatient AMBREEN_FAR MEHOP UTHOP 103 [id number] [place] 07:36:00 07:36:00 HANA 90336 [facility] 2020-10-17 2020-10-17 [facility] 1.2.840.114 [id number] Univers 00:00:00 00:00:00 QPSoftware 350.1.13.10 [facility] 4.2.7.2.686 Ramo as Professio [phone] [address] Office [facility] One 2020-09-03 2020-09-03 Outpatient AMBREEN_FAR UTHOP [facility] 103 [id number] [place] 05:25:00 05:25:00 HANA 89837 [facility] 2020-09-03 2020-09-03 Outpatient AMBREEN_FAR [facility] 103 [id number] [place] 05:25:00 05:25:00 HANA 41866 [facility] 2020-09-03 2020-09-03 Alber [facility] [place] - [id number] M atagor 00:00:00 00:00:00 Wil Phillip MD: Rastafari Epi scop 1700 [facility]OP [facility] [address] Cooper , Ph. [phone]) -[phone] 2020-05-21 Outpatient AMBREEN_FAR [facility] 103 [id number] [place] 02:19:00 02:19:00 HANA 61280 [facility] 2020-05-21 2020-05-21 [facility] [place] [facility] [id number] M at[place]or 00:00:00 00:00:00 Wil Phillip MD: Rastafari Epi scop 1700 HOP - [facility]HELLE [facility] [address] Cooper am , Ph. [phone] 2020-05-16 2020-05-16 Outpatient AMBREEN_TAE MARTÍNEZMICHELLE 103 [id number] [place] 12:28:00 12:28:00 DAFNE 21958 da [facility] 2020-04-19 2020-04-19 Orders Doctor ALDEN 1.2.840.114 [id number] Univers 00:00:00 00:00:00 Only Unassigned, JAMES 350.1.13.10 ity of [facility] 4.2.7.2.686 Ramo as [phone] [address] 2020-04-19 2020-04-19 Orders Doctor ALDEN 1.2.840.114 [id number] 00:00:00 00:00:00 Only Unassigned, JAMES 350.1.13.10 [facility] [facility] 4.2.7.2.686 [id number] [facility] 2020-04-05 2020-04-05 Telephone DARCY Carbajal [id number] Univers 00:00:00 00:00:00 Nitesh SPECIALTY 350.1.13.10 ity of [place] [phone] Vt stefanibrayan VERMA [address] [place] [address] 2020-04-05 2020-04-05 DARCY Palomares 1.2.840.114 [id number] Univers 00:00:00 00:00:00 (Out) Nitesh SPECIALTY 350.1.13.10 ity [place] [phone] Vt cosme VERMA [address] [place] [address] 2020-04-05 2020-04-05 Telephone DARCY Carbajal 1.2.167.532 [id number] 00:00:00 00:00:00 Nitesh SPECIALTY 350.1.13.10 CARE 4.2.7.2.686 CENTER AT [id number] [address] 2020-04-05 2020-04-05 Letter DARCY Carbajal 1.2.840.114 [id number] 00:00:00 00:00:00 (Out) Nitesh SPECIALTY 350.1.13.10 [facility] 4.2.7.2.686 CENTER AT [phone] BAYRON Jones [facility] 2020-04-04 2020-04-04 Telemedicanjelica [facility]WINSL[facility] 1.2.840.114 [id number] Univers 11:00:00 11:30:00 ne Visit Wondiful Victor Hugo [place] 350.1.13.10 ity of [place].2.[place] Profess[place] [phone] Vt dic[address] 2020-04-04 2020-04-04 [facility]SL[facility] 1.2.840.114 [id number] 11:00:00 11:30:00 ne Visit Wondiful Victor Hugo [place] 350.1.13.10 [place] 4.2.7.2.686 Professio [phone] [address] 2020-04-04 2020-04-04 Outpatient Alonzo MIJARES [facility] [id number] Univers 11:00:00 11:00:00 WONDIFUL [id number] ity o [facility] 2020-04-04 2020-04-04 Outpatient Alonzo MIJARES [facility] [id number] Univers 11:00:00 11:00:00 WONDIFUL ity o [facility] 2020-03-21 2020-03-24 [facility] Joann Syeda 1. 2.840.114 [id number] 07:17:00 14:00:00 Encounter Audrey Landry [place] 350.1.13.10 [facility] 4.2.7.2.686 [id number] [facility] 2020-03-21 2020-03-24 [facility] Syeda 1. 2.840.114 [id number] Univers 07:17:00 14:00:00 Encounter LandryDarryl alcantaral G [place] 350.1.13.10 ity of [facility] 4.2.7.2.[address] [place] [id number] [facility] 090 Mcdaniel 2020-02-27 2020-02-27 Outpatient GATITOREEN_TAE [facility] 103 [id number] [place] 02:26:00 02:26:00 HANA 63536 [facility] 2020-02-27 2020-02-27 [facility] [place] - [id number] M atagor 00:00:00 00:00:00 Wil Phillip MD: Rastafari Epi scop 1700 HOP - MEHOP al [facility] [address] Progr am , Ph. [phone]) --[phone] 2020-02-21 Outpatient AMBREEN_FAR MEHOP MEHOP 103 [id number] [place] 01:11:00 01:11:00 HANA 73536 [facility] 2019-12-19 2019-12-19 Outpatient AMBREEN_FAR MEHOP MEHOP 103 [id number] [place] 02:47:00 02:47:00 HANA 18542 [facility] 2019-12-19 2019-12-19 [facility] [id number] M atagor 00:00:00 00:00:00 Wil Phillip MD: Rastafari Epi scop 1700 HOP - UTHOP al [facility] [address] Progr am , Ph. ([phone]) --20072019-12-17 2019-12-17 Outpatient AMBREEN_FAR MEHOP MEHOP 103 [id number] [place] 12:29:00 12:29:00 HANA 62111 [facility] 2019-10-31 2019-10-31 Outpatient AMBREEN_FAR MEHOP MEHOP 103 [id number] [place] 03:50:00 03:50:00 HANA 24602 [facility] 2019-10-31 2019-10-31 [facility] - [id number] M atagor 00:00:00 00:00:00 Wil Phillip MD: Rastafari Epi scop 1700 HOP - MEHOP al [facility] [address] Progr am , Ph. [phone] 2019-05-09 [facility] [place] - [id number] M atagor 00:00:00 00:00:00 Wil Phillip MD: Rastafari Epi scop 1700 [facility] [place], Health Outre [facility] [place] Program [address] , Ph. ([phone]) --[phone] 2019-04-18 Refjesus Michael, [facility] 1.2.840.114 [id number] 00:00:00 00:00:00 Wondiful A Health 350.1.13.10 [place] 4.2.7.2.686 Professio [phone] nal [address] One 2019-04-18 2019-04-18 Refjesus Michael, [facility] 1.2.840.114 [id number] Univers 00:00:00 00:00:00 Wondiful [facility] Health 350.1.13.10 ity of [place] 4.2.7.2.686 Ramo as Professio [phone] Vt dicms nal 044 Branch Office Building One Results Test Description Test [...] g/dL 31.6-35.1 L RDW-SD (test code = 60721-7) 55.2 fL 39.0-49.9 H RDW-CV (test code = 788-0) 23.2 % 12.0-15.5 H PLT (test code = 777-3) See_Comment [Au tomated message] The system which ge nerated this result transmit lennox reference range: 166 - 35 8 10*3/?L. The reference range was not used to interpret th is result as normal/abnormal . MPV (test code = 41846-0) 10.6 fL 9.5-12.9 NRBC/100 WBC (test code = See_Comment [ Automated message] The 3496986705) system which ge nerated this result transmit lennox reference range: 0.0 - 10 .0 /100 WBCs. The reference r rhina was not used to interpr et this result as normal/abnor mal. NRBC x10^3 (test code = See_Comment [Au tomated message] The 2927392391) system which ge nerated this result transmit lennox reference range: 10*3/?L. The reference range was not u sed to interpret this result as normal/abnormal . GRAN MAT (NEUT) % (test code 53.5 % = 770-8) IMM GRAN % (test code = 0.50 % 7532805254) LYMPH % (test code = 736-9) 36.4 % MONO % (test code = 5905-5) 5.7 % EOS % (test code = 713-8) 3.1 % BASO % (test code = 706-2) 0.8 % GRAN MAT x10^3(ANC) (test 3.31 10*3/uL 1.88-7.09 code = 5979117295) IMM GRAN x10^3 (test code = 0.03 10*3/uL 0.00-0.06 5831501894) LYMPH x10^3 (test code = 2.25 10*3/uL 1.32-3.29 731-0) MONO x10^3 (test code = 0.35 10*3/uL 0.33-0.92 742-7) EOS x10^3 (test code = 0.19 10*3/uL 0.03-0.39 711-2) BASO x10^3 (test code = 0.05 10*3/uL 0.01-0.07 704-7) Lab Interpretation (test Abnormal code = 20320-9) [facility] Packed RBC (in units), 1 Units 2021-04-28 05:37:48 Test Item Value Reference Range Interpretation Comments Unit Blood Type (test O Neg code = 4410) ISBT Blood Type Code (test code = 907861) Unit Number (test [id number] code = 4411) Blood Expiration Date & Time (test code = 793163) Status Information Issued (test code = 4412) Product Red Blood Cells Identification (test code = 4413) Product Code (test [id number] Performed at [facility] code = 4414) Laboratory Services [facility] Blood [address] [place], [place] [address]Toll Free: [phone] A No. [id number] Cross Match Result Compatible (test code = 4409) [facility]2021-09-25 21:11:13 Test Item Value Reference Range Interpretation Comments HGB (test code = 718-7) 6.6 g/dL 11.6-15.0 L Lab Interpretation (test code = Abnormal 86655-1) [facility] Packed RBC (in units), 1 Units 2021-04-27 16:12:49 Test Item Value Reference Range Interpretation Comments Unit Blood Type (test O Neg code = 4410) ISBT Blood Type Code (test code = 048902) Unit Number (test code [id number] = 4411) Blood Expiration Date & Time (test code = 920804) Status Information Issued (test code = 4412) Product Identification Red Blood (test code = 4413) Cells Product Code (test [id number] Performed at [facility] code = 4414) Laboratory Services [facility] Blood Q[address] [place], [place] [address]Toll Free: [phone] A No. [id number] [facility] HospitalC-REACTIVE [id number] 15:44:28 Test Item Value Reference Range Interpretation Comments CRP (test code = 5891881429) 0.6 mg/dL <0.8 Lab Interpretation (test code = Normal 24696-1) [facility] HospitalVITAMIN D, [id number] 14:51:01 Test Item Value Reference Range Interpretation Comments VIT D 25OH (test code = 21 ng/mL 25-80 L 05476-2) YOANA (test code = YOANA) Deficiency: <20 ng/mLInsufficiency: 20-24 ng/mLOptimal: 25-80 ng/mL Lab Interpretation (test Abnormal code = 26964-8) [facility] Hospital[facility]IT[facility]IN B12, [id number] 14:06:02 Test Item Value Reference Range Interpretation Comments VIT B12 (test code = 410 pg/mL 240-930 2284921824) YOANA (test code = YOANA) Biotin has been reported to cause a positive bias, interpret results relative to patient's use of biotin. Lab Interpretation (test Normal code = 00025-0) [facility] HospitalCBC WITH [id number] 12:50:07 Test Item Value Reference Range Interpretation [...] (test code = 58.7 fL 39.0-49.9 H 27040-8) RDW-CV (test code = 24.9 % 12.0-15.5 H 788-0) PLT (test code = See_Comment [Automated 777-3) message] The sy stem which generated this result transmitted reference range : 166 - 358 10*3/ ?L. The reference r rhina was not used to interpret this result as normal/abnormal . MPV (test code = 11.2 fL 9.5-12.9 02125-1) NRBC/100 WBC (test See_Comment [Automat ed code = 4942574603) message] The system which generated this result transmitted reference range : 0.0 - 10.0 /100 WBCs. The refer ence range was not u sed to interpret th is result as normal/abnormal . NRBC x10^3 (test code See_Comment [Auto mated = 6646465134) message] The s ystem which generated this result transmitted reference range : 10*3/?L. The reference range was not used to interpret this result as normal/abnormal . GRAN MAT (NEUT) % 63.0 % (test code = 770-8) IMM GRAN % (test code 0.70 % = 2370616200) LYMPH % (test code = 25.2 % 736-9) MONO % (test code = 7.7 % 5905-5) EOS % (test code = 2.6 % 713-8) BASO % (test code = 0.8 % 706-2) GRAN MAT x10^3(ANC) 3.86 10*3/uL 1.88-7.09 (test code = 8484105371) IMM GRAN x10^3 (test 0.04 10*3/uL 0.00-0.06 code = 5840341384) LYMPH x10^3 (test code 1.54 10*3/uL 1.32-3.29 [...] (test 2+ See_Comment [Automa lennox code = 30979-0) message] The system which generated this result transmitted reference range : 2+. The referen ce range was not u sed to interpret th is result as normal/abnormal . Lab Interpretation Abnormal (test code = 05924-3) [facility] HospitalGLYCOSYLATED HEMOGLOBIN (A1C)2021-04-27 12:35:42HGB Y6DDevyyrf: Due to low Hemoglobin, %A1c can not be calculated.[facility] LABORATORYReference RangesNormal: <5.7%Prediabetes: 5.7 - 6.4%Diabetes: > 6.5%[facility] HospitalCOMP. METABOLIC PANEL (04078)2021-04-27 11:42:47 Test Item Value Reference Range Interpretation Comments NA (test code = 135 mmol/L 135-145 3462980952) K (test code = 3.3 mmol/L 3.5-5.0 L 4133346722) CL (test code = 105 mmol/L 98-108 1054546383) CO2 TOTAL (test code = 26 mmol/L 23-31 1916204422) AGAP (test code = 2-16 3239848979) BUN (test code = 6 mg/dL 7-23 L 9663945397) GLUCOSE (test code = 91 mg/dL 70-110 0177031726) CREATININE (test code = 0.61 mg/dL 0.50-1.04 4604009115) TOTAL BILI (test code = 0.4 mg/dL 0.1-1.9 5430438252) CALCIUM (test code = 9.1 mg/dL 8.6-10.6 2638587201) T PROTEIN (test code = 7.0 g/dL 6.3-8.2 9486911483) ALBUMIN (test code = 4.0 g/dL 3.5-5.0 8854028774) ALK PHOS (test code = 73 U/L 34-122 4070061597) ALTv (test code = 16 U/L 5-35 1742-6) AST(SGOT) (test code = 22 U/L 13-40 8254257299) eGFR (test code = mL/min/1.73m2 3255253433) YOANA (test code = YOANA) Association of [...] tests). Lab Interpretation Abnormal (test code = 10094-8) [facility] HospitalMAGNESIUM2021-09-25 11:35:05 Test Item Value Reference Range Interpretation Comments MAGNESIUM (test code = 7867341497) 2.2 mg/dL 1.7-2.4 Lab Interpretation (test code = Normal 02226-6) [facility] HospitalPROCALCITONIN2021-09-25 10:53:27 Test Item Value Reference Interpretation Comments Range Procalcitonin (test <0.02 See_Comment [Automa lennox code = 0140323832) message] The system which generated this result [...] lung abscess/empyema. For further information please refer to:[email or web address] [email or web address] p Lab Interpretation Normal (test code = 15264-3) [facility] HospitalSEDIMENTATION [id number] 07:09:07 Test Item Value Reference Range Interpretation Comments ESR (test code = See_Comment H [Automated message] 9347785106) The system Synthego generated this result transmitted ref erence range: 0 - 20 m m/HR. The reference r rhina was not used to interpret this result as normal/abnor mal. Lab Interpretation (test Abnormal code = 40411-4) [facility] HospitalPANEL [id number] 06:53:11 Test Item Value Reference Range Interpretation Comments ANTIBODY ID (test Negative panel nega tive, repeat IAT code = 245) negativePerform ed at [facility] Laboratory Serv [facility] Blood [address] [place], [place] [address]Mpzu Free: [phone] A No. [id number] [facility] HospitalIRON [id number] 06:41:15 Test Item Value Reference Range Interpretation Comments IRON (test code = 7085819950) 19 ug/dL 50-160 L TIBC (test code = 5006648046) 424 ug/dL 250-410 H % FE SAT (test code = 3198963965) 4 % 20-50 L Lab Interpretation (test code = Abnormal 49967-6) [facility] HospitalPROTHROMBIN TIME / [id number] 06:33:51 Test Item Value Reference Range Interpretation Comments PROTIME PATIENT (test See_Comment [Auto mated message] code = 5964-2) The system Boxer generated this result transmitted ref erence range: 12.0 - 1 4.7 Seconds. The re ference range was not u sed to interpret this result as normal/abnor mal. INR (test code = 6301-6) Nor mal INR <1.1; Warfarin Therap eutic range 2.0 to 3. 0 or 2.5 to 3.5, dep ending upon the indica tions. Lab Interpretation (test Normal code = 69922-5) [facility] HospitalLACTATE [id number] 06:32:51 Test Item Value Reference Range Interpretation Comments LDH (test code = 1646695828) 291 U/L 300-600 L Lab Interpretation (test code = Abnormal 90433-6) [facility] HospitalTHYROID STIMULATING [id number] 05:18:41 Test Item Value Reference Range Interpretation Comments TSH (test code = See_Comment L [Automated message] 0156613844) The system [employer] generated this result transmitted ref erence range: 0.45 - 4 .70 mIU/L. The refe rence range was not u sed to interpret this result as normal/abnor mal. Lab Interpretation (test Abnormal code = 55719-5) [facility] HospitalN-TERMINAL [id number] 04:56:54 Test Item Value Reference Range Interpretation Comments NT-proBNP (test code 96 pg/mL See_Comment [Autom ated = 0098101538) message] The system which generated this result transmitted reference range : <=125. The reference range was not used to interpret this result as normal/abnormal . YOANA (test code = YOANA) Biotin has been reported to cause a negative bias, interpret results relative to patient's use of biotin. Lab Interpretation Normal (test code = 41050-9) [facility] HospitalLIPID PANEL (57291)(TOTAL CHOLESTEROL, TRIGLYCERIDES, HDL)2021-04-27 04:48:33 Test Item Value Reference Range Interpretation Comments CHOL (test code = 180 mg/dL 120-200 4622849879) HDL (test code = 40 mg/dL >50 L 3738892036) HDLC RATIO (test code = See_Comment [Au tomated message] 8131396531) The system S[employer] generated this result transmit lennox reference range : <=4.5. The refe rence range was not u sed to interpret th is result as normal/abnormal . TRIG (test code = 166 mg/dL 30-170 6797953716) LDL CHOL (test code = 107 mg/dL See_Comment [Auto mated message] 80224-7) The system S[employer] generated this result transmit lennox reference range : <=160. The refe rence range was not u sed to interpret th is result as normal/abnormal . VLDL (test code = 33 mg/dL 5-60 1453146825) Lab Interpretation (test Abnormal code = 80375-8) [facility] 04:48:13 Test Item Value Reference Range Interpretation Comments MAGNESIUM (test code = 2847958285) 2.1 mg/dL 1.7-2.4 Lab Interpretation (test code = Normal 43601-3) [facility]PHOSPHORUS2021-09-25 04:48:13 Test Item Value Reference Range Interpretation Comments PHOSPHORUS (test code = 4922236731) 3.4 mg/dL 2.5-5.0 Lab Interpretation (test code = Normal 87079-7) [facility]URIC [id number] 04:47:53 Test Item Value Reference Range Interpretation Comments URIC ACID (test code = 1803796351) 3.2 mg/dL 2.9-6.0 Lab Interpretation (test code = Normal 70367-8) [facility] HospitalType and Screen - ONCE [id number] 02:06:34 Test Item Value Reference Range Interpretation Comments ABO & RH (test code O Negative Performe d at [facility] = 20) Laboratory [facility] [place], [place] [address]Toll Free: [phone] A No. [id number] IAT (test code = Positive Performed a t [facility] 1185) Laboratory [facility] [place], [place] [id number] Free: [phone] A No. [id number] [facility] HospitalHEPATIC FUNCTION PANEL (57685) (ALB,T.PRO,BILI T,BU/BC,ALT,AST,ALK PHOS)2021-04-26 22:25:02 Test Item Value Reference Range Interpretation Comments TOTAL BILI (test code = 5207227358) 0.6 mg/dL 0.1-1.1 BILI UNCON (test code = 7304365455) 0.4 mg/dL 0.1-1.1 BILI CONJ (test code = 4707435142) 0.0 mg/dL 0.0-0.3 T PROTEIN (test code = 8119142817) 8.2 g/dL 6.3-8.2 ALBUMIN (test code = 7519898329) 4.6 g/dL 3.5-5.0 ALK PHOS (test code = 6388820946) 99 U/L 34-122 ALTv (test code = 1742-6) 19 U/L 5-35 AST(SGOT) (test code = 4808969439) 24 U/L 13-40 Lab Interpretation (test code = Normal 67724-8) [facility] METABOLIC PANEL (NA, K, CL, CO2, GLUCOSE, BUN, CREATININE, CA)2021-04-26 22:25:01 Test Item Value Reference Range Interpretation Comments NA (test code = 137 mmol/L 135-145 2213160362) K (test code = 4.3 mmol/L 3.5-5.0 7095775743) CL (test code = 105 mmol/L 98-108 0171729284) CO2 TOTAL (test code 24 mmol/L 23-31 = 6662216721) AGAP (test code = 2-16 1854454454) BUN (test code = 7 mg/dL 7-23 1230424006) GLUCOSE (test code = 98 mg/dL 70-110 5914123108) CREATININE (test code 0.64 mg/dL 0.50-1.04 = 4450910482) CALCIUM (test code = 9.8 mg/dL 8.6-10.6 2142014000) eGFR (test code = mL/min/1.73m2 7351007359) YOANA (test code = YOANA) Association of [...] or urine or abnormalities in imaging tests). [facility] HospitalAMYLASE2021-09-24 22:24:00 Test Item Value Reference Range Interpretation Comments RAINE (test code = 3374847904) 52 U/L 35-110 Lab Interpretation (test code = Normal 14859-9) [facility] WITH [id number] 22:19:40 Test Item Value Reference Range Interpretation Comments WBC (test code = See_Comment [Automated 7137-2) message] The sy stem which generated this result transmitted reference range : 4.30 - 11.10 10*3/?L. The reference range was not used to interpret this result as normal/abnormal . RBC (test code = See_Comment L [Automated 984-8) message] The sy stem which generated this [...] (test code = 53.6 fL 39.0-49.9 H 19572-1) RDW-CV (test code = 24.5 % 12.0-15.5 H 788-0) PLT (test code = See_Comment [Automated 777-3) message] The sy stem which generated this result transmitted reference range : 166 - 358 10*3/ ?L. The reference r rhina was not used to interpret this result as normal/abnormal . MPV (test code = 10.0 fL 9.5-12.9 98842-9) NRBC/100 WBC (test See_Comment [Automat ed code = 6004310648) message] The system which generated this result transmitted reference range : 0.0 - 10.0 /100 WBCs. The refer ence range was not u sed to interpret th is result as normal/abnormal . NRBC x10^3 (test code See_Comment [Auto mated = 7847858177) message] The s ystem which generated this result transmitted reference range : 10*3/?L. The reference range was not used to interpret this result as normal/abnormal . GRAN MAT (NEUT) % 70.1 % (test code = 770-8) IMM GRAN % (test code 0.60 % = 3072501476) LYMPH % (test code = 20.5 % 736-9) MONO % (test code = 6.6 % 5905-5) EOS % (test code = 1.6 % 713-8) BASO % (test code = 0.6 % 706-2) GRAN MAT x10^3(ANC) 4.96 10*3/uL 1.88-7.09 (test code = 2141038445) IMM GRAN x10^3 (test 0.04 10*3/uL 0.00-0.06 code = 9184754611) LYMPH x10^3 (test code 1.45 10*3/uL 1.32-3.29 = 731-0) MONO x10^3 (test code 0.47 10*3/uL 0.33-0.92 = 742-7) EOS x10^3 (test code = 0.11 10*3/uL 0.03-0.39 711-2) BASO x10^3 (test code 0.04 10*3/uL 0.01-0.07 = 704-7) Lab Interpretation Abnormal (test code = 19371-0) [facility] HospitalPONJ [id number] 22:10:00 Test Item Value Reference Range Interpretation Comments POCT PREG (test code = 1605) negative On board controls acceptable with present C Line (test code = 3574) POCT PREG LOT # (test code = 3575) [id number] POCT PREG TEST DATE (test 08/02/2022 code = 3576) Lab Interpretation (test code = Normal 23702-4) [facility] METABOLIC PANEL (NA, K, CL, CO2, GLUCOSE, BUN, CREATININE, CA)2020-03-24 11:41:00 Test Item Value Reference Range Interpretation Comments NA (test code = 137 mmol/L 135-145 1787607579) K (test code = 4.1 mmol/L 3.5-5 1906354624) CL (test code = 105 mmol/L 98-108 2076362519) CO2 TOTAL (test code = 24 mmol/L 23-31 8235816888) AGAP (test code = 2-16 3043520161) BUN (test code = 9 mg/dL 7-23 7826065256) GLUCOSE (test code = 100 mg/dL 70-110 8150918907) CREATININE (test code 0.74 mg/dL 0.5-1.04 = 6326508691) CALCIUM (test code = 9.0 mg/dL 8.6-10.6 0315436804) eGFR Calculation mL/min/1.73m2 (Non-) (test code = 9409667837) eGFR Calculation mL/min/1.73m2 () (test code = 6869152355) YOANA (test code = YOANA) Association of [...] or urine or abnormalities in imaging tests). [facility] WITHOUT [id number] 11:12:00 Test Item Value Reference Range Interpretation Comments WBC (test code = 6690-2) See_Comment [A utomated message] The system [employer] generated this result transmit lennox reference range : 4.30 - 11.10 10*3/?L. The reference range was not used to interpret this result as normal/abnormal . RBC (test code = 789-8) See_Comment L [Au tomated message] The system [employer] generated this result transmit lennox reference range [...] 777-3) See_Comment [Au tomated message] The system [employer] generated this result transmit lennox reference range : 166 - 358 10*3/?L. The reference range was not used to interpret this result as normal/abnormal . MPV (test code = 11.4 fL 9.5-12.9 27207-2) RDW-CV (test code = 19.6 % 12-15.5 H 788-0) RDW-SD (test code = 49.6 fL 39-49.9 17286-2) NRBC x10^3 (test code = <0.01 See_Comment [Au tomated message] 0925608131) The system [employer] generated this result transmit lennox reference range : 10*3/?L. The reference range was not used to interpret this result as normal/abnormal . NRBC/100 WBC (test code See_Comment [Au tomated message] = 4315348201) The system [employer] generated this result transmit lennox reference range : 0.0 - 10.0 /100 WBC s. The reference r rhina was not used to interpret this result as normal/abnormal . IPF % (test code = 2971476428) Lab Interpretation (test Abnormal code = 19099-8) [facility] HospitalFECAL PATHOGENS BY [id number] 19:02:00 Test Item Value Reference Range Interpretation Comments Campylobacter (jejuni, Negative Negative, coli and upsaliensis) Indeterminate, (test code = 90552-1) See comment Plesiomonas shigelloides Negative Negative, (test code = 82749-1) Indeterminate, See comment Salmonella (test code = Negative Negative, 93851-3) Indeterminate, See comment Yersinia enterocolitica Negative Negative, (test code = 39292-3) Indeterminate, See comment Vibrio (test code = Negative Negative, 15907-2) Indeterminate, See comment Vibrio cholerae (test Negative Negative, code = 25022-1) Indeterminate, See comment Enteroaggregative E. coli Negative Negative, (EAEC) (test code = Indeterminate, 77370-3) See comment Enteropathogenic E. coli Negative Negative, N/A, (EPEC) (test code = Indeterminate, 65089-7) See comment Enterotoxigenic E. coli Negative Negative, (ETEC) (test code = Indeterminate, 83573-6) See comment Shiga toxin-Producing E. Negative Negative, coli (STEC) (test code = Indeterminate, 09880-6) See comment Shigella/Enteroinvasive Negative Negative, E. coli (EIEC) (test code Indeterminate, = 57858-4) See comment Cryptosporidium (test Negative Negative, code = 70391-7) Indeterminate, See comment Cyclospora cayetanensis Negative Negative, (test code = 99768-6) Indeterminate, See comment Entamoeba histolytica Negative Negative, (test code = 19252-4) Indeterminate, See comment Giardia lamblia (test Negative Negative, code = 75391-1) Indeterminate, See comment Adenovirus F 40/41 (test Negative Negative, code = 06777-5) Indeterminate, See comment Astrovirus (test code = Negative Negative, 88927-3) Indeterminate, See comment Norovirus GI/GII (test Negative Negative, code = 14240-5) Indeterminate, See comment Rotavirus A (test code = Negative Negative, 58360-3) Indeterminate, See comment Sapovirus (test code = Negative Negative, 35399-9) Indeterminate, See comment YOANA (test code = YOANA) Negative:A negative result does not rule-out infection. ?This assay does not test for all potential infectious agents of diarrheal disease. Positive:A positive test result does not necessarily indicate the presence of viable organism. Lab Interpretation (test Normal code = 19661-1) [facility] METABOLIC PANEL (NA, K, CL, CO2, GLUCOSE, BUN, CREATININE, CA)2020-03-23 10:50:00 Test Item Value Reference Range Interpretation Comments NA (test code = 136 mmol/L 135-145 1266643662) K (test code = 3.9 mmol/L 3.5-5 4863018806) CL (test code = 104 mmol/L 98-108 8099239065) CO2 TOTAL (test code = 21 mmol/L 23-31 L 1967502209) AGAP (test code = 2-16 2382708055) BUN (test code = 5 mg/dL 7-23 L 0838705659) GLUCOSE (test code = 84 mg/dL 70-110 5842480677) CREATININE (test code = 0.80 mg/dL 0.5-1.04 2741360909) CALCIUM (test code = 9.5 mg/dL 8.6-10.6 8910757283) eGFR Calculation mL/min/1.73m2 (Non-) (test code = 9416569861) eGFR Calculation mL/min/1.73m2 () (test code = 2438975024) YOANA (test code = YOANA) Association of [...] tests). Lab Interpretation Abnormal (test code = 95619-1) [facility] WITHOUT [id number] 10:19:00 Test Item Value Reference Range Interpretation Comments WBC (test code = See_Comment [Automated message] 6690-2) The system [employer] generated this result transmitted ref erence range: 4.30 - 1 1.10 10*3/?L. The reference range was not used to int erpret this result as normal/abnormal . RBC (test code = 789-8) See_Comment [Au tomated message] The system [employer] generated this result transmitted ref erence range: [...] PLT (test code = 777-3) See_Comment [Au DevZuzated message] The system [employer] generated this result transmitted ref erence range: 166 - 35 8 10*3/?L. The reference range was not used to int erpret this result as normal/abnormal . MPV (test code = 11.6 fL 9.5-12.9 55991-0) RDW-CV (test code = 19.8 % 12-15.5 H 788-0) RDW-SD (test code = 49.3 fL 39-49.9 98126-7) NRBC x10^3 (test code = <0.01 See_Comment [Au tomated message] 3548389225) The system [employer] generated this result transmitted ref erence range: 10*3/?L. The reference range was not used to int erpret this result as normal/abnormal . NRBC/100 WBC (test code See_Comment [Au tomated message] = 3072746386) The system [facility] generated this result transmitted ref erence range: 0.0 - 10 .0 /100 WBCs. The reference range was not used to int erpret this result as normal/abnormal . IPF % (test code = 8.3 % 1.3-7.7 H Platelet count 9776220566) measured by fluorescence me thod. Lab Interpretation Abnormal (test code = 51891-3) [facility] WITHOUT [id number] 04:33:00 Test Item Value Reference Range Interpretation Comments WBC (test code = 6690-2) See_Comment [A utomated message] The system [employer] generated this result transmit lennox reference range : 4.30 - 11.10 10*3/?L. The reference range was not used to interpret this result as normal/abnormal . RBC (test code = 789-8) See_Comment [Au tomated message] The system [employer] generated this result transmit lennox reference range [...] 777-3) See_Comment [Au tomated message] The system [employer] generated this result transmit lennox reference range : 166 - 358 10*3/?L. The reference range was not used to interpret this result as normal/abnormal . MPV (test code = 11.4 fL 9.5-12.9 74267-5) RDW-CV (test code = 19.7 % 12-15.5 H 788-0) RDW-SD (test code = 49.6 fL 39-49.9 60913-0) NRBC x10^3 (test code = <0.01 See_Comment [Au tomated message] 2785767396) The system [employer] generated this result transmit lennox reference range : 10*3/?L. The reference range was not used to interpret this result as normal/abnormal . NRBC/100 WBC (test code See_Comment [Au tomated message] = 2723200393) The system [facility] generated this result transmit lennox reference range : 0.0 - 10.0 /100 WBC s. The reference r rhina was not used to interpret this result as normal/abnormal . IPF % (test code = 1534151665) Lab Interpretation (test Abnormal code = 24014-0) [facility] WITHOUT [id number] 19:58:00 Test Item Value Reference Range Interpretation Comments WBC (test code = 6690-2) See_Comment [A utomated message] The system [employer] generated this result transmit lennox reference range : 4.30 - 11.10 10*3/?L. The reference range was not used to interpret this result as normal/abnormal . RBC (test code = 789-8) See_Comment L [Au tomated message] The system [employer] generated this result transmit lennox reference range [...] 777-3) See_Comment [Au tomated message] The system [employer] generated this result transmit lennox reference range : 166 - 358 10*3/?L. The reference range was not used to interpret this result as normal/abnormal . MPV (test code = 11.3 fL 9.5-12.9 11740-4) RDW-CV (test code = 19.5 % 12-15.5 H 788-0) RDW-SD (test code = 50.3 fL 39-49.9 H 47274-5) NRBC x10^3 (test code = <0.01 See_Comment [Au tomated message] 1988440465) The system [employer] generated this result transmit lennox reference range : 10*3/?L. The reference range was not used to interpret this result as normal/abnormal . NRBC/100 WBC (test code See_Comment [Au tomated message] = 1450320110) The system [employer] generated this result transmit lennox reference range : 0.0 - 10.0 /100 WBC s. The reference r rhina was not used to interpret this result as normal/abnormal . IPF % (test code = 5370269297) Lab Interpretation (test Abnormal code = 30175-0) [facility]CLOSTRIDIUM DIFFICILE [id number] 16:51:00 Test Item Value Reference Range Interpretation Comments Clostridioides (Clostridium) Negative Negative difficile (test code = 88032-3) Lab Interpretation (test code = Normal 24279-5) [facility] PEL[facility] COMPLETE WITH [id number] 14:26:14 A 2.9 cm left ovarian hemorrhagic cyst. Unremarkable uterus. Preliminary Report Dictated by Resident: Jose A Sood MD., have reviewed this study and agree [...] cyst.Unremarkable uterus. Preliminary Report Dictated by Resident: Poli Aburto, Jose A Sahu MD., have reviewed this study and agree with theabove report.[facility] (NA, K, CL, CO2, GLUCOSE, BUN, CREATININE, CA)2020-03-22 10:48:00 Test Item Value Reference Range Interpretation Comments NA (test code = 137 mmol/L 135-145 3589205648) K (test code = 3.9 mmol/L 3.5-5 5375576514) CL (test code = 107 mmol/L 98-108 0499557554) CO2 TOTAL (test code = 22 mmol/L 23-31 L 8010813513) AGAP (test code = 2-16 4222554441) BUN (test code = <2 7-23 L 4380023631) GLUCOSE (test code = 83 mg/dL 70-110 8307078161) CREATININE (test code = 0.64 mg/dL 0.5-1.04 5914343307) CALCIUM (test code = 9.0 mg/dL 8.6-10.6 0282461163) eGFR Calculation mL/min/1.73m2 (Non-) (test code = 5113821929) eGFR Calculation mL/min/1.73m2 () (test code = 0103476530) YOANA (test code = YOANA) Association of [...] tests). Lab Interpretation Abnormal (test code = 29350-0) [facility] WITHOUT [id number] 10:29:00 Test Item Value Reference Range Interpretation Comments WBC (test code = See_Comment [Automated message] 6690-2) The system [employer] generated this result transmitted ref erence range: 4.30 - 1 1.10 10*3/?L. The reference range was not used to int erpret this result as normal/abnormal . RBC (test code = 789-8) See_Comment L [Au tomated message] The system [employer] generated this result transmitted ref erence range: [...] 777-3) See_Comment [Au tomated message] The system [employer] generated this result transmitted ref erence range: 166 - 35 8 10*3/?L. The reference range was not used to int erpret this result as normal/abnormal . MPV (test code = 11.3 fL 9.5-12.9 57254-5) RDW-CV (test code = 19.4 % 12-15.5 H 788-0) RDW-SD (test code = 49.6 fL 39-49.9 07409-8) NRBC x10^3 (test code = <0.01 See_Comment [Au tomated message] 2277820858) The system [employer] generated this result transmitted ref erence range: 10*3/?L. The reference range was not used to int erpret this result as normal/abnormal . NRBC/100 WBC (test code See_Comment [Au tomated message] = 1950339650) The system [employer] generated this result transmitted ref erence range: 0.0 - 10 .0 /100 WBCs. The reference range was not used to int erpret this result as normal/abnormal . IPF % (test code = 9.0 % 1.3-7.7 H Platelet count 6059729636) measured by fluorescence me thod. Lab Interpretation Abnormal (test code = 27065-7) [facility]IS2020-08-20 10:13:00 Test Item Value Reference Range Interpretation Comments APPEARANCE (test code = Clear Clear 6812479783) COLOR (test code = Straw Yellow A 7844490402) PH (test code = 4.8-8.0 8933173287) SP GRAVITY (test code = 1.003-1.030 8792641459) GLU U QUAL (test code = Normal Normal 6386974526) BLOOD (test code = Negative Negative 1680056702) KETONES (test code = Negative Negative 0325751794) PROTEIN (test code = Negative Negative 2887-8) UROBILIN (test code = Normal Normal 2099807049) BILIRUBIN (test code = Negative Negative 4650288802) NITRITE (test code = Negative Negative 3257133229) LEUK ALCON (test code = Negative Negative 3470432015) RBC/HPF (test code = <1 See_Comment [Autom ated message] 3618243659) The system [employer] generated this result transmitted ref erence range: 0 - 3 HP F. The reference range was not used to int erpret this result as normal/abnormal . WBC/HPF (test code = See_Comment [Autom ated message] 3966043232) The system [employer] generated this result transmitted ref erence range: 0 - 5 HP F. The reference range was not used to int erpret this result as normal/abnormal . BACTERIA (test code = Negative Negative 2963109716) SQ EPITH (test code = <1 See_Comment [Auto mated message] 2087291464) The system [employer] generated this result transmitted ref erence range: <=2 HPF. The reference range was not used to int erpret this result as normal/abnormal . Lab Interpretation (test Abnormal code = 64178-6) [facility] HospitalIRO [id number] 00:51:00 Test Item Value Reference Range Interpretation Comments IRON (test code = 6564835924) 74 ug/dL 50-160 TIBC (test code = 9842786126) 411 ug/dL 250-410 H % FE SAT (test code = 5411332719) 18 % 20-50 L Lab Interpretation (test code = Abnormal 57971-3) [facility] WITHOUT [id number] 23:58:00 Test Item Value Reference Range Interpretation Comments WBC (test code = 6690-2) See_Comment [A utomated message] The system [employer] generated this result transmit lennox reference range : 4.30 - 11.10 10*3/?L. The reference range was not used to interpret this result as normal/abnormal . RBC (test code = 789-8) See_Comment [Au tomated message] The system [employer] generated this result transmit lennox reference range [...] 777-3) See_Comment [Au tomated message] The system [employer] generated this result transmit lennox reference range : 166 - 358 10*3/?L. The reference range was not used to interpret this result as normal/abnormal . MPV (test code = 11.6 fL 9.5-12.9 31438-6) RDW-CV (test code = 19.0 % 12-15.5 H 788-0) RDW-SD (test code = 49.3 fL 39-49.9 93627-5) NRBC x10^3 (test code = <0.01 See_Comment [Au tomated message] 6510949870) The system [employer] generated this result transmit lennox reference range : 10*3/?L. The reference range was not used to interpret this result as normal/abnormal . NRBC/100 WBC (test code See_Comment [Au tomated message] = 0314369224) The system [employer] generated this result transmit lennox reference range : 0.0 - 10.0 /100 WBC s. The reference r rhina was not used to interpret this result as normal/abnormal . IPF % (test code = 9470371955) Lab Interpretation (test Abnormal code = 31730-8) [facility] HospitalCT ABDOMEN PELVIS W [id number] 19:51:50 1. ?No acute abnormality identified in [...] EXAM INFORMATION: Outside study was performed at [facility] on 03/21/[address] [...] pain.EXAM INFORMATION: Outside study was performed at [facility] on 03/21/[address] at [address] [...] measuring up to 2.9 cm. Favored to representhydrosalpinx.[facility] HospitalFERRITIN [id number] 18:24:00 Test Item Value Reference Range Interpretation Comments FERRITIN (test code = 3.7 ng/mL 6-137 L 5395099680) YOANA (test code = YOANA) Biotin has been reported to cause a negative bias, interpret results relative to patient's use of biotin. Lab Interpretation (test Abnormal code = 80356-7) [facility] HospitalC-REACTIVE [id number] 17:10:00 Test Item Value Reference Range Interpretation Comments CRP (test code = 0924885347) 0.3 mg/dL <0.8 Lab Interpretation (test code = Normal 68353-0) [facility] HospitalaPTT2020-08-19 16:13:00 Test Item Value Reference Range Interpretation Comments APTT Patient (test code = See_Comment [ Automated message] 3173-2) The system [employer] generated this result transmitted ref erence range: 26 - 36 Seconds. The re ference range was not u sed to interpret this result as normal/abnor mal. Lab Interpretation (test Normal code = 34163-4) [facility] HospitalSEDIMENTATION [id number] 15:45:00 Test Item Value Reference Range Interpretation Comments ESR (test code = See_Comment [Automated message] 7888036063) The system [employer] generated this result transmitted ref erence range: 0 - 20 m m/HR. The reference r rhina was not used to interpret this result as normal/abnor mal. Lab Interpretation (test Normal code = 78766-2) [facility] HospitalType and Screen - ONCE [id number] 15:17:36 Test Item Value Reference Range Interpretation Comments ABO & RH (test code O NEGATIVE Performe d at [facility] = 20) Laboratory Serv [facility] [address] [facility] [address]Drot Free: [phone] A No. [id number] IAT (test code = Negative Performed a t [facility] 1185) Laboratory Serv [facility] [address] [facility] [address] [address]Xsem Free: [phone] A No. [id number] [facility] HospitalPROTHROMBIN TIME / [id number] 15:16:00 Test Item Value Reference Range Interpretation Comments PROTIME PATIENT (test See_Comment [Auto mated message] code = 5964-2) The system [employer] generated this result transmitted ref erence range: 10.1 - 1 2.6 Seconds. The re ference range was not u sed to interpret this result as normal/abnor mal. INR (test code = 6301-6) Nor mal INR <1.1; Warfarin Therap eutic range 2.0 to 3. 0 or 2.5 to 3.5, dep ending upon the indica tions. Lab Interpretation (test Normal code = 28127-2) [facility] (NA, K, CL, CO2, GLUCOSE, BUN, CREATININE, CA)2020-03-21 15:08:00 Test Item Value Reference Range Interpretation Comments NA (test code = 136 mmol/L 135-145 7114098710) K (test code = 3.5 mmol/L 3.5-5 9214540078) CL (test code = 110 mmol/L 98-108 H 5170527555) CO2 TOTAL (test code = 20 mmol/L 23-31 L 2217509166) AGAP (test code = 2-16 6551269441) BUN (test code = 3 mg/dL 7-23 L 4268017383) GLUCOSE (test code = 100 mg/dL 70-110 3703094218) CREATININE (test code = 0.57 mg/dL 0.5-1.04 6387284842) CALCIUM (test code = 8.2 mg/dL 8.6-10.6 L 8076968291) eGFR Calculation mL/min/1.73m2 (Non-) (test code = 6755265211) eGFR Calculation mL/min/1.73m2 () (test code = 7652602160) YOANA (test code = YOANA) Association of [...] tests). Lab Interpretation Abnormal (test code = 91996-8) [facility] (ALB,T.PRO,BILI T,BU/BC,ALT,AST,ALK PHOS)2020-03-21 15:08:00 Test Item Value Reference Range Interpretation Comments TOTAL BILI (test code = 3865008204) 0.3 mg/dL 0.1-1.1 BILI UNCON (test code = 7883063062) 0.6 mg/dL 0.1-1.1 BILI CONJ (test code = 4083345946) 0.0 mg/dL 0-0.3 T PROTEIN (test code = 5030511013) 6.7 g/dL 6.3-8.2 ALBUMIN (test code = 0468738858) 3.7 g/dL 3.5-5 ALK PHOS (test code = 6705827614) 51 U/L 34-122 ALTv (test code = 1742-6) 9 U/L 5-35 AST(SGOT) (test code = 3353831618) 20 U/L 13-40 Lab Interpretation (test code = Normal 01307-4) [facility] WITH [id number] 14:47:00 Test Item Value Reference Range Interpretation Comments WBC (test code = See_Comment [Automated 8790-2) message] The sy stem which generated this result transmitted reference range : 4.30 - 11.10 10*3/?L. The reference range was not used to interpret this result as normal/abnormal . RBC (test code = See_Comment L [Automated 209-8) message] The sy stem which generated this [...] (test code = 51.0 fL 39-49.9 H 90233-9) RDW-CV (test code = 19.6 % 12-15.5 H 788-0) PLT (test code = See_Comment [Automated 777-3) message] The sy stem which generated this result transmitted reference range : 166 - 358 10*3/ ?L. The reference r rhina was not used to interpret this result as normal/abnormal . MPV (test code = 11.5 fL 9.5-12.9 19112-0) NRBC/100 WBC (test See_Comment [Automat ed code = 7928639478) message] The system which generated this result transmitted reference range : 0.0 - 10.0 /100 WBCs. The refer ence range was not u sed to interpret th is result as normal/abnormal . NRBC x10^3 (test code <0.01 See_Comment [Auto mated = 8463019048) message] The s ystem which generated this result transmitted reference range : 10*3/?L. The reference range was not used to interpret this result as normal/abnormal . GRAN MAT (NEUT) % 66.1 % (test code = 770-8) IMM GRAN % (test code 0.20 % = 1215270245) LYMPH % (test code = 25.2 % 736-9) MONO % (test code = 5.4 % 5905-5) EOS % (test code = 2.3 % 713-8) BASO % (test code = 0.8 % 706-2) GRAN MAT x10^3(ANC) 5.75 10*3/uL 1.88-7.09 (test code = 7545911801) IMM GRAN x10^3 (test <0.03 0-0.06 code = 5376339626) LYMPH x10^3 (test code 2.19 10*3/uL 1.32-3.29 = 731-0) MONO x10^3 (test code 0.47 10*3/uL 0.33-0.92 = 742-7) EOS x10^3 (test code = 0.20 10*3/uL 0.03-0.39 711-2) BASO x10^3 (test code 0.07 10*3/uL 0.01-0.07 = 704-7) Lab Interpretation Abnormal (test code = 38998-7) [facility]ID NOW RAPID TESTING)2020-03-21 13:51:00 Test Item Value Reference Range Interpretation Comments SARS-CoV-2 Rapid ID NOW Not Detected Not Detected (test code = 10215-3) YOANA (test code = YOANA) ID NOW COVID-19 Assay is an isothermal nucleic acid amplification test intended for the qualitative detection of nucleic acid from SARS-CoV-2 viral RNA in nasopharyngeal ([employer]) specimens. It is used under Emergency Use [...] indicated. Lab Interpretation Normal (test code = 83248-8) [facility]"
[2021-08-15] MEDS ORDERED: ONDANSETRON 4 MG/2 ML VIAL ONE (12:31)
[2021-08-15] MEDS ORDERED: MORPHINE 4 MG/ML SYR ONE (12:31)
[2021-08-15] MEDS ORDERED: NA CHLORIDE 0.9% 1,000 ML ONE (12:31)
[2021-08-15 13:08] LABS: Absolute Lymphocytes (CBC) 0.2 K/uL (0.7-4.9); Hematocrit 32.5 % (36.0-45.0); Lymphocytes % 4.2 % (15.3-44.8); MPV 9.2 fL (7.6-11.3); RBC Red Blood Cell Count 3.96 M/uL (3.86-4.86)
[2021-08-15 13:14] LABS: BUN Blood Urea Nitrogen 6 mg/dL (7-18); Bicarbonate 23 mmol/L (21-32); Glucose Level 103 mg/dL (74-106); Potassium 3.6 mmol/L (3.5-5.1); Sodium Level 138 mmol/L (136-145)
--- NOTE | 2021-08-15 13:24 | RAD REPORT ---
EXAM DESCRIPTION: CTAbdomen Pelvis W Contrast - 08/15/2021 1:02 pm CLINICAL HISTORY: ABD PAIN COMPARISON: Abdomen Pelvis W Contrast dated 09/09/2020; Abdomen Pelvis W Contrast dated 03/21/2020; Abdomen Pelvis W Contrast dated 08/01/2019; Abdomen Pelvis W Contrast dated 06/22/2019; Pelvis C omplete dated 09/09/2020; CT ABD PELVIS W CONTRAST dated 08/13/2015; CT ABD PELVIS W CONTRAST dated 2014 TECHNIQUE: CT of the abdomen and pelvis was performed. All CT scans are performed using dose optimization technique as appropriate and may include automated exposure control or mA/KV adjustment according to patient size. FINDINGS: Lower chest: No acute abnormality. Liver: No acute abnormality or suspicious lesions. Biliary: No biliary ductal dilatation. Stomach: No significant focal abnormality. Duodenum: No significant focal abnormality. Pancreas: No significant abnormality. Spleen: No significant abnormality. Adrenal: No suspicious lesions. Kidney/ureter: No hydronephrosis. No renal calculi. Retroperitoneum: No retroperitoneal adenopathy. Vascular: No aneurysm. Bowel: No significant focal abnormality. Peritoneum: Small cystic structure in the right lower quadrant measuring 2.7 is unchanged. This does appear separate from both ovaries. Portion of it has a tubular configuration which could represent th e right-sided fallopian tub. No appendix is identified which makes totally excluding and appendiceal origin difficult unless surgically absent. The finding is unchanged since 12/01/2014 and unlikely to be of clinical significance. Bladder: Grossly unremarkable. Reproductive: No adnexal masses. Bones: No acute fracture. Other: n/a IMPRESSION: No acute intra-abdominal or pelvic finding. Incidental findings as noted above.
[2021-08-15 13:38] LABS: Blood Morphology Comment NOT SEEN (NOT SEEN); Platelet Estimate ADEQ
--- NOTE | 2021-08-15 14:34 | EDPHYS ---
Physician Documentation [facility] Rui Name: Maribeth Arnulfo Age: 36 yrs Sex: Female : 1985 Arrival Date: 08/15/2021 Time: 12:16 Bed 26 Private MD: ED Physician Joseph Sotelo HPI: 08/15 12:24 This 36 yrs old Female presents to ER via EMS with complaints of Abdominal ma2 Pain, Anxiety. 12:24 The patient presents with abdominal pain. Onset: The symptoms/episode began/occurred ma2 gradually, 1 day(s) ago. Associated signs and symptoms: Pertinent negatives: anorexia, chest pain, diarrhea, fever, shortness of breath, vomiting. The symptoms are described as constant. Severity of pain: At its worst the pain was mild in the emergency department the pain is unchanged. The patient has not experienced similar symptoms in the past. Historical: - Allergies: 12:22 No Known Drug Allergies; bp - Home Meds: 12:22 lamotrigine Oral [Active]; Xanax 0.25 mg Oral tab 1 tab 3 times per day for Anxiety bp [Active]; - PMHx: 12:22 Anemia; Anxiety; Panic Attacks; PTSD; ulcerative colitis; bp - PSHx: 12:22 section; bp - Immunization history:: Adult Immunizations up to date. - Social history:: Smoking status: unknown Patient/guardian denies using alcohol, street drugs, The patient lives with family. - Family history:: not pertinent. ROS: 12:24 Constitutional: Negative for fever, chills, and weight loss. ma2 12:24 All other systems are negative. Exam: 12:24 Constitutional: This is a well developed, well nourished patient who is awake, alert, ma2 and in no acute distress. ENT: Nares patent. No nasal discharge, no septal abnormalities noted. Tympanic membranes are normal and external auditory canals are clear. Oropharynx with no redness, swelling, or masses, exudates, or evidence of obstruction, uvula midline. Mucous membranes moist. Neck: Trachea midline, no thyromegaly or masses palpated, and no cervical lymphadenopathy. Supple, full range of motion without nuchal rigidity, or vertebral point tenderness. No Meningismus. Chest/axilla: Normal chest wall appearance and motion. Nontender with no deformity. No lesions are appreciated. Cardiovascular: Regular rate and rhythm with a normal S1 and S2. No gallops, murmurs, or rubs. Normal PMI, no JVD. No pulse deficits. Respiratory: Lungs have equal breath sounds bilaterally, clear to auscultation and percussion. No rales, rhonchi or wheezes noted. No increased work of breathing, no retractions or nasal flaring. Abdomen/GI: Soft, non-tender, with normal bowel sounds. No distension or tympany. No guarding or rebound. No evidence of tenderness throughout. Skin: Warm, dry with normal turgor. Normal color with no rashes, no lesions, and no evidence of cellulitis. MS/ Extremity: Pulses equal, no cyanosis. Neurovascular intact. Full, normal range of motion. Neuro: Awake and alert, GCS 15, oriented to person, place, time, and situation. Cranial nerves II-XII grossly intact. Motor strength 5/5 in all extremities. Sensory grossly intact. Cerebellar exam normal. Normal gait. Vital Signs: 12:17 BP 140 / 85; Pulse 89; Resp 19; Temp 98.6; Pulse Ox 99% ; bp 13:30 BP 123 / 95; Pulse 70; Resp 16; Pulse Ox 100% ; bp 14:30 BP 131 / 73; Pulse 69; Resp 17; Pulse Ox 100% ; bp MDM: 12:20 Patient medically screened. ma2 14:31 Differential diagnosis: Endometriosis, gastritis, Hepatitis, Menorrhagia. Data ma2 reviewed: vital signs, nurses notes. Counseling: I had a detailed discussion with the patient and/or guardian regarding: the historical points, exam findings, and any diagnostic results supporting the discharge/admit diagnosis, the presence of at least one elevated blood pressure reading (>120/80) during this emergency department visit, lab results, radiology results, the need for outpatient follow up. Response to treatment: the patient's symptoms have markedly improved after treatment. ED course: Patient has fallopian tube cyst, all symptoms resolved, lab work unremarkable. 08/15 12:20 Order name: Basic Metabolic Panel wi2 08/15 12:20 Order name: CBC with Diff wi2 08/15 12:20 Order name: Hepatic Function wi2 08/15 12:20 Order name: Lipase [facility] 08/15 13:39 Order name: Manual Differential EDMS 08/15 14:23 Order name: CREATININE WHOLE BLOOD [facility] 08/15 12:20 Order name: IV Saline Lock; Complete Time: 12:51 ma2 08/15 12:20 Order name: Labs collected and sent; Complete Time: 12:51 wi2 08/15 12:24 Order name: CT Abd/Pelvis - IV Contrast Only; Complete Time: 13:39 ma2 Administered Medications: 12:45 Drug: morphine 4 mg Route: IVP; Site: right forearm; bp 15:01 Follow up: Response: Pain is decreased bp 12:45 Drug: Zofran (Ondansetron) 4 mg Route: IVP; Site: right forearm; bp 15:01 Follow up: Response: No adverse reaction bp 12:45 Drug: NS 0.9% 1000 ml Route: IV; Rate: 1 bolus; Site: right forearm; bp 15:01 Follow up: IV Status: Completed infusion; IV Intake: 1000ml bp Disposition Summary: 08/15/21 14:33 Discharge Ordered Location: Home ma2 Condition: Stable ma2 Diagnosis - Other and unspecified ovarian cysts - Fallopian tube cyst ma2 Followup: ma2 - With: Don Estrella MD - When: Tomorrow - Reason: Continuance of care Discharge Instructions: - Discharge Summary Sheet ma2 - Ovarian Cyst, [id number] ma2 Forms: - Medication Reconciliation Form ma2 - Thank You Letter ma2 - Antibiotic Education ma2 - Prescription Opioid Use ma2 Prescriptions: - Diclofenac Sodium 75 mg Oral Tablet Sustained Release - take 1 tablet by ORAL route 2 times per day; 30 tablet; Refills: 0, Product ma2 Selection Permitted Signatures: Dispatcher [employer] Bala Jo, RN RN bp Joseph Sotelo MD MD ma2 Corrections: (The following items were deleted from the chart) 15:02 12:20 Urine Dipstick-Ancillary ordered. ma2 bp
--- NOTE | 2021-08-15 14:34 | ER ---
Nurse's Notes [facility] Rui Name: Maribeth Arredondo Age: 36 yrs Sex: Female : 1985 Arrival Date: 08/15/2021 Time: 12:16 Bed 26 Private MD: Diagnosis: Other and unspecified ovarian cysts-Fallopian tube cyst Presentation: 08/15 12:17 Chief complaint: EMS states: LUMBAR AND ABDOMINAL PAIN. Coronavirus screen: At this bp time, the client does not indicate any symptoms associated with coronavirus-19. Ebola Screen: No symptoms or risks identified at this time. Initial Sepsis Screen: Does the patient meet any 2 criteria? No. Patient's initial sepsis screen is negative. Does the patient have a suspected source of infection? No. Patient's initial sepsis screen is negative. Risk Assessment: Do you want to hurt yourself or someone else? Patient reports no desire to harm self or others. Onset of symptoms is unknown. Care prior to arrival: Glucose check: 103. 12:17 Method Of Arrival: EMS: [facility] bp 12:17 Acuity: SINGH 3 bp Triage Assessment: 12:22 General: Appears distressed, uncomfortable, obese, Behavior is cooperative, appropriate bp for age, anxious. Pain: Complains of pain in right lower quadrant and left lower quadrant. EENT: No deficits noted. Neuro: No deficits noted. Cardiovascular: No deficits noted. Respiratory: No deficits noted. GI: Abdomen is obese, Abdomen is tender to palpation in right lower quadrant and left lower quadrant. GI: Parent/caregiver reports the patient having nausea, vomiting. : Reports vaginal bleeding that is. Derm: No deficits noted. Musculoskeletal: No deficits noted. Historical: - Allergies: 12:22 No Known Drug Allergies; bp - Home Meds: 12:22 lamotrigine Oral [Active]; Xanax 0.25 mg Oral tab 1 tab 3 times per day for Anxiety bp [Active]; - PMHx: 12:22 Anemia; Anxiety; Panic Attacks; PTSD; ulcerative colitis; bp - PSHx: 12:22 section; bp - Immunization history:: Adult Immunizations up to date. - Social history:: Smoking status: unknown Patient/guardian denies using alcohol, street drugs, The patient lives with family. - Family history:: not pertinent. Screenin:30 Abuse screen: Denies threats or abuse. Denies injuries from another. Nutritional bp screening: No deficits noted. Tuberculosis screening: No symptoms or risk factors identified. Fall Risk None identified. Assessment: 12:30 General: SEE TRIAGE NOTE. bp 13:30 GI: Bowel sounds present X 4 quads. bp 14:54 Reassessment: PT D/C HOME AMBULATORY, DX WITH FALLOPIAN CYST. bp Vital Signs: 12:17 BP 140 / 85; Pulse 89; Resp 19; Temp 98.6; Pulse Ox 99% ; bp 13:30 BP 123 / 95; Pulse 70; Resp 16; Pulse Ox 100% ; bp 14:30 BP 131 / 73; Pulse 69; Resp 17; Pulse Ox 100% ; bp ED Course: 12:16 Patient arrived in ED. bp 12:20 Joseph Sotelo MD is Attending Physician. ma2 12:21 Triage completed. bp 12:22 Arm band placed on. bp 12:45 Inserted saline lock: 22 gauge in right forearm, using aseptic technique. Blood bp collected. 13:01 CT Abd/Pelvis - IV Contrast Only In Process Unspecified. EDMS 13:30 No provider procedures requiring assistance completed. IV discontinued, intact, bp bleeding controlled, No redness/swelling at site. Pressure dressing applied. 13:30 Patient has correct armband on for positive identification. Bed in low position. Call bp light in reach. Side rails up X2. 13:36 Bala Phelps, SABRINA is Primary Nurse. bp 14:32 Don Estrella MD is Referral Physician. ma2 Administered Medications: 12:45 Drug: morphine 4 mg Route: IVP; Site: right forearm; bp 15:01 Follow up: Response: Pain is decreased bp 12:45 Drug: Zofran (Ondansetron) 4 mg Route: IVP; Site: right forearm; bp 15:01 Follow up: Response: No adverse reaction bp 12:45 Drug: NS 0.9% 1000 ml Route: IV; Rate: 1 bolus; Site: right forearm; bp 15:01 Follow up: IV Status: Completed infusion; IV Intake: 1000ml bp Intake: 15:01 IV: 1000ml; Total: 1000ml. bp Outcome: 13:30 Discharged to home ambulatory. bp 13:30 Condition: stable 13:30 Discharge instructions given to patient, Instructed on discharge instructions, follow up and referral plans. medication usage, Demonstrated understanding of instructions, follow-up care, medications, Prescriptions given X 1. 14:33 Discharge ordered by . ashley 15:03 Patient left the ED. bp Signatures: Dispatcher [employer] Bala Jo, RN RN Joseph Whitley, MD MD ramirez
[2021-08-15 15:18] VITALS: TEMP 98.6
[2021-08-15 15:19] VITALS: O2SAT 100
[2021-08-15 15:20] VITALS: BP 131/73
[2021-08-15 17:34] LABS: ALT/SGPT 13 U/L (12-78); AST/SGOT 9 U/L (15-37); Albumin 3.9 g/dL (3.4-5.0); Alkaline Phosphatase 62 U/L (45-117); Bilirubin Direct < 0.1 mg/dL (0-0.2); Bilirubin Total 0.2 mg/dL (0.2-1.0); Lipase 93 U/L (73-393); Protein, Total 7.7 g/dL (6.4-8.2)
== END 2021-08-15 15:03 | disposition home or self-care (01) ==
LOC: ER 12:13
DX: N83.209 Unspecified ovarian cyst, unspecified side (principal); N83.8 Other noninflammatory disorders of ovary, fallopian tube and broad ligament
CPT/HCPCS: 96361; 85025; 80048; 36415; 82565; 80076; 83690; 74177; 96375; 96374; 99284; Q9967; J7030; J2405

== ENCOUNTER 2022-12-08 02:31 | Emergency (ER) | payer OTHER ==
--- OUTSIDE RECORDS SUMMARY | 2022-12-08 02:38 | XMS REPORT | Continuity of Care Document ---
:1985 Author Organization [facility] t Address [address] [place] [address] [place] [id number] Care Team Providers Name Role Phone PCP, PATIENT DOES NOT HAVE A Primary Care Physician UnavailYVROSE Dela Cruz Attending Clinician Unavailable DAVID Attending Clinician Unavailable CARLTON DENNISYA S Attending Clinician Unavailable Carlton Noriegaya S Attending Clinician GATITOREENLEONIDAS Attending Clinician Unavailable Lina BENNETT, Bo Gay Attending Clinician Unavailable Yana Qiu Attending Clinician Andrew Lizama MD Attending Clinician Kg Mijares MD Attending Clinician Doctor Unassigned, [place] Attending Clinician Unavailable Nitesh Carbajal MD Attending Clinician KG MIJARES Attending Clinician Unavailable Yvrose Velázquez MD Attending Clinician [phone] Segundo Landry MD, Audrey Sibley Attending Clinician Wilder Beckman MD Attending Clinician WILDER BECKMAN Admitting Clinician Unavailable DAVID Admitting Clinician Unavailable DENNIS, GAB S Admitting Clinician Unavailable TAMMIVictor Hugo Admitting Clinician Unavailable Alda HILL, Andrew Admitting Clinician Adelina HILL, Wilder Noland Admitting Clinician Payers Payer Name Policy Type Policy Number Effective Date Expiration Date Mohamud locke [facility] [id number] 2020 DUAL COMPLETE HMO 00:00:00 [facility] STAR PLUS [id number] 2017 00:00:00 MEDICAID [facility] [id number] 2017 00:00:00 MEDICARE PART A \\T\\ [id number] 2017 B 00:00:00 [employer] - [id number] 2020 [facility] 00:00:00 (MEDICARE REPLACEMENT/ADVANTA GE - HMO) [facility] [id number] 2017 COMMUNITY [place]AN-[place] - 00:00:00 STAR+PLUS (MEDICAID REPLACEMENT - HMO) [employer] - [facility] [id number] - COMMUNITY PLAN - DUAL COMPLETE FOCUS (MEDICARE REPLACEMENT HMO) [facility] [id number] PLAN - DUAL COMPLETE - SNP PLAN (MEDICARE REPLACEMENT HMO) [employer] - MEDICARE [id number] COMPLETE (MEDICARE REPLACEMENT HMO) [place]: [id number] 2017 NOVMiaoyushang - 00:00:00 [facility] Problems Condition Condition Condition Status Onset Resolution [...] type automatic ally from request for surgery [id number] Symptomati Symptomati Disease Active 2017-08 U nivers [...] pain Formattin ity of g of this [place] note Medical might be Branch different from the original. chronic abdominal pain, chronic left leg pain Anxiety Anxiety Disease Active Univers ity of [facility] Esophageal Esophageal Disease Active U nivers reflux reflux ity of [facility] HTN HTN Disease Active Univers (hypertens (hypertens it y of ion) ion) [facility] Obesity Obesity Disease Active Univers ity of [facility] Allergies, Adverse Reactions, Alerts Allergy Allergy Status Severity Reaction(s) Onset Inactive Treating Comm ents Source Name Type Date Date Clinician NO KNOWN Drug Active Univers ALLERGIE Class ity of [place] [facility] Social History Social Habit Start Date Stop Date Quantity Comments Source Exposure to Unable to assess Univers ity of SARS-CoV-2 [place] Medical (event) Branch Alcohol intake 2021-11-19 2021-11-19 Current [facility] 00:00:00 00:00:00 non-drinker of [facility] alcohol Branch (finding) Tobacco use and 2016-12-04 2016-12-04 Never used Universit y of exposure 00:00:00 00:00:00 [facility] Sex Ass[birth year] At [birth year] Universit y of 00:00:00 00:00:00 [facility] Smoking Status Start Date Stop Date Source Never smoker [facility] Medications Ordered Filled Start Stop Current Ordering Indication Dosage Frequency Signature Comments Components Source Medication Medication Date Date Medication? Clinician (SIG) Name Name ondansetron 2022-0 2022- No 4mg 4 mg, Slow Univers (ZOFRAN 11-19 IV Push, ity of (PF)) 23:00: 22:08 ONCE, 1 [place] injection 4 00 :00 dose, On Medi chun mg [facility] 11/19/21 at 1800, MEL methocarbam 2021- No 1500mg 1,500 mg, Univers oL 11-19 Oral, ity of (ROBAXIN) 23:00: 22:07 ONCE, 1 [place] tablet 00 :[place] dose, On Medical 1,500 mg [facility] 11/19/21 at 1800, Routine morpHINE 2021- No 4mg 4 mg, Slow Un zoran injection 4 11-19 IV Push, ity of mg 23:00: 22:08 ONCE, 1 [place] 00 :00 dose, On Medical [facility] 11/19/21 at 1800, STAT sodium Yes 5mL 5 mL, Univers chloride 11-19 Intravenou ity o f (NS) 21:25: s, PRN, [place] injection 5 53 Starting Medi chun mL on [facility] 11/19/21 at 1625, Until Discontinu ed, Routine, IV line flushing traMADoL 50 Yes [id number] 50mg Take 1 Univ ers mg tablet 11-19 tablet by ity o f 00:00: mouth [place] 00 every 6 Medical (six) Branch hours as needed for Pain (scale 7-10). Indication s: acute pain methocarbam Yes [id number] Take 1-2 Univers oL 750 mg 4-19 tablets ity of tablet 00:00: every 8 [place] 00 hours as Medical needed for Branch back pain LORazepam 2020- No .5mg 0.5 mg, Univ ers (ATIVAN) 04-28 09-26 Slow IV ity of injection 13:00: 11:56 Push, [place] 0.5 mg 00 :00 ONCE, 1 Medical dose, On Branch 04/28/21 at 0800, Routine ALPRAZolam Yes 2mg Take 2 mg Un zoran 2 mg tablet 04-28 by mouth 2 it y of 07:51: (two) [place] 49 times Medical daily. Branch docusate Yes 100mg Take 100 Univ ers 100 mg 9-26 mg by ity of capsule 07:51: mouth. [address] Lamotrigine Yes Take by Uni vers 25 mg TbDL - mouth 2 ity of 07:51: (two) [place] [address] times Medical daily. Branch ALPRAZolam Yes 2mg Take 2 mg Un zoran 2 mg tablet - by mouth 2 it y of 07:51: (two) [place] 49 times Medical daily. Branch docusate Yes 100mg Take 100 Univ ers 100 mg 9-26 mg by ity of capsule 07:51: mouth. [address] Lamotrigine Yes Take by Uni vers 25 mg TbDL - mouth 2 ity of 07:51: (two) [place] 49 times Medical daily. Branch ALPRAZolam Yes 2mg Take 2 mg Un zoran 2 mg tablet - by mouth 2 it y of 07:51: (two) [place] 49 times Medical daily. Branch docusate Yes 100mg Take 100 Univ ers 100 mg -26 mg by ity of capsule 07:51: mouth. [address] Lamotrigine Yes Take by Uni vers 25 mg TbDL - mouth 2 ity of 07:51: (two) [place] [address] times Medical daily. Branch acetaminoph Yes 1{tbl} 1 tablet, Univers en-codeine - Oral, ity of (TYLENOL 04:49: BIDPRN, [place] #3) 300-30 37 Starting Medic al mg tablet 1 on Sat Branch tablet 04/27/21 at 2349, Until Discontinu ed, Routine, Pain (scale 1-3), Pain (scale 4-6), Pain (scale 7-10) ferrous Yes [id number] 325mg Take 1 Uni vers sulfate 325 9-26 tablet by ity of mg (65 mg 00:00: mouth 3 [place] iron) 00 (three) Medical tablet times Branch daily with meals. ferrous Yes [id number] 325mg Take 1 Uni vers sulfate 325 9-26 tablet by ity of mg (65 mg 00:00: mouth 3 [place] iron) 00 (three) Medical tablet times Branch daily with meals. ferrous Yes [id number] 325mg Take 1 Uni vers sulfate 325 9-26 tablet by ity of mg (65 mg 00:00: mouth 3 [place] iron) 00 (three) Medical tablet times Branch daily with meals. KCL 20 mEq No [id number] 20meq Take 1 Univers tablet 04-28 10-04 tablet by ity of 00:00: 04:59 mouth [place] 00 :00 daily for Medical 7 days. Branch KCL 20 mEq No [id number] 20meq Take 1 Univers tablet 04-28 10- tablet by ity of 00:00: 04:59 mouth [place] 00 :00 daily for Medical 7 days. Branch iron No 300mg 300 mg, IV Unive rs sucrose 04-27 Infusion, ity of (VENOFER) 15:45: 13:59 DAILY, [place] 300 mg in 00 :00 Administer Medi chun NaCl 0.9% over 4 Branch (NS) 250 mL Hours, infusion First dose on [facility] 04/27/21 at 1045, For 3 doses KCL No 40meq 40 mEq, Univers (KLOR-CON 04-27 Oral, ity of M20) tablet 15:30: 18:52 ONCE, 1 [place] 40 mEq 00 :00 dose, On Medical Sat [place] 04/27/21 at 1030, Routine traMADoL No 50mg 50 mg, Univer s (ULTRAM) 04-27 Oral, ity of tablet 50 12:45: 14:30 ONCE, 1 [place] mg 00 :00 dose, On Medical Sat [place] 04/27/21 at 0745, Routine docusate Yes 100mg 100 mg, Unive rs (COLACE) 04-27 Oral, BID, ity o f capsule 100 04:15: First dose [place] mg 00 on Fri Medical 04/26/21 at Branch 2315, Until Discontinu ed, Routine ALPRAZolam Yes 2mg 2 mg, Univer s (XANAX) 04-27 Oral, BID, ity of tablet 2 mg 04:15: First dose [place] 00 on Fri Medical 04/26/21 at Branch 2315, Until Discontinu ed, Routine lamoTRIgine Yes 25mg 25 mg, Univ ers (LAMICTAL) 25 Oral, BID, ity of tablet 25 04:15: First dose [place] mg 00 on Fri Medical 04/26/21 at Branch 2315, Until Discontinu ed ondansetron Yes 4mg 4 mg, Slow Univers (ZOFRAN 04-27 IV Push, ity of (PF)) 04:12: Q6HPRN, [place] injection 4 39 Starting Medi chun mg on Thu Branch 04/26/21 at 2312, Until Discontinu ed, Routine, Nausea and Vomiting (N/V) traZODone Yes 50mg 50 mg, Univer s (DESYREL) 04-27 Oral, ity of tablet 50 04:11: QHSPRN, [place] mg 23 Starting Medical on Thu Branch 04/26/21 at 2311, Until Discontinu ed, Routine, Insomnia morpHINE 2020- No 4mg 4 mg, Slow Un zoran injection 4 04-27 IV Push, ity of mg 01:15: 00:38 ONCE, 1 [place] 00 :00 dose, On Medical [facility] Branch 04/26/21 at 2015, STAT iopamidol 2020- No [id number] 120mL 120 mL, Univers (ISOVUE 04-26 Intravenou ity o f 370-500 mL) 23:46: 23:46 s, ONCE, 1 [place] injection 00 :00 dose, On Medica l 120 mL [facility] 04/26/21 at 1900, Routine ondansetron 2020- No [...] :00 ONCE, 1 Medical dose, On Branch [facility] 04/26/21 at 1800, MEL
Fa culty member approving Restricted medication : EMERGENCY ROOM, NaCl 0.9% 2020- No 1000mL at 999 Uni vers (NS) bolus 04-26 09-25 mL/hr, ity of infusion 22:30: 00:04 1,000 mL, [place] as 1,000 mL 00 :00 IV Medical Piggyback, [place] ONCE, 1 dose, On Thu04/26/21 at 1730, STAT pantoprazol 2019-0 Yes [id number] 40mg Take 1 Univers e 40 mg EC 8-23 tablet by ity of tablet 00:00: mouth [place] 00 daily. Medical Branch pantoprazol 2019-0 Yes [id number] 40mg Take 1 Univers e 40 mg EC 8-23 tablet by ity of tablet 00:00: mouth [place] 00 daily. Medical Branch pantoprazol 2019-0 Yes [id number] 40mg Take 1 Univers e 40 mg EC 8-23 tablet by ity of tablet 00:00: mouth [place] 00 daily. Medical Branch pantoprazol 2019-0 Yes [id number] 40mg Take 1 Univers e 40 mg EC 8-23 tablet by ity of tablet 00:00: mouth [place] 00 daily. Medical Branch pantoprazol 2019-0 Yes [id number] 40mg Take 1 Univers e 40 mg EC 8-23 tablet by ity of tablet 00:00: mouth [place] 00 daily. Medical Branch pantoprazol 2019-0 Yes [id number] 40mg Take 1 Univers e 40 mg EC 8-23 tablet by ity of tablet 00:00: mouth [place] 00 daily. Medical Branch pantoprazol 2019-0 Yes [id number] 40mg Take 1 Univers e 40 mg EC 8-23 tablet by ity of tablet 00:00: mouth [place] 00 daily. Medical Branch pantoprazol 2019-0 Yes [id number] 40mg Take 1 Univers e 40 mg EC 8-23 tablet by ity of tablet 00:00: mouth [place] 00 daily. Medical Branch pantoprazol 2019-0 Yes [id number] 40mg Take 1 Univers e 40 mg EC 8-23 tablet by ity of tablet 00:00: mouth [place] 00 daily. Medical Branch ALPRAZolam 2019-0 Yes 2mg Take 2 mg Un zoran 2 mg tablet 8-22 by mouth 2 it y of 19:52: (two) [place] 23 times Medical daily. Branch docusate 2019-0 Yes 100mg Take 100 Univ ers 100 mg 8-22 mg by ity of capsule 19:52: mouth. [place] 23 Medical Branch Lamotrigine 2020-0 Yes Take by Uni vers 25 mg TbDL 8-22 mouth 2 ity of 19:52: (two) [place] 23 times Medical daily. Branch ALPRAZolam 2020-0 Yes 2mg Take 2 mg Un zoran 2 mg tablet 8-22 by mouth 2 it y of 19:52: (two) [place] 23 times Medical daily. Branch docusate 2020-0 Yes 100mg Take 100 Univ ers 100 mg 8-22 mg by ity of capsule 19:52: mouth. [place] [facility] Branch Lamotrigine 2020-0 Yes Take by Uni vers 25 mg TbDL 8-22 mouth 2 ity of 19:52: (two) [place] 23 times Medical daily. Branch ALPRAZolam 2020-0 Yes 2mg Take 2 mg Un zoran 2 mg tablet 8-22 by mouth 2 it y of 19:52: (two) [place] 23 times Medical daily. Branch docusate 2020-0 Yes 100mg Take 100 Univ ers 100 mg 8-22 mg by ity of capsule 19:52: mouth. [place] [facility] Branch Lamotrigine 2020-0 Yes Take by Uni vers 25 mg TbDL 8-22 mouth 2 ity of 19:52: (two) [place] 23 times Medical daily. Branch ALPRAZolam 2020-0 Yes 2mg Take 2 mg Un zoran 2 mg tablet 8-22 by mouth 2 it y of 19:52: (two) [place] 23 times Medical daily. Branch docusate 2020-0 Yes 100mg Take 100 Univ ers 100 mg 8-22 mg by ity of capsule 19:52: mouth. [place] [address] Medical Branch Lamotrigine 2020-0 Yes Take by Uni vers 25 mg TbDL 8-22 mouth 2 ity of 19:52: (two) [place] 23 times Medical daily. Branch ALPRAZolam 2020-0 Yes 2mg Take 2 mg Un zoran 2 mg tablet 8-22 by mouth 2 it y of 19:52: (two) [place] 23 times Medical daily. Branch docusate 2020-0 Yes 100mg Take 100 Univ ers 100 mg 8-22 mg by ity of capsule 19:52: mouth. [place] [facility] Branch Lamotrigine 2020-0 Yes Take by Uni vers 25 mg TbDL 8-22 mouth 2 ity of 19:52: (two) [place] 23 times Medical daily. Branch ALPRAZolam 2020-0 Yes 2mg Take 2 mg Un zoran 2 mg tablet 8-22 by mouth 2 it y of 19:52: (two) [place] 23 times Medical daily. Branch docusate 2020-0 Yes 100mg Take 100 Univ ers 100 mg 8-22 mg by ity of capsule 19:52: mouth. [place] 23 Medical Branch Lamotrigine 2020-0 Yes Take by Uni vers 25 mg TbDL 8-22 mouth 2 ity of 19:52: (two) [place] 23 times Medical daily. Branch ferrous 2020-0 Yes 325mg 325 mg, Univer s sulfate 8-22 Oral, TID ity of tablet 325 17:00: MEALS, [place] mg 00 First dose Medical on Sat Branch 03/24/20 at 1200, Until Discontinu ed, Routine pantoprazol 2020-0 Yes 40mg 40 mg, Univ ers e 8-22 Oral, ity of (PROTONIX) 14:00: DAILY, [place] EC tablet 00 First dose Medi chun 40 mg (after Branch last modificati on) on 03/24/20 at 0900, Until Discontinu ed, Routine acetaminoph 2020-0 Yes [id number] 1{tbl} Take 1 Un zoran en-codeine 8-22 tablet by ity of 300-30 mg 00:00: mouth [place] tablet 00 every 6 Medical (six) Branch hours as needed for Pain (scale 7-10). Indication s: acute pain ferrous 2020-0 Yes [id number] 325mg Take 1 Uni vers sulfate 325 [...] Indication s: acute pain ferrous 2020-0 Yes [id number] 325mg Take 1 Uni vers sulfate 325 [...] Indication s: acute pain ferrous 2020-0 Yes [id number] 325mg Take 1 Uni vers sulfate 325 [...] Indication s: acute pain ferrous 2020-0 Yes [id number] 325mg Take 1 Uni vers sulfate 325 [...] Indication s: acute pain ferrous 2020-0 Yes [id number] 325mg Take 1 Uni vers sulfate 325 [...] (scale 7-10). Indication s: acute pain acetaminoph Yes [id number] 1{tbl} Take 1 Un zoran en-codeine 8-22 tablet by ity of 300-30 mg 00:00: mouth [place] tablet 00 every 6 Medical (six) Branch hours as needed for Pain (scale 7-10). Indication s: acute pain ferrous 2019- Yes [id number] 325mg Take 1 Uni vers sulfate 325 8-22 tablet by ity of mg (65 mg 00:00: mouth 3 [place] iron) 00 (three) Medical tablet times Branch daily with meals. ferrous 2020- No [id number] 325mg Take 1 Un zoran sulfate 325 8-24 04-26 tablet by it y of mg (65 mg 00:00: 00:00 mouth 3 [place] iron) 00 :00 (three) Medical tablet times Branch daily with meals. peg-electro 2019- No 2000mL 2,000 mL, [facility] 03-23 Oral, ity of (GOLYTELY) 09:00: 09:20 PRE-PROCED [place] [id number]-.74- 00 :00 URE ONCE, Med ical .74 -5.86 1 dose, Branch gram Starting solution Fri 2,000 mL 03/23/20 at 0400, Until Discontinu ed, Routine, Bowel Prep, Bowel Prep for Colonoscop y peg-electro 2019- No 2000mL 2,000 mL, [facility] 03-22 Oral, ity of (GOLYTELY) 22:30: 02:23 PRE-PROCED [place] [id number]- 00 :00 URE ONCE, Med ical .74 -5.86 1 dose, Branch gram Starting solution Laya 2,000 mL 03/22/20 at 1730, Until [place] 03/22/20 at 2123, Routine, Bowel Prep, Colonoscop y bisacodyL 2019- No 10mg 10 mg, Unive rs (DULCOLAX) 03-22 Oral, ity of tablet 10 21:56: 01:05 PRE-PROCED [place] mg 32 :00 URE ONCE, Medical 1 dose, Branch Starting Laya 03/22/20 at 1656, Until [place] 03/22/20 at 2005, Routine, Bowel Prep, Colonoscop y bisacodyL 2020-0 2020- No 10mg 10 mg, Unive rs (DULCOLAX) 03-22 Oral, ity of tablet 10 21:56: 02:23 PRE-PROCED [place] mg 32 :00 URE ONCE, Medical 1 dose, Branch Starting Laya 03/22/20 at 1656, Until Laya 03/22/20 at 2123, Routine, Bowel Prep, Colonoscop y acetaminoph 2020-0 Yes 325mg 325 mg, Un zoran en 03-22 Oral, ity of (TYLENOL) 21:18: Q6HPRN, [place] tablet 325 04 Starting Medic al mg [...] 2020- No 1{tbl} 1 tablet, Univers -acetaminop 03-22 Oral, ity of hen (NORCO 03:27: 03:52 ONCE, 1 [place] 5) 5-325 mg 00 :00 dose, Thu Med ical tablet 1 03/21/20 at [facility] h tablet 2230, Routine ALPRAZolam 2020-0 Yes 2mg 2 mg, Univer s (XANAX) 03-22 Oral, BID, ity of tablet 2 mg 01:00: First dose [place] 00 (after Medical last Branch modificati on) on Thu03/21/20 at 2000, Until Discontinu ed, Routine pantoprazol 2020-0 2020- No 40mg 40 mg, Uni vers [...] 1 Medic al NaCl 0.9% dose, Thu Branc h (NS) 500 mL 03/21/20 at IV infusion 1945, 500 mL iron 2020-0 2020- No 25mg 25 mg, IV Univers dextran 03-22 Piggyback, ity o f (INFED) 25 00:45: 02:16 ONCE, 1 [place] mg in NaCl 00 :00 dose, Thu Medi chun 0.9% (NS) 03/21/20 at Bran ch 100 mL IV 1945, 100 piggyback mL lamoTRIgine 2020-0 Yes 25mg 25 mg, Univ ers (LAMICTAL) [...] ed, Routine, Nausea and Vomiting (N/V) pantoprazol 2019-0 2020- No 40mg 40 mg, IV Univers e 03-21 Piggyback, ity of (PROTONIX) 17:15: 23:44 Q12H, [place] 40 mg in 00 :18 First dose Medic al NaCl 0.9% on Thu Branch (NS) 100 mL 03/21/20 at MINI-BAG 1215, Until Discontinu ed, 100 mL pantoprazol 2020-0 2020- No 40mg 40 mg, Uni vers e 03-21 Oral, ity of (PROTONIX) 14:30: 17:01 DAILY, [place] EC tablet 00 :16 First dose Medi chun 40 mg on Wed Branch 03/21/20 at 0930, Until Discontinu ed, Routine PANTOPRAZOL Yes [id number] 40mg TAKE 1 Univers E 40 mg EC 9-18 TABLET BY ity of tablet 00:00: MOUTH [place] 00 DAILY Medical Branch PANTOPRAZOL 2020- No [id number] 40mg TAKE 1 Univers E 40 mg EC 9-18 - TABLET BY ity of tablet 00:00: 00:00 MOUTH [place] 00 :00 DAILY Medical Branch pantoprazol 2019- No [id number] 40mg Take 1 Univers e 40 mg EC 2-01 09-16 tablet by ity of tablet 00:00: 00:00 mouth [place] 00 :00 daily. Medical Branch ALPRAZolam Yes 2mg Take 2 mg Un zoran 2 mg tablet 1-07 by mouth. ity of 19:49: [place] [address] Medical Branch docusate Yes 100mg Take 100 Univ ers 100 mg 1-07 mg by ity of capsule 19:49: mouth. [place] [address] Medical Branch Lamotrigine Yes Take by Uni vers 25 mg TbDL 1-07 mouth 2 ity of 19:49: (two) [place] [address] times Medical daily. Branch ondansetron Yes 4mg Take 1 Univ ers 4 mg 1-07 tablet by ity of disintegrat 00:00: mouth [place] ing tablet 00 every 8 Medica l (eight) Branch hours as needed for Nausea and Vomiting (N/V). ondansetron 2018-0 Yes 4mg Take 1 Univ ers 4 mg 1-07 tablet by ity of disintegrat 00:00: mouth [place] ing tablet 00 every 8 Medica l (eight) Branch hours as needed for Nausea and Vomiting (N/V). ondansetron 2018-0 Yes 4mg Take 1 Univ ers 4 [...] needed for Nausea and Vomiting (N/V). acetaminoph 2017-08 Yes 2{tbl} Take 2 Un zoran en-codeine [...] (scale 4-6) or Pain (scale 7-10). HYDROcodone 2017-0 Yes TAKE 1 Univ ers -acetaminop 4-18 [...] mouth ity of tablet 00:00: as needed. [place] [facility] Branch loratadine Yes 10mg Take 10 mg U nivers 10 mg 4-09 by mouth ity of tablet 00:00: as needed. [place] [facility] Branch loratadine Yes 10mg Take 10 mg U nivers 10 mg 4-09 by mouth ity of tablet 00:00: as needed. [place] [facility] Branch loratadine Yes 10mg Take 10 mg U nivers 10 mg 4-09 by mouth ity of tablet 00:00: as needed. [place] [facility] Branch loratadine Yes 10mg Take 10 mg U nivers 10 mg 4-09 by mouth ity of tablet 00:00: as needed. [place] [facility] Branch loratadine Yes 10mg Take 10 mg U nivers 10 mg 4-09 by mouth ity of tablet 00:00: as needed. [place] [facility] Branch loratadine Yes 10mg Take 10 mg U nivers 10 mg 4-09 by mouth ity of tablet 00:00: as needed. [place] [facility] Branch loratadine Yes 10mg Take 10 mg U nivers 10 mg 4-09 by mouth ity of tablet 00:00: as needed. [place] [facility] Branch loratadine Yes 10mg Take 10 mg U nivers 10 mg 4-09 by mouth ity of tablet 00:00: as needed. [place] [address] Medical Branch loratadine Yes 10mg Take 10 mg U nivers 10 mg 4-09 by mouth ity of tablet 00:00: as needed. [place] [address] Medical Branch fluticasone Yes INSTILL 1 U nivers 50 4-03 SPRAY IN ity of mcg/actuati 00:00: EACH [place] on nasal 00 NOSTRIL Medical spray TWICE A Branch DAY as needed fluticasone 2017- Yes INSTILL 1 U nivers 50 4-03 [...] TWICE A Branch DAY as needed fluticasone 2017- Yes INSTILL 1 U nivers 50 4-03 [...] TWICE A Branch DAY as needed fluticasone 2017- Yes INSTILL 1 U nivers 50 4-03 SPRAY IN ity of mcg/actuati 00:00: EACH [place] on nasal 00 NOSTRIL Medical spray TWICE A Branch DAY as needed fluticasone 2017 Yes INSTILL 1 U nivers 50 4-03 SPRAY IN ity of mcg/actuati 00:00: EACH [place] on nasal 00 NOSTRIL Medical spray TWICE A Branch DAY as needed LIALDA 1.2 2017- Yes TAKE 2 Unive rs gram EC 4-03 TABLETS BY ity of tablet 00:00: MOUTH [place] 00 EVERY DAY Medical Branch fluticasone 2017- Yes INSTILL 1 U nivers 50 4-03 SPRAY IN ity of mcg/actuati 00:00: EACH [place] on nasal 00 NOSTRIL Medical spray TWICE A Branch DAY as needed LIALDA 1.2 2017- 2020- No TAKE 2 Univ ers gram EC 4-03 08-22 TABLETS BY ity o f tablet 00:00: 00:00 MOUTH [place] 00 :00 EVERY DAY Medical Branch alprazolam alprazolam No alprazolam [place] 2 mg tablet 2 mg tablet 2 mg d a TAKE 1 TAKE 1 tablet [facility] TABLET BY TABLET BY TAKE 1 al MOUTH TWICE MOUTH TWICE TABLET BY Health DAILY DAILY MOUTH Outrea c NEEDED NEEDED TWICE h DAILY Program NEEDED hydroxyzine hydroxyzine No hydroxyzin [place] HCl 25 [...] h MORNING MORNING IN THE Program MORNING tramadol 50 tramadol 50 No tramadol [place] mg tablet mg tablet 50 mg da TAKE 1 TAKE 1 tablet [facility] TABLET BY TABLET BY TAKE 1 al MOUTH EVERY MOUTH EVERY TABLET BY Health 6 HOURS 6 HOURS MOUTH Ou treac NEEDED FOR NEEDED FOR EVERY 6 h SEVERE PAIN SEVERE PAIN HOURS Program OR ACUTE OR ACUTE NEEDED FOR PAIN PAIN SEVERE PAIN OR ACUTE PAIN trazodone trazodone No trazodone [place] 100 mg 100 mg 100 mg da tablet TAKE tablet TAKE tablet [facility] 1 TABLET BY 1 TABLET BY TAKE 1 al MOUTH EVERY MOUTH EVERY TABLET BY Health DAY AT DAY AT MOUTH [facility] BEDTIME BEDTIME EVERY DAY h AT BEDTIME Program trazodone trazodone No trazodone [place] 50 mg 50 mg 50 mg da tablet TAKE tablet TAKE tablet [facility] 1 TABLET BY 1 TABLET BY TAKE 1 al MOUTH EVERY MOUTH EVERY TABLET BY [facility] NIGHT AT NIGHT AT MOUTH Outrea [facility] BEDTIME BEDTIME EVERY h NIGHT AT Program BEDTIME alprazolam alprazolam No alprazolam [place] 2 mg tablet 2 mg tablet 2 mg d a TAKE 1 TAKE 1 tablet [facility] TABLET BY TABLET BY TAKE 1 al MOUTH TWICE MOUTH TWICE TABLET BY Health DAILY DAILY MOUTH Outrea c NEEDED NEEDED TWICE h DAILY Program NEEDED hydroxyzine hydroxyzine No 1 TID hydroxyzin [place] HCl 50 mg HCl 50 mg e HCl 50 d a tablet Take tablet Take mg tablet [facility] 1 tablet 3 1 tablet 3 Take 1 a l times a day times a day tablet 3 Health by oral by oral times a Outrea c route as route as day by h needed. needed. oral route Pro gram as needed. lamotrigine lamotrigine No 1 Q1D lamotrigin [place] 100 mg 100 mg e 100 mg da tablet Take tablet Take tablet [facility] 1 tablet 1 tablet Take 1 al every day every day tablet Hea lth by oral by oral every day Outr eac route in route in by oral h the the route in Program morning. morning. the morning. tramadol 50 tramadol 50 No tramadol [place] mg tablet mg tablet 50 mg da TAKE 1 TAKE 1 tablet [facility] TABLET BY TABLET BY TAKE 1 al MOUTH EVERY MOUTH EVERY TABLET BY [facility] 6 HOURS 6 HOURS MOUTH Ou treac NEEDED FOR NEEDED FOR EVERY 6 h SEVERE PAIN SEVERE PAIN HOURS Program OR ACUTE OR ACUTE NEEDED FOR PAIN PAIN SEVERE PAIN OR ACUTE PAIN trazodone trazodone No trazodone [place] 100 mg 100 mg 100 mg da tablet TAKE tablet TAKE tablet [facility] 1 TABLET BY 1 TABLET BY TAKE 1 al MOUTH EVERY MOUTH EVERY TABLET BY [facility] DAY AT DAY AT MOUTH [facility] BEDTIME BEDTIME EVERY DAY h AT BEDTIME Program trazodone trazodone No trazodone [place] 50 mg 50 mg 50 mg da tablet TAKE tablet TAKE tablet [facility] 1 TABLET BY 1 TABLET BY TAKE 1 al MOUTH EVERY MOUTH EVERY TABLET BY [facility] NIGHT AT NIGHT AT MOUTH Outrea c BEDTIME BEDTIME EVERY h NIGHT AT Program BEDTIME alprazolam alprazolam No alprazolam [place] 2 mg tablet 2 mg tablet 2 mg d a TAKE 1 TAKE 1 tablet [facility] TABLET BY TABLET BY TAKE 1 al MOUTH TWICE MOUTH TWICE TABLET BY [facility] DAILY DAILY MOUTH Outrea c NEEDED NEEDED TWICE h DAILY Program NEEDED hydroxyzine hydroxyzine No 1 TID hydroxyzin [place] HCl 50 mg HCl 50 mg e HCl 50 d a tablet Take tablet Take mg tablet [facility] 1 tablet 3 1 tablet 3 Take 1 a l times a day times a day tablet 3 Health by oral by oral times a Outrea c route as route as day by h needed. needed. oral route Pro gram as needed. lamotrigine lamotrigine No 1 Q1D lamotrigin [place] 100 mg 100 mg e 100 mg da tablet Take tablet Take tablet [facility] 1 tablet 1 tablet Take 1 al every day every day tablet Hea lth by oral by oral every day Outr eac route in route in by oral h the the route in Program morning. morning. the morning. lamotrigine lamotrigine No lamotrigin [place] 25 mg 25 mg e 25 mg da tablet TAKE tablet TAKE tablet [facility] 2 TABLETS 2 TABLETS TAKE 2 al BY MOUTH BY MOUTH TABLETS BY H ealth EVERY DAY EVERY DAY MOUTH Outr eac IN THE IN THE EVERY DAY h MORNING MORNING IN THE Program MORNING tramadol 50 tramadol 50 No tramadol [place] mg tablet mg tablet 50 mg da TAKE 1 TAKE 1 tablet [facility] TABLET BY TABLET BY TAKE 1 al MOUTH EVERY MOUTH EVERY TABLET BY Health 6 HOURS 6 HOURS MOUTH Ou treac NEEDED FOR NEEDED FOR EVERY 6 h SEVERE PAIN SEVERE PAIN HOURS Program OR ACUTE OR ACUTE NEEDED FOR PAIN PAIN SEVERE PAIN OR ACUTE PAIN trazodone trazodone No trazodone [place] 100 mg 100 mg 100 mg da tablet TAKE tablet TAKE tablet [facility] 1 TABLET BY 1 TABLET BY TAKE 1 al MOUTH EVERY MOUTH EVERY TABLET BY Health DAY AT DAY AT MOUTH Outreac BEDTIME BEDTIME EVERY DAY h AT BEDTIME Program trazodone trazodone No trazodone [place] 50 mg 50 mg 50 mg da tablet TAKE tablet TAKE tablet [facility] 1 TABLET BY 1 TABLET BY TAKE 1 al MOUTH EVERY MOUTH EVERY TABLET BY Health NIGHT AT NIGHT AT MOUTH Outrea c BEDTIME BEDTIME EVERY h NIGHT AT Program BEDTIME Vital Signs Vital Name Observation Time Observation Value Comments Source BP Diastolic 2022-02-24 89 mm[Hg] [place] 00:00:[facility] [place] [facility] BP Systolic 2022-02-24 156 mm[Hg] [place] 00:00:00 [facility] [place] Body Weight 2022-02-24 176.8 [lb_av] [place] 00:00:00 [facility] [place] Systolic blood 2021-11-20 156 mm[Hg] University of pressure 00:21:48 [facility] Diastolic blood 2021-11-20 82 mm[Hg] [place] o pressure 00:21:48 [facility] Heart rate 2021-11-20 68 /min University of 00:21:48 [facility] Respiratory rate 2021-11-20 16 /min University of 00:21:48 [facility] Oxygen saturation 2021-11-20 99 /min University of in Arterial blood 00:21:48 [facility] chun by Pulse oximetry Branch Body temperature 2021-11-19 37.28 Stephany University of 21:21:00 [facility] Body weight 2021-11-19 79.379 kg University of 21:21:00 [facility] BMI 2021-11-19 32.01 kg/m2 University of 21:21:00 [facility] Body weight 2021-04-28 79.379 kg University of 10:47:00 [facility] BMI 2021-04-28 32.01 kg/m2 University of 10:47:00 [facility] Systolic blood 2021-04-28 148 mm[Hg] University of pressure 06:15:00 [facility] Diastolic blood 2021-04-28 78 mm[Hg] University o f pressure 06:15:00 [facility] Heart rate 2021-04-28 65 /min University of 06:15:00 [facility] Body temperature 2021-04-28 35.89 Stephany University of 06:15:00 [facility] Respiratory rate 2021-04-28 18 /min University of 06:15:00 [facility] Oxygen saturation 2021-04-28 97 /min University of in Arterial blood 06:15:00 [facility] by Pulse oximetry Branch Systolic blood 2020-03-24 156 mm[Hg] RN INFORMED University of pressure 16:30:00 [facility] Diastolic blood 2020-03-24 90 mm[Hg] RN INFORMED University o f pressure 16:30:00 [facility] Heart rate 2020-03-24 75 /min University of 16:30:00 [facility] Body temperature 2020-03-24 35.78 Stephany University of 16:30:00 [facility] Respiratory rate 2020-03-24 21 /min University of 16:30:00 [facility] Oxygen saturation 2020-03-24 98 /min University of in Arterial blood 16:30:00 [facility] chun by Pulse oximetry Branch Body weight 2020-03-24 83.507 kg pt's actual University of 09:32:00 weight on the [facility] regular scale Branch BMI 2020-03-24 33.67 kg/m2 [facility] 09:32:00 [facility] Body height 2020-03-23 157.5 cm [facility] 16:09:00 [facility] Systolic blood 2020-03-24 156 mm[Hg] RN INFORMED [place] of pressure 16:30:00 [facility] Diastolic blood 2020-03-24 90 mm[Hg] RN INFORMED [place] o f pressure 16:30:00 [facility] Heart rate 2020-03-24 75 /min [facility] 16:30:00 [facility] Body temperature 2020-03-24 35.78 Stephany [facility] 16:30:00 [facility] Respiratory rate 2020-03-24 21 /min [facility] 16:30:00 [facility] Oxygen saturation 2020-03-24 98 /min [facility] in Arterial blood 16:30:00 [facility] by Pulse oximetry Branch Body weight 2020-03-24 83.507 kg pt's actual [facility] 09:32:00 weight on the [facility] regular scale Branch BMI 2020-03-24 33.67 kg/m2 [facility] 09:32:00 [facility] Body height 2020-03-23 157.5 cm [facility] 16:09:00 [facility] Procedures Procedure Date / Time Performing Clinician Source Performed CT ABDOMEN PELVIS WO 2021-11-19 22:53:00 Gab Dennis [facility] CONTRAST Medical Branch LIPASE 2021-11-19 21:31:00 Gab Dennis [place] [facility] COMP. METABOLIC PANEL 2021-11-19 21:31:00 Gab Dennis [facility] ([id number]) Medical Branch CBC WITH DIFF 2021-11-19 21:31:00 Gab Dennis [place] [facility] URINALYSIS 2021-11-19 21:31:00 Gab Dennis [place] o [facility] POCT TEST 2021-11-19 21:31:00 Gab Dennis [facility] NOTICE OF PRIVACY 2021-11-19 21:16:50 Doctor Rashawn, [facility] PRACTICES [facility] CONSENT/REFUSAL FOR 2021-11-19 21:14:36 Doctor Unassigned, [facility] DIAGNOSIS AND TREATMENT [facility] [place] CBC WITH DIFF 2021-04-28 12:25:00 Andrew Lizama [facility] PREPARE PACKED RBC 2021-04-28 05:37:48 Len [facility] HEMOGLOBIN 2021-04-27 21:02:00 Alda kayleigh [facility] TRANSFUSE PACKED RBC 2021-04-27 16:27:00 Pipo [facility] PREPARE PACKED RBC 2021-04-27 16:12:49 Yana Foss [facility] MAGNESIUM 2021-04-27 09:32:00 Alda kayleigh [facility] COMP. METABOLIC PANEL 2021-04-27 09:32:00 Alda kayleigh [facility] ([id number]) [facility] CBC WITH DIFF 2021-04-27 09:32:00 Alda [facility] GLYCOSYLATED HEMOGLOBIN 2021-04-27 09:32:00 Alda [facility] (A1C) [facility] LACTIC ACID WHOLE BLOOD 2021-04-27 09:32:00 Alda [facility] LACTATE DEHYDROGENASE 2021-04-27 05:24:00 Alda kayleigh [facility] VITAMIN B12, LEVEL 2021-04-27 05:24:00 Alda [facility] C-REACTIVE PROTEIN 2021-04-27 05:24:00 Alda [facility] IRON PANEL 2021-04-27 05:24:00 Alda kayleigh [facility] SEDIMENTATION RATE 2021-04-27 05:24:00 Alda kayleigh [facility] VITAMIN D, 25-OH 2021-04-27 05:24:00 Alda [facility] PROCALCITONIN 2021-04-27 05:24:00 Alda kayleigh [facility] ACUTE CARE VENOUS BLOOD 2021-04-27 05:23:00 Alda kayleigh [facility] PROTHROMBIN TIME / INR 2021-04-27 05:23:00 Alda kayleigh [facility] COVID-19 (MOLECULAR 2021-04-27 02:34:00 Alda kayleigh [facility] TESTING [facility] NUCLEIC ACID AMPLIFICATION) PANEL IDENTIFICATION 2021-04-27 02:17:00 Andrew [facility] HB ABO GROUPING 2021-04-27 00:40:[facility]BD[facility]EN PELVIS W 2021-04-26 23:51:18 Yana Foss [facility] CONTRAST [facility] POCT TEST 2021-04-26 22:10:00 [facility] 2021-04-26 22:04:00 Alda [facility] URIC ACID 2021-04-26 22:04:00 Alda [facility] AMYLASE 2021-04-26 22:04:00 Pipo [facility] MAGNESIUM 2021-04-26 22:04:00 Alda [facility] THYROID STIMULATING 2021-04-26 22:04:00 Alda [facility] HORMONE [facility] HEPATIC FUNCTION PANEL 2021-04-26 22:04:00 Pipo YanaFormerly [facility], [facility] ([id number]) (ALB,T.PRO,BILI [facility] Branch T,BU/BC,ALT,AST,ALK PHOS) BASIC METABOLIC PANEL 2021-04-26 22:04:00 Yana Foss [facility] (NA, K, CL, CO2, GLUCOSE, Medica l Branch BUN, CREATININE, CA) LIPID PANEL ([id number])(TOTAL 2021-04-26 22:04:00 Andrew Lizama [facility] CHOLESTEROL, [facility] TRIGLYCERIDES, HDL) CBC WITH DIFF 2021-04-26 22:04:00 Pipo [facility] URINALYSIS 2021-04-26 22:04:00 [facility]MINAL PRO-BNP 2021-04-26 22:04:00 Andrew [facility] [place] [facility] HB ECG ROUTINE & RHYTHM 2021-04-26 21:41:41 Yana Foss [facility] STRIP Medical Branch XR CHEST 1 VW 2021-04-26 21:36:45 Yana Foss [facility] NOTICE OF PRIVACY 2021-04-26 21:22:01 Doctor Unassigned, [facility] PRACTICES [facility] COVID-19 (ID NOW RAPID 2021-04-26 21:19:00 Yana Foss [facility] TESTING) Medical Branch CONSENT/REFUSAL FOR 2021-04-26 21:11:24 Doctor Unasssara, [facility] DIAGNOSIS AND TREATMENT [facility] EXTERNAL PROVIDER RECORDS 2020-04-19 05:01:00 Doctor Rashawn, [facility] BASIC METABOLIC PANEL 2020-03-24 10:52:[address] [facility] (NA, K, CL, CO2, GLUCOSE, Medica l Branch BUN, CREATININE, CA) CBC WITHOUT DIFF 2020-03-24 10:52:00 Kay [facility] COLONOSCOPY (ENDO) 2020-03-23 16:17:31 Ludmila Steele [facility] EGD (ENDO) 2020-03-23 16:16:00 Ludmila Steele [facility] BASIC METABOLIC PANEL 2020-03-23 09:52:00 Aurea [facility] (NA, K, CL, CO2, GLUCOSE, Medica l Branch BUN, CREATININE, CA) CBC WITHOUT DIFF 2020-03-23 09:52:00 Aurea [facility] CBC WITHOUT DIFF 2020-03-23 04:24:00 Angelina Shin [facility] FECAL PATHOGENS BY PCR 2020-03-22 19:48:00 [facility] CBC WITHOUT DIFF 2020-03-22 19:46:00 [facility] CBC WITHOUT DIFF 2020-03-22 09:42:00 Kay [facility] URINALYSIS 2020-03-22 09:42:00 Kay [facility] BASIC METABOLIC PANEL 2020-03-22 09:41:00 Wild Villar [facility] (NA, K, CL, CO2, GLUCOSE, Medica l Branch BUN, CREATININE, CA) US PELVIS COMPLETE WITH 2020-03-22 05:19:00 Kay [facility] TRANSVAGINAL [facility] IRON PANEL 2020-03-21 23:25:00 Kay [facility] CBC WITHOUT DIFF 2020-03-21 23:25:00 Kay [facility] FECES CULTURE 2020-03-21 20:43:00 Solomon [facility] CLOSTRIDIUM DIFFICILE 2020-03-21 20:43:00 Analy Dejesus [facility] TOXIN [facility] CT ABDOMEN PELVIS W 2020-03-21 18:45:56 Kay [facility] CONTRAST [facility] FERRITIN SERUM 2020-03-21 14:26:00 Solomon [facility] HEPATIC FUNCTION PANEL 2020-03-21 14:26:00 Kay [facility] ([id number]) (ALB,T.PRO,BILI [facility] T,BU/BC,ALT,AST,ALK PHOS) BASIC METABOLIC PANEL 2020-03-21 14:26:00 Kay, [facility] (NA, K, CL, CO2, GLUCOSE, Medica l Branch BUN, CREATININE, CA) SEDIMENTATION RATE 2020-03-21 14:26:00 Kay [facility] CBC WITH DIFF 2020-03-21 14:26:00 Kay [facility] C-REACTIVE PROTEIN 2020-03-21 14:25:00 Kay [facility] HB ABO GROUPING 2020-03-21 14:25:[facility] / INR 2020-03-21 14:24:00 Kay, [facility] ACTIVATED PARTIAL 2020-03-21 14:24:00 Kay [facility] THRMPLAS [facility] COVID-19 (ID NOW RAPID 2020-03-21 13:15:00 Kay, [facility] Colonoscopy 2016-08-03 00:00:00 [place] [facility] Delivery [place] [facility] Plan of Care Planned Activity Planned Date Details Comments Source Future Appointment 2023-01-24 00:00:00 Alber Phillip, Tracey Machadocopbrayan Palacios; , [place] Program [id number] Instructions [place] [facility] Encounters Start End Encounter Admission Attending Care Care Encounter Source Date/Time Date/Time Type Type Clinicians Facility Department ID 2021-06-04 Emergency [facility] [id number] Univers 01:16:49 [facility] 2021-05-31 Inpatient U NITESH, [facility] [id number] Univers 13:15:21 YVROSE [facility] 2022-10-24 2022-10-24 Outpatient [facility] [id number] [place] 00:00:00 00:00:00 H [id number] [facility] 2022-10-24 2022-10-24 Outpatient [facility] [id number] [place] 00:00:00 00:00:00 H 37136 [facility] 2022-10-24 2022-10-24 Outpatient [facility] [id number] [place] 00:00:00 00:00:00 H [id number] [facility] 2022-10-24 2022-10-24 [facility] - [id number] M atagor 00:00:00 00:00:00 Wil Phillip MD: [facility] E[facility] 1700 HOP - KATJA [facility] [address] [place] welch , Ph. [phone] 245--20072022-10-14 2022-10-14 Outpatient [facility] [id number] [place] 00:00:00 00:00:00 H 56791 [facility] 2022-09-11 2022-09-11 Outpatient [facility]AI[facility] [id number] [place] 00:00:00 00:00:00 H [id number] [facility] 2022 2022 Outpatient [facility] [id number] [place] 00:00:00 00:00:00 H 72794 [facility] 2022 2022 Outpatient [facility] [id number] [place] 00:00:00 00:00:00 H [id number] [facility] 2022-06-30 2022-06-30 Outpatient [facility] [id number] [place] 00:00:00 00:00:00 H 06697 [facility] 2022-06-30 2022-06-30 [facility] [place] - [id number] M atagor 00:00:00 00:00:00 Wil Phillip MD: Y[facility]ani Epi [facility] 1700 [facility] brayan [facility] [place] [address] [place] , Ph. [phone]) --20072022-06-29 2022-06-29 Outpatient DESAI_[facility] [id number] [place] 00:00:00 00:00:00 H [id number] [facility] 2022-05-26 2022-05-26 Outpatient DESAI_[facility] [id number] [place] 00:00:00 00:00:00 H 51965 [facility] 2022-05-24 2022-05-24 Outpatient DESAI_[facility] [id number] [place] 00:00:00 00:00:00 H 40569 [facility] 2022-02-24 2022-02-24 Outpatient DESAI_[facility] 103 [id number] [place] 05:23:00 05:23:00 H [id number] [facility] 2022-02-24 2022-02-24 [facility] [place] - [id number] M atagor 00:00:00 00:00:00 Wil Phillip MD: Yarsani Epi scop 1700 [facility]ayan [facility] [place] [address] [facility] am , Ph. ([phone]) --20072021-12-10 2021-12-10 Outpatient [facility] [id number] [place] 02:40:00 02:40:00 H [facility] 2021-12-10 2021-12-10 Outpatient [facility] [id number] [place] 02:40:00 02:40:00 H [id number] da [facility] 2021-11-19 2021-11-19 Emergency [facility] [id number] Univers 16:34:00 19:24:00 GAB gaona [facility] 2021-11-19 2021-11-19 Emergency [facility] [id number] Univers 16:34:00 19:24:00 Gab Mall[place] [id number] [facility] [id number] [facility] [id number] [address] 2021-11-18 2021-11-18 Outpatient AMBREEN[facility] [id number] [place] 07:00:00 07:00:00 HANA 43315 [facility] 2021-11-18 2021-11-18 [facility] [place] - [id number] M at[place]or 00:00:00 00:00:00 Wil Phillip MD: Yarsani Epi scop 1700 [facility]ayan [facility] [place] [address] [facility] rebekah , Ph. [phone]) --20072021-08-12 2021-08-12 Outpatient AMBREEN_FAR [facility] [id number] [place] 04:29:00 04:29:00 HANA [facility] 2021-08-12 2021-08-12 Outpatient AMBREEN_FAR [facility] [id number] [place] 04:29:00 04:29:00 HANA [facility] 2021-08-12 2021-08-12 [facility] [place] - [id number] M [place] 00:00:00 00:00:00 Wil Phillip MD: Yarsani Epi scop 1700 [facility] brayan [facility] [place] [address] [facility] , Ph. ([phone]) -20072021-08-10 2021-08-10 Outpatient AMBREEN_[facility]AR [facility] 103 [id number] [place] 01:31:00 01:31:00 DAFNE [facility] 2021-07-04 2021-07-04 Outpatient AMBREEN_FAR [facility] 103 [place] 01:47:00 01:47:00 HANVictor Hugo [id number] [facility] 2021-04-30 2021-04-30 Transition LinaSusanflorian [id number] Univers 00:00:00 00:00:00 of Care Bo Hoffman [id number] ity of [place]anya [id number] [facility] [id number] [facility] 403 Branch 2021-04-26 2021-04-28 Emergency Foss, Yana [facility] [id number] Univers 16:28:00 07:20:00 Andrew Lizama [id number] ity of [place] [id number] [facility] [id number] [facility] 081 Branch 2021-04-17 2021-04-17 Outpatient AMBREEN_FAR [facility] 103 [id number] [place] 11:38:00 11:38:00 HANA 46846 [facility] 2021-04-17 2021-04-17 Outpatient AMBREEN_FAR [facility] [id number] [place] 11:38:00 11:38:00 HANA 94367 [facility] 2021-04-15 2021-04-15 Outpatient AMBREEN_[facility] 103 [id number] [place] 12:31:00 12:31:00 HANA 32872 [facility] 2021-04-15 2021-04-15 [facility] [place] - [id number] [place] 00:00:00 00:00:00 Wil Phillip MD: Yarsani Epi scop 1700 HOP - [facility] [address] [place] am , Ph. ([phone]) --20072021-04-13 2021-04-13 Outpatient AMBREEN_[facility]AR [facility] 103 [id number] [place] 01:09:00 01:09:00 HANA 56103 [facility] 2021-01-21 2021-01-21 Outpatient AMBREEN_[facility]AR [facility] 103 [id number] [place] 03:31:00 03:31:00 HANA 35484 [facility] 2021-01-21 2021-01-21 [facility] [place] - [id number] [place] 00:00:00 00:00:00 Wil Phillip MD: Yarsani Epi sc[facility] [address] [place] [address] Progr am , Ph. ([phone]) --20072021-01-18 2021-01-18 Outpatient AMBREEN_FAR [facility] [id number] [place] 07:36:00 07:36:00 HANA 55591 [facility] 2020-10-17 2020-10-17 Sae Mijares [facility] [id number] Univers 00:00:00 00:00:00 [facility] [id number] ity [facility] [id number] Ramo as Sudha [phone] [facility] 044 [place] Office [facility] One 2020-09-03 2020-09-03 Outpatient AMBREEN_FAR MEHOP [facility] 103 [id number] [place] 05:25:00 05:25:00 HANA 27979 [facility] 2020-09-03 2020-09-03 Outpatient AMBREEN_[facility] 103 [id number] [place] 05:25:00 05:25:00 HANA 89267 [facility] 2020-09-03 2020-09-03 [facility] [place] [facility] [id number] [facility] 00:00:00 00:00:00 Wil Phillip MD: Yarsani Epi scop 1700 HOP - [facility] Jose [facility] [address] Progr am , Ph. ([phone]) 2020-05-21 2020-05-21 Outpatient AMBREEN_[facility] 103 [id number] [place] 02:19:00 02:19:00 HANA 01591 [facility] 2020-05-21 2020-05-21 [facility] [place] [facility] [id number] [place] 00:00:00 00:00:00 Wil Phillip MD: Yarsani Epi scop 1700 HOP [facility] Shi B[facility] [address] Progr am , Ph. ([phone]) 2020-05-16 2020-05-16 Outpatient [facility]EN[facility] 103 [id number] [place] 12:28:00 12:28:00 HANA 89483 [facility] 2020-04-19 2020-04-19 Harriet RUANO [id number] 00:00:00 00:00:00 Only Unassigned, BEE [id number] [facility] [id number] [id number] 2020-04-19 2020-04-19 Orders Doctor ALDEN [id number] Univers 00:00:00 00:00:00 Only Unassigned, BEE [id number] ity of [facility] [id number] Ramo as [id number] [address] 2020-04-05 2020-04-05 Telephone Solomon KSARIS [id number] 00:00:00 00:00:00 Nitesh SPECIALTY [id number] CARE [id number] CENTER AT [id number] [address] 2020-04-05 2020-04-05 Telephone Solomon KSARIS [id number] Univers 00:00:00 00:00:00 Nitesh SPECIALTY [id number] [id number] [id number] [place] cosme [address] 2020-04-05 2020-04-05 Letter Solomon [facility] [id number] Univers 00:00:00 00:00:00 (Out) Nitesh SPECIALTY [id number] [id number] [id number] [place] cosme [address] 2020-04-05 2020-04-05 Sarwat Carbajal KSARIS [id number] 00:00:00 00:00:00 (Out) Nitesh SPECIALTY [id number] CARE [id number] CENTER AT [id number] [address] 2020-04-04 2020-04-04 Telemedici Maryana KSARIS [id number] Univers 11:00:00 11:30:00 ne Visit Kg Dooley [id number] [id number] [id number] [place] cos[place] [address] 2020-04-04 2020-04-04 [facility]ici [facility] [id number] 11:00:00 11:30:00 ne Visit Wonedilberto Dooley [id number] [place] [id number] [facility] [phone] [address] 2020-04-04 2020-04-04 Outpatient R [facility] [id number] Univers 11:00:00 11:00:00 WONDIFUL ity o f [facility] 2020-03-21 2020-03-24 [facility] Milly Landa 1. [id number] [facility] 07:17:00 14:00:00 Encounter Audrey Landry Shedd [id number] ity [facility] [id number] [place] [id number] [address] 2020-03-21 2020-03-24 [facility] Yvrose Landa 1. 2.840.114 [id number] 07:17:00 14:00:00 Encounter Frantz Audrey Sibley Bee [id number] [facility] [id number] [id number] 2020-02-27 2020-02-27 Outpatient AMBREEN_FAR MEHOP [facility] [id number] [place] 02:26:00 02:26:00 HANA 17896 [facility] 2020-02-27 2020-02-27 [facility] [place] - [id number] M [place] 00:00:00 00:00:00 Wil Phillip MD: Yarsani Epi scop 1700 [facility] brayan [facility] [place] [address] [place] welch , Ph. [phone] 2020-02-21 Outpatient AMBREEN_FAR MEHOP [facility] [phone] [place] 01:11:00 01:11:00 [facility] [address] [facility] 2019-12-19 2019-12-19 Outpatient AMBREEN_FAR MEHOP [facility] [phone] [place] 02:47:00 02:47:00 HANA [address] [facility] 2019-12-19 2019-12-19 [facility] - [id number] [place] 00:00:00 00:00:00 Wil Phillip MD: Yarsani Epi scop 1700 HOP - MEHOP [address] [facility] [address], [facility] [address] Progr am , Ph. ([phone]) --20072019-12-17 2019-12-17 Outpatient AMBREEN_FAR [facility] [phone] [place] 12:29:00 12:29:00 HANA 42702 [facility] 2019-10-31 2019-10-31 Outpatient AMBREEN_FAR KYHOP [facility] [phone] [place] 03:50:00 03:50:00 HANA 56242 [facility] 2019-10-31 2019-10-31 [facility] - [id number] [place] 00:00:00 00:00:00 Wil Phillip MD: Yarsani Epi scop 1700 HOP - KYHOP [facility] [address], [facility] [address] Progr am , Ph. ([phone]) --20072019-05-09 2019-05-09 [facility] - [id number] M [place] 00:00:00 00:00:00 Wil Phillip MD: Yarsani Epi scop 1700 [address]OP - [address]HOP [address] [facility] [address] [facility] [address], [facility] Program [address] , Ph. ([phone]) --[phone] 2019-04-18 Sae Mijares KSARIS [id number] [facility] 00:00:00 00:00:00 [facility] [id number] ity [facility] [id number] Ramo as Professio [phone] [address] Office Building One 2019-04-18 2019-04-18 Sae Mijares [facility] [id number] 180 00:00:00 00:00:00 [facility] [id number] [place] 4.2.7.2.686 Sudha [phone] [place] [address] Office [facility] One Results Test Description Test Time Test Comments Results Result Comments Source Complete Metabolic Panel 2021-11-19 22:09:41 Test Item Value Reference Range Interpretation Comme nts NA (test code = 0369854400) 140 mmol/L 135-145 K (test code = 4899279828) 4.1 mmol/L 3.5-5.0 CL (test code = 1550066268) 105 mmol/L 98-108 CO2 TOTAL (test code = 3549200403) 21 mmol/L 23-31 L AGAP (test code = 6179435767) 2-16 BUN (test code = 6300860427) 7 mg/dL 7-23 GLUCOSE (test code = 8461374654) 128 mg/dL 70-110 H CREATININE (test code = 0.62 mg/dL 0.50-1.04 5767867404) TOTAL BILI (test code = 0.4 mg/dL 0.1-1.3 0377076781) CALCIUM (test code = 7891878263) 9.3 mg/dL 8.6-10.6 T PROTEIN (test code = 4267142808) 8.3 g/dL 6.3-8.2 H ALBUMIN (test code = 6095896801) 5.1 g/dL 3.5-5.0 H ALK PHOS (test code = 2075099346) 66 U/L 34-122 ALTv (test code = 1742-6) 16 U/L 5-35 AST(SGOT) (test code = 2880362375) 23 U/L 13-40 eGFR (test code = 5969245638) mL/min/1.73m2 YOANA (test code = YOANA) Association of Glomerular Filtration Rate (GFR) and Staging of Kidney Disease* + +-------- + ------+| GFR (mL/min/1.73 m2) ?| With Kidney Damage ?| ?Without Kidney Damage+ +-- + +| ?>90 ?| ?Stage one ?| ? Normal ?+ +------- + -------+| ?60-89 ?| ?Stage two ?| ? Decreased GFR ? + +-------- + ------+| ?30-59 ?| ?Stage three ?| ? Stage three ? + +-------- + ------+| ?15-29 ?| ?Stage four ? | ? Stage four ?+ +------- + -------+| ?<15 (or dialysis) ? ?| ?Stage five ? | ? Stage five ?+ +------- + -------+ *Each stage assumes the associated GFR [...] or abnormalities in imaging tests). Lab Interpretation (test code = Abnormal 82668-9) [facility] AmericaLipase, [id number] 22:09:21 Test Item Value Reference Range Interpretation Comments LIPASE (test code = 3444215148) 255 U/L 0-220 H Lab Interpretation (test code = Abnormal 12166-5) [facility] AmericaCB with [id number] 22:02:00 Test Item Value Reference Range Interpretation Comments WBC (test code = See_Comment H [Automated 0290-2) message] The sy stem which generated this result transmitted reference range : 4.30 - 11.10 10*3/?L. The reference range was not used to interpret this result as normal/abnormal . RBC (test code = See_Comment L [Automated 559-8) message] The sy stem which generated this result transmitted reference range : 3.93 - 5.25 10*6/?L. The reference range was not used to interpret this result as normal/abnormal . HGB (test code = 8.4 g/dL 11.6-15.0 L 718-7) HCT (test code = 27.4 % 35.7-45.2 L 4544-3) MCV (test code = 75.9 fL 80.6-95.5 L 787-2) MCH (test code = 23.3 pg 25.9-32.8 L 785-6) MCHC (test code = 30.7 g/dL 31.6-35.1 L 786-4) RDW-SD (test code = 43.2 fL 39.0-49.9 09238-0) RDW-CV (test code = 15.8 % 12.0-15.5 H 788-0) PLT (test code = See_Comment [Automated 777-3) message] The sy stem which generated this result transmitted reference range : 166 - 358 10*3/ ?L. The reference r rhina was not used to interpret this result as normal/abnormal . MPV (test code = 11.7 fL 9.5-12.9 71556-6) NRBC/100 WBC (test See_Comment [Automat ed code = 0171619617) message] The system which generated this result transmitted reference range : 0.0 - 10.0 /100 WBCs. The refer ence range was not u sed to interpret th is result as normal/abnormal . NRBC x10^3 (test code <0.01 See_Comment [Auto mated = 7552196737) message] The s ystem which generated this result transmitted reference range : 10*3/?L. The reference range was not used to interpret this result as normal/abnormal . GRAN MAT (NEUT) % 78.0 % (test code = 770-8) IMM GRAN % (test code 0.50 % = 0373803339) LYMPH % (test code = 17.6 % 736-9) MONO % (test code = 3.0 % 5905-5) EOS % (test code = 0.4 % 713-8) BASO % (test code = 0.5 % 706-2) GRAN MAT x10^3(ANC) 8.85 10*3/uL 1.88-7.09 H (test code = 2754122886) IMM GRAN x10^3 (test 0.06 10*3/uL 0.00-0.06 code = 8351107864) LYMPH x10^3 (test code 2.00 10*3/uL 1.32-3.29 = 731-0) MONO x10^3 (test code 0.34 10*3/uL 0.33-0.92 = 742-7) EOS x10^3 (test code = 0.04 10*3/uL 0.03-0.39 711-2) BASO x10^3 (test code 0.06 10*3/uL 0.01-0.07 = 704-7) Lab Interpretation Abnormal (test code = 90361-1) [facility] AmericaPOCT [id number] 21:31:00 Test Item Value Reference Range Interpretation Comments POCT PREG (test code = 1605) negative On board controls acceptable with present C Line (test code = 3574) POCT PREG LOT # (test code = 3575) [id number] POCT PREG TEST DATE (test code = 3576) Lab Interpretation (test code = Normal 47384-4) [facility] WITH [id number] 12:33:08 Test Item Value Reference Range Interpretation Comments WBC (test code = See_Comment [Automated 6690-2) message] The sy stem which generated this result transmitted reference range : 4.30 - 11.10 10*3/?L. The reference range was not used to interpret this result as normal/abnormal . RBC (test code = See_Comment [Automated 439-8) message] The sy stem which generated this result transmitted reference range : 3.93 - 5.25 10*6/?L. The reference range was not used to interpret this result as normal/abnormal . HGB (test code = 8.3 g/dL 11.6-15.0 L 718-7) HCT (test code = 29.3 % 35.7-45.2 L 4544-3) MCV (test code = 69.6 fL 80.6-95.5 L 787-2) MCH (test code = 19.7 pg 25.9-32.8 L 785-6) MCHC (test code = 28.3 g/dL 31.6-35.1 L 786-4) RDW-SD (test code = 55.2 fL 39.0-49.9 H 70691-4) RDW-CV (test code = 23.2 % 12.0-15.5 H 788-0) PLT (test code = See_Comment [Automated 777-3) message] The sy stem which generated this result transmitted reference range : 166 - 358 10*3/ ?L. The reference r rhina was not used to interpret this result as normal/abnormal . MPV (test code = 10.6 fL 9.5-12.9 21175-4) NRBC/100 WBC (test See_Comment [Automat ed code = 5471301937) message] The system which generated this result transmitted reference range : 0.0 - 10.0 /100 WBCs. The refer ence range was not u sed to interpret th is result as normal/abnormal . NRBC x10^3 (test code See_Comment [Auto mated = 7847124282) message] The s ystem which generated this result transmitted reference range : 10*3/?L. The reference range was not used to interpret this result as normal/abnormal . GRAN MAT (NEUT) % 53.5 % (test code = 770-8) IMM GRAN % (test code 0.50 % = 9463444934) LYMPH % (test code = 36.4 % 736-9) MONO % (test code = 5.7 % 5905-5) EOS % (test code = 3.1 % 713-8) BASO % (test code = 0.8 % 706-2) GRAN MAT x10^3(ANC) 3.31 10*3/uL 1.88-7.09 (test code = 7699155141) IMM GRAN x10^3 (test 0.03 10*3/uL 0.00-0.06 code = 0508902079) LYMPH x10^3 (test code 2.25 10*3/uL 1.32-3.29 = 731-0) MONO x10^3 (test code 0.35 10*3/uL 0.33-0.92 = 742-7) EOS x10^3 (test code = 0.19 10*3/uL 0.03-0.39 711-2) BASO x10^3 (test code 0.05 10*3/uL 0.01-0.07 = 704-7) Lab Interpretation Abnormal (test code = 69512-1) [facility] AmericaPrepare Packed RBC (in units), 1 Units 2021-04-28 05:37:48 Test Item Value Reference Range Interpretation Comments Unit Blood Type (test O Neg code = 4410) ISBT Blood Type Code (test code = 408759) Unit Number (test [id number] code = 4411) Blood Expiration Date & Time (test code = 538401) Status Information Issued (test code = 4412) Product Red Blood Cells Identification (test code = 4413) Product Code (test F3516B27 Performed at [facility] code = 4414) Laboratory Services - [facility] Blood [address] [place] [id number] Free: [phone] A No. [id number] Cross Match Result Compatible (test code = 4409) [facility] AmericaHEMOGLOBIN2021-09-25 21:11:13 Test Item Value Reference Range Interpretation Comments HGB (test code = 718-7) 6.6 g/dL 11.6-15.0 L Lab Interpretation (test code = Abnormal 47703-6) [facility] AmericaPrepar Packed RBC (in units), 1 Units 2021-04-27 16:12:49 Test Item Value Reference Range Interpretation Comments Unit Blood Type (test O Neg code = 4410) ISBT Blood Type Code (test code = 570466) Unit Number (test code [id number] = 4411) Blood Expiration Date & Time (test code = 255301) Status Information Issued (test code = 4412) Product Identification Red Blood (test code = 4413) Cells Product Code (test J6899W67 Performed at [facility] code = 4414) Laboratory Services - [facility] Blood [address] [place], [place] [address]Bwbb Free: [phone] A No. [id number] [facility] AmericaC-REACTIVE [id number] 15:44:28 Test Item Value Reference Range Interpretation Comments CRP (test code = 7835219320) 0.6 mg/dL <0.8 Lab Interpretation (test code = Normal 88564-5) [facility] AmericaVITAMIN D, [id number] 14:51:01 Test Item Value Reference Range Interpretation Comments VIT D 25OH (test code = 21 ng/mL 25-80 L 48957-3) YOANA (test code = YOANA) Deficiency: <20 ng/mLInsufficiency: 20-24 ng/mLOptimal: 25-80 ng/mL Lab Interpretation (test Abnormal code = 59606-4) [facility] AmericaVITAMIN B12, [id number] 14:06:02 Test Item Value Reference Range Interpretation Comments VIT B12 (test code = 410 pg/mL 240-930 0177935524) YOANA (test code = YOANA) Biotin has been reported to cause a positive bias, interpret results relative to patient's use of biotin. Lab Interpretation (test Normal code = 81100-9) [facility] AmericaCBC WITH [id number] 12:50:07 Test Item Value Reference Range Interpretation [...] (test code = 58.7 fL 39.0-49.9 H 25161-0) RDW-CV (test code = 24.9 % 12.0-15.5 H 788-0) PLT (test code = See_Comment [Automated 777-3) message] The sy stem which generated this result transmitted reference range : 166 - 358 10*3/ ?L. The reference r rhina was not used to interpret this result as normal/abnormal . MPV (test code = 11.2 fL 9.5-12.9 96980-9) NRBC/100 WBC (test See_Comment [Automat ed code = 1477694071) message] The system which generated this result transmitted reference range : 0.0 - 10.0 /100 WBCs. The refer ence range was not u sed to interpret th is result as normal/abnormal . NRBC x10^3 (test code See_Comment [Auto mated = 3509309253) message] The s ystem which generated this result transmitted reference range : 10*3/?L. The reference range was not used to interpret this result as normal/abnormal . GRAN MAT (NEUT) % 63.0 % (test code = 770-8) IMM GRAN % (test code 0.70 % = 5774585669) LYMPH % (test code = 25.2 % 736-9) MONO % (test code = 7.7 % 5905-5) EOS % (test code = 2.6 % 713-8) BASO % (test code = 0.8 % 706-2) GRAN MAT x10^3(ANC) 3.86 10*3/uL 1.88-7.09 (test code = 5933849836) IMM GRAN x10^3 (test 0.04 10*3/uL 0.00-0.06 code = 9844615804) LYMPH x10^3 (test code 1.54 10*3/uL 1.32-3.29 [...] (test 2+ See_Comment [Automa lennox code = 04276-6) message] The system which generated this result transmitted reference range : 2+. The referen ce range was not u sed to interpret th is result as normal/abnormal . Lab Interpretation Abnormal (test code = 86787-9) [facility] AmericaGLYCOSYLATED HEMOGLOBIN (A1C)2021-04-27 12:35:42HGB R6HDitaiki: Due to low Hemoglobin, %A1c can not be calculated.[facility] LABORATORYReference RangesNormal: <5.7%Prediabetes: 5.7 - 6.4%Diabetes: > 6.5%[facility] AmericaCOMP. METABOLIC PANEL (72688)2021-04-27 11:42:47 Test Item Value Reference Range Interpretation Comments NA (test code = 135 mmol/L 135-145 4285378116) K (test code = 3.3 mmol/L 3.5-5.0 L 5283302423) CL (test code = 105 mmol/L 98-108 8768951792) CO2 TOTAL (test code = 26 mmol/L 23-31 7857227268) AGAP (test code = 2-16 9486348472) BUN (test code = 6 mg/dL 7-23 L 8625444316) GLUCOSE (test code = 91 mg/dL 70-110 2642339788) CREATININE (test code = 0.61 mg/dL 0.50-1.04 2292701528) TOTAL BILI (test code = 0.4 mg/dL 0.1-1.3 0319513689) CALCIUM (test code = 9.1 mg/dL 8.6-10.6 6709269541) T PROTEIN (test code = 7.0 g/dL 6.3-8.2 4062769515) ALBUMIN (test code = 4.0 g/dL 3.5-5.0 2401191984) ALK PHOS (test code = 73 U/L 34-122 4393261235) ALTv (test code = 16 U/L 5-35 1742-6) AST(SGOT) (test code = 22 U/L 13-40 3520812893) eGFR (test code = mL/min/1.73m2 4794536895) YOANA (test code = YOANA) Association of [...] tests). Lab Interpretation Abnormal (test code = 19844-3) [facility] AmericaMAGNESIUM2021-09-25 11:35:05 Test Item Value Reference Range Interpretation Comments MAGNESIUM (test code = 1224394764) 2.2 mg/dL 1.7-2.4 Lab Interpretation (test code = Normal 85747-8) [facility] AmericaPROCALCITONIN2021-09-25 10:53:27 Test Item Value Reference Interpretation Comments Range Procalcitonin (test <0.02 See_Comment [Automa lennox code = 2455120594) message] The system which generated this result [...] lung abscess/empyema. For further information please refer to:[email or web address] Lab Interpretation Normal (test code = 44598-0) [facility] AmericaSEDIMENTATION [id number] 07:09:07 Test Item Value Reference Range Interpretation Comments ESR (test code = See_Comment H [Automated message] 6827062932) The system [employer] generated this result transmitted ref erence range: 0 - 20 m m/HR. The reference r rhina was not used to interpret this result as normal/abnor mal. Lab Interpretation (test Abnormal code = 65229-7) [facility] AmericaPANEL [id number] 06:53:11 Test Item Value Reference Range Interpretation Comments ANTIBODY ID (test Negative panel nega tive, repeat IAT code = 245) negativePerform ed at [facility] Laboratory Serv [facility] Blood [address] [place], [place] [address]Htjr Free: [phone] A No. [id number] [facility] AmericaIRON [id number] 06:41:15 Test Item Value Reference Range Interpretation Comments IRON (test code = 8060982288) 19 ug/dL 50-160 L TIBC (test code = 3052989544) 424 ug/dL 250-410 H % FE SAT (test code = 7417961288) 4 % 20-50 L Lab Interpretation (test code = Abnormal 67219-9) [facility] AmericaPROTHROMBIN TIME / [id number] 06:33:51 Test Item Value Reference Range Interpretation Comments PROTIME PATIENT (test See_Comment [Auto mated message] code = 5964-2) The system whoactually generated this result transmitted ref erence range: 12.0 - 1 4.7 Seconds. The re ference range was not u sed to interpret this result as normal/abnor mal. INR (test code = 6301-6) Nor mal INR <1.1; Warfarin Therap eutic range 2.0 to 3. 0 or 2.5 to 3.5, dep ending upon the indica tions. Lab Interpretation (test Normal code = 26422-2) [facility] AmericaLACTATE [id number] 06:32:51 Test Item Value Reference Range Interpretation Comments LDH (test code = 3007399803) 291 U/L 300-600 L Lab Interpretation (test code = Abnormal 78980-4) [facility] AmericaTHYROID STIMULATING [id number] 05:18:41 Test Item Value Reference Range Interpretation Comments TSH (test code = See_Comment L [Automated message] 4460798282) The system [employer] generated this result transmitted ref erence range: 0.45 - 4 .70 mIU/L. The refe rence range was not u sed to interpret this result as normal/abnor mal. Lab Interpretation (test Abnormal code = 26098-3) [facility] AmericaN-TERMINAL [id number] 04:56:54 Test Item Value Reference Range Interpretation Comments NT-proBNP (test code 96 pg/mL See_Comment [Autom ated = 7259729376) message] The system which generated this result transmitted reference range : <=125. The reference range was not used to interpret this result as normal/abnormal . YOANA (test code = YOANA) Biotin has been reported to cause a negative bias, interpret results relative to patient's use of biotin. Lab Interpretation Normal (test code = 63190-6) [facility] AmericaLIPID PANEL (42702)(TOTAL CHOLESTEROL, TRIGLYCERIDES, HDL)2021-04-27 04:48:33 Test Item Value Reference Range Interpretation Comments CHOL (test code = 180 mg/dL 120-200 8867949034) HDL (test code = 40 mg/dL >50 L 3990374085) HDLC RATIO (test code = See_Comment [Au tomated message] 6522528990) The system [employer] generated this result transmit lennox reference range : <=4.5. The refe rence range was not u sed to interpret th is result as normal/abnormal . TRIG (test code = 166 mg/dL 30-170 6855551126) LDL CHOL (test code = 107 mg/dL See_Comment [Auto mated message] 14335-5) The system [employer] generated this result transmit lennox reference range : <=160. The refe rence range was not u sed to interpret th is result as normal/abnormal . VLDL (test code = 33 mg/dL 5-60 8175482259) Lab Interpretation (test Abnormal code = 82561-9) [facility] AmericaMAGNESIUM2021-09-25 04:48:13 Test Item Value Reference Range Interpretation Comments MAGNESIUM (test code = 0037003641) 2.1 mg/dL 1.7-2.4 Lab Interpretation (test code = Normal 56077-2) [facility] AmericaPHOSPHORUS2021-09-25 04:48:13 Test Item Value Reference Range Interpretation Comments PHOSPHORUS (test code = 4277479262) 3.4 mg/dL 2.5-5.0 Lab Interpretation (test code = Normal 43696-8) [facility] AmericaURIC [id number] 04:47:53 Test Item Value Reference Range Interpretation Comments URIC ACID (test code = 6051856050) 3.2 mg/dL 2.9-6.0 Lab Interpretation (test code = Normal 21466-0) [facility] AmericaType and Screen - ONCE [id number] 02:06:34 Test Item Value Reference Range Interpretation Comments ABO & RH (test code O Negative Performe d at [facility] = 20) Laboratory Serv [facility] Blood Bank[address] [place], [place] [address]Toll Free: [phone] A No. [id number] IAT (test code = Positive Performed a t [facility] 1185) Laboratory Serv [facility] Blood Bank[address] [place], [place] [address]Toll Free: [phone] A No. [id number] [facility] AmericaHEPATIC FUNCTION PANEL (51662) (ALB,T.PRO,BILI T,BU/BC,ALT,AST,ALK PHOS)2021-04-26 22:25:02 Test Item Value Reference Range Interpretation Comments TOTAL BILI (test code = 8178695029) 0.6 mg/dL 0.1-1.1 BILI UNCON (test code = 5547304883) 0.4 mg/dL 0.1-1.1 BILI CONJ (test code = 9776109569) 0.0 mg/dL 0.0-0.3 T PROTEIN (test code = 1692807794) 8.2 g/dL 6.3-8.2 ALBUMIN (test code = 8498890169) 4.6 g/dL 3.5-5.0 ALK PHOS (test code = 2116320353) 99 U/L 34-122 ALTv (test code = 1742-6) 19 U/L 5-35 AST(SGOT) (test code = 6164568491) 24 U/L 13-40 Lab Interpretation (test code = Normal 65104-8) [facility] METABOLIC PANEL (NA, K, CL, CO2, GLUCOSE, BUN, CREATININE, CA)2021-04-26 22:25:01 Test Item Value Reference Range Interpretation Comments NA (test code = 137 mmol/L 135-145 6035583350) K (test code = 4.3 mmol/L 3.5-5.0 1394136945) CL (test code = 105 mmol/L 98-108 1808630332) CO2 TOTAL (test code 24 mmol/L 23-31 = 3155058917) AGAP (test code = 2-16 7265728039) BUN (test code = 7 mg/dL 7-23 3458430201) GLUCOSE (test code = 98 mg/dL 70-110 0809338027) CREATININE (test code 0.64 mg/dL 0.50-1.04 = 5159961337) CALCIUM (test code = 9.8 mg/dL 8.6-10.6 6351928430) eGFR (test code = mL/min/1.73m2 8575300677) YOANA (test code = YOANA) Association of [...] or urine or abnormalities in imaging tests). [facility] AmericaAMYLASE2021-09-24 22:24:00 Test Item Value Reference Range Interpretation Comments RAINE (test code = 6129893590) 52 U/L 35-110 Lab Interpretation (test code = Normal 36284-8) [facility] WITH [id number] 22:19:40 Test Item Value Reference Range Interpretation Comments WBC (test code = See_Comment [Automated 5390-2) message] The sy stem which generated this result transmitted reference range : 4.30 - 11.10 10*3/?L. The reference range was not used to interpret this result as normal/abnormal . RBC (test code = See_Comment L [Automated 929-8) message] The sy stem which generated this [...] (test code = 53.6 fL 39.0-49.9 H 68136-0) RDW-CV (test code = 24.5 % 12.0-15.5 H 788-0) PLT (test code = See_Comment [Automated 777-3) message] The sy stem which generated this result transmitted reference range : 166 - 358 10*3/ ?L. The reference r rhina was not used to interpret this result as normal/abnormal . MPV (test code = 10.0 fL 9.5-12.9 64520-6) NRBC/100 WBC (test See_Comment [Automat ed code = 8639352892) message] The system which generated this result transmitted reference range : 0.0 - 10.0 /100 WBCs. The refer ence range was not u sed to interpret th is result as normal/abnormal . NRBC x10^3 (test code See_Comment [Auto mated = 4475875350) message] The s ystem which generated this result transmitted reference range : 10*3/?L. The reference range was not used to interpret this result as normal/abnormal . GRAN MAT (NEUT) % 70.1 % (test code = 770-8) IMM GRAN % (test code 0.60 % = 8574192837) LYMPH % (test code = 20.5 % 736-9) MONO % (test code = 6.6 % 5905-5) EOS % (test code = 1.6 % 713-8) BASO % (test code = 0.6 % 706-2) GRAN MAT x10^3(ANC) 4.96 10*3/uL 1.88-7.09 (test code = 4738802038) IMM GRAN x10^3 (test 0.04 10*3/uL 0.00-0.06 code = 6974086487) LYMPH x10^3 (test code 1.45 10*3/uL 1.32-3.29 = 731-0) MONO x10^3 (test code 0.47 10*3/uL 0.33-0.92 = 742-7) EOS x10^3 (test code = 0.11 10*3/uL 0.03-0.39 711-2) BASO x10^3 (test code 0.04 10*3/uL 0.01-0.07 = 704-7) Lab Interpretation Abnormal (test code = 25978-0) [facility] AmericaPOCT [id number] 22:10:00 Test Item Value Reference Range Interpretation Comments POCT PREG (test code = 1605) negative On board controls acceptable with present C Line (test code = 3574) POCT PREG LOT # (test code = 3575) [id number] POCT PREG TEST DATE (test 08/02/2022 code = 3576) Lab Interpretation (test code = Normal 33028-3) [facility] METABOLIC PANEL (NA, K, CL, CO2, GLUCOSE, BUN, CREATININE, CA)2020-03-24 11:41:00 Test Item Value Reference Range Interpretation Comments NA (test code = 137 mmol/L 135-145 8187269873) K (test code = 4.1 mmol/L 3.5-5 2600734584) CL (test code = 105 mmol/L 98-108 4904127348) CO2 TOTAL (test code = 24 mmol/L 23-31 2308458301) AGAP (test code = 2-16 5682633369) BUN (test code = 9 mg/dL 7-23 7601889388) GLUCOSE (test code = 100 mg/dL 70-110 1411981514) CREATININE (test code 0.74 mg/dL 0.5-1.04 = 5082337420) CALCIUM (test code = 9.0 mg/dL 8.6-10.6 2251117179) eGFR Calculation mL/min/1.73m2 (Non-) (test code = 9501650093) eGFR Calculation mL/min/1.73m2 () (test code = 3627832502) YOANA (test code = YOANA) Association of [...] or urine or abnormalities in imaging tests). [facility] WITHOUT [id number] 11:12:00 Test Item Value Reference Range Interpretation Comments WBC (test code = 6690-2) See_Comment [A utomated message] The system [employer] generated this result transmit lennox reference range : 4.30 - 11.10 10*3/?L. The reference range was not used to interpret this result as normal/abnormal . RBC (test code = 789-8) See_Comment L [Au tomated message] The system [employer] generated this result transmit lennox reference range [...] 777-3) See_Comment [Au tomated message] The system [employer] generated this result transmit lennox reference range : 166 - 358 10*3/?L. The reference range was not used to interpret this result as normal/abnormal . MPV (test code = 11.4 fL 9.5-12.9 81801-5) RDW-CV (test code = 19.6 % 12-15.5 H 788-0) RDW-SD (test code = 49.6 fL 39-49.9 11502-0) NRBC x10^3 (test code = <0.01 See_Comment [Au tomated message] 2915182142) The system [employer] generated this result transmit lennox reference range : 10*3/?L. The reference range was not used to interpret this result as normal/abnormal . NRBC/100 WBC (test code See_Comment [Au tomated message] = 7305908054) The system [employer] generated this result transmit lennox reference range : 0.0 - 10.0 /100 WBC s. The reference r rhina was not used to interpret this result as normal/abnormal . IPF % (test code = 6289503646) Lab Interpretation (test Abnormal code = 61458-7) [facility] America[facility]EC[facility] PATH[facility] BY [id number] 19:02:00 Test Item Value Reference Range Interpretation Comments Campylobacter (jejuni, Negative Negative, coli and upsaliensis) Indeterminate, (test code = 42609-7) See comment Plesiomonas shigelloides Negative Negative, (test code = 21529-3) Indeterminate, See comment Salmonella (test code = Negative Negative, 83937-8) Indeterminate, See comment Yersinia enterocolitica Negative Negative, (test code = 76206-3) Indeterminate, See comment Vibrio (test code = Negative Negative, 89825-3) Indeterminate, See comment Vibrio cholerae (test Negative Negative, code = 79362-9) Indeterminate, See comment Enteroaggregative E. coli Negative Negative, (EAEC) (test code = Indeterminate, 37990-8) See comment Enteropathogenic E. coli Negative Negative, N/A, (EPEC) (test code = Indeterminate, 33577-8) See comment Enterotoxigenic E. coli Negative Negative, (ETEC) (test code = Indeterminate, 55069-5) See comment Shiga toxin-Producing E. Negative Negative, coli (STEC) (test code = Indeterminate, 45351-4) See comment Shigella/Enteroinvasive Negative Negative, E. coli (EIEC) (test code Indeterminate, = 15975-1) See comment Cryptosporidium (test Negative Negative, code = 62240-1) Indeterminate, See comment Cyclospora cayetanensis Negative Negative, (test code = 17262-5) Indeterminate, See comment Entamoeba histolytica Negative Negative, (test code = 41162-8) Indeterminate, See comment Giardia lamblia (test Negative Negative, code = 53451-0) Indeterminate, See comment Adenovirus F 40/41 (test Negative Negative, code = 51203-0) Indeterminate, See comment Astrovirus (test code = Negative Negative, 75207-9) Indeterminate, See comment Norovirus GI/GII (test Negative Negative, code = 08852-3) Indeterminate, See comment Rotavirus A (test code = Negative Negative, 73710-7) Indeterminate, See comment Sapovirus (test code = Negative Negative, 78404-8) Indeterminate, See comment YOANA (test code = YOANA) Negative:A negative result does not rule-out infection. ?This assay does not test for all potential infectious agents of diarrheal disease. Positive:A positive test result does not necessarily indicate the presence of viable organism. Lab Interpretation (test Normal code = 82155-2) [facility] (NA, K, CL, CO2, GLUCOSE, BUN, CREATININE, CA)2020-03-23 10:50:00 Test Item Value Reference Range Interpretation Comments NA (test code = 136 mmol/L 135-145 0934390151) K (test code = 3.9 mmol/L 3.5-5 5844291255) CL (test code = 104 mmol/L 98-108 0576012716) CO2 TOTAL (test code = 21 mmol/L 23-31 L 9924695257) AGAP (test code = 2-16 4679650319) BUN (test code = 5 mg/dL 7-23 L 0622293423) GLUCOSE (test code = 84 mg/dL 70-110 3959092095) CREATININE (test code = 0.80 mg/dL 0.5-1.04 5894510236) CALCIUM (test code = 9.5 mg/dL 8.6-10.6 1331716192) eGFR Calculation mL/min/1.73m2 (Non-) (test code = 9322364487) eGFR Calculation mL/min/1.73m2 () (test code = 2628178274) YOANA (test code = YOANA) Association of [...] tests). Lab Interpretation Abnormal (test code = 10989-6) [facility] WITHOUT [id number] 10:19:00 Test Item Value Reference Range Interpretation Comments WBC (test code = See_Comment [Automated message] 6690-2) The system [employer] generated this result transmitted ref erence range: 4.30 - 1 1.10 10*3/?L. The reference range was not used to int erpret this result as normal/abnormal . RBC (test code = 789-8) See_Comment [Au tomated message] The system [employer] generated this result transmitted ref erence range: [...] 777-3) See_Comment [Au tomated message] The system [employer] generated this result transmitted ref erence range: 166 - 35 8 10*3/?L. The reference range was not used to int erpret this result as normal/abnormal . MPV (test code = 11.6 fL 9.5-12.9 94629-8) RDW-CV (test code = 19.8 % 12-15.5 H 788-0) RDW-SD (test code = 49.3 fL 39-49.9 91381-0) NRBC x10^3 (test code = <0.01 See_Comment [Au tomated message] 0527680280) The system [employer] generated this result transmitted ref erence range: 10*3/?L. The reference range was not used to int erpret this result as normal/abnormal . NRBC/100 WBC (test code See_Comment [Au tomated message] = 8744235124) The system [employer] generated this result transmitted ref erence range: 0.0 - 10 .0 /100 WBCs. The reference range was not used to int erpret this result as normal/abnormal . IPF % (test code = 8.3 % 1.3-7.7 H Platelet count 9846765466) measured by fluorescence me thod. Lab Interpretation Abnormal (test code = 83191-0) [facility] WITHOUT [id number] 04:33:00 Test Item Value Reference Range Interpretation Comments WBC (test code = 6690-2) See_Comment [A utomated message] The system [employer] generated this result transmit lennox reference range : 4.30 - 11.10 10*3/?L. The reference range was not used to interpret this result as normal/abnormal . RBC (test code = 789-8) See_Comment [Au tomated message] The system [employer] generated this result transmit lennox reference range [...] 777-3) See_Comment [Au tomated message] The system [employer] generated this result transmit lennox reference range : 166 - 358 10*3/?L. The reference range was not used to interpret this result as normal/abnormal . MPV (test code = 11.4 fL 9.5-12.9 30686-8) RDW-CV (test code = 19.7 % 12-15.5 H 788-0) RDW-SD (test code = 49.6 fL 39-49.9 89499-7) NRBC x10^3 (test code = <0.01 See_Comment [Au tomated message] 4640719614) The system [employer] generated this result transmit lennox reference range : 10*3/?L. The reference range was not used to interpret this result as normal/abnormal . NRBC/100 WBC (test code See_Comment [Au tomated message] = 7594832102) The system [facility] generated this result transmit lennox reference range : 0.0 - 10.0 /100 WBC s. The reference r rhina was not used to interpret this result as normal/abnormal . IPF % (test code = 7476141368) Lab Interpretation (test Abnormal code = 44455-5) [facility] WITHOUT [id number] 19:58:00 Test Item Value Reference Range Interpretation Comments WBC (test code = 6690-2) See_Comment [A utomated message] The system [facility] generated this result transmit lennox reference range : 4.30 - 11.10 10*3/?L. The reference range was not used to interpret this result as normal/abnormal . RBC (test code = 789-8) See_Comment L [Au tomated message] The system [facility] generated this result transmit lennox reference [...] 777-3) See_Comment [Au tomated message] The system [facility] generated this result transmit lennox reference range : 166 - 358 10*3/?L. The reference range was not used to interpret this result as normal/abnormal . MPV (test code = 11.3 fL 9.5-12.9 55448-6) RDW-CV (test code = 19.5 % 12-15.5 H 788-0) RDW-SD (test code = 50.3 fL 39-49.9 H 05689-7) NRBC x10^3 (test code = <0.01 See_Comment [Au tomated message] 3709085758) The system [facility] generated this result transmit lennox reference range : 10*3/?L. The reference range was not used to interpret this result as normal/abnormal . NRBC/100 WBC (test code See_Comment [Au tomated message] = 7701932011) The system [facility] generated this result transmit lennox reference range : 0.0 - 10.0 /100 WBC s. The reference r rhina was not used to interpret this result as normal/abnormal . IPF % (test code = 2461371907) Lab Interpretation (test Abnormal code = 69895-8) [facility] AmericaCLOSTRIDIUM DIFFICILE [id number] 16:51:00 Test Item Value Reference Range Interpretation Comments Clostridioides (Clostridium) Negative Negative difficile (test code = 34902-5) Lab Interpretation (test code = Normal 08561-8) [facility] PELVIS COMPLETE WITH [id number] 14:26:14 A 2.9 cm left ovarian hemorrhagic [...] measures 8.6 x 4.6 x 5.5 cm. Theuterus is retroverted.The endometrium is homogeneous and measures 10 mm in thickness. OVARIES: The right ovary measures 1.9 x 1.3 x 1.5 cm (1.9 mL). A 1.5 cm rightdominant follicle. The left ovary measures 2.3 x 3.3 x 2.9 cm (16.3 mL). The left ovarycontains a 2.9 x 2.5 x 2.6 cm complex cystic mass with thin reticulationsuggestive of a hemorrhagic ovarian cyst. No ?free fluid. [facility], Radiant Results Inft User - 03/22/2020 9:27 AM CDTEXAM: PELVIC ULTRASOUND, TRANSABDOMINAL AND TRANSVAGINALHISTORY: ovarian cysts on CT. LMP: 02/20/2020COMPARISON: CT abdomen [...] left ovarycontains a 2.9 x 2.5 x 2.6cm complex cystic mass with thin reticulationsuggestive of a hemorrhagic ovarian cyst.No free fluid.I MPRESSIONA 2.9 cm left ovarian hemorrhagic cyst.Unremarkable uterus. Preliminary Report Dictated by Resident: Poli Aburto, Jose A Sahu MD., have reviewed this study and agree with theabove report.[facility] METABOLIC PANEL (NA, K, CL, CO2, GLUCOSE, BUN, CREATININE, CA) 2020-03-22 10:48:00 Test Item Value Reference Range Interpretation Comments NA (test code = 137 mmol/L 135-145 3056643311) K (test code = 3.9 mmol/L 3.5-5 8806491820) CL (test code = 107 mmol/L 98-108 3165663688) CO2 TOTAL (test code = 22 mmol/L 23-31 L 5824590173) AGAP (test code = 2-16 0052718462) BUN (test code = <2 7-23 L 1101721851) GLUCOSE (test code = 83 mg/dL 70-110 8703791170) CREATININE (test code = 0.64 mg/dL 0.5-1.04 1687801857) CALCIUM (test code = 9.0 mg/dL 8.6-10.6 8365494210) eGFR Calculation mL/min/1.73m2 (Non-) (test code = 2671500312) eGFR Calculation mL/min/1.73m2 () (test code = 2745583562) YOANA (test code = YOANA) Association of [...] tests). Lab Interpretation Abnormal (test code = 38760-4) [facility] WITHOUT [id number] 10:29:00 Test Item Value Reference Range Interpretation Comments WBC (test code = See_Comment [Automated message] 6690-2) The system [employer] generated this result transmitted ref erence range: 4.30 - 1 1.10 10*3/?L. The reference range was not used to int erpret this result as normal/abnormal . RBC (test code = 789-8) See_Comment L [Au tomated message] The system [employer] generated this result transmitted ref erence range: [...] 777-3) See_Comment [Au tomated message] The system [employer] generated this result transmitted ref erence range: 166 - 35 8 10*3/?L. The reference range was not used to int erpret this result as normal/abnormal . MPV (test code = 11.3 fL 9.5-12.9 94886-7) RDW-CV (test code = 19.4 % 12-15.5 H 788-0) RDW-SD (test code = 49.6 fL 39-49.9 95128-8) NRBC x10^3 (test code = <0.01 See_Comment [Au tomated message] 9096816145) The system [employer] generated this result transmitted ref erence range: 10*3/?L. The reference range was not used to int erpret this result as normal/abnormal . NRBC/100 WBC (test code See_Comment [Au tomated message] = 3821672297) The system [employer] generated this result transmitted ref erence range: 0.0 - 10 .0 /100 WBCs. The reference range was not used to int erpret this result as normal/abnormal . IPF % (test code = 9.0 % 1.3-7.7 H Platelet count 5267463909) measured by fluorescence me thod. Lab Interpretation Abnormal (test code = 68929-1) [facility] America[facility]INALYSIS2020-08-20 10:13:00 Test Item Value Reference Range Interpretation Comments APPEARANCE (test code = Clear Clear 6367488753) COLOR (test code = Straw Yellow A 1215508736) PH (test code = 4.8-8.0 5961595298) SP GRAVITY (test code = 1.003-1.030 2304503682) GLU U QUAL (test code = Normal Normal 5600486323) BLOOD (test code = Negative Negative 9734569943) KETONES (test code = Negative Negative 7082781190) PROTEIN (test code = Negative Negative 2887-8) UROBILIN (test code = Normal Normal 1608358512) BILIRUBIN (test code = Negative Negative 3236413007) NITRITE (test code = Negative Negative 7114875934) LEUK ALCON (test code = Negative Negative 0081885057) RBC/HPF (test code = <1 See_Comment [Autom ated message] 8548944630) The system [employer] generated this result transmitted ref erence range: 0 - 3 HP F. The reference range was not used to int erpret this result as normal/abnormal . WBC/HPF (test code = See_Comment [Autom ated message] 8564142875) The system [employer] generated this result transmitted ref erence range: 0 - 5 HP F. The reference range was not used to int erpret this result as normal/abnormal . BACTERIA (test code = Negative Negative 1840563138) SQ EPITH (test code = <1 See_Comment [Auto mated message] 3067521618) The system [employer] generated this result transmitted ref erence range: <=2 HPF. The reference range was not used to int erpret this result as normal/abnormal . Lab Interpretation (test Abnormal code = 18589-2) [facility] AmericaIRO [id number] 00:51:00 Test Item Value Reference Range Interpretation Comments IRON (test code = 5658032370) 74 ug/dL 50-160 TIBC (test code = 2768026737) 411 ug/dL 250-410 H % FE SAT (test code = 1768620548) 18 % 20-50 L Lab Interpretation (test code = Abnormal 70807-9) [facility] WITHOUT [id number] 23:58:00 Test Item Value Reference Range Interpretation Comments WBC (test code = 6690-2) See_Comment [A utomated message] The system [employer] generated this result transmit lennox reference range : 4.30 - 11.10 10*3/?L. The reference range was not used to interpret this result as normal/abnormal . RBC (test code = 789-8) See_Comment [Au tomated message] The system [employer] generated this result transmit lennox reference range [...] 777-3) See_Comment [Au tomated message] The system [employer] generated this result transmit lennox reference range : 166 - 358 10*3/?L. The reference range was not used to interpret this result as normal/abnormal . MPV (test code = 11.6 fL 9.5-12.9 84349-1) RDW-CV (test code = 19.0 % 12-15.5 H 788-0) RDW-SD (test code = 49.3 fL 39-49.9 11938-0) NRBC x10^3 (test code = <0.01 See_Comment [Au tomated message] 8064911424) The system [employer] generated this result transmit lennox reference range : 10*3/?L. The reference range was not used to interpret this result as normal/abnormal . NRBC/100 WBC (test code See_Comment [Au tomated message] = 6735377263) The system [employer] generated this result transmit lennox reference range : 0.0 - 10.0 /100 WBC s. The reference r rhina was not used to interpret this result as normal/abnormal . IPF % (test code = 2811451269) Lab Interpretation (test Abnormal code = 28233-3) [facility] AmericaCT ABDOMEN PELVIS W [id number] 19:51:50 1. ?No acute abnormality identified in [...] EXAM INFORMATION: Outside study was performed at [facility] on 03/21/[address] [...] parenchymal abnormality identified in either kidney. Nohydronephrosis. Thebladder is unremarkable. Uterus is unremarkable. 3.2 cmfluid density cyst at the left adnexa, likelyphysiologic. Lobulated fluiddensity structure at the right adnexa adjacent with largest componentmeas uring up to 2.9 cm in is unchanged [...] pain.EXAM INFORMATION: Outside study was performed at [facility] on 03/21/[address] at [address] images of the abdomen wereobtained in arterial phase and of the abdomen and pelvis were obtained invenous phase. Coronal and sagittal reformatted images of venous phase areprovided. Original report was made available and is uploaded to PACS [email or web address].COMPARISON: CT abdomen pelvis with contrast, 01/07/2017.FINDINGS::Statements: None.Thoracic: Included images of the lower chest demonstrate no abnormalities.Hepatobiliary: The liver is borderline enlarged measuring 17 cm in lengthat the midclavicular line. Focal hepatic lesion detected The gallbladder isunremarkable. No biliary dilation.Pancreas: No abnormality identified in the pancreas.Spleen:No abnormality identified in the spleen. Adrenals: No [...] size criteria. Abdominalaorta is normal in caliber.MSK/Body Wall: Noconcerning bony lesion identified.Peritoneum/Other: No extraluminal air. No extraluminal fluid.IMPRESSION1. No acute abnormality identified in the abdomen or pelvis.2. Small 3.2 cm left adnexal cyst, likely physiologic.3. Unchanged lobulated fluid density structure at the right adnexa,largest component measuring up to 2.9 cm. Favored to representhydrosalpinx.[facility] AmericaFERRITIN [id number] 18:24:00 Test Item Value Reference Range Interpretation Comments FERRITIN (test code = 3.7 ng/mL 6-137 L 2167117454) YOANA (test code = YOANA) Biotin has been reported to cause a negative bias, interpret results relative to patient's use of biotin. Lab Interpretation (test Abnormal code = 72436-7) [facility] AmericaC-REACTIVE [id number] 17:10:00 Test Item Value Reference Range Interpretation Comments CRP (test code = 5170187446) 0.3 mg/dL <0.8 Lab Interpretation (test code = Normal 33638-6) [facility] AmericaaPTT2020-08-19 16:13:00 Test Item Value Reference Range Interpretation Comments APTT Patient (test code = See_Comment [ Automated message] 3173-2) The system [employer] generated this result transmitted ref erence range: 26 - 36 Seconds. The re ference range was not u sed to interpret this result as normal/abnor mal. Lab Interpretation (test Normal code = 10952-7) [facility] AmericaSEDIMENTATION [id number] 15:45:00 Test Item Value Reference Range Interpretation Comments ESR (test code = See_Comment [Automated message] 5995227520) The system [employer] generated this result transmitted ref erence range: 0 - 20 m m/HR. The reference r rhina was not used to interpret this result as normal/abnor mal. Lab Interpretation (test Normal code = 65492-6) [facility] AmericaType and Screen - ONCE [id number] 15:17:36 Test Item Value Reference Range Interpretation Comments ABO & RH (test code O NEGATIVE Performe d at [facility] = 20) [facility] [address] [facility] [address] [address]Kude Free: [phone] A No. [id number] IAT (test code = Negative Performed a t [facility] 1185) [facility] [address] [facility] [place] [address]Rjep Free: [phone] A No. [id number] [facility] AmericaPROTHROMBIN TIME / [id number] 15:16:00 Test Item Value Reference Range Interpretation Comments PROTIME PATIENT (test See_Comment [Auto mated message] code = 5964-2) The system [facility] generated this result transmitted ref erence range: 10.1 - 1 2.6 Seconds. The re ference range was not u sed to interpret this result as normal/abnor mal. INR (test code = 6301-6) Nor mal INR <1.1; Warfarin Therap eutic range 2.0 to 3. 0 or 2.5 to 3.5, dep ending upon the indica tions. Lab Interpretation (test Normal code = 94297-6) [facility] AmericaBASI METABOLIC PANEL (NA, K, CL, CO2, GLUCOSE, BUN, CREATININE, CA)2020-03-21 15:08:00 Test Item Value Reference Range Interpretation Comments NA (test code = 136 mmol/L 135-145 3802791453) K (test code = 3.5 mmol/L 3.5-5 6089036359) CL (test code = 110 mmol/L 98-108 H 9867283897) CO2 TOTAL (test code = 20 mmol/L 23-31 L 1727263291) AGAP (test code = 2-16 7844921820) BUN (test code = 3 mg/dL 7-23 L 4657466455) GLUCOSE (test code = 100 mg/dL 70-110 7324256182) CREATININE (test code = 0.57 mg/dL 0.5-1.04 9429885367) CALCIUM (test code = 8.2 mg/dL 8.6-10.6 L 1542219586) eGFR Calculation mL/min/1.73m2 (Non-) (test code = 9537535578) eGFR Calculation mL/min/1.73m2 () (test code = 5589559284) YOANA (test code = YOANA) Association of [...] tests). Lab Interpretation Abnormal (test code = 55505-9) [facility] AmericaHEPATIC FUNCTION PANEL (19867) (ALB,T.PRO,BILI T,BU/BC,ALT,AST,ALK PHOS)2020-03-21 15:08:00 Test Item Value Reference Range Interpretation Comments TOTAL BILI (test code = 9752961009) 0.3 mg/dL 0.1-1.1 BILI UNCON (test code = 5429416294) 0.6 mg/dL 0.1-1.1 BILI CONJ (test code = 1476783249) 0.0 mg/dL 0-0.3 T PROTEIN (test code = 6586791128) 6.7 g/dL 6.3-8.2 ALBUMIN (test code = 6303570624) 3.7 g/dL 3.5-5 ALK PHOS (test code = 6483091784) 51 U/L 34-122 ALTv (test code = 1742-6) 9 U/L 5-35 AST(SGOT) (test code = 4113704166) 20 U/L 13-40 Lab Interpretation (test code = Normal 06471-3) [facility] WITH [id number] 14:47:00 Test Item Value Reference Range Interpretation Comments WBC (test code = See_Comment [Automated 6790-2) message] The sy stem which generated this [...] (test code = 51.0 fL 39-49.9 H 39841-7) RDW-CV (test code = 19.6 % 12-15.5 H 788-0) PLT (test code = See_Comment [Automated 777-3) message] The sy stem which generated this result transmitted reference range : 166 - 358 10*3/ ?L. The reference r rhina was not used to interpret this result as normal/abnormal . MPV (test code = 11.5 fL 9.5-12.9 87936-0) NRBC/100 WBC (test See_Comment [Automat ed code = 1724964070) message] The system which generated this result transmitted reference range : 0.0 - 10.0 /100 WBCs. The refer ence range was not u sed to interpret th is result as normal/abnormal . NRBC x10^3 (test code <0.01 See_Comment [Auto mated = 3998092129) message] The s ystem which generated this result transmitted reference range : 10*3/?L. The reference range was not used to interpret this result as normal/abnormal . GRAN MAT (NEUT) % 66.1 % (test code = 770-8) IMM GRAN % (test code 0.20 % = 2485892452) LYMPH % (test code = 25.2 % 736-9) MONO % (test code = 5.4 % 5905-5) EOS % (test code = 2.3 % 713-8) BASO % (test code = 0.8 % 706-2) GRAN MAT x10^3(ANC) 5.75 10*3/uL 1.88-7.09 (test code = 4651670647) IMM GRAN x10^3 (test <0.03 0-0.06 code = 0287380563) LYMPH x10^3 (test code 2.19 10*3/uL 1.32-3.29 = 731-0) MONO x10^3 (test code 0.47 10*3/uL 0.33-0.92 = 742-7) EOS x10^3 (test code = 0.20 10*3/uL 0.03-0.39 711-2) BASO x10^3 (test code 0.07 10*3/uL 0.01-0.07 = 704-7) Lab Interpretation Abnormal (test code = 20589-3) [facility] NOW RAPID TESTING)2020-03-21 13:51:00 Test Item Value Reference Range Interpretation Comments SARS-CoV-2 Rapid ID NOW Not Detected Not Detected (test code = 05963-3) YOANA (test code = YOANA) ID NOW COVID-19 Assay is an isothermal nucleic acid amplification test intended for the qualitative detection of nucleic acid from SARS-CoV-2 viral RNA in nasopharyngeal (STAPLE CUTTER) specimens. It is used under Emergency Use [...] indicated. Lab Interpretation Normal (test code = 48608-9) [facility]"
[2022-12-08] MEDS ORDERED: ACETAMINOPHEN 500 MG TAB ONE (02:57)
[2022-12-08] MEDS ORDERED: IBUPROFEN 400 MG TAB ONE (02:58)
[2022-12-08] MEDS ORDERED: LORazepam 2 MG/ML VIAL ONE (02:58)
[2022-12-08 04:48] LABS: Absolute Lymphocytes (CBC) 0.9 K/uL (0.7-4.9); Hematocrit 27.3 % (36.0-45.0); Lymphocytes % 6.3 % (15.3-44.8); MPV 8.8 fL (7.6-11.3); RBC Red Blood Cell Count 4.01 M/uL (3.86-4.86)
[2022-12-08 05:05] LABS: Albumin 3.5 g/dL (3.4-5.0); Bilirubin Total 0.2 mg/dL (0.2-1.0); Potassium 3.4 mEq/L (3.5-5.1); Protein, Total 6.9 g/dL (6.4-8.2)
[2022-12-08 05:21] LABS: Anisocytosis 1+; Blood Morphology Comment NOTED (NOT SEEN); Hypochromasia 2+; Platelet Estimate ADEQ; White Blood Cell Scan OK (OK)
--- NOTE | 2022-12-08 05:24 | ER ---
Nurse's Notes [facility] Rui Name: Maribeth Arredondo Age: 37 yrs Sex: Female : 1985 Arrival Date: 12/08/2022 Time: 02:31 Bed 16 Private MD: Diagnosis: Anemia, unspecified;Anxiety disorder, unspecified;Acute panic attack Presentation: 12/08 02:36 Chief complaint: EMS states: toned out for ABD pain. on arrival pt states he has pain, lg3 all over, her heart is racing and new complaint of chest pain. 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 4mg Zofran administered by EMS. Coronavirus screen: Client denies travel out of the [place] in the last 14 days. At this time, the client does not indicate any symptoms associated with coronavirus-19. Ebola Screen: No symptoms or risks identified at this time. Initial Sepsis Screen: Does the patient meet any 2 criteria? No. Patient's initial sepsis screen is negative. Does the patient have a suspected source of infection? No. Patient's initial sepsis screen is negative. Risk Assessment: Do you want to hurt yourself or someone else? Patient reports no desire to harm self or others. Onset of symptoms is unknown. 02:36 Method Of Arrival: EMS: [facility] lg3 02:36 Acuity: SINGH 3 lg3 Triage Assessment: 02:38 General: Appears in no apparent distress. Behavior is fussy, inappropriate for age, lg3 uncooperative. Pain: Complains of pain in abdomen. EENT: No deficits noted. No signs and/or symptoms were reported regarding the EENT system. Neuro: No deficits noted. [place] Agitation-Sedation Scale (RASS): +1 Restless Level of Consciousness is awake, Oriented to person, place, time, situation. Cardiovascular: No deficits noted. Capillary refill < 3 seconds Clubbing of nail beds is absent JVD is absent Patient's skin is warm and dry. Respiratory: No deficits noted. Airway is patent Respiratory effort is even, unlabored, Respiratory pattern is regular, symmetrical. GI: No deficits noted. Abdomen is round non-distended, obese, Reports lower abdominal pain, upper abdominal pain. : No deficits noted. No signs and/or symptoms were reported regarding the genitourinary system. Derm: No deficits noted. No signs and/or symptoms reported regarding the dermatologic system. Skin is intact, is healthy with good turgor, Skin is dry, Skin is normal, Skin temperature is warm. Musculoskeletal: No deficits noted. Circulation, motion, and sensation intact. Range of motion: intact in all extremities. Historical: - Allergies: 02:38 No Known Allergies; lg3 - Home Meds: 02:38 Trazodone Oral [Active]; Xanax 0.25 mg Oral tab 1 tab 3 times per day for Anxiety lg3 [Active]; Hydroxyzine Oral [Active]; lamotrigine Oral [Active]; - PMHx: 02:38 "Chronic iron deficient anemia with unknown bleed"; Anemia; Anxiety; Panic Attacks; lg3 PTSD; ulcerative colitis; "ruled out"; - PSHx: 02:38 section; X5; lg3 - Immunization history:: Adult Immunizations unknown. - Social history:: Smoking status: unknown. - Family history:: not pertinent. Screenin:42 [facility] ED Fall Risk Assessment (Adult) History of falling in the last 3 months, lg3 including since admission No falls in past 3 months (0 pts). Abuse screen: Denies threats or abuse. Denies injuries from another. Nutritional screening: No deficits noted. Tuberculosis screening: No symptoms or risk factors identified. Assessment: 02:42 General: see triage assessment . lg3 03:30 Reassessment: Patient appears in no apparent distress at this time. No changes from lg3 previously documented assessment. General: pt quietly resting at this time . 04:40 Reassessment: Patient appears in no apparent distress at this time. No changes from lg3 previously documented assessment. Patient and/or family updated on plan of care and expected duration. Pain level reassessed. Patient is alert, oriented x 3, equal unlabored respirations, skin warm/dry/pink. 05:32 General: upon discharge, pt becomes hostile and name calling towards medical staff. pt lg3 states we need to find her a ride home because she is sick, cannot walk, has no ride home and is bleeding out. i informed PT that due to her not having any condition deeming her bed bound, EMS would not transfer her back home. pt began yelling and becoming increasingly hostile with staff. charge notified. . 05:49 General: This RN entered the patient's room to assess the situation. PT became hostile kd3 toward this RN, Stated "I cannot walk. I do not have a ride. I am still sick". This RN acknowledged patient concerns and encouraged patient to follow up with referrals. Pt continued to be hostile and continued to use derogatory language. This RN offered to accommodate the patient by placing her in a room to stay in until she had a ride. This RN notified MD of patient's concerns. While this RN was discussing with the MD, pt [facility], speaking on her cell phone. . Vital Signs: 02:36 BP 162 / 98; Pulse 66; Resp 15 S; Temp 97.9(TE); Pulse Ox 100% on R/A; Weight 72.57 kg lg3 (R); Height 5 ft. 2 in. (R); 05:20 BP 129 / 79; Pulse 77; Resp 16 S; Pulse Ox 100% on R/A; lg3 02:36 Body Mass Index 29.26 (72.57 kg, 157.48 cm) lg3 ED Course: 02:35 Patient arrived in ED. aa9 02:36 Coreen Guzman, RN is Primary Nurse. lg3 02:38 Triage completed. lg3 02:38 Carlos Feliz MD is Attending Physician. sp4 02:38 Arm band placed on right wrist. lg3 02:42 Patient has correct armband on for positive identification. Placed in gown. Bed in low lg3 position. Call light in reach. Side rails up X 1. Client placed on continuous cardiac and pulse oximetry monitoring. NIBP monitoring applied. trip follower on. Door closed. Noise minimized. Warm blanket given. 02:42 Maintain EMS IV. Dressing intact. Good blood return noted. Site clean \\T\\ dry. Gauge \\T\\ lg 3 site: 20 RAC. 04:40 CMP Sent. lg3 04:40 CBC with Diff Sent. lg3 05:23 Don Estrella MD is Referral Physician. sp4 05:52 No provider procedures requiring assistance completed. IV discontinued, intact, lg3 bleeding controlled, No redness/swelling at site. Pressure dressing applied. Administered Medications: 02:58 Drug: Ativan IVP 1 mg Route: IVP; Site: right antecubital; lg3 05:41 Follow up: Response: No adverse reaction lg3 02:58 Drug: Acetaminophen PO 1000 mg Route: PO; lg3 05:41 Follow up: Response: No adverse reaction lg3 02:58 Drug: Ibuprofen PO 800 mg Route: PO; lg3 05:41 Follow up: Response: No adverse reaction lg3 Medication: 05:53 VIS not applicable for this client. lg3 Outcome: 05:24 Discharge ordered by MD. sp4 05:52 Discharged to home ambulatory. lg3 05:52 Condition: stable 05:52 Discharge instructions given to patient, Instructed on discharge instructions, follow up and referral plans. Demonstrated understanding of instructions, follow-up care. 05:56 Patient left the ED. aa9 Signatures: Coreen Guzman RN RN lg3 Cheri Tovar RN RN kd3 Martha Duong RN RN aa9 Carlos Feliz MD MD sp4 Corrections: (The following items were deleted from the chart) 02:40 02:38 PSHx: section; lg3 lg3 02:46 02:36 BP 191 / 106; Pulse 66bpm; Resp 15bpm; Spontaneous; Pulse Ox 100% RA; Temp 97.9F lg3 Temporal; 72.57 kg Reported; Height 5 ft. 2 in. Reported; BMI: 29.2; lg3 05:42 04:40 Reassessment: Patient appears in no apparent distress at this time. No changes lg3 from previously documented assessment. Patient and/or family updated on plan of care and expected duration. Pain level reassessed. Patient is alert, oriented x 3, equal unlabored respirations, skin warm/dry/pink. Patient states symptoms have not improved. lg3 06:18 05:49 General: This RN entered the patient's room to assess the situation. PT became kd3 hostile toward this RN, Stated "I cannot walk. I do not have a ride. I am still sick". This RN acknowledged patient concerns and encouraged patient to follow up with referrals. Pt continued to be hostile and continued to use derogatory language. This RN notified MD of patient's concerns. While this RN was discussing with the MD, pt [facility], speaking on her cell phone. . kd3
--- NOTE | 2022-12-08 05:25 | EDPHYS ---
Physician Documentation [facility] Rui Name: Maribeth Arnulfo Age: 37 yrs Sex: Female : 1985 Arrival Date: 12/08/2022 Time: 02:31 Bed 16 Private MD: ED Physician Carlos Feliz HPI: 12/08 02:39 This 37 yrs old Female presents to ER via EMS with complaints of anxiety. sp4 04:30 37-year-old female presents with complaint of acute anxiety, chest pain, sp4 abdominal pain, generalized pain, and tachycardia on awakening at home. . On presentation patient has tremors and signs of anxiety. . Historical: - Allergies: 02:38 No Known Allergies; lg3 - Home Meds: 02:38 Trazodone Oral [Active]; Xanax 0.25 mg Oral tab 1 tab 3 times per day for Anxiety lg3 [Active]; Hydroxyzine Oral [Active]; lamotrigine Oral [Active]; - PMHx: 02:38 "Chronic iron deficient anemia with unknown bleed"; Anemia; Anxiety; Panic Attacks; lg3 PTSD; ulcerative colitis; "ruled out"; - PSHx: 02:38 section; X5; lg3 - Immunization history:: Adult Immunizations unknown. - Social history:: Smoking status: unknown. - Family history:: not pertinent. ROS: 04:30 Constitutional: Negative for fever, chills, and weight loss, positive for feeling sp4 unwell, generalized body aches Eyes: Negative for injury, pain, redness, and discharge, ENT: Negative for injury, pain, and discharge, Neck: Negative for injury, pain, and swelling, Cardiovascular: Negative for palpitations, and edema, positive for acute chest pains and body aches Respiratory: Negative for shortness of breath, cough, wheezing, and pleuritic chest pain, Abdomen/GI: Negative for nausea, vomiting, diarrhea, and constipation, positive for diffuse abdominal pain Back: Negative for injury and pain, : Negative for injury, bleeding, discharge, and swelling, MS/Extremity: Negative for injury and deformity, Skin: Negative for injury, rash, and discoloration, Neuro: Negative for headache, weakness, numbness, tingling, and seizure, Psych: Negative for depression, positive for anxiety Allergy/Immunology: Negative for hives, rash, and allergies Endocrine: Negative for neck swelling, polydipsia, polyuria, polyphagia, and weight changes Hematologic/Lymphatic: Negative for swollen nodes, abnormal bleeding, and unusual bruising Exam: 04:30 Constitutional: This is a well developed, well nourished patient who is awake, alert, sp4 anxious appearing, generalized pallor Head/Face: Normocephalic, atraumatic. Eyes: Pupils equal round and reactive to light, extra-ocular motions intact. Lids and lashes normal. Conjunctiva and sclera are not injected. Cornea within normal limits. Periorbital areas with no swelling, redness, or edema. ENT: Nares patent. No nasal discharge, no septal abnormalities noted. Tympanic membranes are normal and external auditory canals are clear. Oropharynx with no redness, swelling, or masses, exudates, or evidence of obstruction, uvula midline. Mucous membranes moist. Neck: Trachea midline, no thyromegaly or masses palpated, and no cervical lymphadenopathy. Supple, full range of motion without nuchal rigidity, or vertebral point tenderness. No Meningismus. Chest/axilla: Normal chest wall appearance and motion. Nontender with no deformity. No lesions are appreciated. Cardiovascular: Regular rate and rhythm with a normal S1 and S2. No gallops, murmurs, or rubs. Normal PMI, no JVD. No pulse deficits. Respiratory: Lungs have equal breath sounds bilaterally, clear to auscultation and percussion. No rales, rhonchi or wheezes noted. No increased work of breathing, no retractions or nasal flaring. Abdomen/GI: Soft, non-tender, with normal bowel sounds. No distension or tympany. No guarding or rebound. No evidence of tenderness throughout. Back: No spinal tenderness. No costovertebral tenderness. Skin: Warm, dry with normal turgor. Generalized pallor MS/ Extremity: Pulses equal, no cyanosis. Neurovascular intact. Full, normal range of motion. Neuro: Awake and alert, GCS 15, oriented to person, place, time, and situation. Cranial nerves II-XII grossly intact. Motor strength 5/5 in all extremities. Sensory grossly intact. Psych: Awake, alert, with orientation to person, place and time. Anxious appearing female Vital Signs: 02:36 BP 162 / 98; Pulse 66; Resp 15 S; Temp 97.9(TE); Pulse Ox 100% on R/A; Weight 72.57 kg lg3 (R); Height 5 ft. 2 in. (R); 05:20 BP 129 / 79; Pulse 77; Resp 16 S; Pulse Ox 100% on R/A; lg3 02:36 Body Mass Index 29.26 (72.57 kg, 157.48 cm) lg3 MDM: 03:07 Patient medically screened. sp4 04:30 Differential Diagnosis altered mental status. Data reviewed: vital signs, nurses notes, sp4 EMS record, old medical records, lab test result(s), CBC, electrolytes, hepatic panel. ED course: Patient was given Ativan to help with with acute anxiety. 05:22 Consideration of Admission/Observation Escalation of care including sp4 admission/observation considered. ED course: Patient has blood counts on the lower side but not low enough for transfusion. 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 At this time patient is stable for discharge home. 12/08 04:30 Order name: CBC with Diff; Complete Time: 05:25 sp4 12/08 04:30 Order name: CMP; Complete Time: 05:17 sp4 12/08 05:21 Order name: CBC Smear Scan; Complete Time: 05:25 EDMS 12/08 04:30 Order name: Saline Lock; Complete Time: 04:31 sp4 Administered Medications: 02:58 Drug: Ativan IVP 1 mg Route: IVP; Site: right antecubital; lg3 05:41 Follow up: Response: No adverse reaction lg3 02:58 Drug: Acetaminophen PO 1000 mg Route: PO; lg3 05:41 Follow up: Response: No adverse reaction lg3 02:58 Drug: Ibuprofen PO 800 mg Route: PO; lg3 05:41 Follow up: Response: No adverse reaction lg3 Disposition Summary: 12/08/22 05:24 Discharge Ordered Location: Home sp4 Problem: new sp4 Symptoms: have improved sp4 Condition: Stable sp4 Diagnosis - Anemia, unspecified sp4 - Anxiety disorder, unspecified sp4 - Acute panic attack sp4 Followup: sp4 - With: Don Estrella MD - When: 7 - 10 days - Reason: Recheck today's complaints Discharge Instructions: - Discharge Summary Sheet sp4 - Anemia sp4 - Panic Attack sp4 Signatures: Dispatcher [employer] Coreen Moreno RN RN lg3 Carlos Feliz MD MD sp4 Corrections: (The following items were deleted from the chart) 02:40 02:38 PSHx: section; lg3 lg3
[2022-12-08 06:01] VITALS: TEMP 97.9; O2SAT 100
[2022-12-08 06:03] VITALS: BP 129/79
== END 2022-12-08 05:56 | disposition home or self-care (01) ==
LOC: ER 02:31
DX: F41.0 Panic disorder [episodic paroxysmal anxiety] (principal); D64.9 Anemia, unspecified; F41.9 Anxiety disorder, unspecified
CPT/HCPCS: 36415; 80053; 85025; 96374; 99285

== ENCOUNTER 2023-06-24 06:59 | Emergency (ER) | payer OTHER ==
--- OUTSIDE RECORDS SUMMARY | 2023-06-24 07:07 | XMS REPORT | Continuity of Care Document ---
:1985 Author Organization [facility] t Address [address] [place] [address] [place] [id number] Care Team Providers Name Role Phone Pcp, Patient Does Not Have A Primary Care Physician [phone] YVROSE DOWLING Attending Clinician Unavailable FILOMENA TOLEDO Attending Clinician Unavailable Filomena Toledo MD Attending Clinician PORTER ST Attending Clinician Unavailable DAVID Attending Clinician Unavailable Ginger Bhakta RN Attending Clinician Unavailable DENZEL RANKIN Attending Clinician Unavailable DENZEL RANKIN Attending Clinician Unavailable Tessa Reynoso DO Attending Clinician GAB DENNIS Attending Clinician Unavailable Gab Noriega Attending Clinician MANN Attending Clinician Unavailable Bo Mills RN Attending Clinician Unavailable Yana Qiu Attending Clinician Andrew Lizama MD Attending Clinician Kg Rodriguez MD Attending Clinician Doctor Unassigned, [place] Attending Clinician Unavailable Solomon HILL, Nitesh Attending Clinician KG RODRIGUEZ Attending Clinician Unavailable Nitesh HILL, Yvrose Atkins Attending Clinician [phone] Audrey Landry MD Attending Clinician Adelina HILL, Wilder Noland Attending Clinician WILDER BECKMAN Admitting Clinician Unavailable DESAI_RAKESH Admitting Clinician Unavailable DENZEL RANKIN Admitting Clinician Unavailable GAB DENNIS Admitting Clinician Unavailable AMBREEN_FARHANA Admitting Clinician Unavailable Alda HILL, Andrew Admitting Clinician Adelina HILL, Wilder [place] Admitting Clinician Payers Payer Name Policy Type Policy Number Effective Date Expiration Date S chucky [facility] [id number] 2020 DUAL COMPLETE HMO 00:00:00 [facility] PL[facility] [id number] 2017 00:00:00 MEDICAID [facility] [id number] 2017 00:00:00 MEDICARE PART A \\T\\ [id number] 2017 B 00:00:00 [facility] - [id number] 2020 [facility] 00:00:00 WEST (MEDICARE REPLACEMENT/ADVANTA GE - H[place]: [facility] - [id number] FQ (INSTITUTIONAL) [facility] [id number] DH - DUAL (MEDICARE REPLACEMENT HMO) [facility] [id number] 2017 COMM[place] - 00:00:00 STAR+PLUS (MEDICAID REPLACEMENT - HMO) [facility] [id number] - COMMUNITY PLAN - DUAL COMPLETE FOCUS (MEDICARE REPLACEMENT HMO) [facility] [id number] PLAN - DUAL COMPLETE - SNP PLAN (MEDICARE REPLACEMENT HMO) [facility] MEDICARE [id number] COMPLETE (MEDICARE REPLACEMENT HMO) [place]: [id number] 2017 [employer] - 00:00:00 [facility] Problems Condition Condition Condition Status Onset Resolution Last Treating Co mments Source Name Details Category Date Date Treatment Clinician Date Vaginal Vaginal Disease Active Univers bleeding bleeding 8-13 ity of 00:00: [address] Branch Gastrointe Gastrointe Disease Active Overview : Univers stinal stinal 8-19 Formattin ity of hemorrhage hemorrhage 00:00: g of this [place] , , 00 note Medical unspecifie unspecifie might be Branch d d different gastrointe gastrointe from the stinal stinal original. hemorrhage hemorrhage Added type type automatic ally from request for surgery [id number] Symptomati Symptomati Disease Active 2017-08 U nivers c anemia c anemia 2-12 ity of 00:00: [address] Branch Mood Mood Problem Active 2017-08 [place] [...] pain Formattin ity of g of this [place] note Medical might be Branch different from the original. chronic abdominal pain, chronic left leg pain Anxiety Anxiety Disease Active Univers ity of [facility] Esophageal Esophageal Disease Active U nivers reflux reflux ity [facility] HTN HTN Disease Active Univers (hypertens (hypertens it y of ion) ion) [facility] Obesity Obesity Disease Active Univers ity of [facility] Allergies, Adverse Reactions, Alerts Allergy Allergy Status Severity Reaction(s) Onset Inactive Treating Comm ents Source Name Type Date Date Clinician NO KNOWN Drug Active Univers ALLERGIE Class ity of S [facility] Social History Social Habit Start Date Stop Date Quantity Comments Source Gender identity Universit y of [facility] Sexual orientation Univer sity of [facility] Exposure to Unable to assess Univers ity of SARS-CoV-2 (event) [facility] Alcohol intake 2023-06-24 2023-06-24 Current University of 00:00:00 00:00:00 non-drinker of [facility] alcohol [place] (finding) History of Social 2020-03-23 2020-03-23 Univers ity of function 00:00:00 00:00:[address] [facility] Tobacco use and 2018-07-14 2018-07-14 Smokeless Universit y of exposure 00:00:00 00:00:00 tobacco non-user [facility] dical [place] Sex Assigned [birth year] Universit y of 00:00:00 00:00:[address] [facility] Smoking Status Start Date Stop Date Source Never smoked tobacco [facility] Medications Ordered Filled Start Stop Current Ordering Indication Dosage Frequency Signature Comments Components Source Medication Medication Date Date Medication? Clinician (SIG) Name Name iopamidol 2022-08- No [id number] 100mL 100 mL, Univers (ISOVUE 08-24 Intravenou ity o f 370-500 mL) 10:00: 10:00 s, ONCE, 1 [place] injection 00 :00 dose, On Medica l 100 mL Wed Branch 06/24/23 at 0400, Routine ketorolac 2022-08- No 30mg 30 mg, Unive rs (TORADOL) 08-24 Slow IV ity of injection 09:45: 08:44 Push, [place] 30 mg 00 :00 ONCE, 1 Medical dose, On Branch Thu06/24/23 at 0345, Routine NaCl 0.9% 2022-08 Yes 1000mL at 999 Univ ers (NS) IV 1-22 mL/hr, ity of infusion 09:30: Intravenou [place] 1,000 mL 00 s, Medical CONTINUOUS Branch , Starting on Thu06/24/23 at 0330, Until Discontinu ed, Routine ketorolac 2022-08 Yes [id number] 10mg Take 1 U nivers 10 mg -22 tablet by ity of tablet 00:00: mouth [place] 00 every 6 Medical (six) Branch hours as needed for Pain (scale 7-10). dicyclomine 2022-08 Yes [id number] 20mg Take 1 Univers 20 mg 1-22 tablet by ity of tablet 00:00: mouth [place] 00 every 6 Medical (six) Branch hours as needed for Abdominal pain. ondansetron 2022-08 Yes [id number] 4mg Take 1 Univers (ZOFRAN) 4 1-22 tablet by ity of mg tablet 00:00: mouth [place] 00 every 8 Medical (eight) Branch hours as needed for Nausea and Vomiting (N/V). ALPRAZolam 2022-0 Yes 2mg Take 2 mg Un zoran 2 mg tablet 8-14 by mouth 2 it y of 18:01: (two) [place] 40 times Medical daily. Branch docusate 2022-0 Yes 100mg Take 100 Univ ers 100 mg 8-14 mg by ity of capsule 18:01: mouth. [place] 40 Medical Branch Lamotrigine 2022-0 Yes Take by Uni vers 25 mg TbDL 8-14 mouth 2 ity of 18:01: (two) [place] 40 times Medical daily. Branch ALPRAZolam 2022-0 Yes 2mg Take 2 mg Un zoran 2 mg tablet 8-14 by mouth 2 it y of 18:01: (two) [place] 40 times Medical daily. Branch docusate 2022-0 Yes 100mg Take 100 Univ ers 100 mg 8-14 mg by ity of capsule 18:01: mouth. [place] 40 Medical Branch Lamotrigine 2022-0 Yes Take by Uni vers 25 mg TbDL 8-14 mouth 2 ity of 18:01: (two) [place] 40 times Medical daily. Branch ALPRAZolam 2022-0 Yes 2mg Take 2 mg Un zoran 2 mg tablet 8-14 by mouth 2 it y of 18:01: (two) [place] 40 times Medical daily. Branch docusate 3-0 Yes 100mg Take 100 Univ ers 100 mg 8-14 mg by ity of capsule 18:01: mouth. [place] 40 Medical Branch Lamotrigine 2022-0 Yes Take by Uni vers 25 mg TbDL 8-14 mouth 2 ity of 18:01: (two) [place] 40 times Medical daily. Branch lamoTRIgine 3-0 Yes 100mg 100 mg, Un zoran (LAMICTAL) 8-14 Oral, ity of tablet 100 14:00: DAILY, [place] mg 00 First dose Medical on Mon Branch 03/16/23 at 0900, Until Discontinu ed, Routine traZODone Yes 100mg 100 mg, Univ ers (DESYREL) 8-14 Oral, QHS, ity of tablet 100 02:00: First dose [place] mg 00 on [facility] 03/15/23 at Branch 2100, Until Discontinu ed, Routine ALPRAZolam Yes 2mg 2 mg, Univer s (XANAX) 03-16 Oral, BID, ity of tablet 2 mg 01:00: First dose [place] 00 on [facility] 03/15/23 at Branch 2000, Until Discontinu ed, Routine iron 2022- No 100mg 100 mg, IV Unive rs sucrose 03-15 Infusion, ity of (VENOFER) 21:15: 23:01 ONCE, [place] 100 mg in 00 :00 Administer Medi chun NaCl 0.9% over 1.5 Branch (NS) 100 mL Hours, On infusion [place] 03/15/23 at 1615, For 1 dose hydrOXYzine Yes 50mg 50 mg, Univ ers (ATARAX) 03-15 Oral, ity of tablet 50 20:55: QHSPRN, [place] mg 44 Starting Medical on [facility] 03/15/23 at 1555, Until Discontinu ed, Routine, Anxiety, insomnia HYDROcodone 0 2022- No 1{tbl} 1 tablet, Univers -acetaminop 03-15 Oral, ity of hen (NORCO 20:21: 20:20 Q6HPRN, [place] as 5) 5-325 mg 38 :38 Starting Medi chun tablet 1 on [facility] tablet 03/15/23 at 1521, Until 03/17/23 at 1520, Routine, Pain (scale 4-6) acetaminoph 0 Yes 650mg 650 mg, Un zoran en 03-15 Oral, ity of (TYLENOL) 20:21: Q6HPRN, [place] tablet 650 35 Starting Medic al mg on [place] Branch 03/15/23 at 1521, Until Discontinu ed, Routine, Pain (scale 1-3) acetaminoph 0 2022- No 650mg 650 mg, U nivers en 03-15 Oral, ity of (TYLENOL) 17:00: 16:56 ONCE, 1 [place] tablet 650 00 :00 dose, On Medic al mg [place] Branch 03/15/23 at 1200, MEL ondansetron 2021- No 4mg 4 mg, Slow Univers (ZOFRAN 11-19 IV Push, ity of (PF)) 23:00: 22:08 ONCE, 1 [place] injection 4 00 :00 dose, On Medi chun mg [facility] Branch 11/19/21 at 1800, MEL methocarbam 2021- No 1500mg 1,500 mg, Univers oL 11-19 Oral, ity of (ROBAXIN) 23:00: 22:07 ONCE, 1 [place] tablet 00 :00 dose, On Medical 1,500 mg [facility] 11/19/21 at 1800, Routine morpHINE 2021- No 4mg 4 mg, Slow Un zoran injection 4 11-19 IV Push, ity of mg 23:00: 22:08 ONCE, 1 [place] 00 :00 dose, On Medical [facility] Branch 11/19/21 at 1800, STAT sodium 0 Yes 5mL 5 mL, Univers chloride 11-19 Intravenou ity o f (NS) 21:25: s, PRN, [place] injection 5 53 Starting Medi chun mL on [facility] 11/19/21 at 1625, Until Discontinu ed, Routine, IV line flushing traMADoL 50 2021-0 Yes [id number] 50mg Take 1 Univ ers mg tablet 4-19 tablet by ity o f 00:00: mouth [place] 00 every 6 Medical (six) Branch hours as needed for Pain (scale 7-10). Indication s: acute pain methocarbam 2021-0 Yes [id number] Take 1-2 Univers oL 750 mg 4-19 tablets ity of tablet 00:00: every 8 [place] 00 hours as Medical needed for Branch back pain traMADoL 50 2021-0 Yes [id number] 50mg Take 1 Univ ers mg tablet 4-19 tablet by ity o f 00:00: mouth [place] 00 every 6 Medical (six) Branch hours as needed for Pain (scale 7-10). Indication s: acute pain methocarbam 2022-0 Yes [id number] Take 1-2 Univers oL 750 mg 4-19 tablets ity of tablet 00:00: every 8 [place] 00 hours as Medical needed for Branch back pain traMADoL 50 0 Yes [id number] 50mg Take 1 Univ ers mg tablet 4-19 tablet by ity o f 00:00: mouth [place] 00 every 6 Medical (six) Branch hours as needed for Pain (scale 7-10). Indication s: acute pain methocarbam 0 Yes [id number] Take 1-2 Univers oL 750 mg 4-19 tablets ity of tablet 00:00: every 8 [place] 00 hours as Medical needed for Branch back pain traMADoL 50 Yes [id number] 50mg Take 1 Univ ers mg tablet 4-19 tablet by ity o f 00:00: mouth [place] 00 every 6 Medical (six) Branch hours as needed for Pain (scale 7-10). Indication s: acute pain methocarbam Yes [id number] Take 1-2 Univers oL 750 mg 4-19 tablets ity of tablet 00:00: every 8 [place] 00 hours as Medical needed for Branch back pain LORazepam 2020- No .5mg 0.5 mg, Univ ers (ATIVAN) 04-28- Slow IV ity of injection 13:00: 11:56 Push, [place] 0.5 mg 00 :00 ONCE, 1 Medical dose, On Branch 04/28/21 at 0800, Routine ALPRAZolam Yes 2mg Take 2 mg Un zoran 2 mg tablet 04-28 by mouth 2 it y of 07:51: (two) [place] 49 times Medical daily. Branch docusate 0 Yes 100mg Take 100 Univ ers 100 mg - mg by ity of capsule 07:51: mouth. [place] 49 Medical Branch Lamotrigine 0 Yes Take by Uni vers 25 mg TbDL 04-28 mouth 2 ity of 07:51: (two) [place] 49 times Medical daily. Branch ALPRAZolam Yes 2mg Take 2 mg Un zoran 2 mg tablet 04-28 by mouth 2 it y of 07:51: (two) [place] 49 times Medical daily. Branch docusate 0 Yes 100mg Take 100 Univ ers 100 mg -26 mg by ity of capsule 07:51: mouth. [address] Lamotrigine Yes Take by Uni vers 25 mg TbDL 04-28 mouth 2 ity of 07:51: (two) [place] [address] times Medical daily. Branch ALPRAZolam Yes 2mg Take 2 mg Un zoran 2 mg tablet 04-28 by mouth 2 it y of 07:51: (two) [place] [address] times Medical daily. Branch docusate Yes 100mg Take 100 Univ ers 100 mg - mg by ity of capsule 07:51: mouth. [address] Lamotrigine Yes Take by Uni vers 25 mg TbDL - mouth 2 ity of 07:51: (two) [place] [address] times Medical daily. Branch acetaminoph Yes 1{tbl} 1 tablet, Univers en-codeine 04-28 Oral, ity of (TYLENOL 04:49: BIDPRN, [place] #3) 300-30 37 Starting Medic al mg tablet 1 on Sat Branch tablet 04/27/21 at 2349, Until Discontinu ed, Routine, Pain (scale 1-3), Pain (scale 4-6), Pain (scale 7-10) ferrous Yes [id number] 325mg Take 1 Uni vers sulfate 325 9-26 tablet by ity of mg (65 mg 00:00: mouth 3 [place] iron) 00 (three) Medical tablet times Branch daily with meals. ferrous Yes [id number] 325mg Take 1 Uni vers sulfate 325 9-26 tablet by ity of mg (65 mg 00:00: mouth 3 [place] iron) 00 (three) Medical tablet times Branch daily with meals. ferrous Yes [id number] 325mg Take 1 Uni vers sulfate 325 9-26 tablet by ity of mg (65 mg 00:00: mouth 3 [place] iron) 00 (three) Medical tablet times Branch daily with meals. ferrous Yes [id number] 325mg Take 1 Uni vers sulfate 325 9-26 tablet by ity of mg (65 mg 00:00: mouth 3 [place] iron) 00 (three) Medical tablet times Branch daily with meals. ferrous Yes [id number] 325mg Take 1 Uni vers sulfate 325 9-26 tablet by ity of mg (65 mg 00:00: mouth 3 [place] iron) 00 (three) Medical tablet times Branch daily with meals. ferrous Yes [id number] 325mg Take 1 Uni vers sulfate 325 04-28 tablet by ity of mg (65 mg 00:00: mouth 3 [place] iron) 00 (three) Medical tablet times Branch daily with meals. KCL 20 mEq 2020- No [id number] 20meq Take 1 Univers tablet - 10-04 tablet by ity of 00:00: 04:59 mouth [place] 00 :00 daily for Medical 7 days. Branch KCL 20 mEq 2020- No [id number] 20meq Take 1 Univers tablet 04-28 10-04 [...] 04/27/21 at 1045, For 3 doses KCL 2020- No 40meq 40 mEq, Univers (KLOR-CON 04-27 Oral, ity of M20) tablet 15:30: 18:52 ONCE, 1 [place] 40 mEq 00 :00 dose, On Medical Sat Branch 04/27/21 at 1030, Routine traMADoL 2020- [...] 04/26/21 at 2015, STAT iopamidol 2020- No [id number] 120mL 120 mL, Univers (ISOVUE 04-26 Intravenou ity o f 370-500 mL) 23:46: 23:46 s, ONCE, 1 [place] injection 00 :00 dose, On Medica l 120 mL [facility] 04/26/21 at 1900, Routine ondansetron 2020- No 4mg 4 mg, Slow Univers (ZOFRAN 04-26 IV Push, ity of (PF)) 23:00: 22:05 ONCE, 1 [place] injection 4 00 :00 dose, On Medi chun mg [facility] 04/26/21 at 1800, MEL ketorolac 2020- No 30mg 30 mg, Unive rs (TORADOL) 04-26 Slow IV ity of injection 23:00: 22:11 Push, [place] 30 mg 00 :00 ONCE, 1 Medical dose, On Branch 04/26/21 at 1800, [facility] : EMERGENCY ROOM, NaCl 0.9% 0 2020- No 1000mL at 999 Uni vers (NS) bolus 04-26 09-25 mL/hr, ity of infusion 22:30: 00:04 1,000 mL, [place] as 1,000 mL 00 :00 IV Medical [facility], Branch ONCE, 1 dose, On Thu04/26/21 at 1730, STAT pantoprazol 2019-0 Yes [id number] 40mg Take 1 Univers e 40 mg EC 8-23 tablet by ity of tablet 00:00: mouth [place] 00 daily. Medical Branch pantoprazol 2019-0 Yes [id number] 40mg Take 1 Univers e 40 mg EC 8-23 tablet by ity of tablet 00:00: mouth [place] 00 daily. Medical Branch pantoprazol 2019-0 Yes [id number] 40mg Take 1 Univers e 40 mg EC 8-23 tablet by ity of tablet 00:00: mouth [place] 00 daily. Medical Branch pantoprazol 2019-0 Yes [id number] 40mg Take 1 Univers e 40 mg EC 8-23 tablet by ity of tablet 00:00: mouth [place] 00 daily. Medical Branch pantoprazol 2020-0 Yes [id number] 40mg Take 1 Univers e 40 mg EC 8-23 tablet by ity of tablet 00:00: mouth [place] 00 daily. Medical Branch pantoprazol 2019-0 Yes [id number] 40mg Take 1 Univers e 40 mg EC 8-23 tablet by ity of tablet 00:00: mouth [place] 00 daily. Medical Branch pantoprazol 2020-0 Yes [id number] 40mg Take 1 Univers e 40 mg EC 8-23 tablet by ity of tablet 00:00: mouth [place] 00 daily. Medical Branch pantoprazol 2020-0 Yes [id number] 40mg Take 1 Univers e 40 mg EC 8-23 tablet by ity of tablet 00:00: mouth [place] 00 daily. Medical Branch pantoprazol 2020-0 Yes [id number] 40mg Take 1 Univers e 40 mg EC 8-23 tablet by ity of tablet 00:00: mouth [place] 00 daily. Medical Branch pantoprazol 2020-0 Yes [id number] 40mg Take 1 Univers e 40 mg EC 8-23 tablet by ity of tablet 00:00: mouth [place] 00 daily. Medical Branch pantoprazol 2020-0 Yes [id number] 40mg Take 1 Univers e 40 mg EC 8-23 tablet by ity of tablet 00:00: mouth [place] 00 daily. Medical Branch pantoprazol 2020-0 Yes [id number] 40mg Take 1 Univers e 40 mg [...] mg by ity of capsule 19:52: mouth. [place] [facility] Branch Lamotrigine 2020-0 Yes Take by [...] mg by ity of capsule 19:52: mouth. [place] Medical Branch Lamotrigine 2020-0 Yes Take by [...] mg by ity of capsule 19:52: mouth. [place] Medical Branch Lamotrigine 2020-0 Yes Take by [...] mg by ity of capsule 19:52: mouth. [place] Medical Branch Lamotrigine 2020-0 Yes Take by [...] mg by ity of capsule 19:52: mouth. [place] 23 Medical Branch Lamotrigine 2020-0 Yes Take by Uni vers 25 mg TbDL 8-22 mouth 2 ity of 19:52: (two) [place] 23 times Medical daily. Branch ALPRAZolam 2020-0 Yes 2mg Take 2 mg Un zoran 2 mg tablet 8-22 by mouth 2 it y of 19:52: (two) [place] 23 times Medical daily. Branch docusate 2020-0 Yes 100mg Take 100 Univ ers 100 mg 8-22 mg by ity of capsule 19:52: mouth. [address] Lamotrigine 2020-0 Yes Take by Uni vers 25 mg TbDL 8-22 mouth 2 ity of 19:52: (two) [place] 23 times Medical daily. Branch ferrous 2020-0 Yes 325mg 325 mg, Univer s sulfate 8-22 Oral, TID ity of tablet 325 17:00: MEALS, [place] mg 00 First dose Medical on [facility] 03/24/20 at 1200, Until Discontinu ed, Routine pantoprazol 2020-0 Yes 40mg 40 mg, Univ ers e 8-22 Oral, ity of (PROTONIX) 14:00: DAILY, [place] EC tablet 00 First dose Medi chun 40 mg (after [place] last modificati on) on [facility] 03/24/20 at 0900, Until Discontinu ed, Routine acetaminoph 2020-0 Yes [id number] 1{tbl} Take 1 Un zoran en-codeine 8-22 tablet by ity of 300-30 mg 00:00: mouth [place] tablet 00 every 6 Medical (six) Branch hours as needed for Pain (scale 7-10). Indication s: acute pain ferrous 2020-0 Yes [id number] 325mg Take 1 Uni vers sulfate 325 8-22 tablet by ity of mg (65 mg 00:00: mouth 3 [place] iron) 00 (three) Medical tablet times [place] daily with meals. acetaminoph 2020-0 Yes [id number] 1{tbl} Take 1 Un zoran en-codeine 8-22 tablet by ity of 300-30 mg 00:00: mouth [place] tablet 00 every 6 Medical (six) Branch hours as needed for Pain (scale 7-10). Indication s: acute pain ferrous 2020-0 Yes [id number] 325mg Take 1 Uni vers sulfate 325 [...] Indication s: acute pain ferrous 2020-0 Yes [id number] 325mg Take 1 Uni vers sulfate 325 [...] Indication s: acute pain ferrous 2020-0 Yes [id number] 325mg Take 1 Uni vers sulfate 325 [...] Indication s: acute pain ferrous 2020-0 Yes [id number] 325mg Take 1 Uni vers sulfate 325 [...] Indication s: acute pain ferrous 2020-0 Yes [id number] 325mg Take 1 Uni vers sulfate 325 8-22 tablet by ity of mg (65 mg 00:00: mouth 3 [place] iron) 00 (three) Medical tablet times Branch daily with meals. ferrous 2020-0 2020- No [id number] 325mg Take 1 Un zoran sulfate 325 8-22 - tablet by it y of mg (65 mg 00:00: 00:00 mouth 3 [place] iron) 00 :00 (three) Medical tablet times Branch daily with meals. peg-electro 2020-0 2020- No 2000mL 2,000 mL, [facility] lyte soln 03-23 Oral, ity of (GOLYTELY) 09:00: 09:20 PRE-PROCED [address]22.74-6 00 :00 URE ONCE, Med ical .74 -5.86 1 dose, Branch gram Starting solution Fri 2,000 mL 03/23/20 at 0400, Until Discontinu ed, Routine, Bowel Prep, Bowel Prep for Colonoscop y peg-electro 2020-0 2020- No 2000mL 2,000 mL, Univers lyte soln 03-22 Oral, ity of (GOLYTELY) 22:30: 02:23 PRE-PROCED [place] [id number] 00 :00 URE ONCE, Med ical .74 -5.86 1 dose, Branch gram Starting solution [place] 2,000 mL 03/22/20 at 1730, Until [place] 03/22/20 at 2122, Routine, Bowel Prep, Colonoscop y bisacodyL 2019-0 2020- No 10mg 10 mg, Unive rs (DULCOLAX) 03-22 Oral, ity of tablet 10 21:56: 01:05 PRE-PROCED [place] mg 32 :00 URE ONCE, Medical 1 dose, Branch Starting [place] 03/22/20 at 1656, Until [place] 03/22/20 at 2005, Routine, Bowel Prep, Colonoscop y bisacodyL 2019- 2020- No 10mg 10 mg, Unive rs (DULCOLAX) 03-22 Oral, ity of tablet 10 21:56: 02:23 PRE-PROCED [place] mg 32 :00 URE ONCE, Medical 1 dose, Branch Starting [place] 03/22/20 at 1656, Until [place] 03/22/20 at 2123, Routine, Bowel Prep, Colonoscop y acetaminoph 2019- Yes 325mg 325 mg, Un zoran en 03-22 Oral, ity of (TYLENOL) 21:18: Q6HPRN, [place] tablet 325 04 Starting Medic al mg [place] Branch 03/22/20 at 1618, Until Discontinu ed, Routine, Pain (scale 4-6) HYDROcodone 2020-0 Yes 1{tbl} 1 tablet, Univers -acetaminop 8- Oral, ity of hen (NORCO 21:15: Q6HPRN, [...] Thu Med ical tablet 1 03/21/20 at [facility] tablet 2230, Routine ALPRAZolam 2020-0 Yes 2mg 2 mg, Univer s (XANAX) 8- Oral, BID, ity of tablet 2 mg 01:00: First dose [place] 00 (after Medical last Branch modificati on) on Thu03/21/20 at 1999, Until Discontinu ed, Routine pantoprazol 2020-0 2020- [...] ONCE, 1 Medic al NaCl 0.9% dose, Wed [facility] h (NS) 500 mL 03/21/20 at IV infusion 194, 500 mL iron 2020-0 2020- No 25mg 25 mg, IV Univers dextran 03-22 Piggyback, ity o f (INFED) 25 00:45: 02:16 ONCE, 1 [place] as mg in NaCl 00 :00 dose, Thu Medi chun 0.9% (NS) 03/21/20 at [facility] ch 100 mL IV 194, 100 piggyback mL lamoTRIgine 2020-0 Yes 25mg 25 mg, Univ ers (LAMICTAL) 819 Oral, BID, ity of tablet 25 18:15: First dose [place] mg 00 (after Medical last Branch modificati on) on Thu03/21/20 at 1315, Until Discontinu ed acetaminoph 2019- No 650mg 650 mg, U nivers en 03-21 Oral, ity of (TYLENOL) 18:01: 21:09 Q6HPRN, [place] tablet 650 13 :10 Starting Medic al mg Thu Branch 03/21/20 at 1301, Until [place] 03/22/20 at 1609, Routine, Pain (scale 4-6) ondansetron Yes 4mg 4 mg, Slow Univers [...] Oral, ity of (PROTONIX) 14:30: 17:01 DAILY, [place] tablet 00 :16 First dose Medi chun 40 mg on [facility] Branch 03/21/20 at 0930, Until Discontinu ed, Routine PANTOPRAZOL Yes [id number] 40mg TAKE 1 Univers E 40 mg EC 9-18 TABLET BY ity of tablet 00:00: MOUTH [place] 00 DAILY Medical Branch PANTOPRAZOL 2020- No [id number] 40mg TAKE 1 Univers E 40 mg EC -18 - TABLET BY ity of tablet 00:00: 00:00 MOUTH [place] 00 :00 DAILY Medical Branch pantoprazol 2019- No [id number] 40mg Take 1 Univers e 40 mg EC 2-16 tablet by ity of tablet 00:00: 00:00 mouth [place] 00 :00 daily. Medical Branch ALPRAZolam 2019-0 Yes 2mg Take 2 mg Un zoran 2 mg tablet 1-07 by mouth. ity of 19:49: [place] [address] Medical Branch docusate 2019-0 Yes 100mg Take 100 Univ ers 100 mg 1-07 mg by ity of capsule 19:49: mouth. [place] [address] Medical Branch Lamotrigine 2019-0 Yes Take by Uni vers 25 mg TbDL 1-07 mouth 2 ity of 19:49: (two) [place] [address] times Medical daily. Branch ondansetron 2019-0 Yes 4mg Take 1 Univ [...] mouth ity of tablet 00:00: as needed. [place] [facility] Branch loratadine Yes 10mg Take 10 mg U nivers 10 mg 4-09 by mouth ity of tablet 00:00: as needed. [place] [facility] loratadine Yes 10mg Take 10 mg U nivers 10 mg 4-09 by mouth ity of tablet 00:00: as needed. [place] [facility] loratadine Yes 10mg Take 10 mg U nivers 10 mg 4-09 by mouth ity of tablet 00:00: as needed. [place] [facility] loratadine Yes 10mg Take 10 mg U nivers 10 mg 4-09 by mouth ity of tablet 00:00: as needed. [place] [facility] loratadine Yes 10mg Take 10 mg U nivers 10 mg 4-09 by mouth ity of tablet 00:00: as needed. [place] [facility] loratadine Yes 10mg Take 10 mg U nivers 10 mg 4-09 by mouth ity of tablet 00:00: as needed. [place] [facility] loratadine Yes 10mg Take 10 mg U nivers 10 mg 4-09 by mouth ity of tablet 00:00: as needed. [address] loratadine 0 Yes 10mg Take 10 mg U nivers 10 mg 4-09 by mouth ity of tablet 00:00: as needed. [address] loratadine Yes 10mg Take 10 mg U nivers 10 mg 4-09 by mouth ity of tablet 00:00: as needed. [address] loratadine Yes 10mg Take 10 mg U nivers 10 mg 4-09 by mouth ity of tablet 00:00: as needed. [address] Branch loratadine 2017-0 Yes 10mg Take 10 mg U nivers 10 mg 4-09 by mouth ity of tablet 00:00: as needed. [address] Branch loratadine 2017-0 Yes 10mg Take 10 mg U nivers 10 mg 4-09 by mouth ity of tablet 00:00: as needed. [address] Branch fluticasone 2017-0 Yes INSTILL 1 U nivers 50 4-03 SPRAY IN ity of mcg/actuati 00:00: EACH [place] on nasal 00 NOSTRIL Medical spray TWICE A Branch DAY as needed fluticasone 2017-0 Yes INSTILL 1 U nivers 50 4-03 SPRAY IN ity of mcg/actuati 00:00: EACH [place] on nasal 00 NOSTRIL Medical spray TWICE A Branch DAY as needed fluticasone 2017-0 Yes INSTILL 1 U nivers 50 4-03 SPRAY IN ity of mcg/actuati 00:00: EACH [place] on nasal 00 NOSTRIL Medical spray TWICE A Branch DAY as needed fluticasone 2017-0 Yes INSTILL 1 U nivers 50 4-03 SPRAY IN ity of mcg/actuati 00:00: EACH [place] on nasal 00 NOSTRIL Medical spray TWICE A Branch DAY as needed fluticasone 2017-0 Yes INSTILL 1 U nivers 50 4-03 SPRAY IN ity of mcg/actuati 00:00: EACH [place] on nasal 00 NOSTRIL Medical spray TWICE A Branch DAY as needed fluticasone 2017-0 Yes INSTILL 1 U nivers 50 4-03 SPRAY IN ity of mcg/actuati 00:00: EACH [place] on nasal 00 NOSTRIL Medical spray TWICE A Branch DAY as needed fluticasone 2017-0 Yes INSTILL 1 U nivers 50 4-03 SPRAY IN ity of mcg/actuati 00:00: EACH [place] on nasal 00 NOSTRIL Medical spray TWICE A Branch DAY as needed fluticasone 2017-0 Yes INSTILL 1 U nivers 50 4-03 SPRAY IN ity of mcg/actuati 00:00: EACH [place] on nasal 00 NOSTRIL Medical spray TWICE A Branch DAY as needed fluticasone 2017-0 Yes INSTILL 1 U nivers 50 4-03 [...] [place] 00 EVERY DAY Medical Branch fluticasone Yes INSTILL 1 U nivers 50 4-03 SPRAY IN ity of mcg/actuati 00:00: EACH [place] on nasal 00 NOSTRIL Medical spray TWICE A Branch DAY as needed fluticasone Yes INSTILL 1 U nivers 50 4-03 SPRAY IN ity of mcg/actuati 00:00: EACH [place] on nasal 00 NOSTRIL Medical spray TWICE A Branch DAY as needed fluticasone Yes INSTILL 1 U nivers 50 4-03 SPRAY IN ity of mcg/actuati 00:00: EACH [place] on nasal 00 NOSTRIL Medical spray TWICE [...] al MOUTH EVERY MOUTH EVERY TABLET BY [facility] NIGHT AT NIGHT AT MOUTH [facility] c BEDTIME BEDTIME EVERY h NIGHT AT Program BEDTIME alprazolam alprazolam No alprazolam [place] 2 mg tablet 2 mg tablet 2 mg d a TAKE 1 TAKE 1 tablet [facility] TABLET BY TABLET BY TAKE 1 al MOUTH TWICE MOUTH TWICE TABLET BY [facility] DAILY DAILY MOUTH [facility] NEEDED NEEDED [...] al MOUTH EVERY MOUTH EVERY TABLET BY [facility] NIGHT AT NIGHT AT MOUTH [facility] BEDTIME BEDTIME EVERY h NIGHT AT Program BEDTIME alprazolam alprazolam No alprazolam [place] 2 mg tablet 2 mg tablet 2 mg d a TAKE 1 TAKE 1 tablet [facility] TABLET BY TABLET BY TAKE 1 al MOUTH TWICE MOUTH TWICE TABLET BY [facility] DAILY DAILY MOUTH Outrea c NEEDED. NEEDED. TWICE h DAILY Program NEEDED. hydroxyzine hydroxyzine No 1 TID hydroxyzin [place] [...] al MOUTH EVERY MOUTH EVERY TABLET BY [facility] 6 HOURS 6 HOURS MOUTH Ou treac [...] BEDTIME EVERY DAY h AT BEDTIME Program alprazolam alprazolam No alprazolam [place] 2 [...] al MOUTH EVERY MOUTH EVERY TABLET BY [facility] DAY AT DAY AT MOUTH [facility] BEDTIME BEDTIME EVERY DAY h AT BEDTIME Program Vital Signs Vital Name Observation Time Observation Value Comments Source Systolic blood 2023-06-24 137 mm[Hg] [facility] pressure 10:12:[address] [facility] Diastolic blood 2023-06-24 92 mm[Hg] [place] o f pressure 10:12:[address] [facility] Heart rate 2023-06-24 77 /min [facility] 10:12:[address] [facility] Body temperature 2023-06-24 36.44 Stephany [facility] 10:12:[address] [facility] Respiratory rate 2023-06-24 20 /min [facility] 10:12:[address] [facility] Oxygen saturation 2023-06-24 97 /min [facility] in Arterial blood 10:12:00 [facility] by Pulse oximetry [place] Body height 2023-06-24 157.5 cm University 07:47:[address] [facility] Body weight 2023-06-24 72.576 kg University of 07:47:[address] [facility] BMI 2023-06-24 29.26 kg/m2 University of 07:47:[address] [facility] Systolic blood 2023-03-16 100 mm[Hg] University of pressure 21:30:[address] [facility] Diastolic blood 2023-03-16 60 mm[Hg] University o f pressure 21:30:[address] [facility] Heart rate 2023-03-16 68 /min University of 21:30:[address] [facility] Body temperature 2023-03-16 37 Stephany University of 21:30:[address] [facility] Respiratory rate 2023-03-16 16 /min University of 21:30:[address] [facility] Oxygen saturation 2023-03-16 98 /min [facility] in Arterial blood 21:30:00 [facility] by Pulse oximetry [place] Body weight 2023-03-15 77.111 kg [facility] 15:54:[address] [facility] BMI 2023-03-15 31.09 kg/m2 University 15:54:[address] [facility] BP Diastolic 2022-02-24 89 mm[Hg] [place] 00:00:00 [facility] BP Systolic 2022-02-24 156 mm[Hg] [place] 00:00:00 [facility] Body Weight 2022-02-24 176.8 [lb_av] [place] 00:00:00 [facility] Systolic blood 2021-11-20 156 mm[Hg] University of pressure 00:21:[address] [facility] Diastolic blood 2021-11-20 82 mm[Hg] University o f pressure 00:21:[address] [facility] Heart rate 2021-11-20 68 /min University of 00:21:[address] [facility] Respiratory rate 2021-11-20 16 /min University of 00:21:[address] [facility] Oxygen saturation 2021-11-20 99 /min University of in Arterial blood 00:21:48 [facility] chun by Pulse oximetry Branch Body temperature 2021-11-19 37.28 Stephany [facility] 21:21:[address] [facility] Body weight 2021-11-19 79.379 kg University of 21:21:[address] [facility] BMI 2021-11-19 32.01 kg/m2 University of 21:21:[address] [facility] Body weight 2021-04-28 79.379 kg University of 10:47:[address] [facility] BMI 2021-04-28 32.01 kg/m2 University of 10:47:[address] [facility] Systolic blood 2021-04-28 148 mm[Hg] University of pressure 06:15:[address] [facility] Diastolic blood 2021-04-28 78 mm[Hg] University o f pressure 06:15:[address] [facility] Heart rate 2021-04-28 65 /min University of 06:15:[address] [facility] Body temperature 2021-04-28 35.89 Stephany University of 06:15:[address] [facility] Respiratory rate 2021-04-28 18 /min University of 06:15:[address] [facility] Oxygen saturation 2021-04-28 97 /min University in Arterial blood 06:15:00 [facility] chun by Pulse oximetry Branch Systolic blood 2020-03-24 156 mm[Hg] RN INFORMED University of pressure 16:30:[address] [facility] Diastolic blood 2020-03-24 90 mm[Hg] RN INFORMED University o f pressure 16:30:[address] [facility] Heart rate 2020-03-24 75 /min University of 16:30:[address] [facility] Body temperature 2020-03-24 35.78 Stephany University of 16:30:[address] [facility] Respiratory rate 2020-03-24 21 /min University of 16:30:[address] [facility] Oxygen saturation 2020-03-24 98 /min University in Arterial blood 16:30:00 [facility] chun by Pulse oximetry Branch Body weight 2020-03-24 83.507 kg pt's actual University of :32:00 weight on the [facility] regular scale Branch BMI 2020-03-24 33.67 kg/m2 University of :32:[address] [facility] Body height 2020-03-23 157.5 cm University of 16:09:[address] [facility] Systolic blood 2020-03-24 156 mm[Hg] RN INFORMED University of pressure 16:30:[address] [facility] Diastolic blood 2020-03-24 90 mm[Hg] RN INFORMED University o f pressure 16:30:[address] [facility] Heart rate 2020-03-24 75 /min University of 16:30:[address] [facility] Body temperature 2020-03-24 35.78 Stephany University 16:30:[address] [facility] Respiratory rate 2020-03-24 21 /min [facility] 16:30:[address] [facility] Oxygen saturation 2020-03-24 98 /min [facility] in Arterial blood 16:30:00 [facility] by Pulse oximetry Branch Body weight 2020-03-24 83.507 kg pt's actual University 09:32:00 weight on the [facility] regular scale Branch BMI 2020-03-24 33.67 kg/m2 [facility] 09:32:[address] [facility] Body height 2020-03-23 157.5 cm [facility] 16:09:[address] [facility] Procedures Procedure Date / Time Performing Clinician Source Performed CT ABDOMEN PELVIS W 2023-06-24 09:00:49 Filomena Toledo [facility] CONTRAST [facility] POCT TEST 2023-06-24 07:58:00 Filomena Toledo [facility] LIPASE 2023-06-24 07:54:00 Filomena Toledo [facility] COMP. METABOLIC PANEL 2023-06-24 07:54:00 Filomena Toledo [facility] ([id number]) [facility] CBC WITH DIFF 2023-06-24 07:54:00 Filomena Tloedo [facility] URINALYSIS 2023-06-24 07:54:00 Filomena Toledo [facility] CONSENT/REFUSAL FOR 2023-06-24 07:39:37 Doctor Unassigned, [facility] DIAGNOSIS AND TREATMENT [place] [facility] PREPARE PACKED RBC 2023-03-16 18:05:53 Chucho [facility] CBC WITHOUT DIFF 2023-03-16 15:50:00 Andrés Voss [facility] PREPARE PACKED RBC 2023-03-16 10:34:06 Chucho [facility] FOLATE 2023-03-16 09:51:00 Chucho [facility] HAPTOGLOBIN, SERUM 2023-03-16 09:51:00 Chucho [facility] FREE T4 2023-03-16 09:51:00 Chucho [facility] BASIC METABOLIC PANEL 2023-03-16 09:51:00 Chucho [facility] (NA, K, CL, CO2, GLUCOSE, Medica l Branch BUN, CREATININE, CA) IRON PANEL 2023-03-16 09:51:00 Chucho [facility] DIFF CONSULT BY 2023-03-16 09:51:00 Chucho [facility] PATHOLOGIST [facility] CBC WITH DIFF 2023-03-16 09:51:00 Chucho [facility] PROTHROMBIN TIME / INR 2023-03-16 09:51:00 Chucho [facility] ACTIVATED PARTIAL 2023-03-16 09:51:00 Chucho [facility] FIBRINOGEN 2023-03-16 09:51:00 Chucho [facility] DIFF CONSULT 2023-03-16 09:51:00 Chucho [facility] PREPARE PACKED RBC 2023-03-16 00:57:17 Doctor Unassigned, [facility] [place] [facility] ANTIGEN TYPING PATIENT 2023-03-15 22:59:00 Chucho Denzel [facility] PANEL IDENTIFICATION 2023-03-15 22:59:00 Denzel Rankin [facility] EXTRA TUBE LAV (BLOOD 2023-03-15 22:59:00 Chucho [facility] BANK) [facility] HB ABO GROUPING 2023-03-15 20:32:00 Chucho [facility] FERRITIN SERUM 2023-03-15 16:14:00 Chucho [facility] THYROID STIMULATING 2023-03-15 16:14:00 Denzel Rankin [facility] HORMONE [facility] COMP. METABOLIC PANEL 2023-03-15 16:14:00 Tessa Reynoso [facility] ([id number]) [facility] TOTAL BETA HCG ASSAY 2023-03-15 16:14:00 Tessa Reynoso [facility] CBC WITH DIFF 2023-03-15 16:14:00 Tessa Reynoso [facility] HB ABO GROUPING 2023-03-15 16:14:00 Tessa Reynoso [facility] CONSENT/REFUSAL FOR 2023-03-15 15:50:36 Doctor Unasssara, [facility] DIAGNOSIS AND TREATMENT [facility] PELVIS WO 2021-11-19 22:53:00 Gab Dennis [facility] CONTRAST Medical Branch LIPASE 2021-11-19 21:31:00 Gab Dennis [facility] COMP. METABOLIC PANEL 2021-11-19 21:31:00 Gab Dennis [facility] ([id number]) [facility] CBC WITH DIFF 2021-11-19 21:31:00 Gab Dennis [facility] URINALYSIS 2021-11-19 21:31:00 Paul [facility] POCT TEST 2021-11-19 21:31:00 Gab Dennis [facility] NOTICE OF PRIVACY 2021-11-19 21:16:50 Doctor Rashawn, [facility] PRACTICES [facility] CONSENT/REFUSAL FOR 2021-11-19 21:14:36 Doctor Rashawn [facility] DIAGNOSIS AND TREATMENT [facility] CBC WITH DIFF 2021-04-28 12:25:00 Andrew Lizama [facility] PREPARE PACKED RBC 2021-04-28 05:37:48 Len Trinh [facility] HEMOGLOBIN 2021-04-27 21:02:00 Alda kayleigh [facility] TRANSFUSE PACKED RBC 2021-04-27 16:27:00 Yana Foss [facility] PREPARE PACKED RBC 2021-04-27 16:12:49 Yana Foss [facility] MAGNESIUM 2021-04-27 09:32:00 Andrew Lizama [facility] COMP. METABOLIC PANEL 2021-04-27 09:32:00 Andrew Lizama [facility] ([id number]) [facility] CBC WITH DIFF 2021-04-27 09:32:00 Alda kayleigh [facility] GLYCOSYLATED HEMOGLOBIN 2021-04-27 09:32:00 Alda [facility] (A1C) [facility] LACTIC ACID WHOLE BLOOD 2021-04-27 09:32:00 Alda [facility] LACTATE DEHYDROGENASE 2021-04-27 05:24:00 Andrew Lizama [facility] VITAMIN B12, LEVEL 2021-04-27 05:24:00 Alda kayleigh [facility] C-REACTIVE PROTEIN 2021-04-27 05:24:00 Alda [facility] IRON PANEL 2021-04-27 05:24:00 Alda [facility] SEDIMENTATION RATE 2021-04-27 05:24:00 Alda [facility] VITAMIN D, 25-OH 2021-04-27 05:24:00 Alda [facility] PROCALCITONIN 2021-04-27 05:24:00 Alda kayleigh [facility] ACUTE CARE VENOUS BLOOD 2021-04-27 05:23:00 Andrew Lizama [facility] PROTHROMBIN TIME / INR 2021-04-27 05:23:00 Alda kayleigh [facility] COVID-19 (MOLECULAR 2021-04-27 02:34:[address] [facility] NUCLEIC ACID AMPLIFICATION) PANEL IDENTIFICATION 2021-04-27 02:17:00 Andrew Lizama [facility] HB ABO GROUPING 2021-04-27 00:40:00 Yana Foss [facility] CT ABDOMEN PELVIS W 2021-04-26 23:51:18 Yana Foss [facility] CONTRAST [facility] POCT TEST 2021-04-26 22:10:00 Yana Foss [facility] PHOSPHORUS 2021-04-26 22:04:00 Alda kayleigh [facility] URIC ACID 2021-04-26 22:04:00 Alda Adnan [facility] Medical Branch AMYLASE 2021-04-26 22:04:00 Yana Foss [facility] MAGNESIUM 2021-04-26 22:04:00 Alda [facility] THYROID STIMULATING 2021-04-26 22:04:00 Alda kayleigh [facility] HORMONE Medical Branch HEPATIC FUNCTION PANEL 2021-04-26 22:04:00 Yana Foss [facility] ([id number]) (ALB,T.PRO,BILI Medical Branch T,BU/BC,ALT,AST,ALK PHOS) BASIC METABOLIC PANEL 2021-04-26 22:04:00 Yana Foss [facility] (NA, K, CL, CO2, GLUCOSE, Medica l Branch BUN, CREATININE, CA) LIPID PANEL ([id number])(TOTAL 2021-04-26 22:04:00 AldaAndrew medrano [facility] CHOLESTEROL, [facility] TRIGLYCERIDES, HDL) CBC WITH DIFF 2021-04-26 22:04:00 [facility] 2021-04-26 22:04:00 Pipo [facility] N-TERMINAL PRO-BNP 2021-04-26 22:04:00 Alda [facility] HB ECG ROUTINE & RHYTHM 2021-04-26 21:41:41 Yana Foss [facility] STRIP [facility] XR CHEST 1 VW 2021-04-26 21:36:45 Yana Foss [facility] NOTICE OF PRIVACY 2021-04-26 21:22:01 Doctor Unassigned, [facility] PRACTICES [place] [facility] COVID-19 (ID NOW RAPID 2021-04-26 21:19:00 Yana Foss [facility] TESTING) Medical Branch CONSENT/REFUSAL FOR 2021-04-26 21:11:24 Doctor Rashawn, [facility] DIAGNOSIS AND TREATMENT [place] [facility] EXTERNAL PROVIDER RECORDS 2020-04-19 05:01:00 Doctor Rashawn, [facility] [place] [facility] BASIC METABOLIC PANEL 2020-03-24 10:52:00 [facility] (NA, K, CL, CO2, GLUCOSE, Medica l Branch BUN, CREATININE, CA) CBC WITHOUT DIFF 2020-03-24 10:52:00 Kay [facility] COLONOSCOPY (ENDO) 2020-03-23 16:17:31 Ludmila Steele [facility] EGD (ENDO) 2020-03-23 16:16:00 Cedric [facility] BASIC METABOLIC PANEL 2020-03-23 09:52:00 [facility] (NA, K, CL, CO2, GLUCOSE, Medica l Branch BUN, CREATININE, CA) CBC WITHOUT DIFF 2020-03-23 09:52:00 [facility] CBC WITHOUT DIFF 2020-03-23 04:24:00 Aleida [facility] FECAL PATHOGENS BY PCR 2020-03-22 19:48:00 [facility] WITHOUT DIFF 2020-03-22 19:46:00 Kay [facility] CBC WITHOUT DIFF 2020-03-22 09:42:00 Kay [facility] URINALYSIS 2020-03-22 09:42:00 Kay [facility] BASIC METABOLIC PANEL 2020-03-22 09:41:00 [facility] (NA, K, CL, CO2, GLUCOSE, Medica l Branch BUN, CREATININE, CA) US PELVIS COMPLETE WITH 2020-03-22 05:19:00 Kay [facility] TRANSVAGINAL [facility] IRON PANEL 2020-03-21 23:25:00 Kay [facility] CBC WITHOUT DIFF 2020-03-21 23:25:00 Kay [facility] FECES CULTURE 2020-03-21 20:43:00 Nitesh Carbajal [facility] CLOSTRIDIUM DIFFICILE 2020-03-21 20:43:00 Analy Dejesus [facility] TOXIN [facility] CT ABDOMEN PELVIS W 2020-03-21 18:45:56 Kay [facility] FERRITIN SERUM 2020-03-21 14:26:00 jesus [facility] HEPATIC FUNCTION PANEL 2020-03-21 14:26:00 [facility] ([id number] (ALB,T.PRO,BILI Medical Branch T,BU/BC,ALT,AST,ALK PHOS) BASIC METABOLIC PANEL 2020-03-21 14:26:00 Kay, [facility] (NA, K, CL, CO2, GLUCOSE, Medica l Branch BUN, CREATININE, CA) SEDIMENTATION RATE 2020-03-21 14:26:00 Kay [facility] CBC WITH DIFF 2020-03-21 14:26:00 Kay, [facility] C-REACTIVE PROTEIN 2020-03-21 14:25:00 Kay [facility] HB ABO GROUPING 2020-03-21 14:25:00 Kay, [facility] PROTHROMBIN TIME / INR 2020-03-21 14:24:00 Kay [facility] ACTIVATED PARTIAL 2020-03-21 14:24:00 Kay [facility] THRMPLAS [facility] COVID-19 (ID NOW RAPID 2020-03-21 13:15:00 Kay, [facility] TESTING) [facility] Colonoscopy 2016-08-03 00:00:00 [place] [facility] Delivery [facility] Plan of Care Planned Activity Planned Date Details Comments Source Future Appointment 2023-07-20 00:00:00 Alber Phillip, [address] [place] [address] , [place], [place] Program [id number] Instructions [facility] Encounters Start End Encounter Admission Attending Care Care Encounter Source Date/Time Date/Time Type Type Clinicians Facility Department ID 2021-06-04 Emergency [facility] [id number] Univers 01:16:49 [facility] 2021-05-31 Inpatient U NITESH [facility] [id number] Univers 13:15:21 YVROSE [facility] 2023-06-24 2023-06-24 Emergency X DOMINICDCWILLIAM [facility] ERT [id number] Univers 01:45:00 04:46:00 FILOMENA gaona [facility] 2023-06-24 2023-06-24 [facility] [id number] Univers 01:45:00 04:46:00 Filomena Mallory MAC [id number] ity of [place] [id number] [facility] [id number] [facility] 084 Branch 2023-06-23 2023-06-24 Emergency E WALKER, [facility] [id number] BL 18:33:00 00:37:00 PORTER 2023-04-20 2023-04-20 Outpatient [facility] [id number] [place] 00:00:00 00:00:00 H [id number] da [facility] 2023-04-20 2023-04-20 [facility] [place] - [id number] M atagor 00:00:00 00:00:00 Wil Phillip MD: [facility] 1700 [facility] - [facility] [id number] [facility] , Ph. [phone] 2023-03-18 Transition KATLYN Bhakta [id number] Univers 00:00:00 00:00:00 of Care Ginger ESCAMILLA [id number] i ty of [place] [id number] [facility] [id number] [facility] 403 Branch 2023-03-15 2023-03-16 Inpatient X DENZEL RANKIN [facility] ANGELA 10 [id number] Univers 10:56:00 17:20:00 DENZEL RANKIN [facility] 2023-03-15 2023-03-16 Hospital Tessa Reynoso [facility] [id number] Univers 10:56:00 17:20:00 Encounter Denzel Rankin [facility] [id number] itFidencio [id number] [facility] [id number] [place] [id number] Branch ([facility]) 2023-02-09 2023-02-09 [facility] [id number] [place] 00:00:00 00:00:00 H [id number] [facility] 2023-02-09 2023-02-09 Outpatient DESAI_RAKES [facility] 103 [id number] [place] 00:00:00 00:00:00 H [id number] [facility] 2023-01-19 2023-01-19 [facility] [id number] [place] 00:00:00 00:00:00 H [id number] [facility] 2023-01-19 2023-01-19 Outpatient DESAI_RAKES [facility] 103 [id number] [place] 00:00:00 00:00:00 H [id number] [facility] 2023-01-19 2023-01-19 [facility] [place] - [id number] M atagor 00:00:00 00:00:00 Wil Phillip MD: [facility] Epi scop 1700 [facility] [id number] [facility] rebekah , Ph. [phone] --[phone] 2023-01-16 Outpatient [facility] [id number] [place] 00:00:00 00:00:00 H 81000 [facility] 2022-10-24 2022-10-24 [phone] [place] 00:00:00 00:00:00 H 90180 [facility] 2022-10-24 2022-10-24 [phone] [place] 00:00:00 00:00:00 H 56406 [facility] 2022-10-24 2022-10-24 Outpatient [facility] [phone] [place] 00:00:00 00:00:00 H 56801 [facility] 2022-10-24 2022-10-24 Alber [facility] [place] - [id number] M at[place] 00:00:00 00:00:00 Wil Phillip MD: Rastafarian Epi scop 1700 HOP - [facility] [place] [address] [facility] rebekah , Ph. ([phone]) --20072022-10-14 2022-10-14 [facility] [phone] [place] 00:00:00 00:00:00 H 01012 [facility] 2022-09-11 2022-09-11 Out[facility] [phone] [place] 00:00:00 00:00:00 H 81870 [facility] 2022 2022 Outpatient [facility] [phone] [place] 00:00:00 00:00:00 H 05524 [facility] 2022 2022 Outpatient [facility] [phone] [place] 00:00:00 00:00:00 H 63617 [facility] 2022-06-30 2022-06-30 Outpatient [facility] [phone] [place] 00:00:00 00:00:00 H 34637 [facility] 2022-06-30 2022-06-30 [facility] [place] [facility] [id number] [place] 00:00:00 00:00:00 Wil Phillip MD: Rastafarian Epi scop 1700 HOP [facility] [place] [address] [facility] rebekah , Ph. ([phone]) [phone]--20072022-06-29 2022-06-29 [facility] [phone] [place] 00:00:00 00:00:00 H 39012 [facility] 2022-05-26 2022-05-26 Outpatient [facility] [phone] [place] 00:00:00 00:00:00 H 72050 [facility] 2022-05-24 2022-05-24 [phone] [place] 00:00:00 00:00:00 H 00530 [facility] 2022-02-24 2022-02-24 [facility] [phone] [place] 05:23:00 05:23:00 H [facility] 2022-02-24 2022-02-24 [facility] - [id number] M [place] 00:00:00 00:00:00 Wil Phillip MD: Rastafarian Epi scop 1700 [facility] [address] Cooper welch , Ph. ([phone]) --20072021-12-10 2021-12-10 Outpatient DESAI_TRIST[facility] [phone] [place] 02:40:00 02:40:00 H 74846 [facility] 2021-12-10 2021-12-10 Outpatient DESAI[facility] [phone] [place] 02:40:00 02:40:00 H 05751 [facility] 2021-11-19 2021-11-19 Emergency X DARCY DENNIS ERT [id number] Univers 16:34:00 19:24:00 GAB gaona [facility] 2021-11-19 2021-11-19 Emergency DARCY Dennis 1.2.570.031 [id number] Univers 16:34:00 19:24:00 Gab WATTS 350.1.13.10 i [facility] 4.2.7.2.686 [facility] [phone] [facility] [address] 2021-11-18 2021-11-18 Outpatient AMBREEN_[facility]AR [facility] [phone] [place] 07:00:00 07:00:00 HANA 14024 [facility] 2021-11-18 2021-11-18 [facility] [place] - [id number] [place]or 00:00:00 00:00:00 Wil Phillip MD: Rastafarian Epi scop 1700 HOP - [facility] [place] [address] Cooper welch , Ph. ([phone]) -20072021-08-12 2021-08-12 Outpatient [facility]BREEN[facility] [phone] [place] 04:29:00 04:29:00 HANA [facility] 2021-08-12 2021-08-12 Outpatient AM[facility]EN[facility] [phone] [place] 04:29:00 04:29:00 HANA [facility] 2021-08-12 2021-08-12 [facility] [place] - [id number] [place]or 00:00:00 00:00:00 Wil Phillip MD: Rastafarian Epi scop 1700 HOP [facility] [place] [address] Cooper welch , Ph. ([phone]) --20072021-08-10 2021-08-10 Outpatient AMBREEN_[facility] [phone] [place] 01:31:00 01:31:00 DAFNE [facility] 2021-07-04 2021-07-04 Outpatient AMBREEN[facility] [phone] [place] 01:47:00 01:47:00 DAFNE 71074 [facility] 2021-04-30 2021-04-30 Transition [place] 1.2.840.114 [id number] Univers 00:00:00 00:00:00 of Care Bo Escamilla 350.1.13.10 ity of [place] 4.2.7.2.686 [facility] [phone] [facility] [address] 2021-04-26 2021-04-28 Emergency Yana Foss [facility] 1.2.840 .114 [id number] [facility] 16:28:00 07:20:00 Andrew Lizama 350.1.13.10 ity of [place] 4.2.7.2.686 [facility] [phone] [facility] [address] 2021-04-17 2021-04-17 Outpatient AMBREEN_[facility]AR [facility] [phone] [place] 11:38:00 11:38:00 HANA 00106 [facility] 2021-04-17 2021-04-17 Outpatient AM[facility]EN[facility] [phone] [place] 11:38:00 11:38:00 HANA 06706 [facility] 2021-04-15 2021-04-15 Outpatient AMBREEN[facility] [phone] [place] 12:31:00 12:31:00 HANA 56770 [facility] 2021-04-15 2021-04-15 [facility] [place] - [id number] M [place] 00:00:00 00:00:00 Wil Phillip MD: Rastafarian Epi scop 1700 [facility] [address] Cooper welch , Ph. ([phone]) --20072021-04-13 2021-04-13 Outpatient AMBREEN_[facility]AR [facility] [phone] [place] 01:09:00 01:09:00 HANA 06998 [facility] 2021-01-21 2021-01-21 Outpatient AMBREEN[facility] [phone] [place] 03:31:00 03:31:00 HANA 69057 [facility] 2021-01-21 2021-01-21 [facility] [place] - [id number] [place] 00:00:00 00:00:00 Wil Phillip MD: Rastafarian Epi scop 1700 [facility] [place] [address] Cooper welch , Ph. ([phone]) --20072021-01-18 2021-01-18 Outpatient AMBREEN_FAR MEHOP [facility] [phone] [place] 07:36:00 07:36:00 HANA 80476 [facility] 2020-10-17 2020-10-17 Sae Rodriguez [facility] 1.2.840.114 [id number] Univers 00:00:00 00:00:00 [facility].13.10 [facility] 4.2.7.2.686 Ramo as Professio [phone] [address] One 2020-09-03 2020-09-03 Outpatient AMBREEN_FAR CAHOP [facility] [phone] [place] 05:25:00 05:25:00 HANA 48207 [facility] 2020-09-03 2020-09-03 Outpatient AMBREEN_FAR CAHOP [facility] [phone] [place] 05:25:00 05:25:00 HANA 59906 [facility] 2020-09-03 2020-09-03 [facility] [place] - [id number] [place] 00:00:00 00:00:00 Wil Phillip MD: Rastafarian Epi scop 1700 [facility] brayan [facility] [place] [address] Cooper welch , Ph. ([phone]) -20072020-05-21 2020-05-21 Outpatient [facility]EN_[facility] [phone] [place] 02:19:00 02:19:00 HANA 95699 [facility] 2020-05-21 2020-05-21 [facility] [place] - [id number] M at[place] 00:00:00 00:00:00 Wil Phillip MD: Rastafarian Epi scop 1700 [facility]ayan [facility] [address] Progr am , Ph. ([phone] 2020-05-16 2020-05-16 Outpatient [facility]BREEN[facility] [phone] [place] 12:28:00 12:28:00 HANA 67913 [facility] 2020-04-19 2020-04-19 Orders Doctor ALDEN 1.2.840.114 [id number] 00:00:00 00:00:00 Only Unassigned, BEE 350.1.13.10 [facility] 4.2.7.2.686 [id number] [facility] 2020-04-19 2020-04-19 Orders Doctor ALDEN 1.2.840.114 [id number] Univers 00:00:00 00:00:00 Only Unassigned, BEE 350.1.13.10 ity of [place] [facility] 4.2.7.2.686 Ramo as [phone] [address] 2020-04-05 2020-04-05 Telephone [facility] 1.2.912.850 [id number] 00:00:00 00:00:00 Nitesh SPECIALTY 350.1.13.10 CARE 4.2.7.2.686 CENTER AT [phone] [address] 2020-04-05 2020-04-05 Telephone [facility] [id number] Univers 00:00:00 00:00:00 Nitesh SPECIALTY 350.1.13.10 ity of [place] [phone] [address] 2020-04-05 2020-04-05 Letter [facility] 1.2.840.114 [id number] Univers 00:00:00 00:00:00 (Out) Nitesh SPECIALTY 350.1.13.10 ity [place] [phone] [place] [address] [place] [address] 2020-04-05 2020-04-05 Sarwat [facility] 1.2.840.114 [id number] 00:00:00 00:00:00 (Out) Nitesh SPECIALTY 350.1.13.10 CARE 4.2.7.2.686 CENTER AT [phone] B[place] [address] [place] [address] 2020-04-04 2020-04-04 [facility] centeranjelica RodriguezLINCOL[facility] 1.2.840.114 [id number] [facility] 11:00:00 11:30:00 ne Visit Wondiful A [place] 350.1.13.10 ity of [place] 4.2.7.2.686 Ramoruth s Professio [phone] [place] dical nal 044 [facility] 2020-04-04 2020-04-04 [facility] 1.2.840.114 [id number] 11:00:00 11:30:00 ne Visit Wondiful A [place] 350.1.13.10 [place] 4.2.7.2.686 Professio [phone] nal [address] [place] [address] 2020-04-04 2020-04-04 Outpatient R MARYANA [facility] [id number] [facility] 11:00:00 11:00:00 WONDIFUL ity o f [facility] 2020-03-21 2020-03-24 [facility] 1. 2.840.114 [id number] [facility] 07:17:00 14:00:00 Encounter Audrey Landry 350.1.13.10 ity of [facility] 4.2.7.2.686 [place] [phone] [address] 2020-03-21 2020-03-24 [facility] Yvroserhett Landa 1. 2.840.114 [id number] 07:17:00 14:00:00 Encounter Darryl Landryal G Bee 350.1.13.10 [facility] [id number] [facility][note 3] 2020-02-27 2020-02-27 Outpatient AMBREEN_FAR [facility]HOP [facility] [phone] [place] 02:26:00 02:26:00 HANA 34620 [facility] 2020-02-27 2020-02-27 Alber [place] - [id number] atagor 00:00:00 00:00:00 Wil Phillip MD: Rastafarian Epi scop 1700 HOP - MEHOP sd [facility] [address] [facility] , Ph. ([phone]) --20072020-02-21 2020-02-21 Outpatient AMBREEN_FAR MEHOP ME[facility] [id number] [place] 01:11:00 01:11:00 HANA 94189 [facility] 2019-12-19 2019-12-19 Outpatient AMBREEN_[facility] [phone] [place] 02:47:00 02:47:00 HANA 85606 [facility] 2019-12-19 2019-12-19 [facility] [place] - [id number] [place] 00:00:00 00:00:00 Wil Phillip MD: Rastafarian Epi scop 1700 HOP - [facility] [address] [facility] , Ph. ([phone]) --20072019-12-17 2019-12-17 Outpatient AMBREEN_FAR MEHOP ME[facility]OP [id number] [place] 12:29:00 12:29:00 HANA 39998 [facility] 2019-10-31 2019-10-31 Outpatient AMBREEN_FAR [facility] [phone] [place] 03:50:00 03:50:00 HANA 74411 [facility] 2019-10-31 2019-10-31 [facility] [place] - [id number] M [place] 00:00:00 00:00:00 Wil Phillip MD: Rastafarian Epi scop 1700 HOP - CAHOP sd [facility] [address], [facility] [place] [facility] [address] Progr am , Ph. ([phone]) --20072019-05-09 2019-05-09 Alber [place] - [id number] M elisha 00:00:00 00:00:00 Wil Phillip MD: Rastafarian Epi scop 1700 [facility] - [facility] Suzanne, [address], [place] [facility] [address] , Ph. ([phone]) --20072019-04-18 2019-04-18 Sae Rodriguez, [facility] 1.2.840.114 [id number] Univers 00:00:00 00:00:00 Wondiful A Health 350.1.13.10 ity of [place] 4.2.7.2.686 Ramo as Professio [phone] [facility] [address] One 2019-04-18 2019-04-18 Sae Rodriguez [facility] 1.2.840.114 [id number] 00:00:00 00:00:00 Wondiful A Health 350.1.13.10 [place] 4.2.7.2.686 Professio [phone] nal [facility] Office Building One Results Test Description Test Time Test Comments Results Result Comments Source Complete Metabolic Panel 2023-06-24 08:23:52 Test Item Value Reference Range Interpretation Comme nts NA (test code = 6460851578) 139 mmol/L 135-145 K (test code = 9464208377) 3.6 mmol/L 3.5-5.0 CL (test code = 5715116709) 107 mmol/L 98-108 CO2 TOTAL (test code = 22 mmol/L 23-31 L 3072253174) AGAP (test code = 8526723419) 10 2-16 BUN (test code = 6567865789) 9 mg/dL 7-23 GLUCOSE (test code = 115 mg/dL 70-110 H 3007687697) CREATININE (test code = 0.75 mg/dL 0.50-1.04 0814322668) TOTAL BILI (test code = 0.3 mg/dL 0.1-1.7 5647226020) CALCIUM (test code = 9.8 mg/dL 8.6-10.6 7050143055) T PROTEIN (test code = 8.4 g/dL 6.3-8.2 H 0479020965) ALBUMIN (test code = 5.0 g/dL 3.5-5.0 2568435450) ALK PHOS (test code = 64 U/L 34-122 8615328866) ALTv (test code = 1742-6) 16 U/L 5-35 AST(SGOT) (test code = 22 U/L 13-40 6555433662) eGFR (test code = 00266-2) 105.3 mL/min/1.73m2 CKD-EPI eGFR (2020). Assuming creati nine has been stable day -to-day for at least three months, the eGFR indicates Category G1 (>= 90 mL/min/1 .73 m2) Lab Interpretation (test code = Abnormal 22236-0) [facility], [id number] 08:23:52 Test Item Value Reference Range Interpretation Comments LIPASE (test code = 5449278239) 292 U/L 0-220 H Lab Interpretation (test code = Abnormal 20661-4) [facility]lakeCB with [id number] 08:11:10 Test Item Value Reference Range Interpretation Comments WBC (test code = 10.00 See_Comment [Automated 5027-2) message] The sy stem which generated this result transmitted reference range : 4.30 - 11.10 10*3/?L. The reference range was not used to interpret this result as normal/abnormal . RBC (test code = 4.05 See_Comment [Automated 846-8) message] The sy stem which generated this result transmitted reference range : 3.93 - 5.25 10*6/?L. The reference range was not used to interpret this result as normal/abnormal . HGB (test code = 10.9 g/dL 11.6-15.0 L 718-7) HCT (test code = 33.9 % 35.7-45.2 L 4544-3) MCV (test code = 83.7 fL 80.6-95.5 787-2) MCH (test code = 26.9 pg 25.9-32.8 785-6) MCHC (test code = 32.2 g/dL 31.6-35.1 786-4) RDW-SD (test code = 45.3 fL 39.0-49.9 83450-6) RDW-CV (test code = 14.8 % 12.0-15.5 788-0) PLT (test code = 288 See_Comment [Automated 777-3) message] The sy stem which generated this result transmitted reference range : 166 - 358 10*3/ ?L. The reference r rhina was not used to interpret this result as normal/abnormal . MPV (test code = 11.4 fL 9.5-12.9 66804-2) NRBC/100 WBC (test 0.0 See_Comment [Automat ed code = 1920765394) message] The system which generated this result transmitted reference range : 0.0 - 10.0 /100 WBCs. The refer ence range was not u sed to interpret th is result as normal/abnormal . NRBC x10^3 (test code See_Comment [Auto mated = 8769215234) message] The s ystem which generated this result transmitted reference range : 10*3/?L. The reference range was not used to interpret this result as normal/abnormal . GRAN MAT (NEUT) % 78.1 % (test code = 770-8) IMM GRAN % (test code 0.40 % = 4187074145) LYMPH % (test code = 15.7 % 736-9) MONO % (test code = 4.0 % 5905-5) EOS % (test code = 1.2 % 713-8) BASO % (test code = 0.6 % 706-2) GRAN MAT x10^3(ANC) 7.81 10*3/uL 1.88-7.09 H (test code = 1924554928) IMM GRAN x10^3 (test 0.04 10*3/uL 0.00-0.06 code = 9360654270) LYMPH x10^3 (test code 1.57 10*3/uL 1.32-3.29 = 731-0) MONO x10^3 (test code 0.40 10*3/uL 0.33-0.92 = 742-7) EOS x10^3 (test code = 0.12 10*3/uL 0.03-0.39 711-2) BASO x10^3 (test code 0.06 10*3/uL 0.01-0.07 = 704-7) Lab Interpretation Abnormal (test code = 07223-7) [facility]lakePOCT [id number] 07:58:00 Test Item Value Reference Range Interpretation Comments POCT PREG (test code = 1605) Negative On board controls acceptable with Yes C Line (test code = 3574) POCT PREG LOT # (test code = 0593) [id number] POCT PREG TEST DATE (test 11/05/2022 code = 3576) Lab Interpretation (test code = Normal 85178-3) [facility]lakeFOLATE2023-08-14 20:50:23 Test Item Value Reference Range Interpretation Comments FOLATE SER (test code = 13.5 ng/mL 3.0-20.0 9001720678) Lab Interpretation (test code = Normal 08910-7) [facility]lakeFREE [id number] 20:00:51 Test Item Value Reference Range Interpretation Comments FREE T4 (test code = 0.86 See_Comment [Autom ated message] 4176727932) The system Miyowa generated this result transmitted ref erence range: 0.78 - 2 .20 ng/dL:. The ref erence range was not u sed to interpret this result as normal/abnor mal. Lab Interpretation (test Normal code = 13032-3) [facility] SouthlakeDIFF CONSULT [id number] 19:54:40 LEUKOCYTES ARE UNREMARKABLE. SEVERE MICROCYTIC, HYPOCHROMIC ANEMIA. TOGETHER WITH THE PATIENT'S FERRITIN OF 3.3 AND IRON STUDIES THIS IS MOST CONSISTENT WITH IRON DEFICIENCY ANEMIA. NUCLEATED RED BLOODCELL SEEN. PLATELETS ARE UNREMARKABLE IN NUMBER, BUT LARGE FORMS ARE SEEN.[facility] HAPTOGLOBIN, [id number] 19:08:20 Test Item Value Reference Range Interpretation Comments HAPTOGLOB (test code = 7844122492) 142 mg/dL 16-200 Lab Interpretation (test code = Normal 05137-7) [facility] SouthlakePrepare Packed RBC (in units)2023-03-16 18:05:53 Test Item Value Reference Range Interpretation Comments Unit Blood Type (test O Neg code = 4410) ISBT Blood Type Code 9500 (test code = 686724) Unit Number (test [id number] code = 4411) Blood Expiration Date [id number] & Time (test code = 168043) Status Information Issued (test code = 4412) Product Red Blood Cells Identification (test code = 4413) Product Code (test [id number] Performed at [facility] code = 4414) Laboratory Services - [facility] Blood [address] [address]Enlo Free: [phone] A No. [id number] Cross Match Result Compatible (test code = 4409) [facility] WITHOUT [id number] 15:57:59 Test Item Value Reference Range Interpretation Comments WBC (test code = 6690-2) 7.82 See_Comment [A utomated message] The system Miyowa generated this result transmit lennox reference range : 4.30 - 11.10 10*3/?L. The reference range was not used to interpret this result as normal/abnormal . RBC (test code = 789-8) 3.25 See_Comment L [Au tomated message] The system Miyowa generated this result transmit lennox reference range : 3.93 - 5.25 10* 6/?L. The reference r rhina was not used to interpret this result as normal/abnormal . HGB (test code = 718-7) 7.2 g/dL 11.6-15.0 L HCT (test code = 4544-3) 23.5 % 35.7-45.2 L MCH (test code = 785-6) 22.2 pg 25.9-32.8 L MCV (test code = 787-2) 72.3 fL 80.6-95.5 L MCHC (test code = 786-4) 30.6 g/dL 31.6-35.1 L PLT (test code = 777-3) 217 See_Comment [Au tomated message] The system Miyowa generated this result transmit lennox reference range : 166 - 358 10*3/?L. The reference range was not used to interpret this result as normal/abnormal . MPV (test code = 10.4 fL 9.5-12.9 47080-0) RDW-CV (test code = 22.5 % 12.0-15.5 H 788-0) RDW-SD (test code = 57.8 fL 39.0-49.9 H 33822-5) NRBC x10^3 (test code = 0.05 See_Comment [Au tomated message] 8047217039) The system C-sam XATA generated this result transmit lennox reference range : 10*3/?L. The reference range was not used to interpret this result as normal/abnormal . NRBC/100 WBC (test code 0.6 See_Comment [Au tomated message] = 1665009704) The system [facility] generated this result transmit lennox reference range : 0.0 - 10.0 /100 WBC s. The reference r rhina was not used to interpret this result as normal/abnormal . IPF % (test code = 8668108690) Lab Interpretation (test Abnormal code = 58363-8) [facility] SouthlakeACTIVATED PARTIAL THRMPLAS [id number] 11:30:05 Test Item Value Reference Range Interpretation Comments APTT Patient (test code = 28 See_Comment [ Automated message] 3173-2) The system C-sam XATA generated this result transmitted ref erence range: 26 - 36 Seconds. The re ference range was not u sed to interpret this result as normal/abnor mal. Lab Interpretation (test Normal code = 41358-8) [facility] SouthlakeProthrombin Time / [id number] 11:30:05 Test Item Value Reference Range Interpretation Comments PROTIME PATIENT (test 11.1 See_Comment [Auto mated message] code = 5964-2) The system [facility] generated this result transmitted ref erence range: 10.1 - 1 2.6 Seconds. The re ference range was not u sed to interpret this result as normal/abnor mal. INR (test code = 6301-6) 1.0 Nor mal INR <1.1; Warfarin Therap eutic range 2.0 to 3. 0 or 2.5 to 3.5, dep ending upon the indica tions. Lab Interpretation (test Normal code = 34922-2) [facility] [id number] 11:30:05 Test Item Value Reference Range Interpretation Comments Fibrinogen (test code = 8870887347) 325 mg/dL 167-453 Lab Interpretation (test code = Normal 56418-8) [facility] SouthlakeIRON [id number] 11:02:05 Test Item Value Reference Range Interpretation Comments IRON (test code = 9263204295) 370 ug/dL 50-160 H TIBC (test code = 5463796866) 477 ug/dL 250-410 H % FE SAT (test code = 9905836073) 78 % 20-50 H Lab Interpretation (test code = Abnormal 14353-8) [facility] METABOLIC PANEL (NA, K, CL, CO2, GLUCOSE, BUN, CREATININE, CA)2023-03-16 10:52:03 Test Item Value Reference Range Interpretation Comments NA (test code = 138 mmol/L 135-145 0907089006) K (test code = 4.2 mmol/L 3.5-5.0 4676143403) CL (test code = 103 mmol/L 98-108 2627993692) CO2 TOTAL (test code = 21 mmol/L 23-31 L 4514112564) AGAP (test code = 14 2-16 5367551676) BUN (test code = 12 mg/dL 7-23 8390795581) GLUCOSE (test code = 93 mg/dL 70-110 6097142478) CREATININE (test code = 0.77 mg/dL 0.50-1.04 0996180535) CALCIUM (test code = 8.8 mg/dL 8.6-10.6 1321320719) eGFR (test code = 84.4 mL/min/1.73m2 [id number]) YOANA (test code = YOANA) Association of [...] tests). Lab Interpretation Abnormal (test code = 07170-9) [facility] WITH [id number] 10:08:01 Test Item Value Reference Range Interpretation Comments WBC (test code = 6.09 See_Comment [Automated 9590-2) message] The sy stem which generated this result transmitted reference range : 4.30 - 11.10 10*3/?L. The reference range was not used to interpret this result as normal/abnormal . RBC (test code = 2.76 See_Comment L [Automated 789-8) message] The sy stem which generated this result transmitted reference range : 3.93 - 5.25 10*6/?L. The reference range was not used to interpret this result as normal/abnormal . HGB (test code = 5.5 g/dL 11.6-15.0 L 718-7) HCT (test code = 18.9 % 35.7-45.2 L 4544-3) MCV (test code = 68.5 fL 80.6-95.5 L 787-2) MCH (test code = 19.9 pg 25.9-32.8 L 785-6) MCHC (test code = 29.1 g/dL 31.6-35.1 L 786-4) RDW-SD (test code = 51.5 fL 39.0-49.9 H 22846-6) RDW-CV (test code = 21.0 % 12.0-15.5 H 788-0) PLT (test code = 248 See_Comment [Automated 597-3) message] The sy stem which generated this result transmitted reference range : 166 - 358 10*3/ ?L. The reference r rhina was not used to interpret this result as normal/abnormal . MPV (test code = 11.2 fL 9.5-12.9 73201-4) NRBC/100 WBC (test 1.0 See_Comment [Automat ed code = 6035894905) message] The system which generated this result transmitted reference range : 0.0 - 10.0 /100 WBCs. The refer ence range was not u sed to interpret th is result as normal/abnormal . NRBC x10^3 (test code 0.06 See_Comment [Auto mated = 8514366126) message] The s ystem which generated this result transmitted reference range : 10*3/?L. The reference range was not used to interpret this result as normal/abnormal . GRAN MAT (NEUT) % 57.7 % (test code = 770-8) IMM GRAN % (test code 0.50 % = 6264361837) LYMPH % (test code = 28.6 % 736-9) MONO % (test code = 7.9 % 5905-5) EOS % (test code = 4.3 % 713-8) BASO % (test code = 1.0 % 706-2) GRAN MAT x10^3(ANC) 3.52 10*3/uL 1.88-7.09 (test code = 4130065928) IMM GRAN x10^3 (test 0.03 10*3/uL 0.00-0.06 code = 1654470429) LYMPH x10^3 (test code 1.74 10*3/uL 1.32-3.29 = 731-0) MONO x10^3 (test code 0.48 10*3/uL 0.33-0.92 = 742-7) EOS x10^3 (test code = 0.26 10*3/uL 0.03-0.39 711-2) BASO x10^3 (test code 0.06 10*3/uL 0.01-0.07 = 704-7) Lab Interpretation Abnormal (test code = 54176-3) [facility] [id number] 01:30:11 Test Item Value Reference Range Interpretation Comments ANTIBODY ID (test code Anti-S Perfo rmed at [facility] = 245) Laboratory Serv [facility] [address] [facility] s [address]Ehrd Free: [phone] A No. [id number] [facility]lake[facility]IGEN TYPING [id number] 01:12:51 Test Item Value Reference Range Interpretation Comments ANTIGEN ID (test S Antigen Negative Perfo rmed at [facility] code = 1688) Laboratory Serv [facility] [address] [facility] s [address]Pteo Free: [phone] A No. [id number] [facility]lakePrepare Packed RBC (in units)2023-03-16 00:57:17 Test Item Value Reference Range Interpretation Comments Unit Blood Type (test O Neg code = 4410) ISBT Blood Type Code 9500 (test code = 901255) Unit Number (test [id number] code = 4411) Blood Expiration Date & Time (test code = 058788) Status Information Issued (test code = 4412) Product Red Blood Cells Identification (test code = 4413) Product Code (test [id number] Performed at [facility] code = 4414) Laboratory Services - [facility] Blood [address] [place] [address]Hvjk Free: [phone] A No. [id number] [facility]lakeTHYROID STIMULATING [id number] 00:26:48 Test Item Value Reference Range Interpretation Comments TSH (test code = 0.53 See_Comment Biotin has been 9760085955) reported to cau se a negative bias, interpret resul ts relative to pat svetlana's use of biotin. [Automated mess age] The system [employer] h generated this result transmitted ref erence range: 0.45 - 4 .70 mIU/L. The refe rence range was not u sed to interpret this result as normal/abnor mal. Lab Interpretation (test Normal code = 90352-6) [facility]lakeFERRITIN [id number] 22:05:25 Test Item Value Reference Range Interpretation Comments FERRITIN (test code = 3.3 ng/mL 6.0-137.0 L 8049769821) YOANA (test code = YOANA) Biotin has been reported to cause a negative bias, interpret results relative to patient's use of biotin. Lab Interpretation (test Abnormal code = 29048-7) [facility]lakeType and Screen - ONCE [id number] 20:38:00 Test Item Value Reference Range Interpretation Comments ABO & RH (test code = 20) O Negative IAT (test code = 1185) Positive [facility]lakeCBC WITH [id number] 17:13:56 Test Item Value Reference Range Interpretation Comments WBC (test code = 6.17 See_Comment [Automated 6690-2) message] The sy stem which generated this result transmitted reference range : 4.30 - 11.10 10*3/?L. The reference range was not used to interpret this result as normal/abnormal . RBC (test code = 2.63 See_Comment L [Automated 789-8) message] The sy stem which generated this result transmitted reference range : 3.93 - 5.25 10*6/?L. The reference range was not used to interpret this result as normal/abnormal . HGB (test code = 4.7 g/dL 11.6-15.0 LL 718-7) HCT (test code = 17.1 % 35.7-45.2 L 4544-3) MCV (test code = 65.0 fL 80.6-95.5 L 787-2) MCH (test code = 17.9 pg 25.9-32.8 L 785-6) MCHC (test code = 27.5 g/dL 31.6-35.1 L 786-4) RDW-SD (test code = 42.5 fL 39.0-49.9 06317-3) RDW-CV (test code = 18.1 % 12.0-15.5 H 788-0) PLT (test code = 275 See_Comment [Automated 777-3) message] The sy stem which generated this result transmitted reference range : 166 - 358 10*3/ ?L. The reference r rhina was not used to interpret this result as normal/abnormal . MPV (test code = 10.7 fL 9.5-12.9 17307-7) NRBC/100 WBC (test 0.3 See_Comment [Automat ed code = 4972912955) message] The system which generated this result transmitted reference range : 0.0 - 10.0 /100 WBCs. The refer ence range was not u sed to interpret th is result as normal/abnormal . NRBC x10^3 (test code 0.02 See_Comment [Auto mated = 9808492214) message] The s ystem which generated this result transmitted reference range : 10*3/?L. The reference range was not used to interpret this result as normal/abnormal . GRAN MAT (NEUT) % 69.7 % (test code = 770-8) IMM GRAN % (test code 0.60 % = 5268084084) LYMPH % (test code = 21.6 % 736-9) MONO % (test code = 6.0 % 5905-5) EOS % (test code = 1.5 % 713-8) BASO % (test code = 0.6 % 706-2) GRAN MAT x10^3(ANC) 4.30 10*3/uL 1.88-7.09 (test code = 0079267402) IMM GRAN x10^3 (test 0.04 10*3/uL 0.00-0.06 code = 4490565280) LYMPH x10^3 (test code 1.33 10*3/uL 1.32-3.29 = 731-0) MONO x10^3 (test code 0.37 10*3/uL 0.33-0.92 = 742-7) EOS x10^3 (test code = 0.09 10*3/uL 0.03-0.39 711-2) BASO x10^3 (test code 0.04 10*3/uL 0.01-0.07 = 704-7) GIANT PLATELETS (test Present See_Comment A [Auto mated code = 5908-9) message] The system which generated this result transmitted reference range : (none). The reference range was not used to interpret this result as normal/abnormal . Lab Interpretation Abnormal (test code = 47178-7) [facility] BETA HCG [id number] 17:07:03BETA HCG<2.39Non- female and male patients: <5 mIU/mL03/15/2023 12:07 PM [facility] Gestational Age ?Range (mIU/mL) 1-10 ?Weeks ?25-73491869-94 Weeks ?31751-23827385-94 Weeks ?1749-97691687-37 Weeks ?2322-964961 Biotin has been reported to cause a negative bias, interpret results relative to patient's use of biotin.[facility] COMP. METABOLIC PANEL (07572)2023-03-15 16:50:32 Test Item Value Reference Range Interpretation Comments NA (test code = 139 mmol/L 135-145 2149995040) K (test code = 4.0 mmol/L 3.5-5.0 5896516208) CL (test code = 102 mmol/L 98-108 6183092222) CO2 TOTAL (test code = 25 mmol/L 23-31 1294607359) AGAP (test code = 12 2-16 9217808865) BUN (test code = 13 mg/dL 7-23 8325682365) GLUCOSE (test code = 100 mg/dL 70-110 5706239282) CREATININE (test code = 0.79 mg/dL 0.50-1.04 2732060469) TOTAL BILI (test code = 0.5 mg/dL 0.1-1.2 4954180923) CALCIUM (test code = 9.6 mg/dL 8.6-10.6 8132879563) T PROTEIN (test code = 8.3 g/dL 6.3-8.2 H 4649231032) ALBUMIN (test code = 4.8 g/dL 3.5-5.0 5748250953) ALK PHOS (test code = 67 U/L 34-122 5009597191) ALTv (test code = 12 U/L 5-35 1742-6) AST(SGOT) (test code = 21 U/L 13-40 8372540281) eGFR (test code = 81.9 mL/min/1.73m2 3384317957) YOANA (test code = YOANA) Association of [...] tests). Lab Interpretation Abnormal (test code = 93541-1) [facility]lakeType and Screen - ONCE [id number] 16:35:00 Test Item Value Reference Range Interpretation Comments ABO & RH (test code = 20) O Negative IAT (test code = 1185) Positive [facility] SouthlakeComplete Metabolic [id number] 22:09:41 Test Item Value Reference Range Interpretation Comments NA (test code = 140 mmol/L 135-145 6629897244) K (test code = 4.1 mmol/L 3.5-5.0 9459590928) CL (test code = 105 mmol/L 98-108 3170309280) CO2 TOTAL (test code = 21 mmol/L 23-31 L 1771403664) AGAP (test code = 2-16 5004463315) BUN (test code = 7 mg/dL 7-23 9247755491) GLUCOSE (test code = 128 mg/dL 70-110 H 5584422297) CREATININE (test code = 0.62 mg/dL 0.50-1.04 4605864163) TOTAL BILI (test code = 0.4 mg/dL 0.1-1.6 8134302031) CALCIUM (test code = 9.3 mg/dL 8.6-10.6 4408658524) T PROTEIN (test code = 8.3 g/dL 6.3-8.2 H 3753115222) ALBUMIN (test code = 5.1 g/dL 3.5-5.0 H 7064221364) ALK PHOS (test code = 66 U/L 34-122 6316480270) ALTv (test code = 16 U/L 5-35 1742-6) AST(SGOT) (test code = 23 U/L 13-40 7819260744) eGFR (test code = mL/min/1.73m2 0303505101) YOANA (test code = YOANA) Association of [...] tests). Lab Interpretation Abnormal (test code = 62429-5) [facility] SouthlakeLipase, [id number] 22:09:21 Test Item Value Reference Range Interpretation Comments LIPASE (test code = 1464085987) 255 U/L 0-220 H Lab Interpretation (test code = Abnormal 04813-1) [facility]lakeCBC with [id number] 22:02:00 Test Item Value Reference Range Interpretation Comments WBC (test code = See_Comment H [Automated 6690-2) message] The sy stem which [...] RDW-SD (test code = 43.2 fL 39.0-49.9 36203-5) RDW-CV (test code = 15.8 % 12.0-15.5 H 788-0) PLT (test code = See_Comment [Automated 777-3) message] The sy stem which generated this result transmitted reference range : 166 - 358 10*3/ ?L. The reference r rhina was not used to interpret this result as normal/abnormal . MPV (test code = 11.7 fL 9.5-12.9 35427-4) NRBC/100 WBC (test See_Comment [Automat ed code = 6956897351) message] The system which generated this result transmitted reference range : 0.0 - 10.0 /100 WBCs. The refer ence range was not u sed to interpret th is result as normal/abnormal . NRBC x10^3 (test code <0.01 See_Comment [Auto mated = 1203693059) message] The s ystem which generated this result transmitted reference range : 10*3/?L. The reference range was not used to interpret this result as normal/abnormal . GRAN MAT (NEUT) % 78.0 % (test code = 770-8) IMM GRAN % (test code 0.50 % = 7289084808) LYMPH % (test code = 17.6 % 736-9) MONO % (test code = 3.0 % 5905-5) EOS % (test code = 0.4 % 713-8) BASO % (test code = 0.5 % 706-2) GRAN MAT x10^3(ANC) 8.85 10*3/uL 1.88-7.09 H (test code = 4146615268) IMM GRAN x10^3 (test 0.06 10*3/uL 0.00-0.06 code = 2038223352) LYMPH x10^3 (test code 2.00 10*3/uL 1.32-3.29 = 731-0) MONO x10^3 (test code 0.34 10*3/uL 0.33-0.92 = 742-7) EOS x10^3 (test code = 0.04 10*3/uL 0.03-0.39 711-2) BASO x10^3 (test code 0.06 10*3/uL 0.01-0.07 = 704-7) Lab Interpretation Abnormal (test code = 76486-9) [facility]lakePOCT [id number] 21:31:00 Test Item Value Reference Range Interpretation Comments POCT PREG (test code = 1605) negative On board controls acceptable with present C Line (test code = 3574) POCT PREG LOT # (test code = 3575) [id number] POCT PREG TEST DATE (test code = 357) Lab Interpretation (test code = Normal 50756-4) [facility] WITH [id number] 12:33:08 Test Item Value Reference Range Interpretation Comments WBC (test code = See_Comment [Automated 8990-2) message] The sy stem which generated this result transmitted reference range : 4.30 - 11.10 10*3/?L. The reference range was not used to interpret this result as normal/abnormal . RBC (test code = See_Comment [Automated 789-8) message] The sy stem which [...] (test code = 55.2 fL 39.0-49.9 H 85422-9) RDW-CV (test code = 23.2 % 12.0-15.5 H 788-0) PLT (test code = See_Comment [Automated 777-3) message] The sy stem which generated this result transmitted reference range : 166 - 358 10*3/ ?L. The reference r rhina was not used to interpret this result as normal/abnormal . MPV (test code = 10.6 fL 9.5-12.9 40467-6) NRBC/100 WBC (test See_Comment [Automat ed code = 7420581956) message] The system which generated this result transmitted reference range : 0.0 - 10.0 /100 WBCs. The refer ence range was not u sed to interpret th is result as normal/abnormal . NRBC x10^3 (test code See_Comment [Auto mated = 3544177430) message] The s ystem which generated this result transmitted reference range : 10*3/?L. The reference range was not used to interpret this result as normal/abnormal . GRAN MAT (NEUT) % 53.5 % (test code = 770-8) IMM GRAN % (test code 0.50 % = 2390721759) LYMPH % (test code = 36.4 % 736-9) MONO % (test code = 5.7 % 5905-5) EOS % (test code = 3.1 % 713-8) BASO % (test code = 0.8 % 706-2) GRAN MAT x10^3(ANC) 3.31 10*3/uL 1.88-7.09 (test code = 6259450986) IMM GRAN x10^3 (test 0.03 10*3/uL 0.00-0.06 code = 9823080738) LYMPH x10^3 (test code 2.25 10*3/uL 1.32-3.29 = 731-0) MONO x10^3 (test code 0.35 10*3/uL 0.33-0.92 = 742-7) EOS x10^3 (test code = 0.19 10*3/uL 0.03-0.39 711-2) BASO x10^3 (test code 0.05 10*3/uL 0.01-0.07 = 704-7) Lab Interpretation Abnormal (test code = 13391-7) [facility] Packed RBC (in units), 1 Units 2021-04-28 05:37:48 Test Item Value Reference Range Interpretation Comments Unit Blood Type (test O Neg code = 4410) ISBT Blood Type Code (test code = 254276) Unit Number (test [id number] code = 4411) Blood Expiration Date & Time (test code = 093134) Status Information Issued (test code = 4412) Product Red Blood Cells Identification (test code = 4413) Product Code (test M2595S11 Performed at [facility] code = 4414) Laboratory Services - [facility] Blood [address] [place] [address]Jyuk Free: [phone] A No. [id number] Cross Match Result Compatible (test code = 4409) [facility]lakeHEMOGLOBIN2021-09-25 21:11:13 Test Item Value Reference Range Interpretation Comments HGB (test code = 718-7) 6.6 g/dL 11.6-15.0 L Lab Interpretation (test code = Abnormal 13839-3) [facility]lakePrepare Packed RBC (in units), 1 Units 2021-04-27 16:12:49 Test Item Value Reference Range Interpretation Comments Unit Blood Type (test O Neg code = 4410) ISBT Blood Type Code (test code = 993443) Unit Number (test code [id number] = 4411) Blood Expiration Date & Time (test code = 622675) Status Information Issued (test code = 4412) Product Identification Red Blood (test code = 4413) Cells Product Code (test Q4131L38 Performed at [facility] code = 4414) Laboratory Services - [facility] Blood [address] [place] [address]Ufpw Free: [phone] A No. [id number] [facility] SouthlakeC-REACTIVE [id number] 15:44:28 Test Item Value Reference Range Interpretation Comments CRP (test code = 0949091998) 0.6 mg/dL <0.8 Lab Interpretation (test code = Normal 73428-1) [facility]lakeVITAMIN D, [id number] 14:51:01 Test Item Value Reference Range Interpretation Comments VIT D 25OH (test code = 21 ng/mL 25-80 L 61614-0) YOANA (test code = YOANA) Deficiency: <20 ng/mLInsufficiency: 20-24 ng/mLOptimal: 25-80 ng/mL Lab Interpretation (test Abnormal code = 15072-0) [facility]lakeVITAMIN B12, [id number] 14:06:02 Test Item Value Reference Range Interpretation Comments VIT B12 (test code = 410 pg/mL 240-930 0684316408) YOANA (test code = YOANA) Biotin has been reported to cause a positive bias, interpret results relative to patient's use of biotin. Lab Interpretation (test Normal code = 60288-7) [facility]lakeCBC WITH [id number] 12:50:07 Test Item Value Reference Range Interpretation Comments WBC (test code = See_Comment [Automated 4320-2) message] The sy stem which generated this result transmitted reference range : 4.30 - 11.10 10*3/?L. The reference range was not used to interpret this result as normal/abnormal . RBC (test code = See_Comment L [Automated 059-8) message] The sy stem which generated this [...] (test code = 58.7 fL 39.0-49.9 H 17978-0) RDW-CV (test code = 24.9 % 12.0-15.5 H 788-0) PLT (test code = See_Comment [Automated 777-3) message] The sy stem which generated this result transmitted reference range : 166 - 358 10*3/ ?L. The reference r rhina was not used to interpret this result as normal/abnormal . MPV (test code = 11.2 fL 9.5-12.9 03380-0) NRBC/100 WBC (test See_Comment [Automat ed code = 2193307915) message] The system which generated this result transmitted reference range : 0.0 - 10.0 /100 WBCs. The refer ence range was not u sed to interpret th is result as normal/abnormal . NRBC x10^3 (test code See_Comment [Auto mated = 0044340119) message] The s ystem which generated this result transmitted reference range : 10*3/?L. The reference range was not used to interpret this result as normal/abnormal . GRAN MAT (NEUT) % 63.0 % (test code = 770-8) IMM GRAN % (test code 0.70 % = 7156362488) LYMPH % (test code = 25.2 % 736-9) MONO % (test code = 7.7 % 5905-5) EOS % (test code = 2.6 % 713-8) BASO % (test code = 0.8 % 706-2) GRAN MAT x10^3(ANC) 3.86 10*3/uL 1.88-7.09 (test code = 7011721239) IMM GRAN x10^3 (test 0.04 10*3/uL 0.00-0.06 code = 9638431348) LYMPH x10^3 (test code 1.54 10*3/uL 1.32-3.29 [...] (test 2+ See_Comment [Automa lennox code = 95828-2) message] The system which generated this result transmitted reference range : 2+. The referen ce range was not u sed to interpret th is result as normal/abnormal . Lab Interpretation Abnormal (test code = 20147-4) [facility]lakeGLYCOSYLATED HEMOGLOBIN (A1C)2021-04-27 12:35:42HGB Q4DAifesjr: Due to low Hemoglobin, %A1c can not be calculated.[facility] LABORATORYReference RangesNormal: <5.7%Prediabetes: 5.7 - 6.4%Diabetes: > 6.5%[facility] SouthlakeCOMP. METABOLIC PANEL (22676)2021-04-27 11:42:47 Test Item Value Reference Range Interpretation Comments NA (test code = 135 mmol/L 135-145 5212793267) K (test code = 3.3 mmol/L 3.5-5.0 L 6740333236) CL (test code = 105 mmol/L 98-108 7205461497) CO2 TOTAL (test code = 26 mmol/L 23-31 7176831829) AGAP (test code = 2-16 1009666045) BUN (test code = 6 mg/dL 7-23 L 2244172998) GLUCOSE (test code = 91 mg/dL 70-110 6966108150) CREATININE (test code = 0.61 mg/dL 0.50-1.04 7726589855) TOTAL BILI (test code = 0.4 mg/dL 0.1-1.5 6127161402) CALCIUM (test code = 9.1 mg/dL 8.6-10.6 0642792409) T PROTEIN (test code = 7.0 g/dL 6.3-8.2 8864042317) ALBUMIN (test code = 4.0 g/dL 3.5-5.0 5349916324) ALK PHOS (test code = 73 U/L 34-122 6743216830) ALTv (test code = 16 U/L 5-35 2-6) AST(SGOT) (test code = 22 U/L 13-40 1656893450) eGFR (test code = mL/min/1.73m2 6678485323) YOANA (test code = YOANA) Association of [...] tests). Lab Interpretation Abnormal (test code = 21169-6) [facility]lakeMAGNESIUM2021-09-25 11:35:05 Test Item Value Reference Range Interpretation Comments MAGNESIUM (test code = 4886933034) 2.2 mg/dL 1.7-2.4 Lab Interpretation (test code = Normal 44638-8) [facility] SouthlakePROCALCITONIN2021-09-25 10:53:27 Test Item Value Reference Interpretation Comments Range Procalcitonin (test <0.02 See_Comment [Automa lennox code = 3473650313) message] The system which generated this result [...] For further information please refer to:[email or web address] Lab Interpretation Normal (test code = 32288-5) [facility] SouthlakeSEDIMENTATION [id number] 07:09:07 Test Item Value Reference Range Interpretation Comments ESR (test code = See_Comment H [Automated message] 4044690770) The system [employer] generated this result transmitted ref erence range: 0 - 20 m m/HR. The reference r rhina was not used to interpret this result as normal/abnor mal. Lab Interpretation (test Abnormal code = 53281-5) [facility] SouthlakePANEL [id number] 06:53:11 Test Item Value Reference Range Interpretation Comments ANTIBODY ID (test Negative panel nega tive, repeat IAT code = 245) negativePerform ed at [facility] Laboratory Serv [facility] Blood [address] [place], [place] [address]Toll Free: [phone] A No. [id number] [facility] SouthlakeIRON [id number] 06:41:15 Test Item Value Reference Range Interpretation Comments IRON (test code = 9866706264) 19 ug/dL 50-160 L TIBC (test code = 3898027132) 424 ug/dL 250-410 H % FE SAT (test code = 8811559044) 4 % 20-50 L Lab Interpretation (test code = Abnormal 38481-0) [facility] SouthlakePROTHROMBIN TIME / [id number] 06:33:51 Test Item Value Reference Range Interpretation Comments PROTIME PATIENT (test See_Comment [Auto mated message] code = 5964-2) The system [facility] generated this result transmitted ref erence range: 12.0 - 1 4.7 Seconds. The re ference range was not u sed to interpret this result as normal/abnor mal. INR (test code = 6301-6) Nor mal INR <1.1; Warfarin Therap eutic range 2.0 to 3. 0 or 2.5 to 3.5, dep ending upon the indica tions. Lab Interpretation (test Normal code = 02753-4) [facility] SouthlakeLACTATE [id number] 06:32:51 Test Item Value Reference Range Interpretation Comments LDH (test code = 0015029985) 291 U/L 300-600 L Lab Interpretation (test code = Abnormal 64807-5) [facility] SouthlakeTHYROID STIMULATING [id number] 05:18:41 Test Item Value Reference Range Interpretation Comments TSH (test code = See_Comment L [Automated message] 3710345009) The system [facility] generated this result transmitted ref erence range: 0.45 - 4 .70 mIU/L. The refe rence range was not u sed to interpret this result as normal/abnor mal. Lab Interpretation (test Abnormal code = 31348-6) [facility] SouthlakeN-TERMINAL [id number] 04:56:54 Test Item Value Reference Range Interpretation Comments NT-proBNP (test code 96 pg/mL See_Comment [Autom ated = 8780551783) message] The system which generated this result transmitted reference range : <=125. The reference range was not used to interpret this result as normal/abnormal . YOANA (test code = YOANA) Biotin has been reported to cause a negative bias, interpret results relative to patient's use of biotin. Lab Interpretation Normal (test code = 67578-9) [facility] SouthlakeLIPID PANEL (75317)(TOTAL CHOLESTEROL, TRIGLYCERIDES, HDL)2021-04-27 04:48:33 Test Item Value Reference Range Interpretation Comments CHOL (test code = 180 mg/dL 120-200 3361513554) HDL (test code = 40 mg/dL >50 L 4458797861) HDLC RATIO (test code = See_Comment [Au tomated message] 0115614822) The system [employer] generated this result transmit lennox reference range : <=4.5. The refe rence range was not u sed to interpret th is result as normal/abnormal . TRIG (test code = 166 mg/dL 30-170 8873274601) LDL CHOL (test code = 107 mg/dL See_Comment [Auto mated message] 08344-3) The system [employer] generated this result transmit lennox reference range : <=160. The refe rence range was not u sed to interpret th is result as normal/abnormal . VLDL (test code = 33 mg/dL 5-60 5049218622) Lab Interpretation (test Abnormal code = 02519-3) [facility]lakeMAGNESIUM2021-09-25 04:48:13 Test Item Value Reference Range Interpretation Comments MAGNESIUM (test code = 2621847879) 2.1 mg/dL 1.7-2.4 Lab Interpretation (test code = Normal 58556-4) [facility] SouthlakePHOSPHORUS2021-09-25 04:48:13 Test Item Value Reference Range Interpretation Comments PHOSPHORUS (test code = 2089689139) 3.4 mg/dL 2.5-5.0 Lab Interpretation (test code = Normal 82880-7) [facility] [id number] 04:47:53 Test Item Value Reference Range Interpretation Comments URIC ACID (test code = 6721636179) 3.2 mg/dL 2.9-6.0 Lab Interpretation (test code = Normal 77988-8) [facility]lake[facility] and Screen - ONCE [id number] 02:06:34 Test Item Value Reference Range Interpretation Comments ABO & RH (test code O Negative Performe d at [facility] = 20) Laboratory Serv [facility]1 [address] [place], [place] [id number] Free: [phone] A No. [id number] IAT (test code = Positive Performed a t [facility] 1185) Laboratory Serv [facility] [address] [place], [place] [id number] Free: [phone] A No. [id number] [facility]lakeHEPATIC FUNCTION PANEL (76179) (ALB,T.PRO,BILI T,BU/BC,ALT,AST,ALK PHOS)2021-04-26 22:25:02 Test Item Value Reference Range Interpretation Comments TOTAL BILI (test code = 5724995800) 0.6 mg/dL 0.1-1.1 BILI UNCON (test code = 2195746829) 0.4 mg/dL 0.1-1.1 BILI CONJ (test code = 0482129120) 0.0 mg/dL 0.0-0.3 T PROTEIN (test code = 4811178452) 8.2 g/dL 6.3-8.2 ALBUMIN (test code = 4632899918) 4.6 g/dL 3.5-5.0 ALK PHOS (test code = 1638086959) 99 U/L 34-122 ALTv (test code = 1742-6) 19 U/L 5-35 AST(SGOT) (test code = 4393811497) 24 U/L 13-40 Lab Interpretation (test code = Normal 93326-1) [facility]OL[facility] (NA, K, CL, CO2, GLUCOSE, BUN, CREATININE, CA)2021-04-26 22:25:01 Test Item Value Reference Range Interpretation Comments NA (test code = 137 mmol/L 135-145 6957375296) K (test code = 4.3 mmol/L 3.5-5.0 1916992106) CL (test code = 105 mmol/L 98-108 1067462299) CO2 TOTAL (test code 24 mmol/L 23-31 = 6705948699) AGAP (test code = 2-16 7244148507) BUN (test code = 7 mg/dL 7-23 7243258256) GLUCOSE (test code = 98 mg/dL 70-110 4753885254) CREATININE (test code 0.64 mg/dL 0.50-1.04 = 1117799698) CALCIUM (test code = 9.8 mg/dL 8.6-10.6 4121304775) eGFR (test code = mL/min/1.73m2 2723942377) YOANA (test code = YOANA) Association of [...] or urine or abnormalities in imaging tests). [facility]lakeAMYLASE2021-09-24 22:24:00 Test Item Value Reference Range Interpretation Comments RAINE (test code = 6825374334) 52 U/L 35-110 Lab Interpretation (test code = Normal 02265-5) [facility]lakeCBC WITH [id number] 22:19:40 Test Item Value Reference Range Interpretation [...] (test code = 53.6 fL 39.0-49.9 H 61404-6) RDW-CV (test code = 24.5 % 12.0-15.5 H 788-0) PLT (test code = See_Comment [Automated 777-3) message] The sy stem which generated this result transmitted reference range : 166 - 358 10*3/ ?L. The reference r rhina was not used to interpret this result as normal/abnormal . MPV (test code = 10.0 fL 9.5-12.9 56166-2) NRBC/100 WBC (test See_Comment [Automat ed code = 3790759948) message] The system which generated this result transmitted reference range : 0.0 - 10.0 /100 WBCs. The refer ence range was not u sed to interpret th is result as normal/abnormal . NRBC x10^3 (test code See_Comment [Auto mated = 9975466911) message] The s ystem which generated this result transmitted reference range : 10*3/?L. The reference range was not used to interpret this result as normal/abnormal . GRAN MAT (NEUT) % 70.1 % (test code = 770-8) IMM GRAN % (test code 0.60 % = 5530257321) LYMPH % (test code = 20.5 % 736-9) MONO % (test code = 6.6 % 5905-5) EOS % (test code = 1.6 % 713-8) BASO % (test code = 0.6 % 706-2) GRAN MAT x10^3(ANC) 4.96 10*3/uL 1.88-7.09 (test code = 7111204833) IMM GRAN x10^3 (test 0.04 10*3/uL 0.00-0.06 code = 8272264545) LYMPH x10^3 (test code 1.45 10*3/uL 1.32-3.29 = 731-0) MONO x10^3 (test code 0.47 10*3/uL 0.33-0.92 = 742-7) EOS x10^3 (test code = 0.11 10*3/uL 0.03-0.39 711-2) BASO x10^3 (test code 0.04 10*3/uL 0.01-0.07 = 704-7) Lab Interpretation Abnormal (test code = 06729-3) [facility]lakePOCT [id number] 22:10:00 Test Item Value Reference Range Interpretation Comments POCT PREG (test code = 1605) negative On board controls acceptable with present C Line (test code = 3574) POCT PREG LOT # (test code = 3575) [id number] POCT PREG TEST DATE (test 08/02/2022 code = 3576) Lab Interpretation (test code = Normal 88832-2) [facility] METABOLIC PANEL (NA, K, CL, CO2, GLUCOSE, BUN, CREATININE, CA)2020-03-24 11:41:00 Test Item Value Reference Range Interpretation Comments NA (test code = 137 mmol/L 135-145 9699649776) K (test code = 4.1 mmol/L 3.5-5 0195835142) CL (test code = 105 mmol/L 98-108 8071707226) CO2 TOTAL (test code = 24 mmol/L 23-31 1769068257) AGAP (test code = 2-16 9264671047) BUN (test code = 9 mg/dL 7-23 2229071621) GLUCOSE (test code = 100 mg/dL 70-110 9885584816) CREATININE (test code 0.74 mg/dL 0.5-1.04 = 4304541667) CALCIUM (test code = 9.0 mg/dL 8.6-10.6 2526818095) eGFR Calculation mL/min/1.73m2 (Non-) (test code = 0241712098) eGFR Calculation mL/min/1.73m2 () (test code = 5212783011) YOANA (test code = YOANA) Association of [...] or urine or abnormalities in imaging tests). [facility] WITHOUT [id number] 11:12:00 Test Item Value Reference Range Interpretation Comments WBC (test code = 6690-2) See_Comment [A utomated message] The system [employer] generated this result transmit lennox reference range : 4.30 - 11.10 10*3/?L. The reference range was not used to interpret this result as normal/abnormal . RBC (test code = 789-8) See_Comment L [Au tomated message] The system [employer] generated this result transmit lennox reference range [...] 777-3) See_Comment [Au tomated message] The system [facility] generated this result transmit lennox reference range : 166 - 358 10*3/?L. The reference range was not used to interpret this result as normal/abnormal . MPV (test code = 11.4 fL 9.5-12.9 34103-0) RDW-CV (test code = 19.6 % 12-15.5 H 788-0) RDW-SD (test code = 49.6 fL 39-49.9 62845-8) NRBC x10^3 (test code = <0.01 See_Comment [Au tomated message] 0005064617) The system [employer] generated this result transmit lennox reference range : 10*3/?L. The reference range was not used to interpret this result as normal/abnormal . NRBC/100 WBC (test code See_Comment [Au tomated message] = 4651068730) The system [facility] generated this result transmit lennox reference range : 0.0 - 10.0 /100 WBC s. The reference r rhina was not used to interpret this result as normal/abnormal . IPF % (test code = 9101675486) Lab Interpretation (test Abnormal code = 25136-8) [facility]lakeFECAL PATHOGENS BY [id number] 19:02:00 Test Item Value Reference Range Interpretation Comments Campylobacter (jejuni, Negative Negative, coli and upsaliensis) Indeterminate, (test code = 76568-8) See comment Plesiomonas shigelloides Negative Negative, (test code = 85315-6) Indeterminate, See comment Salmonella (test code = Negative Negative, 70080-1) Indeterminate, See comment Yersinia enterocolitica Negative Negative, (test code = 60831-0) Indeterminate, See comment Vibrio (test code = Negative Negative, 97203-2) Indeterminate, See comment Vibrio cholerae (test Negative Negative, code = 68018-8) Indeterminate, See comment Enteroaggregative E. coli Negative Negative, (EAEC) (test code = Indeterminate, 08512-2) See comment Enteropathogenic E. coli Negative Negative, N/A, (EPEC) (test code = Indeterminate, 39107-3) See comment Enterotoxigenic E. coli Negative Negative, (ETEC) (test code = Indeterminate, 34119-4) See comment Shiga toxin-Producing E. Negative Negative, coli (STEC) (test code = Indeterminate, 12262-7) See comment Shigella/Enteroinvasive Negative Negative, E. coli (EIEC) (test code Indeterminate, = 97693-3) See comment Cryptosporidium (test Negative Negative, code = 67416-0) Indeterminate, See comment Cyclospora cayetanensis Negative Negative, (test code = 79742-1) Indeterminate, See comment Entamoeba histolytica Negative Negative, (test code = 34619-1) Indeterminate, See comment Giardia lamblia (test Negative Negative, code = 13461-4) Indeterminate, See comment Adenovirus F 40/41 (test Negative Negative, code = 95305-7) Indeterminate, See comment Astrovirus (test code = Negative Negative, 52208-3) Indeterminate, See comment Norovirus GI/GII (test Negative Negative, code = 51360-5) Indeterminate, See comment Rotavirus A (test code = Negative Negative, 85811-3) Indeterminate, See comment Sapovirus (test code = Negative Negative, 49362-6) Indeterminate, See comment YOANA (test code = YOANA) Negative:A negative result does not rule-out infection. ?This assay does not test for all potential infectious agents of diarrheal disease. Positive:A positive test result does not necessarily indicate the presence of viable organism. Lab Interpretation (test Normal code = 15134-8) [facility] METABOLIC PAN[facility] (NA, K, CL, CO2, GLUCOSE, BUN, CREATININE, CA)2020-03-23 10:50:00 Test Item Value Reference Range Interpretation Comments NA (test code = 136 mmol/L 135-145 3143981251) K (test code = 3.9 mmol/L 3.5-5 4396738018) CL (test code = 104 mmol/L 98-108 7010989460) CO2 TOTAL (test code = 21 mmol/L 23-31 L 0168381105) AGAP (test code = 2-16 2967084091) BUN (test code = 5 mg/dL 7-23 L 2550004464) GLUCOSE (test code = 84 mg/dL 70-110 0575571947) CREATININE (test code = 0.80 mg/dL 0.5-1.04 1305378338) CALCIUM (test code = 9.5 mg/dL 8.6-10.6 4834804391) eGFR Calculation mL/min/1.73m2 (Non-) (test code = 3322066731) eGFR Calculation mL/min/1.73m2 () (test code = 8469429180) YOANA (test code = YOANA) Association of [...] tests). Lab Interpretation Abnormal (test code = 73426-7) [facility] WITHOUT [id number] 10:19:00 Test Item Value Reference Range Interpretation Comments WBC (test code = See_Comment [Automated message] 6690-2) The system [employer] generated this result transmitted ref erence range: 4.30 - 1 1.10 10*3/?L. The reference range was not used to int erpret this result as normal/abnormal . RBC (test code = 789-8) See_Comment [Au tomated message] The system [employer] generated this result transmitted ref erence range: [...] 777-3) See_Comment [Au tomated message] The system [employer] generated this result transmitted ref erence range: 166 - 35 8 10*3/?L. The reference range was not used to int erpret this result as normal/abnormal . MPV (test code = 11.6 fL 9.5-12.9 41211-2) RDW-CV (test code = 19.8 % 12-15.5 H 788-0) RDW-SD (test code = 49.3 fL 39-49.9 40716-8) NRBC x10^3 (test code = <0.01 See_Comment [Au tomated message] 7371877846) The system [employer] generated this result transmitted ref erence range: 10*3/?L. The reference range was not used to int erpret this result as normal/abnormal . NRBC/100 WBC (test code See_Comment [Au tomated message] = 6060661614) The system [employer] generated this result transmitted ref erence range: 0.0 - 10 .0 /100 WBCs. The reference range was not used to int erpret this result as normal/abnormal . IPF % (test code = 8.3 % 1.3-7.7 H Platelet count 4851598097) measured by fluorescence me thod. Lab Interpretation Abnormal (test code = 73313-8) [facility] WITHOUT [id number] 04:33:00 Test Item Value Reference Range Interpretation Comments WBC (test code = 6690-2) See_Comment [A utomated message] The system [employer] generated this result transmit lennox reference range : 4.30 - 11.10 10*3/?L. The reference range was not used to interpret this result as normal/abnormal . RBC (test code = 789-8) See_Comment [Au tomated message] The system [employer] generated this result transmit lennox reference range [...] 777-3) See_Comment [Au tomated message] The system [employer] generated this result transmit lennox reference range : 166 - 358 10*3/?L. The reference range was not used to interpret this result as normal/abnormal . MPV (test code = 11.4 fL 9.5-12.9 43718-3) RDW-CV (test code = 19.7 % 12-15.5 H 788-0) RDW-SD (test code = 49.6 fL 39-49.9 39472-1) NRBC x10^3 (test code = <0.01 See_Comment [Au tomated message] 0554791864) The system [employer] generated this result transmit lennox reference range : 10*3/?L. The reference range was not used to interpret this result as normal/abnormal . NRBC/100 WBC (test code See_Comment [Au tomated message] = 0163260790) The system [facility] generated this result transmit lennox reference range : 0.0 - 10.0 /100 WBC s. The reference r rhina was not used to interpret this result as normal/abnormal . IPF % (test code = 8720851945) Lab Interpretation (test Abnormal code = 20804-1) [facility] WITHOUT [id number] 19:58:00 Test Item Value Reference Range Interpretation Comments WBC (test code = 6690-2) See_Comment [A utomated message] The system [employer] generated this result transmit lennox reference range : 4.30 - 11.10 10*3/?L. The reference range was not used to interpret this result as normal/abnormal . RBC (test code = 789-8) See_Comment L [Au tomated message] The system [employer] generated this result transmit lennox reference range [...] 777-3) See_Comment [Au tomated message] The system [employer] generated this result transmit lennox reference range : 166 - 358 10*3/?L. The reference range was not used to interpret this result as normal/abnormal . MPV (test code = 11.3 fL 9.5-12.9 68488-2) RDW-CV (test code = 19.5 % 12-15.5 H 788-0) RDW-SD (test code = 50.3 fL 39-49.9 H 92309-7) NRBC x10^3 (test code = <0.01 See_Comment [Au tomated message] 5328778765) The system [employer] generated this result transmit lennox reference range : 10*3/?L. The reference range was not used to interpret this result as normal/abnormal . NRBC/100 WBC (test code See_Comment [Au tomated message] = 7127500856) The system [employer] ch generated this result transmit lennox reference range : 0.0 - 10.0 /100 WBC s. The reference r rhina was not used to interpret this result as normal/abnormal . IPF % (test code = 4816126577) Lab Interpretation (test Abnormal code = 84840-0) [facility]lakeCLOSTRIDIUM DIFFICILE [id number] 16:51:00 Test Item Value Reference Range Interpretation Comments Clostridioides (Clostridium) Negative Negative difficile (test code = 15172-5) Lab Interpretation (test code = Normal 33103-5) [facility]lakeUS PELVIS COMPLETE WITH [id number] 14:26:14 A 2.9 cm left ovarian hemorrhagic cyst. Unremarkable uterus. Preliminary Report Dictated by Resident: Jose A Sood MD., have reviewed this study and agree with theove report.EXAM: PELVIC ULTRASOUND, TRANSABDOMINAL AND TRANSVAGINAL HISTORY: [...] reviewed this study and agree with theabove report.[facility]ABOLIC PAN[facility] (NA, K, CL, CO2, GLUCOSE, BUN, CREATININE, CA) 2020-03-22 10:48:00 Test Item Value Reference Range Interpretation Comments NA (test code = 137 mmol/L 135-145 4173719197) K (test code = 3.9 mmol/L 3.5-5 1027511047) CL (test code = 107 mmol/L 98-108 0000496708) CO2 TOTAL (test code = 22 mmol/L 23-31 L 3463725445) AGAP (test code = 2-16 8824387112) BUN (test code = <2 7-23 L 9382601027) GLUCOSE (test code = 83 mg/dL 70-110 0017341703) CREATININE (test code = 0.64 mg/dL 0.5-1.04 1915301427) CALCIUM (test code = 9.0 mg/dL 8.6-10.6 3512557822) eGFR Calculation mL/min/1.73m2 (Non-) (test code = 8436864885) eGFR Calculation mL/min/1.73m2 () (test code = 4291944856) YOANA (test code = YOANA) Association of [...] tests). Lab Interpretation Abnormal (test code = 64845-8) [facility] WITHOUT [id number] 10:29:00 Test Item Value Reference Range Interpretation Comments WBC (test code = See_Comment [Automated message] 6690-2) The system [employer] generated this result transmitted ref erence range: 4.30 - 1 1.10 10*3/?L. The reference range was not used to int erpret this result as normal/abnormal . RBC (test code = 789-8) See_Comment L [Au tomated message] The system [employer] generated this result transmitted ref erence range: [...] PLT (test code = 777-3) See_Comment [Au RivalSoftated message] The system [employer] generated this result transmitted ref erence range: 166 - 35 8 10*3/?L. The reference range was not used to int erpret this result as normal/abnormal . MPV (test code = 11.3 fL 9.5-12.9 52291-6) RDW-CV (test code = 19.4 % 12-15.5 H 788-0) RDW-SD (test code = 49.6 fL 39-49.9 56888-0) NRBC x10^3 (test code = <0.01 See_Comment [Au tomated message] 3677067598) The system [employer] generated this result transmitted ref erence range: 10*3/?L. The reference range was not used to int erpret this result as normal/abnormal . NRBC/100 WBC (test code See_Comment [Au tomated message] = 0642006143) The system [facility] generated this result transmitted ref erence range: 0.0 - 10 .0 /100 WBCs. The reference range was not used to int erpret this result as normal/abnormal . IPF % (test code = 9.0 % 1.3-7.7 H Platelet count 4760201198) measured by fluorescence me thod. Lab Interpretation Abnormal (test code = 76636-1) [facility]lakeURINALYSIS2020-08-20 10:13:00 Test Item Value Reference Range Interpretation Comments APPEARANCE (test code = Clear Clear 7315887023) COLOR (test code = Straw Yellow A 5170017266) PH (test code = 4.8-8.0 0324304569) SP GRAVITY (test code = 1.003-1.030 9116944840) GLU U QUAL (test code = Normal Normal 7660483707) BLOOD (test code = Negative Negative 0876900349) KETONES (test code = Negative Negative 5287503043) PROTEIN (test code = Negative Negative 2887-8) UROBILIN (test code = Normal Normal 2349126169) BILIRUBIN (test code = Negative Negative 0498709092) NITRITE (test code = Negative Negative 7462501297) LEUK ALCON (test code = Negative Negative 4800993084) RBC/HPF (test code = <1 See_Comment [Autom ated message] 4951156552) The system [employer] generated this result transmitted ref erence range: 0 - 3 HP F. The reference range was not used to int erpret this result as normal/abnormal . WBC/HPF (test code = See_Comment [Autom ated message] 9736600916) The system [employer] generated this result transmitted ref erence range: 0 - 5 HP F. The reference range was not used to int erpret this result as normal/abnormal . BACTERIA (test code = Negative Negative 7476170855) SQ EPITH (test code = <1 See_Comment [Auto mated message] 6312487505) The system [employer] generated this result transmitted ref erence range: <=2 HPF. The reference range was not used to int erpret this result as normal/abnormal . Lab Interpretation (test Abnormal code = 49082-4) [facility]lakeIRON [id number] 00:51:00 Test Item Value Reference Range Interpretation Comments IRON (test code = 0936066228) 74 ug/dL 50-160 TIBC (test code = 8095503278) 411 ug/dL 250-410 H % FE SAT (test code = 0756933655) 18 % 20-50 L Lab Interpretation (test code = Abnormal 77921-6) [facility]lakeCBC WITHOUT [id number] 23:58:00 Test Item Value Reference Range Interpretation Comments WBC (test code = 6690-2) See_Comment [A utomated message] The system [employer] generated this result transmit lennox reference range : 4.30 - 11.10 10*3/?L. The reference range was not used to interpret this result as normal/abnormal . RBC (test code = 789-8) See_Comment [Au tomated message] The system [employer] generated this result transmit lennox reference range : 3.93 - 5.25 10* 6/?L. The reference r rhian was not used to interpret this result [...] 777-3) See_Comment [Au tomated message] The system [employer] generated this result transmit lennox reference range : 166 - 358 10*3/?L. The reference range was not used to interpret this result as normal/abnormal . MPV (test code = 11.6 fL 9.5-12.9 12226-0) RDW-CV (test code = 19.0 % 12-15.5 H 788-0) RDW-SD (test code = 49.3 fL 39-49.9 14739-7) NRBC x10^3 (test code = <0.01 See_Comment [Au tomated message] 7196936723) The system [employer] generated this result transmit lennox reference range : 10*3/?L. The reference range was not used to interpret this result as normal/abnormal . NRBC/100 WBC (test code See_Comment [Au tomated message] = 2175796037) The system [facility] generated this result transmit lennox reference range : 0.0 - 10.0 /100 WBC s. The reference r rhina was not used to interpret this result as normal/abnormal . IPF % (test code = 0515039339) Lab Interpretation (test Abnormal code = 76026-8) [facility]lakeCT ABDOMEN PELVIS W [id number] 19:51:50 1. ?No acute abnormality identified in [...] EXAM INFORMATION: Outside study was performed at [facility] on 03/21/2020 at 0112 hours. [...] No extraluminal fluid. [facility], Radiant Results Inft - 03/21/2020 2:53 PM CDTSECOND OPINION INTERPRETATION FOR OUTSIDE EXAMINATION: CT ABDOMEN PELVISWITH CONTRASTDATE OF SECOND INTERPRETATION: 03/21/2020INDICATION: 34-year-old woman with abdominal pain.EXAM INFORMATION: Outside study was performed at [facility] on 03/21/2020 at 0112 hours. [...] measuring up to 2.9 cm. Favored to representhydrosalpinx.[facility]lakeFERRITIN [id number] 18:24:00 Test Item Value Reference Range Interpretation Comments FERRITIN (test code = 3.7 ng/mL 6-137 L 0777673208) YOANA (test code = YOANA) Biotin has been reported to cause a negative bias, interpret results relative to patient's use of biotin. Lab Interpretation (test Abnormal code = 51656-2) [facility]lakeC-REACTIVE [id number] 17:10:00 Test Item Value Reference Range Interpretation Comments CRP (test code = 1199361850) 0.3 mg/dL <0.8 Lab Interpretation (test code = Normal 09204-1) [facility]lakeaPTT2020-08-19 16:13:00 Test Item Value Reference Range Interpretation Comments APTT Patient (test code = See_Comment [ Automated message] 3173-2) The system [employer] generated this result transmitted ref erence range: 26 - 36 Seconds. The re ference range was not u sed to interpret this result as normal/abnor mal. Lab Interpretation (test Normal code = 36006-4) [facility]lakeSEDIMENTATION [id number] 15:45:00 Test Item Value Reference Range Interpretation Comments ESR (test code = See_Comment [Automated message] 6172698063) The system [employer] generated this result transmitted ref erence range: 0 - 20 m m/HR. The reference r rhina was not used to interpret this result as normal/abnor mal. Lab Interpretation (test Normal code = 05798-9) [facility]lakeType and Screen - ONCE [id number] 15:17:36 Test Item Value Reference Range Interpretation Comments ABO & RH (test code O NEGATIVE Performe d at [facility] = 20) Laboratory Serv [facility] [address] [facility] s [address]Bcct Free: [phone] A No. [id number] IAT (test code = Negative Performed a t [facility] 1185) Laboratory Serv [facility] [address] [facility] s [address]Rczy Free: [phone] A No. [id number] [facility]lakePROTHROMBIN TIME / [id number] 15:16:00 Test Item Value Reference Range Interpretation Comments PROTIME PATIENT (test See_Comment [Auto mated message] code = 5964-2) The system [employer] generated this result transmitted ref erence range: 10.1 - 1 2.6 Seconds. The re ference range was not u sed to interpret this result as normal/abnor mal. INR (test code = 6301-6) Nor mal INR <1.1; Warfarin Therap eutic range 2.0 to 3. 0 or 2.5 to 3.5, dep ending upon the indica tions. Lab Interpretation (test Normal code = 75660-0) [facility] METABOLIC PANEL (NA, K, CL, CO2, GLUCOSE, BUN, CREATININE, CA)2020-03-21 15:08:00 Test Item Value Reference Range Interpretation Comments NA (test code = 136 mmol/L 135-145 4680912424) K (test code = 3.5 mmol/L 3.5-5 5561021379) CL (test code = 110 mmol/L 98-108 H 6028555143) CO2 TOTAL (test code = 20 mmol/L 23-31 L 0507686448) AGAP (test code = 2-16 7325542121) BUN (test code = 3 mg/dL 7-23 L 8833237245) GLUCOSE (test code = 100 mg/dL 70-110 8428986094) CREATININE (test code = 0.57 mg/dL 0.5-1.04 1330313353) CALCIUM (test code = 8.2 mg/dL 8.6-10.6 L 8875106738) eGFR Calculation mL/min/1.73m2 (Non-) (test code = 5836155017) eGFR Calculation mL/min/1.73m2 () (test code = 3793794522) YOANA (test code = YOANA) Association of [...] tests). Lab Interpretation Abnormal (test code = 79899-9) [facility] (ALB,T.PRO,BILI T,BU/BC,ALT,AST,ALK PHOS)2020-03-21 15:08:00 Test Item Value Reference Range Interpretation Comments TOTAL BILI (test code = 2940230432) 0.3 mg/dL 0.1-1.1 BILI UNCON (test code = 4696414013) 0.6 mg/dL 0.1-1.1 BILI CONJ (test code = 3124448041) 0.0 mg/dL 0-0.3 T PROTEIN (test code = 4097321433) 6.7 g/dL 6.3-8.2 ALBUMIN (test code = 4551635090) 3.7 g/dL 3.5-5 ALK PHOS (test code = 9262249678) 51 U/L 34-122 ALTv (test code = 1742-6) 9 U/L 5-35 AST(SGOT) (test code = 4063073008) 20 U/L 13-40 Lab Interpretation (test code = Normal 71051-6) [facility] WITH LXTD5694-32-03 14:47:00 Test Item Value Reference Range Interpretation [...] (test code = 51.0 fL 39-49.9 H 07330-1) RDW-CV (test code = 19.6 % 12-15.5 H 788-0) PLT (test code = See_Comment [Automated 777-3) message] The sy stem which generated this result transmitted reference range : 166 - 358 10*3/ ?L. The reference r rhina was not used to interpret this result as normal/abnormal . MPV (test code = 11.5 fL 9.5-12.9 01170-6) NRBC/100 WBC (test See_Comment [Automat ed code = 9640292517) message] The system which generated this result transmitted reference range : 0.0 - 10.0 /100 WBCs. The refer ence range was not u sed to interpret th is result as normal/abnormal . NRBC x10^3 (test code <0.01 See_Comment [Auto mated = 0693379109) message] The s ystem which generated this result transmitted reference range : 10*3/?L. The reference range was not used to interpret this result as normal/abnormal . GRAN MAT (NEUT) % 66.1 % (test code = 770-8) IMM GRAN % (test code 0.20 % = 0736188685) LYMPH % (test code = 25.2 % 736-9) MONO % (test code = 5.4 % 5905-5) EOS % (test code = 2.3 % 713-8) BASO % (test code = 0.8 % 706-2) GRAN MAT x10^3(ANC) 5.75 10*3/uL 1.88-7.09 (test code = 3463462600) IMM GRAN x10^3 (test <0.03 0-0.06 code = 2849281210) LYMPH x10^3 (test code 2.19 10*3/uL 1.32-3.29 = 731-0) MONO x10^3 (test code 0.47 10*3/uL 0.33-0.92 = 742-7) EOS x10^3 (test code = 0.20 10*3/uL 0.03-0.39 711-2) BASO x10^3 (test code 0.07 10*3/uL 0.01-0.07 = 704-7) Lab Interpretation Abnormal (test code = 31847-2) [facility] RAPID TESTING)2020-03-21 13:51:00 Test Item Value Reference Range Interpretation Comments SARS-CoV-2 Rapid ID NOW Not Detected Not Detected (test code = 06219-0) YOANA (test code = YOANA) ID NOW COVID-19 Assay is an isothermal nucleic acid amplification test intended for the qualitative detection of nucleic acid from SARS-CoV-2 viral RNA in nasopharyngeal (CLEARING SUPERVISOR) specimens. It is used under Emergency Use [...] indicated. Lab Interpretation Normal (test code = 88808-8) [facility] History and Physical Notes Date/Time Note Provider Source 2023-03-15 15:23:07 6823-35-06M58:23:07Formatting of this note [facility] is different from the original.XpertMD History & PhysicalDATE: 03/15/2023SERVICE: Internal MedicineCHIEF COMPLAINT: Vaginal Bleeding and Abdominal PainHISTORY OF PRESENT ILLNESSMaribeth Martinez is a 37 year old female with a PMH of HTN and chronic iron deficiency and blood loss anemia of underminter origin. She has required frequent transfusions in the past when she has vaginal and rectal bleeding. She reports being worked up by GI and does not have IBD. On admission, vitals stable, hgb 4.6, patient HDS. Hanging iron while blood bank works on transfusion. The patient has antibodies so this will delay transfusion. ALLERGIESMaribeth has No Known Allergies.MEDICATIONSCurrent Facility-Administered Medications: acetaminophen (TYLENOL) tablet 650 mg, 650 mg, Oral, Q6HPRN, Denzel Rankin MD HYDROcodone-acetaminophen (NORCO 5) 5-325 mg tablet 1 tablet, 1 tablet, Oral, Q6HPRN, Denzel Rankin MD iron sucrose (VENOFER) 100 mg in NaCl 0.9% (NS) 100 mL infusion, 100 mg, IV Infusion, ONCE, Denzel Rankin MDCurrent Discharge Medication List STOP taking these medications methocarbamoL 750 mg tablet Comments: Reason for Stopping: traMADoL 50 mg tablet Comments: Reason for Stopping: ferrous sulfate 325 mg (65 mg iron) tablet Comments: Reason for Stopping: acetaminophen-codeine 300-30 mg tablet Comments: Reason for Stopping: pantoprazole 40 mg EC tablet Comments: Reason for Stopping: Lamotrigine 25 mg TbDL Comments: Reason for Stopping: ondansetron 4 mg disintegrating tablet Comments: Reason for Stopping: ALPRAZolam 2 mg tablet Comments: Reason for Stopping: docusate 100 mg capsule Comments: Reason for Stopping: fluticasone 50 mcg/actuation nasal spray Comments: Reason for Stopping: loratadine 10 mg tablet Comments: Reason for Stopping: PAST MEDICAL HISTORYPast Medical History: Diagnosis Date Anemia Anxiety Chronic pain chronic abdominal pain, chronic left leg pain Esophageal reflux HTN (hypertension) Obesity Ulcerative colitis PAST SURGICAL HISTORYPast Surgical History: Procedure Laterality Date SECTION x5 COLONOSCOPY N/A 03/23/2020 Surgeon: Nitesh Carbajal MD; Location: [facility] ([facility]) [facility] Location ESOPHAGOGASTRODUODENOSCOPY N/A 03/23/2020 Surgeon: Nitesh Carbajal MD; Location: [facility] ([facility]) [facility] Location TUBAL LIGATION PAST SOCIAL HISTORYSocial History Socioeconomic History Marital status: Single Tobacco Use Smoking status: Never Smokeless tobacco: Never Substance and Sexual Activity Alcohol use: No Drug use: No PAST FAMILY HISTORYFamily History Problem Relation Age of Onset Hypertension Mother Depression Mother High cholesterol Mother Anxiety Mother Diabetes Father REVIEW OF SYSTEMSPatient denies any headaches or dizziness, no fevers or chills, no nausea or vomiting, denies any neck pain or stiffness, denies any chest pain or chest pressure or palpitations, denies any shortness of breath, denies any abdominal pain or any changes in bowel or bladder habits, denies any lower extremity swelling, denies any focal motor or sensory deficits, denies any anxiety or depression, and all other systems have been reviewed and are negative except as listed above.PHYSICAL EXAMINATIONVitals: 03/15/23 1100 03/15/23 1200 03/15/23 1300 03/15/23 1509 BP: 129/61 112/55 114/60 103/67 Pulse: 81 69 78 63 Resp: 9 15 16 16 Temp: 36.9 ?C (98.4 ?F) TempSrc: SpO2: 99% 100% 100% Weight: General: Lying comfortably in no signs of any acute distressHEENT: Normocephalic atraumatic, extraocular muscles appear intact, mucosa moist, neck suppleHeart: S1-S2 RRR, no murmurs, rubs or clicksLungs: Clear to auscultation bilaterally, no rhonchi rales or wheezes notedGI: Soft, nontender, nondistended, positive bowel sounds ? quadrantsExtremities: No clubbing, cyanosis or edema notedNeurologic: Cranial nerves II through XII appear grossly intact, no focal motor or sensory deficits notedPsychiatric: No anxiety or depression notedLABS AND IMAGING Recent Results (from the past 24 hour(s)) CBC WITH DIFF Collection Time: 03/15/23 11:14 AM Result Value Ref Range WBC 6.17 4.30 - 11.10 10*3/?L RBC 2.63 (L) 3.93 - 5.25 10*6/?L HGB 4.7 (LL) 11.6 - 15.0 g/dL HCT 17.1 (L) 35.7 - 45.2 % MCV 65.0 (L) 80.6 - 95.5 fL MCH 17.9 (L) 25.9 - 32.8 pg MCHC 27.5 (L) 31.6 - 35.1 g/dL RDW-SD 42.5 39.0 - 49.9 fL RDW-CV 18.1 (H) 12.0 - 15.5 % PLT 275 166 - 358 10*3/?L MPV 10.7 9.5 - 12.9 fL NRBC/100 WBC 0.3 0.0 - 10.0 /100 WBCs NRBC x10^3 0.02 10*3/?L GRAN MAT (NEUT) % 69.7 % IMM GRAN % 0.60 % LYMPH % 21.6 % MONO % 6.0 % EOS % 1.5 % BASO % 0.6 % GRAN MAT x10^3(ANC) 4.30 1.88 - 7.09 10*3/uL IMM GRAN x10^3 0.04 0.00 - 0.06 10*3/uL LYMPH x10^3 1.33 1.32 - 3.29 10*3/uL MONO x10^3 0.37 0.33 - 0.92 10*3/uL EOS x10^3 0.09 0.03 - 0.39 10*3/uL BASO x10^3 0.04 0.01 - 0.07 10*3/uL GIANT PLATELETS Present (A) (none) Type and Screen - ONCE Routine Collection Time: 03/15/23 11:14 AM Result Value Ref Range ABO & RH O Negative IAT Positive COMP. METABOLIC PANEL (58217) Collection Time: 03/15/23 11:14 AM Result Value Ref Range NA 139 135 - 145 mmol/L K 4.0 3.5 - 5.0 mmol/L CL 102 98 - 108 mmol/L CO2 TOTAL 25 23 - 31 mmol/L AGAP 12 2 - 16 BUN 13 7 - 23 mg/dL GLUCOSE 100 70 - 110 mg/dL CREATININE 0.79 0.50 - 1.04 mg/dL TOTAL BILI 0.5 0.1 - 1.1 mg/dL CALCIUM 9.6 8.6 - 10.6 mg/dL T PROTEIN 8.3 (H) 6.3 - 8.2 g/dL ALBUMIN 4.8 3.5 - 5.0 g/dL ALK PHOS 67 34 - 122 U/L ALTv 12 5 - 35 U/L AST(SGOT) 21 13 - 40 U/L eGFR 81.9 mL/min/1.73m2 TOTAL BETA HCG ASSAY Collection Time: 03/15/23 11:14 AM Result Value Ref Range BETA HCG <2.39 Non- female and male patients: <5 mIU/mL RadiologyNo final results containing an impression from the past 48 hours were found.ASSESSMENT AND PLANMaribeth Martinez is a 37 year old female who presents with:#chronic blood loss anemia-patient has been worked up for UC and crohns and does not apparently have any IBD-had an appointment for hysterectomy but now needs a new assistant product manager-transfuse to keep >7-type and screen;-patient needs heme and assistant product manager referral at discharge for bleeding disorder workup and hysterectomy -blood bank called and labs need to be sent for [place]; patient stable but will have her sign a waiver that states if she urgently needs blood we can give cross matched blood here-sending Pt, PTT, INR, fibrinogen, blood smear, urine to check for blood in urine-iron, TIBS, ferritin, transferring sat, retic, B12, folate-limit supplements that thin blood like omegas, NSAIDs, and other "natural" supplementsinsomniaGAD-alprazoplam and lamitogrine-QHS hydrozxyzine and trazadoneDVT ppx: holdGI ppx: protonixCode [place]: [place] [address]-9Bzolriq and physical qbzyDX0394-90-37T65:33:18History and physical noteTXT1.2.840.397278.1.13.104.2.7.2.42276 9|[id number] for patient fktk92821-0Qcbrolk and physical noteLNUT[address] CnqzFrrzzibveMdepvhcxmFXPZ7678349311EPFAPN JZDECYBIJLJBQGEL0589-10-08A19:33:181.2.840 .585320.1.72.3.15|1.2.840.202338.1.13.104. 2.7.2.727879_[id number] Notes Date/Time Note Provider Source 2023-03-18 9882-99-90C54:58:41Formatting of Ginger villaseñor [facility] 10:58:41 this note is different from the RN original.TRANSITIONAL CARE MANAGEMENT ASSESSMENT03/18/2023 Maribeth MartinezHdcgnrnn597986RWrvxx Kevin Martinez is a 37 year old /White female was admitted on 03/15/23 [facility]. She was discharged on 03/16/23 with discharge disposition of HR- Routine Discharge.Admitting Physician: Lorna Rankinischarge Diagnosis: 1. Vaginal bleeding2. Chronic blood loss anemia3. Insomnia4. GADLinked Episodes Type: Episode: Status: Noted: Resolved: Last update: Updated by: TRANSITION OF CARE TCM Active 03/16/2023 03/18/2023 10:48 AM Ginger Bhakta, RN Comments: TCM Tti-rrmr-ym-face outreach documentation:Discharge AssessmentChart Assessed: 03/18/23TCM Outreach Completed: 03/18/23Do you have a few minutes to speak with me about how you are doing at home?: Yes (pt reports she feels "the exact same as I did before I went to the hospital". Pt concerned she ws d/c'd too soon as her Hgb was only 7.2. Advised pt to schedule OP; however, pt reports she "is too sick and busy to do all that". She reports she is the)single mother of 5 and cannot take the heat either. Will send message to MD. Pt states "I'll just lay here and bleed out I guess. I will go back to ER when I feel it get to 4 or 5."Discharge InstructionsDo you understand your at-home instructions?: YesMedicationsHave you filled your prescriptions and do you have them in your home? : N/A (no new meds ordered)Do you know how to take your medications?: YesCan you provide me with the names or descriptions of any kjxi-lhg-tfdstsz or supplements you are currently taking?: YesSuppliesDid you receive applicable home medical supplies/equipment?: N/AFollow Up AppointmentHas a follow up appointment been scheduled?: NoMay I assist with scheduling this appointment?: Patient declined assistanceDo you have any questions about your follow up appointments?: NoAre you able to get to your appointment? Who will be taking you?: [facility] AssistanceHas the home health nurse contacted you since you've been home?: N/ASurvey - RecognitionIs there anything you would like to share about your recent hospitalization, or anyone you would like to recognize?: NoDo you have any suggestions for improvement?: NoDo you have any other questions or concerns at this time?: NoFuture Appointments: 52215-9Gajpbojga encounter MqzrNR1711-79-60D74:02:49Telephone encounter NoteTXT1.2.840.973577.1.13.104.2.7. 2.476278|[id number] for patient [id number] L Deborde RNUT[address] StreetFklfTgr[id number] 4DSUHLCJJXWBTVKGMPZLNBQ0064-78-52A7 1:02:491.2.840.811995.1.72.3.15|1.2 .840.947210.1.13.104.2.7.2.727879_1 [id number] 2023-03-16 5277-07-14P61:46:29Formatting of Maria L Johnson RN [facility] 16:46:29 this note might be different from the original.Problem: PainGoal: Control of pain at or below patient's documented comfort goalOutcome: Adequate for dischargeGoal: Reduction in pain sensationOutcome: Adequate for discharge Problem: AnxietyGoal: Alleviation of anxietyOutcome: Adequate for discharge Problem: Infection RiskGoal: Absence of infectionOutcome: Adequate for discharge 33843-3Estl of care uuokJU4304-76-65F79:46:31Plan of care noteTXT1.2.840.435867.1.13.104.2.7. 2.345530|[id number] for patient nxhf00270-7LgxfUX124687874Txjwp Tomson [id number] 1VHCAMNLSQSXSUTMACPGMZK1711-91-05F2 6:46:311.2.840.393590.1.72.3.15|1.2 .840.253496.1.13.104.2.7.2.727879_1 [id number] 2023-03-15 5092-76-74T14:11:39Formatting of Irwin Collins [facility] 21:11:39 this note might be different from RN the original.Problem: PainGoal: Control of pain at or below patient's documented comfort goalOutcome: Progressing as expectedGoal: Reduction in pain sensationOutcome: Progressing as expected Problem: AnxietyGoal: Alleviation of anxietyOutcome: Progressing as expected Problem: Infection RiskGoal: Absence of infectionOutcome: Progressing as expected 27293-3Bhsx of care mhtzPX9083-43-63M40:11:42Plan of care noteTXT1.2.840.107707.1.13.104.2.7. 2.131844|[id number] for patient nvlr64561-9GqweUL573542140Gzbm S [place] [id number] 7COHUGSZXVMCOEILLCNOPQQ0043-47-22E9 1:11:421.2.840.792811.1.72.3.15|1.2 .840.539253.1.13.104.2.7.2.727879_1 [id number] 2023-03-15 7012-71-73V90:44:28Formatting of Alexia Prieto pos [facility] 19:44:28 this note might be different from RN the original.Blood bank needs waiver form to be signed by CLEARING SUPERVISOR again required by blood bank 82488-9Swlap HsvsHY6730-64-23T16:45:06Nurse NoteTXT1.2.840.811219.1.13.104.2.7. 2.242618|[id number] for patient fttq25514-2CfghIR420050985Ldzzgug C. [place] [id number] 6FJQYAGYVHIPQHYDVMCRSGK8661-77-55V3 9:45:061.2.840.037278.1.72.3.15|1.2 .840.024847.1.13.104.2.7.2.727879_1 [id number] 2023-03-15 8473-85-83E19:43:53Formatting of [facility] 19:43:53 this note might be different from the original.[place] [address]-1Gftuo HjizOS2574-91-15G64:44:25Nurse NoteTXT1.2.840.561760.1.13.104.2.7. 2.292681|[id number] for patient iwgs03675-8DdueMNKTXSKYEV[address] [id number] 3YBBBVMHZKSLRFPMOYGZIKF9660-21-42C2 9:44:251.2.840.217713.1.72.3.15|1.2 .840.576229.1.13.104.2.7.2.727879_1 [id number] 2023-03-15 3738-04-86J34:32:50Formatting of Maria Luisa Briscoe [facility] 14:32:50 this note might be different from RN the original.Nurse Report Report given to SABRINA Butt. Chief complaint, assessment findings, and orders reviewed. Plan of care discussed with both nurses. Patient/family members [place] [address]-0Xjnxfqkqr department YajrIT1033-08-22P30:33:20[facility] NoteTXT1.2.840.000431.1.13.104.2.7. 2.191441|[id number] for patient yzjk79805-0SncoZN881341205Qtcfxfmy M Rivera [address] FujgJsmiifhkoHsqzbpcviERRY104924445 9JUGTXDKXYANBPDPMTUSGRI1094-35-13T7 4:33:201.2.840.861033.1.72.3.15|1.2 .840.485938.1.13.104.2.7.2.727879_1 [id number] 2023-03-15 2474-73-72S23:49:54Formatting of [facility] 13:49:54 this note might be different from the original.Patient admitted to [facility] for diagnosis of vaginal bleeding and anemia.Patient agrees to admission, discussed plan of care with patient.Patient is awake, alert, oriented, resp reg unlabored, color appropriate for race, PIV intact.No adverse reaction to medications administered while in ED.Belongings with patient to unit. 11348-1Amrnkzwrf department KjvoYF7470-98-31X52:50:25[facility] NoteTXT1.2.840.712916.1.13.104.2.7. 2.758971|[id number] for patient eukp47445-2ZmzgXXXERJJFDL[address] BpqsEkbjsmmhpSdajavbraFLXP802674942 9QKWLSNJRHFFSWUBXWPTTAW8235-55-70E0 3:50:251.2.840.100784.1.72.3.15|1.2 .840.039131.1.13.104.2.7.2.727879_1 [id number] 2023-03-15 7416-36-48Q63:49:33Formatting of [facility] 13:49:33 this note might be different from the original.Report given to Zaira with [facility]. 24909-9Ssmaafahc department GlpbEE0460-45-00Y44:49:53[facility] NoteTXT1.2.840.987142.1.13.104.2.7. 2.491346|[id number] for patient qoxc66877-4LlunDDSNAIQFKJ[address] Bawc[id number] 0ZUMWLLVZOKVIJNJITBRPCS5818-30-12Z7 3:49:531.2.840.730472.1.72.3.15|1.2 .840.953133.1.13.104.2.7.2.727879_1 [id number] 2023-03-15 2649-41-11Y12:28:54Formatting of Praveena Hopper [facility] 13:28:54 this note might be different from the original.Spoke with HARVEY Romano ETA 15 min 28613-7Vsgpuyhts department QvpjQT4943-97-83H36:29:09[facility] NoteTXT1.2.840.233725.1.13.104.2.7. 2.821120|[id number] for patient sncr11861-4TczkEP389811175Qgrqr E Rhyne PCTUT[address] StreetIxznOaxhjyavmYnupqlvdtRNBD979638947 9QGRNQOIOZIHGFJOORVCYTF3917-65-23R3 3:29:091.2.840.280731.1.72.3.15|1.2 .840.422508.1.13.104.2.7.2.727879_1 [id number] 2023-03-15 6387-57-86Y72:52:00Formatting of Melissa Quesada RN [facility] 10:52:00 this note might be different from the original.Patient states "I started my period on . Before that I had been bleeding for 3 weeks. Since it started I have been saturating one of the heavy flow pads every 3 hours. I have a history of chronic iron deficiency anemia. I have been feeling light headed. I have had to have blood transfusions in the past" 03923-3Mtwdajsoa department Triage fhwgXT2551-94-82K87:54:17[facility] Triage noteTXT1.2.840.686400.1.13.104.2.7. 2.744763|[id number] for patient fcoh50001-4Zqwzsryzu department [id number] M Hayes RNUT[id number] 7LFFEEGKEVEPFBYUVCDICNK2265-68-74J2 0:54:171.2.840.100674.1.72.3.15|1.2 .840.340054.1.13.104.2.7.2.727879_1 [id number] 2023-03-15 7163-48-50G46:48:00Formatting of [facility] 10:48:00 this note is different from the original.[facility] Emergency Department NotePatient Name: November ArnulfoDate of : 1985 37 year old femaleTreatment Room: NM5/PK9Amhpucs Record Number: [id number] Care Physician: PATIENT DOES NOT HAVE A PCPPatient Escorted by: Self [9]Mode of Arrival: Personal means [1]EMS Treatment Prior to ED Arrival:BACK LINE COOK treatment: None Travel and Exposure Screening:SymptomsDoes patient have any of these symptoms?: (not recorded)Exposure ScreeningHas patient had contact with someone with a communicable disease in the last month?: (not recorded)Diseases exposed to:: (not recorded)Is Patient ?: (not recorded)Exposure Date: (not recorded)Chief Complaint:Chief Complaint Patient presents with Vaginal Bleeding Abdominal Pain History of Present Illness:The patient presents from home for evaluation for feeling weak and fatigued for the past several days. She also complains of heavy vaginal bleeding for the past 1 week. She reports before that she was having rectal bleeding for approximately 3 weeks. She reports has been seen at [facility] in the past and told she is anemic but never qualified for a blood transfusion. She was previously taking iron tablets but has since ran out. She denies any rectal bleeding currently. No nausea vomiting. She states her menstrual cycle was due to start on the 18th of this month and that this is irregular vaginal bleeding for her. She is a history of anemia as well as anxiety and depression. No history of high blood pressure or diabetes. No chest pain or pressure. No shortness of breath.Here for evaluation.Past Medical History/Immunizations:Past Medical History: Diagnosis Date Anemia Anxiety Chronic pain chronic abdominal pain, chronic left leg pain Esophageal reflux HTN (hypertension) Obesity Ulcerative colitis Tetanus received in last 5 years: No Allergies:No Known AllergiesPast Social History:Tobacco Use Never smoked or used smokeless tobacco. Alcohol Use No. Drug Use No. Past Surgical History:Past Surgical History: Procedure Laterality Date SECTION x5 COLONOSCOPY N/A 03/23/2020 Surgeon: Nitesh Carbajal MD; Location: [facility] ([facility]) OR Location ESOPHAGOGASTRODUODENOSCOPY N/A 03/23/2020 Surgeon: Nitesh Carbajal MD; Location: [facility] ([facility]) OR Location TUBAL LIGATION Review of Systems: Review of Systems Constitutional: Negative for chills and fever. Respiratory: Negative for cough and shortness of breath. Cardiovascular: Negative for chest pain. Gastrointestinal: Negative for abdominal pain and vomiting. Genitourinary: Positive for vaginal bleeding. Negative for dysuria. Musculoskeletal: Negative for arthralgias, neck pain and neck stiffness. Skin: Negative for wound. Neurological: Negative for dizziness. Psychiatric/Behavioral: Negative for agitation. Endocrine: Negative for goiter. Physical Exam: ED Triage Vitals [03/15/23 1054] Weight 77.1 kg (170 lb) Actual or estimated Estimated by patient/family report Height BP 130/80 Pulse 86 Resp 20 Temp 37.2 ?C (98.9 ?F) Temp source Oral SpO2 100 % Measured on Room air Physical ExamVitals and nursing note reviewed. Constitutional: Appearance: Normal appearance. She is obese. HENT: Head: Normocephalic and atraumatic. Eyes: Comments: Pale conjunctiva Cardiovascular: Rate and Rhythm: Normal rate and regular rhythm. Pulmonary: Effort: Pulmonary effort is normal. No respiratory distress. Abdominal: Palpations: Abdomen is soft. There is no mass. Tenderness: There is abdominal tenderness (Mild and generalized). Hernia: No hernia is present. Musculoskeletal: Cervical back: Normal range of motion and neck supple. Skin: Coloration: Skin is pale. Neurological: General: No focal deficit present. Mental Status: She is alert and oriented to person, place, and time. Radiology:No orders to display Lab Results:Lab Results CBC WITH DIFF - Abnormal Result Value Ref Range WBC 6.17 4.30 - 11.10 10*3/?L RBC 2.63 (*) 3.93 - 5.25 10*6/?L HGB 4.7 (*) 11.6 - 15.0 g/dL HCT 17.1 (*) 35.7 - 45.2 % MCV 65.0 (*) 80.6 - 95.5 fL MCH 17.9 (*) 25.9 - 32.8 pg MCHC 27.5 (*) 31.6 - 35.1 g/dL RDW-SD 42.5 39.0 - 49.9 fL RDW-CV 18.1 (*) 12.0 - 15.5 % PLT 275 166 - 358 10*3/?L MPV 10.7 9.5 - 12.9 fL NRBC/100 WBC 0.3 0.0 - 10.0 /100 WBCs NRBC x10^3 0.02 10*3/?L GRAN MAT (NEUT) % 69.7 % IMM GRAN % 0.60 % LYMPH % 21.6 % MONO % 6.0 % EOS % 1.5 % BASO % 0.6 % GRAN MAT x10^3(ANC) 4.30 1.88 - 7.09 10*3/uL IMM GRAN x10^3 0.04 0.00 - 0.06 10*3/uL LYMPH x10^3 1.33 1.32 - 3.29 10*3/uL MONO x10^3 0.37 0.33 - 0.92 10*3/uL EOS x10^3 0.09 0.03 - 0.39 10*3/uL BASO x10^3 0.04 0.01 - 0.07 10*3/uL GIANT PLATELETS Present (*) (none) COMP. METABOLIC PANEL (98261) - Abnormal NA 139 135 - 145 mmol/L K 4.0 3.5 - 5.0 mmol/L CL 102 98 - 108 mmol/L CO2 TOTAL 25 23 - 31 mmol/L AGAP 12 2 - 16 BUN 13 7 - 23 mg/dL GLUCOSE 100 70 - 110 mg/dL CREATININE 0.79 0.50 - 1.04 mg/dL TOTAL BILI 0.5 0.1 - 1.1 mg/dL CALCIUM 9.6 8.6 - 10.6 mg/dL T PROTEIN 8.3 (*) 6.3 - 8.2 g/dL ALBUMIN 4.8 3.5 - 5.0 g/dL ALK PHOS 67 34 - 122 U/L ALTv 12 5 - 35 U/L AST(SGOT) 21 13 - 40 U/L eGFR 81.9 mL/min/1.73m2 TYPE AND SCREEN ABO & RH O Negative IAT Positive TOTAL BETA HCG ASSAY BETA HCG <2.39 Non- female and male patients: <5 mIU/mL PREPARE PACKED RBC EKG:If EKG completed, see Procedure Note. Orders and Treatments:Orders Placed This Encounter Procedures CBC WITH DIFF Type and Screen - ONCE Routine COMP. METABOLIC PANEL (89678) TOTAL BETA HCG ASSAY Transfusion Reaction Investigation Urinalysis (Spun) Orders Placed This Encounter Medications acetaminophen (TYLENOL) tablet 650 mg First Provider Eval:ED Events Date/Time Event User Comments 03/15/23 1111 Medical Screening Begins TESSA REYNOSO DO -- 03/15/23 1111 First Provider Evaluation TESSA REYNOSO DO -- No notes of EC Admission Criteria type on file.ED COURSEDiagnosis/Impression as of 03/15/23 1336 Vaginal bleeding Anemia, unspecified type Procedures: ProceduresMDM:Medical Decision MakingThe patient presents from home for evaluation for vaginal bleeding for the past 1 week. She reports prior to that she was having rectal bleeding for 3 weeks. She no longer has any rectal bleeding. No nausea or vomiting. She also complains of feeling weak and fatigued and having no energy. No chest pain or shortness of breath. She has been seen at [facility] for the symptoms in the past and was told she is anemic but never needed a transfusion. She does take iron tablets daily.Vital signs are stable in the ER.She is pale conjunctiva, pale lips and overall generalized pallor.Her abdomen is soft with mild generalized tenderness.Suspect her anemia is low enough where she will require transfusion.We will check laboratory studies including a type and screen.Anticipate admission later on for blood transfusion.1230 - the patient is doing well here in the EC. Her laboratory studies show she is anemic with a hgb of 4.7. The patient was consented for a blood transfusion here in the . She does have a positive antibody screen and will need more testing of her blood before she can be given a transfusion. There is also currently no capacity at [facility]. The transfer center has been notified of her need for a bed at a different campus. 1330 -spoke with Dr. Rankin with the internal medicine service at the [facility] and the patient was accepted for admission for continued management.Problems Addressed:Anemia, unspecified type: acute illness or injuryVaginal bleeding: acute illness or injuryAmount and/or Complexity of Data ReviewedLabs: ordered. Decision-making details documented in ED Course.RiskOTC drugs.Decision regarding hospitalization. Flowsheet Documentation: Scoring Tools: No data recorded Disposition/Condition:ED Disposition ED Disposition [facility] to [facility]/Obs Condition -- Comment -- Discharge Medications:Patient's Medications START taking these medications No medications on file CONTINUE taking these medications which have NOT CHANGED ACETAMINOPHEN-CODEINE 300-30 MG TABLET Take 1 tablet by mouth every 6 (six) hours as needed for Pain (scale 7-10). Indications: acute pain ALPRAZOLAM 2 MG TABLET Take 2 mg by mouth 2 (two) times daily. DOCUSATE 100 MG CAPSULE Take 100 mg by mouth. FERROUS SULFATE 325 MG (65 MG IRON) TABLET Take 1 tablet by mouth 3 (three) times daily with meals. FLUTICASONE 50 MCG/ACTUATION NASAL SPRAY INSTILL 1 SPRAY IN EACH NOSTRIL TWICE A DAY as needed LAMOTRIGINE 25 MG TBDL Take by mouth 2 (two) times daily. LORATADINE 10 MG TABLET Take 10 mg by mouth as needed. METHOCARBAMOL 750 MG TABLET Take 1-2 tablets every 8 hours as needed for back pain ONDANSETRON 4 MG DISINTEGRATING TABLET Take 1 tablet by mouth every 8 (eight) hours as needed for Nausea and Vomiting (N/V). PANTOPRAZOLE 40 MG EC TABLET Take 1 tablet by mouth daily. TRAMADOL 50 MG TABLET Take 1 tablet by mouth every 6 (six) hours as needed for Pain (scale 7-10). Indications: acute pain START taking Modified Medications as Prescribed No medications on file STOP taking these medications No medications on file Follow-up:Electronically signed by: Tessa Reynoso DO03/15/23 1336 [id number] Emergency department [id number]:36:31Physician Emergency department [id number] for patient [id number] department NoteLNUT[address]N[id number] [id number] 3:36:[id number]|1.2 [id number]
[2023-06-24] MEDS ORDERED: DIAZEPAM 5 MG TABLET ONE (07:20)
[2023-06-24 07:43] LABS: Absolute Lymphocytes (CBC) 1.1 K/uL (0.7-4.9); Hematocrit 35.4 % (36.0-45.0); Lymphocytes % 13.2 % (15.3-44.8); MCV 82.8 fL (80-100); MPV 8.9 fL (7.6-11.3); Platelets 263 thou/uL (152-406); RBC Red Blood Cell Count 4.27 M/uL (3.86-4.86)
[2023-06-24 08:02] LABS: Potassium 3.6 mEq/L (3.5-5.1)
[2023-06-24] MEDS ORDERED: KETOROLAC 30 MG/ML INJ ONE (08:37)
[2023-06-24 10:27] LABS: Specific Gravity > 1.030 (1.005-1.030); Urine Bacteria <20 /HPF (<20); Urine Bilirubin NEGATIVE (Negative); Urine Blood Negative (Negative); Urine Clarity Clear (Clear); Urine Color Light-Yellow (Yellow); Urine Glucose NEGATIVE (Negative); Urine Mucus Slight /HPF (None Seen); Urine Protein 1+ (Negative); Urine Urobilinogen Normal (Normal)
[2023-06-24 10:28] LABS: Barbiturates NEGATIVE (NEGATIVE); Benzodiazepines POSITIVE (NEGATIVE); Cocaine POSITIVE (NEGATIVE); METHAMPHETAM NEGATIVE (NEGATIVE); Methadone NEGATIVE (NEGATIVE); Opiates NEGATIVE (NEGATIVE); Phencyclidine NEGATIVE (NEGATIVE); THC Cannibis POSITIVE (NEGATIVE)
[2023-06-24 10:41] LABS: Specific Gravity > 1.030 (1.005-1.030)
--- NOTE | 2023-06-24 10:42 | EDPHYS ---
Physician Documentation [facility] Name: Maribeth Arredondo Age: 37 yrs Sex: Female : 1985 Arrival Date: 06/24/2023 Time: 06:59 Bed 15 Private MD: ED Physician Bruno Bueno HPI: 06/24 07:03 This 37 yrs old Female presents to ER via Unassigned with complaints of rn Seizure. 07:07 The patient presents after having a possible seizure episode. Character of seizure(s): rn Incontinence: none, Apnea: the patient did not experience apnea, Circulation: the patient did not experience evidence of pulse disturbance. Seizure onset: just prior to arrival. Associated injury: The patient did not suffer any apparent associated injury. Current symptoms: Currently, the patient is not experiencing any symptoms. The patient has experienced similar episodes in the past. The patient has not recently seen a physician. EMS reports patient with possible seizure at home. No witnessed seizure activity. Patient reports has had seizures before but tends to happen when she gets anxious and when she runs out of her Xanax. Normally takes Xanax twice a day for 10 years. Last took Xanax yesterday. No fever. No recent illness. Reports chronic anemia but no bleeding from vagina or rectum at this time. No chest pain.. 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 - Social history:: Smoking status: Patient denies any tobacco usage or history of. - Family history:: not pertinent. - Hospitalizations: : No recent hospitalization is reported. ROS: 07:07 Constitutional: Negative for fever, chills, and weight loss, Eyes: Negative for injury, rn pain, redness, and discharge, ENT: Negative for injury, pain, and discharge, Neck: Negative for injury, pain, and swelling, Cardiovascular: Negative for chest pain, palpitations, and edema, Respiratory: Negative for shortness of breath, cough, wheezing, and pleuritic chest pain, Abdomen/GI: Negative for abdominal pain, nausea, vomiting, diarrhea, and constipation, Back: Negative for injury and pain, MS/Extremity: Negative for injury and deformity, Skin: Negative for injury, rash, and discoloration, Neuro: Positive for seizure Exam: 07:07 Constitutional: This is a well developed, well nourished patient who is awake, alert, rn and in no acute distress. Head/Face: Normocephalic, atraumatic. Eyes: Pupils equal round and reactive to light, extra-ocular motions intact. ENT: No oral trauma or tongue laceration Neck: No Meningismus. Cardiovascular: Regular rate and rhythm. No pulse deficits. Respiratory: No increased work of breathing, no retractions or nasal flaring. Abdomen/GI: Soft, non-tender Skin: Warm, dry MS/ Extremity: Pulses equal, no cyanosis. Neuro: Awake and alert, GCS 15. Cranial nerves II-XII grossly intact. Motor strength 5/5 in all extremities. Sensory grossly intact. Cerebellar exam normal. Vital Signs: 07:05 BP 155 / 99; Pulse 98; Resp 16; Temp 97; Pulse Ox 98% ; ko1 07:37 BP 162 / 98; Pulse 90; Resp 18; Pulse Ox 99% ; ko1 09:05 BP 154 / 90; Pulse 85; Resp 14; Pulse Ox 98% ; ko1 10:43 BP 148 / 86; Pulse 87; Resp 16; Pulse Ox 99% ; ko1 Cascade Coma Score: 07:35 Eye Response: spontaneous(4). Motor Response: obeys commands(6). Verbal Response: ko1 oriented(5). Total: 15. MDM: 07:02 Patient medically screened. rn 10:39 Differential diagnosis: seizure, Drug use, withdrawal. Differential diagnosis:. Data rn reviewed: vital signs, nurses notes, lab test result(s), and as a result, I will discharge patient. Counseling: I had a detailed discussion with the patient and/or guardian regarding the historical points, exam findings, and any diagnostic results supporting the discharge/admit diagnosis, lab results, the need for outpatient follow up, to return to the emergency department if symptoms worsen or persist or if there are any questions or concerns that arise at home. Response to treatment: the patient's symptoms have markedly improved after treatment, the patient's symptoms have resolved after treatment, the patient's condition has returned to base line, the patient is now symptom free, and as a result, I will discharge patient. Special discussion: I discussed with the patient/guardian in detail that at this point there is no indication for admission to the hospital. It is understood, however, that if the symptoms persist or worsen the patient needs to return immediately for re-evaluation. Based on the history and exam findings, there is no indication for further emergent testing or inpatient evaluation. I discussed with the patient/guardian the need to see the neurologist for further evaluation of the symptoms. I discussed with the patient/guardian the need to see the primary care provider for further evaluation of the symptoms. ED course: No acute findings and workup. Most likely dependent on benzos and/or drug use with withdrawal symptoms. Will not refill her Xanax but will give her a capful of Valium tablets until she can get in with her psychiatrist for a new prescription. I have personally reviewed all of the results, including but not limited to blood tests deemed necessary to safely discharge this patient at this time. All results given to and printed out for patient. I personally went over all the results with the patient and answered all questions. Patient will follow-up with PCP and or specialist as discussed. Return precautions given and understood.. 10:52 ED course: Patient states this is his third ER visit, was not happy that the other ERs rn did not help her and prescribed benzo so came here.. 06/24 07:02 Order name: CBC with Diff; Complete Time: 07:48 rn 06/24 07:02 Order name: Basic Metabolic Panel; Complete Time: 08:25 rn 06/24 07:02 Order name: Test, Urine; Complete Time: 10:39 rn 06/24 07:02 Order name: Urinalysis w/ reflexes; Complete Time: 10:43 rn 06/24 07:02 Order name: Urine Drug Screen; Complete Time: 10:39 rn 06/24 07:02 Order name: IV Start; Complete Time: 07:32 rn Administered Medications: 07:09 Drug: Diazepam PO 5 mg PO once Route: PO; ko1 08:26 Drug: Ketorolac IVP 15 mg IVP once Route: IVP; Site: left antecubital; ko1 Disposition Summary: 06/24/23 10:41 Discharge Ordered Notes: Location: Home rn Problem: new rn Symptoms: have improved rn Condition: Stable rn Diagnosis - Other seizures rn - Underdosing of benzodiazepines rn Followup: rn - With: Private Physician - When: As needed - Reason: Recheck today's complaints, Re-evaluation by your physician Discharge Instructions: - Discharge Summary Sheet rn - Seizure, Adult rn - Benzodiazepine Withdrawal rn Forms: - Medication Reconciliation Form rn - Thank You Letter rn - Antibiotic rn patient care - Prescription Opioid Use rn - Patient Portal Instructions rn - Leadership Thank You Letter rn Prescriptions: - Valium 2 mg Oral tablet - take 1 tablet ORAL route 1 to 2 times per day As needed; 5 tablet; Refills: 0, rn Product Selection Permitted Signatures: Dispatcher [employer] EDBruno Guzman MD MD rn Oliver, Kathy, RN RN ko1 Corrections: (The following items were deleted from the chart) 07:36 07:35 PMHx: Anxiety; ko1 ko1 07:36 07:35 PMHx: ulcerative colitis; "ruled out"; ko1 ko1 07:36 07:35 PMHx: Anemia; ko1 ko1 07:36 07:35 PMHx: Panic Attacks; ko1 ko1 07:36 07:35 PMHx: PTSD; ko1 ko1 07:36 07:35 PMHx: "Chronic iron deficient anemia with unknown bleed"; ko1 ko1 07:36 07:35 PSHx: section; X5; ko1 ko1
--- NOTE | 2023-06-24 10:42 | ER ---
Nurse's Notes [facility] [place] Name: Maribeth Arredondo Age: 37 yrs Sex: Female : 1985 Arrival Date: 06/24/2023 Time: 06:59 Bed 15 Private MD: Diagnosis: Other seizures;Underdosing of benzodiazepines Presentation: 06/24 07:05 Chief complaint: EMS states: called for seizure, boyfriend said it lasted 3-5 min and ko1 was full body shaking. Last seizure was at the beginning of this year. Patient states she takes xanax twice a day for seizure prevention. Coronavirus screen: At this time, the client does not indicate any symptoms associated with coronavirus-19. Ebola Screen: No symptoms or risks identified at this time. Initial Sepsis Screen: Does the patient meet any 2 criteria? No. Patient's initial sepsis screen is negative. Does the patient have a suspected source of infection? No. Patient's initial sepsis screen is negative. Risk Assessment: Do you want to hurt yourself or someone else? Patient reports no desire to harm self or others. Onset of symptoms was June 24, 2023. 07:05 Method Of Arrival: EMS: [facility] ko1 07:05 Acuity: SINGH 3 ko1 Triage Assessment: 07:35 General: Appears distressed, uncomfortable, Behavior is cooperative, appropriate for ko1 age, anxious. Pain: Complains of pain in all over. Neuro: Reports seizure prior to arrival. 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 - Social history:: Smoking status: Patient denies any tobacco usage or history of. - Family history:: not pertinent. - Hospitalizations: : No recent hospitalization is reported. Screenin:37 [facility] ED Fall Risk Assessment (Adult) History of falling in the last 3 months, ko1 including since admission No falls in past 3 months (0 pts) Confusion or Disorientation No (0 pts) Intoxicated or Sedated No (0 pts) Impaired Gait No (0 pts) Mobility Assist Device Used No (0 pt) Altered Elimination No (0 pt) Score/Fall Risk Level 0 - 2 = Low Risk Oriented to surroundings, Maintained a safe environment, Educated pt \\T\\ family on fall prevention, incl call for assistance when getting out of bed, Assessed \\T\\ reinforced patient's understanding of fall precautions, Provided non-skid footwear, Hourly rounding (assess needs \\T\\ fall precautionary measures) done, Used ambulatory aids as needed (educated on \\T\\ assisted with), Used gait belt as appropriate. Abuse screen: Denies threats or abuse. Denies injuries from another. Nutritional screening: No deficits noted. Tuberculosis screening: No symptoms or risk factors identified. Assessment: 07:37 Neuro: Seizure activity reported prior to arrival. Seizure lasted approximately 3 ko1 minutes. Cardiovascular: No deficits noted. Respiratory: No deficits noted. GI: No deficits noted. : No deficits noted. EENT: No deficits noted. Derm: No deficits noted. Musculoskeletal: Reports pain in all over. Vital Signs: 07:05 BP 155 / 99; Pulse 98; Resp 16; Temp 97; Pulse Ox 98% ; ko1 07:37 BP 162 / 98; Pulse 90; Resp 18; Pulse Ox 99% ; ko1 09:05 BP 154 / 90; Pulse 85; Resp 14; Pulse Ox 98% ; ko1 10:43 BP 148 / 86; Pulse 87; Resp 16; Pulse Ox 99% ; ko1 Juan Coma Score: 07:35 Eye Response: spontaneous(4). Motor Response: obeys commands(6). Verbal Response: ko1 oriented(5). Total: 15. ED Course: 07:01 Patient arrived in ED. jj6 07:02 Bruno Bueno MD is Attending Physician. rn 07:03 Daphne Aguilar, SABRINA is Primary Nurse. ko1 07:32 Basic Metabolic Panel Sent. bc6 07:32 CBC with Diff Sent. bc6 07:32 Inserted saline lock: 22 gauge in left antecubital area, using aseptic technique. Blood bc6 collected. 07:34 Triage completed. ko1 07:35 Arm band placed on right wrist. Patient placed in an exam room, on a stretcher, on ko1 monitor technician, on pulse oximetry, Patient notified of wait time. 07:37 Patient has correct armband on for positive identification. Bed in low position. Call ko1 light in reach. Side rails up X2. Seizure precautions initiated. Client placed on continuous cardiac and pulse oximetry monitoring. NIBP monitoring applied. manager monitoring on. Door closed. Noise minimized. Lights dimmed. Warm blanket given. 10:08 Test, Urine Sent. ko1 10:08 Urinalysis w/ reflexes Sent. ko1 10:08 Urine Drug Screen Sent. ko1 10:43 No provider procedures requiring assistance completed. IV discontinued, intact, ko1 bleeding controlled, No redness/swelling at site. Pressure dressing applied. 10:43 Provided Education on: na. ko1 Administered Medications: 07:09 Drug: Diazepam PO 5 mg PO once Route: PO; ko1 08:26 Drug: Ketorolac IVP 15 mg IVP once Route: IVP; Site: left antecubital; ko1 Medication: 10:43 VIS not applicable for this client. ko1 Outcome: 10:41 Discharge ordered by . rn 10:43 Discharged to home ambulatory, with friend, koHieu 10:43 Condition: improved 10:43 Discharge instructions given to patient, friend, Instructed on discharge instructions, follow up and referral plans. medication usage, Demonstrated understanding of instructions, follow-up care, medications, Prescriptions given X 1, 10:51 Patient left the ED. ko1 Signatures: Bruno Bueno MD MD rn Jeffries, Jennifer jj6 Daphne Aguilar RN RN koVida Vazquez bc6 Corrections: (The following items were deleted from the chart) 07:36 07:35 PMHx: Anxiety; ko1 ko1 07:36 07:35 PMHx: ulcerative colitis; "ruled out"; ko1 ko1 07:36 07:35 PMHx: Anemia; ko1 ko1 07:36 07:35 PMHx: Panic Attacks; ko1 ko1 07:36 07:35 PMHx: PTSD; ko1 ko1 07:36 07:35 PMHx: "Chronic iron deficient anemia with unknown bleed"; ko1 ko1 07:36 07:35 PSHx: section; X5; ko1 ko1 08:26 08:25 LMP 06/14/2023, unknown ko1 ko1
[2023-06-24 10:55] VITALS: TEMP 97
[2023-06-24 11:00] VITALS: BP 148/86; O2SAT 99
== END 2023-06-24 10:51 | disposition home or self-care (01) ==
LOC: ER 06:59
DX: R56.9 Unspecified convulsions (principal); T42.4X6A Underdosing of benzodiazepines, initial encounter; Z91.138 Patient's unintentional underdosing of medication regimen for other reason; F41.9 Anxiety disorder, unspecified
CPT/HCPCS: 36415; 80048; 80307; 81001; 81025; 85025; 96374; 99285